=== PATIENT | male | born 1950 | race Two or more races ===

== ENCOUNTER 2016-10-29 07:46 | Inpatient (IN) | payer OTHER ==
[~2016-10-29] VITALS: Ht 170.2 cm; Wt 83.5 kg
[~2016-10-29 07:46] MED LIST: AMLO2.5T78 PO; GLIM1TAB2 PO; LOSA50TA2 PO
[2016-10-29] MEDS ORDERED: ONDANSETRON 4 MG INJ IV STA (08:10)
--- NOTE | 2016-10-29 08:33 | ERD ---
ER Documentation Chief Complaint Date/Time DATE: 10/29/16 TIME: 08:31 Chief Complaint pt bib with c/o hemrroid pain x 3 days HPI 66-year-old male with history of diabetes, leukemia presents with rectal pain for the past 3 weeks, worsening over the last 3 days. Patient reports diffuse pain that starts at the top of the buttocks and goes towards the rectum. Pain is not improving with ibuprofen. He is reported tactile fevers. His leukemia has been treated by chemotherapy in the past, and his primary doctor just told that he has returned and he has not been open to any treatment again. He denies abdominal pain. ROS All systems reviewed and are negative except as per history of present illness. Medications Home Meds Active Scripts Losartan Potassium* (Cozaar*) 50 Mg Tablet, 50 MG PO BID for 30 Days, TAB 3 Refills Prov:SOBIA NUNEZ 11/12/15 Reported Medications Amlodipine Besylate* (Amlodipine Besylate*) 2.5 Mg Tablet, 2.5 MG PO BID, #30 TAB 12/17/15 Glimepiride* (Glimepiride*) 1 Mg Tablet, 1 MG PO 1-2 TIMES DAILY Y for ELEVATED GLUCOSE, TAB 10/16/15 Allergies Allergies: Coded Allergies: No Known Allergy (Unverified , 12/17/15) PMhx/Soc History of Surgery: Yes (tonsilectomy, back fat removal) Anesthesia Reaction: No Hx Neurological Disorder: No Hx Respiratory Disorders: No Hx Cardiac Disorders: Yes (HTN) Hx Psychiatric Problems: Yes (anxiety) Hx Miscellaneous Medical Probl: Yes (AML) Hx Alcohol Use: No Hx Substance Use: No Hx Tobacco Use: No Physical Exam Vitals Vital Signs Date Time Temp Pulse Resp B/P Pulse Ox O2 Delivery O2 Flow Rate FiO2 10/29/16 10:16 73 18 130/73 96 Room Air 10/29/16 07:48 98.3 64 18 129/64 100 Physical Exam General: Well-developed, well-nourished. The patient appears in no acute distress. HEENT: Head is normocephalic, atraumatic. No scleral icterus. Neck: Supple. Nontender. Lungs: Clear to auscultation. Normal air movement. Heart: Regular rate and rhythm. S1 and S2 are normal. No murmurs, gallops, or rubs. Abdomen: Soft, nontender, nondistended. Bowel sounds are normoactive. Rectal: Multiple growths around the rectum, the 1 o'clock position is tender and swollen. It is approximately 3 cm from the rectum. Extremities: No clubbing or cyanosis. Normal pulses. Moving extremities x 4. No weakness. Neurologic: Alert and oriented 3. No focal deficits. Skin: Normal turgor. No rash or lesions. Result Diagram: 10/29/16 0826 10/29/16 0826 Results 24 hrs Laboratory Tests Test 10/29/16 08:26 10/29/16 09:05 White Blood Count 14.410^3/ul Red Blood Count 3.0610^6/ul Hemoglobin 10.4g/dl Hematocrit 29.0% Mean Corpuscular Volume 94.8fl Mean Corpuscular Hemoglobin 34.0pg Mean Corpuscular Hemoglobin Concent 35.9g/dl Red Cell Distribution Width 15.9% Platelet Count 1010^3/UL Mean Platelet Volume 12.1fl Neutrophils % % Segmented Neutrophils % (Manual) 14% Band Neutrophils % (Manual) 8% Lymphocytes % % Lymphocytes % (Manual) 21% Reactive Lymphocytes % (Manual) 3% Monocytes % % Monocytes % (Manual) 2% Eosinophils % % Basophils % % Metamyelocytes % (manual) 1% Myelocytes % (Manual) 1% Promyelocytes % (Manual) 1% Blast Cells % (Manual) 50% Nucleated Red Blood Cells % 0.0/100WBC Neutrophils # (Manual) 2.210^3/ul Band Neutrophils # 1.110^3/ul Absolute Lymphocytes (Manual) 3.010^3/ul Lymphocytes # 10^3/ul Reactive Lymphocytes # 0.410^3/ul Monocytes # 10^3/ul Absolute Monocytes (Manual) 0.210^3/ul Eosinophils # 10^3/ul Basophils # 10^3/ul Metamyelocytes # 0.110^3/ul Myelocytes # 0.110^3/ul Promyelocytes # 010^3/ul Nucleated Red Blood Cells # 10^3/ul Pathologist Review (Hematology) Polychromasia 3+ Anisocytosis 2+ Microcytosis 2+ Path Consult Signing Pathologist RUTH ANN BEE MD Sodium Level 136mmol/L Potassium Level 3.6mmol/L Chloride Level 97mmol/L Carbon Dioxide Level 27mmol/L Anion Gap 16 Blood Urea Nitrogen 15mg/dl Creatinine 1.01mg/dl Glucose Level 183mg/dl Calcium Level 9.6mg/dl Total Bilirubin 0.7mg/dl Direct Bilirubin 0.00mg/dl Indirect Bilirubin 0.7mg/dl Aspartate Amino Transf (AST/SGOT) 19IU/L Alanine Aminotransferase (ALT/SGPT) 30IU/L Alkaline Phosphatase 74IU/L Total Protein 8.1g/dl Albumin 4.3g/dl Globulin 3.80g/dl Albumin/Globulin Ratio 1.13 Urine Color YELLOW Urine Clarity CLEAR Urine pH 6.0 Urine Specific [place] 1.010 Urine Ketones NEGATIVEmg/dL Urine Nitrite NEGATIVEmg/dL Urine Bilirubin NEGATIVEmg/dL Urine Urobilinogen NEGATIVEmg/dL Urine Leukocyte Esterase NEGATIVELeu/ul Urine Microscopic RBC 2/HPF Urine Microscopic WBC 1/HPF Urine Bacteria FEW/HPF Urine Mucus FEW/HPF Urine Hemoglobin 1+mg/dL Urine Glucose NEGATIVEmg/dL Urine Total Protein NEGATIVEmg/dl Current Medications Medications (Trade) Dose Ordered Sig/Zack Route PRN Reason Start Time Stop Time Status Last Admin Dose Admin Morphine Sulfate (morphine) 4 mg ONCE STAT IV 10/29/16 08:10 10/29/16 08:12 DC 10/29/16 09:30 Ondansetron HCl (Zofran Inj) 4 mg ONCE STAT IV 10/29/16 08:10 10/29/16 08:12 DC 10/29/16 08:28 IV Flush 10 ml 10 ml STK-MED ONCE .ROUTE 10/29/16 09:42 10/29/16 09:43 DC Sodium Chloride (NS) 100 ml @ ud STK-MED ONCE .ROUTE 10/29/16 09:42 10/29/16 09:43 DC Iodixanol (Visipaque Locm) 100 ml STK-MED ONCE .ROUTE 10/29/16 09:42 10/29/16 09:43 DC Lidocaine (Xylocaine 1% (Mdv) 20 ml) 20 ml ONCE ONCE SC 10/29/16 10:30 10/29/16 10:31 DC DIAGNOSTIC IMAGING REPORT Patient: GLO SHAW : 1950 Age: 66 Sex: M MR #: [id number] DOS: 10/29/16 0810 Ordering MD: OSITO PIERRE PA-C Location: [facility] Room/Bed: PROCEDURE: CT Abdomen and Pelvis with contrast. CLINICAL INDICATION: Rectal pain TECHNIQUE: CT of the abdomen and pelvis was performed on a multi-detector scanner following the uncomplicated IV administration of 100 cc of Visipaque 320. Coronal and sagittal images were reformatted from the axial data set. One or more of the following dose reduction techniques were used: automated exposure control, adjustment of the mA and/or kV according to patient size, use of iterative reconstruction technique. CTDI = 16.14 mGy. DLP = 1042.78 mGy- cm. COMPARISON: CT, 11/21/2015 FINDINGS: CT abdomen: The lung bases are clear. The heart size is normal, without pericardial effusion. Coronary arterial calcifications are noted. Hepatomegaly (21 cm) and splenomegaly (18 cm) are noted, without evidence of focal mass. Gallbladder , biliary tree, pancreas, adrenal glands and kidneys are unremarkable except for benign renal cysts. There is no urolithiasis or obstructive uropathy. The stomach is grossly unremarkable. There is no abdominal aortic aneurysm or dissection. Aortic vascular calcifications are present. There is no retroperitoneal lymphadenopathy. The roosevelt hepatis region is clear. CT pelvis: Posterior perianal abscess is identified, measuring approximately 2.7 x 2.7 x 3.0 cm (3-193). There is no bowel obstruction, free intraperitoneal air, or evidence of intraperitoneal abscess. The appendix is well visualized and normal. There is no diverticulosis, diverticulitis or colitis. Urinary bladder is grossly unremarkable. Prostate is mildly enlarged. No pelvic mass, free fluid or lymphadenopathy is identified. The surrounding osseous structures are remarkable for degenerative enthesopathy of the spine. No osteolytic or osteoblastic lesion is detected. IMPRESSION: 1. Posterior perianal abscess is identified, measuring approximately 3.0 cm in maximal dimension. 2. Hepatosplenomegaly is again noted - splenic size appears mildly increased when compared to the prior CT. 3. Coronary arterial and aortoiliac atherosclerotic calcifications are present. 4. Prostate is mildly enlarged - correlate with PSA level. RPTAT: AA .Lenny Leggett MD, Date Time Electronically viewed and signed by .Lenny Leggett MD, MD on 10/29/2016 10: 16 .R/ CC: OSITO PIERRE PA-C Procedures/[facility] ED course: Patient had an IV line established, blood was obtained, he was given Zofran 4 mg IV. He was given Zosyn as well as vancomycin for antibacterial coverage per Medical decision m[age]-year-old male comes in with rectal pain for 3 weeks now, presents with a perianal abscess seen on CT scan approximately 3 cm in size. Patient has recurrent AML, with severe thrombocytopenia with platelet level at 10,000. Due to this, and risk of infection, risk of bleeding, I believe that the patient further benefit from hospitalization for IV antibiotics. This was discussed with my attending physician Dr. Neal who agrees. The case was reviewed and discussed with Dr. Neal who agrees with the plan of care including labs, treatment, and advanced imaging as appropriate. Departure Diagnosis: Primary Impression: AML (acute myeloblastic leukemia) Additional Impressions: Perianal abscess Thrombocytopenia Condition: Fair OSITO PIERRE PA-C Oct 29, 2016 08:28
[2016-10-29 08:53] LABS: ABNORMAL IP MESSAGE 1; HEMOGLOBIN 10.4 g/dl (14.0-18.0); MEAN CORPUSCULAR HGB CONC 35.9 g/dl (32.0-37.0); MEAN CORPUSCULAR VOLUME 94.8 fl (82.0-101.0); MEAN PLATELET VOLUME 12.1 fl (7.4-10.4); POSITIVE DIFF @See below; RED BLOOD COUNT 3.06 10^6/ul (4.70-6.10); RED CELL DISTRIBUTION WIDTH 15.9 % (11.5-14.5); WHITE BLOOD COUNT 14.4 10^3/ul (4.8-10.8)
[2016-10-29] MEDS: morphine 4 MG/ML VIAL IV STA ×2 (08:54→09:30)
[2016-10-29 09:03] LABS: PLATELET COUNT 10 10^3/UL (140-415)
[2016-10-29 09:25] LABS: ALBUMIN 4.3 g/dl (3.3-4.9); ALBUMIN/GLOBULIN RATIO 1.13; BILIRUBIN,INDIRECT 0.7 mg/dl (0-1.1); BILIRUBIN,TOTAL 0.7 mg/dl (0.2-1.3); CALCIUM 9.6 mg/dl (8.4-10.2); CREATININE 1.01 mg/dl (0.61-1.24); POTASSIUM 3.6 mmol/L (3.5-5.1); TOTAL PROTEIN 8.1 g/dl (6.1-8.1)
[2016-10-29 09:27] LABS: ADD UMIC YES; UR ASCORBIC ACID NEGATIVE (NEGATIVE); UR BACTERIA FEW /HPF (NONE SEEN); UR BILIRUBIN (Dip) NEGATIVE (NEGATIVE); UR BLOOD (Dip) 1+ mg/dL (NEGATIVE); UR CLARITY CLEAR (CLEAR); UR COLOR YELLOW (YELLOW); UR GLUCOSE (Dip) NEGATIVE (NEGATIVE); UR KETONES (Dip) NEGATIVE (NEGATIVE); UR LEUKOCYTE ESTERASE (Dip) NEGATIVE Leu/ul (NEGATIVE); UR MUCUS FEW /HPF (NONE SEEN); UR NITRITE (Dip) NEGATIVE (NEGATIVE); UR RBC 2 /HPF (0-5); UR TOTAL PROTEIN (Dip) NEGATIVE (NEGATIVE); UR UROBILINOGEN (Dip) NEGATIVE (NEGATIVE)
[2016-10-29] MEDS ORDERED: IODIXANOL LOCM 100 ML BTL ONE (09:42)
[2016-10-29] MEDS ORDERED: SOD CHLORIDE 0.9% 100 ML ONE (09:42)
[2016-10-29 10:10] LABS: ANISOCYTOSIS 2+ (0-0); BLAST% (M) 50 % (0-0); METAMYELOCYTES %M 1 % (0-0); MICROCYTOSIS 2+ (0-0); MONOCYTES % (M) 2 % (0-11); MYELOCYTES % (M) 1 % (0-0); POLYCHROMASIA 3+ (0-0); PROMYELOCYTES #M 0 10^3/ul (0-0); PROMYELOCYTES % (M) 1 % (0-0); REACTIVE LYMPHOCYTES% (M) 3 % (0-0)
--- NOTE | 2016-10-29 10:17 | RADRPT ---
PROCEDURE: CT Abdomen and Pelvis with contrast. CLINICAL INDICATION: Rectal pain TECHNIQUE: CT of the abdomen and pelvis was performed on a multi-detector scanner following the un complicated IV administration of 100 cc of Visipaque 320. Coronal and sagittal images were reformat jose from the axial data set. One or more of the following dose reduction techniques were used: auto mated exposure control, adjustment of the mA and/or kV according to patient size, use of iterative reconstruction technique. CTDI = 16.14 mGy. DLP = 1042.78 mGy-cm. COMPARISON: CT, 11/21/2015 FINDINGS: CT abdomen: The lung bases are clear. The heart size is normal, without pericardial effusion. Coronary arteria l calcifications are noted. Hepatomegaly (21 cm) and splenomegaly (18 cm) are noted, without eviden ce of focal mass. Gallbladder, biliary tree, pancreas, adrenal glands and kidneys are unremarkable except for benign renal cysts. There is no urolithiasis or obstructive uropathy. The stomach is gr ossly unremarkable. There is no abdominal aortic aneurysm or dissection. Aortic vascular calcifications are present. T here is no retroperitoneal lymphadenopathy. The roosevelt hepatis region is clear. CT pelvis: Posterior perianal abscess is identified, measuring approximately 2.7 x 2.7 x 3.0 cm (3-193). There is no bowel obstruction, free intraperitoneal air, or evidence of intraperitoneal abscess. The roger endix is well visualized and normal. There is no diverticulosis, diverticulitis or colitis. Urinar y bladder is grossly unremarkable. Prostate is mildly enlarged. No pelvic mass, free fluid or lymp hadenopathy is identified. The surrounding osseous structures are remarkable for degenerative enthesopathy of the spine. No os teolytic or osteoblastic lesion is detected. IMPRESSION: 1. Posterior perianal abscess is identified, measuring approximately 3.0 cm in maximal dimension. 2. Hepatosplenomegaly is again noted - splenic size appears mildly increased when compared to the p rior CT. 3. Coronary arterial and aortoiliac atherosclerotic calcifications are present. 4. Prostate is mildly enlarged - correlate with PSA level. RPTAT: AA .Lenny Leggett MD, MD Date Time Electronically viewed and signed by .Lenny Leggett MD, on 10/29/2016 10:16 .R/
[2016-10-29] MEDS: LIDOCAINE 1% (MDV) 20 ML INJ SC ONE ×2 (10:30→10:31)
[2016-10-29] MEDS ORDERED: PIPER-TAZO 3.375 GM IV (PMX) 100 ML IVPB ONE (11:00)
[2016-10-29] MEDS ORDERED: VANCOMYCIN 1 GM (PMX) 250 ML IVPB ONE (11:00)
[2016-10-29 11:08] LABS: INR 1.07; PROTIME 13.9 Sec (12.2-14.2); PT RATIO 1.1
[2016-10-29 11:09] LABS: PARTIAL THROMBOPLASTIN TIME 29.9 Sec (25.0-35.0)
[2016-10-29] MEDS ORDERED: ACETAMINOPHEN 325 MG TAB PO PRN (12:00)
[2016-10-29] MEDS ORDERED: ONDANSETRON 4 MG INJ IV PRN ×2 (12:00→15:00)
[2016-10-29] MEDS ORDERED: NACL 0.9% 3 ML SYG IV SCH (15:00)
[2016-10-29] MEDS ORDERED: HYDROCODONE/APAP (5/325) TAB PO PRN ×2 (15:00)
[2016-10-29] MEDS ORDERED: MAGNESIUM HYDROXIDE 30ML CUP PO PRN (15:00)
[2016-10-29] MEDS ORDERED: VANCOMYCIN IV PER PHARMACY XX SCH (15:00)
[2016-10-29] MEDS ORDERED: morphine 2 MG INJ IV PRN (15:00)
[2016-10-29] MEDS ORDERED: GLUCOSE GEL 15 GRAM TUBE PO PRN ×2 (15:30)
[2016-10-29] MEDS ORDERED: morphine 2 MG INJ IV ONE (15:30)
[2016-10-29] MEDS ORDERED: GLUCOSE GEL 15 GRAM TUBE BUCCAL PRN (15:30)
[2016-10-29] MEDS ORDERED: DEXTROSE 50% 50 ML SYRINGE IV PRN ×2 (15:30)
[2016-10-29] MEDS ORDERED: GLUCAGON 1 MG INJ IM PRN (15:30)
[2016-10-29] MEDS ORDERED: morphine 2 MG INJ ONE (15:34)
[2016-10-29 15:37] VITALS: TEMP 99
--- NOTE | 2016-10-29 15:47 | HP ---
Date/Time of Note Date/Time of Note DATE: 10/29/16 TIME: 15:34 Assessment/Plan VTE Prophylaxis VTE Prophylaxis Intervention: contraindicated VTE Contraindication Reason: thrombocytopenia Assessment/Plan Assessment/Plan 66-year-old male with: 1. Posterior perianal abscess, approximately 3 cm on CAT scan. Patient currently febrile, he is also immunosuppressed due to recurrence of AML with blast crisis currently and severe thrombocytopenia Blood cultures already drawn in ED, broad-spectrum antibiotics vancomycin and Zosyn on board. From the medical standpoint, patient may proceed with incision and drainage tomorrow, he is at low cardiovascular risk as he does not have a history of CAD , hypertension is well controlled, no history of pulmonary disease. Chest x- ray and EKG have been ordered for preop, but patient may proceed with OR in a.m. from the medical standpoint. Discussed with Dr. Tovar, patient to be n.p.o. after midnight for incision and drainage of the abscess in a.m., per Dr. Tovar patient to have platelet ready for OR, he will have platelet infused perioperatively. 2. Acute myelogenous leukemia, recurrence of the disease currently, 50% blasts on peripheral smear and severe thrombocytopenia with platelets of 10. Dr Herrera, his oncologist has been notified, patient reports that he was already told by Dr. Herrera 2 weeks ago and asked the patient to come to the hospital for chemotherapy, patient has declined so far. Platelet transfusions as needed, broad-spectrum antibiotics for current infection Further recommendations per Dr. Herrera 3. Hypertension: Continue home medication as tolerated. 4. Diabetes mellitus, hold off glimepiride, sliding scale insulin while inpatient. Check hemoglobin A1c 5. Anxiety disorder: Patient can be difficult at times due to anxiety and sometimes claustrophobia, we will order Xanax as needed for anxiety. Prophylaxis: Protonix for GI prophylaxis, with severe thrombocytopenia SCDs and pharmacological prophylaxis are contraindicated. Disposition: Appreciate surgical consult from Dr. Tovar, patient to go to the OR in a.m. for incision and drainage of perianal abscess. He will get platelets perioperatively, chest x-ray and EKG will be done preop but from the medical standpoint the patient can proceed with the procedure in AM. Oncology consult pending, IV fluids, broad-spectrum IV antibiotics, close monitoring. N.p.o. after midnight. HPI/ROS Admit Date/Time Admit Date/Time Oct 29, 2016 at 11:54 Hx of Present Illness Chief complaint: Fevers, perianal pain History of presenting: This is a 66-year-old male with known history of AML has been in remission until recently, hemorrhoids with new onset of nel-anal/ rectal pain. Patient reports that over the past 3 weeks he noted that he is "hemorrhoids" were acting up with some mild pain, however starting 3 days ago he started having severe perianal and rectal pain. He also had constipation around that time. He reports low-grade temperatures at home over the past 3 days. Decreased appetite he only eats fruits. No chills, no nausea, no vomiting, no cardiopulmonary complaints. He was told by his oncologist 2 weeks ago that his AML was recurring. Patient has declined treatment so far. Today in the emergency department he was found to have white blood cell count of 14 with 50% blasts and a platelet count of 10 therefore ER physician could not do an I&D of the perianal abscess that was seen on CT, patient is admitted for surgical evaluation, platelet transfusion for procedure and oncology reevaluation. He has been febrile in the emergency department up to 102. Blood cultures are pending. He was started on vancomycin and Zosyn. I will type and cross for transfusion of [address] Tovar from surgery consulted. ROS Constitutional: febrile (Low-grade temperature) Respiratory: no complaints Cardiovascular: no complaints Gastrointestinal: other (Perianal, rectal pain) Genitourinary: no complaints Musculoskeletal: no complaints Skin: other (Perianal abscess) Neurologic: no complaints Endocrine: no complaints Psychological: no complaints PMH/Family/Social Past Medical History Hypertension Diabetes mellitus Gastritis Anxiety disorder AML status post 2 previous chemotherapy treatment more or less a year ago, with recurrence currently, apparently the patient was told by his primary that he is cancer was back and today on peripheral smear he does have 50% blasts along with severe thrombocytopenia. Medical History: cancer, diabetes, hypertension Past Surgical History 1. Status post upper back lipoma removal 6 years ago. 2. Status post ingrown hair removal 40 years ago in his low back. 3. Status post bone marrow biopsies about a year ago as part of his diagnosis and treatment of AML. Social History Alcohol Use: occasionally (wine ) Smoking Status: Former smoker (Quit 35 years ago) Drug Use: none Exam/Review of Systems Vital Signs Vitals Vital Signs Date Time Temp Pulse Resp B/P Pulse Ox O2 Delivery O2 Flow Rate FiO2 10/29/16 14:44 102.5 95 24 129/56 99 Room Air Exam Constitutional: alert, oriented, well developed Psych: no complaints Respiratory: clear to auscultation, normal air movement Cardiovascular: nl pulses, regular rate and rhythm Gastrointestinal: other (Perianal tenderness), soft Musculoskeletal: nl extremities to inspection, nl gait and stance Extremities: normal pulses, other (No edema, clubbing or cyanosis) Neurological: RN FIRST ASSIST II-XII intact, nl mental status, nl speech, nl strength Skin: other (No petechia seen), rash or lesions Labs Result Diagram: 10/29/1682510/29/16825 Medications Medications Current Medications Amlodipine Besylate (Norvasc) 2.5 mg BID PO ; Start 10/29/16 at 21:00 Losartan Potassium 50 mg 50 mg BID PO ; Start 10/29/16 at 21:00 Piperacillin Sod/ Tazobactam Sod 100 ml @ 200 mls/hr Q6 IVPB ; Start 10/29/16 at 16:30 Sodium Chloride (NS) 1,000 ml @ 100 mls/hr Q10H IV ; Start 10/29/16 at 14:56 Ondansetron HCl (Zofran Inj) 4 mg Q6H PRN IV NAUSEA AND/OR VOMITING; Start at 15:00 Acetaminophen (Tylenol Tab) 650 mg Q6H PRN PO PAIN LEVEL 1-3 OR FEVER; Start at 15:00 Acetaminophen/ Hydrocodone Bitart ([place] (5/325)) 1 tab Q6H PRN PO MODERATE PAIN LEVEL 4-6; Start 10/29/16 at 15:00 Acetaminophen/ Hydrocodone Bitart ([place] (5/325)) 2 tab Q6H PRN PO SEVERE PAIN LEVEL 7-10; Start 10/29/16 at 15:00 Morphine Sulfate (morphine) 2 mg Q4H PRN IV SEVERE PAIN LEVEL 7-10; Start 10/29 at 15:00 Docusate Sodium (Colace) 100 mg Q12H PRN PO CONSTIPATION; Start 10/29/16 at 15: 00 Magnesium Hydroxide (Milk Of Mag) 30 ml DAILY PRN PO CONSTIPATION; Start at 15:00 Pantoprazole (Protonix Tab) 40 mg DAILY@06 PO ; Start 10/30/16 at 06:00 Diagnostic Test (Pha) (Accu-Chek) 1 ea 02 XX ; Start 10/30/16 at 02:00 Miscellaneous Information 1 ea NOTE XX ; Start 10/29/16 at 15:30 Glucose (Glutose) 15 gm Q15M PRN PO DECREASED GLUCOSE; Start 10/29/16 at 15:30 Glucose (Glutose) 22.5 gm Q15M PRN PO DECREASED GLUCOSE; Start 10/29/16 at 15: 30 Dextrose (D50w Syringe) 25 ml Q15M PRN IV DECREASED GLUCOSE; Start 10/29/16 at 15:30 Dextrose (D50w Syringe) 50 ml Q15M PRN IV DECREASED GLUCOSE; Start 10/29/16 at 15:30 Glucagon (Glucagen) 1 mg Q15M PRN IM DECREASED GLUCOSE; Start 10/29/16 at 15:30 Glucose (Glutose) 15 gm Q15M PRN BUCCAL DECREASED GLUCOSE; Start 10/29/16 at 15 :30 Procedures Procedures PROCEDURE: CT Abdomen and Pelvis with contrast. CLINICAL INDICATION: Rectal pain TECHNIQUE: CT of the abdomen and pelvis was performed on a multi-detector scanner following the uncomplicated IV administration of 100 cc of Visipaque 320. Coronal and sagittal images were reformatted from the axial data set. One or more of the following dose reduction techniques were used: automated exposure control, adjustment of the mA and/or kV according to patient size, use of iterative reconstruction technique. CTDI = 16.14 mGy. DLP = 1042.78 mGy- cm. COMPARISON: CT, 11/21/2015 FINDINGS: CT abdomen: The lung bases are clear. The heart size is normal, without pericardial effusion. Coronary arterial calcifications are noted. Hepatomegaly (21 cm) and splenomegaly (18 cm) are noted, without evidence of focal mass. Gallbladder , biliary tree, pancreas, adrenal glands and kidneys are unremarkable except for benign renal cysts. There is no urolithiasis or obstructive uropathy. The stomach is grossly unremarkable. There is no abdominal aortic aneurysm or dissection. Aortic vascular calcifications are present. There is no retroperitoneal lymphadenopathy. The roosevelt hepatis region is clear. CT pelvis: Posterior perianal abscess is identified, measuring approximately 2.7 x 2.7 x 3.0 cm (3-193). There is no bowel obstruction, free intraperitoneal air, or evidence of intraperitoneal abscess. The appendix is well visualized and normal. There is no diverticulosis, diverticulitis or colitis. Urinary bladder is grossly unremarkable. Prostate is mildly enlarged. No pelvic mass, free fluid or lymphadenopathy is identified. The surrounding osseous structures are remarkable for degenerative enthesopathy of the spine. No osteolytic or osteoblastic lesion is detected. IMPRESSION: 1. Posterior perianal abscess is identified, measuring approximately 3.0 cm in maximal dimension. 2. Hepatosplenomegaly is again noted - splenic size appears mildly increased when compared to the prior CT. 3. Coronary arterial and aortoiliac atherosclerotic calcifications are present. 4. Prostate is mildly enlarged - correlate with PSA level. RPTAT: AA .Lenny Leggett MD, MD Date Time Electronically viewed and signed by .Lenny Leggett MD, on 10/29/2016 10: 16 SOBIA NUNEZ Oct 29, 2016 15:46
[2016-10-29] MEDS ORDERED: SOD CHLORIDE 0.9% 250 ML IV* ONE (15:49)
[2016-10-29 16:00] VITALS: Ht 170.2 cm; Wt 83.5 kg
[2016-10-29] MEDS ORDERED: ALPRAZOLAM 0.25 MG TAB PO PRN (16:00)
[2016-10-29 16:34] VITALS: BP 142/75; RESP 18
[2016-10-29] MEDS ORDERED: VANCOMYCIN 750 MG in SOD CHLORIDE 0.9% 150 ML IVPB ONE (17:00)
--- NOTE | 2016-10-29 17:13 | RADRPT ---
Vent Rate: 89 bpm RR Interval: 0 msec ND Interval: 174 msec QRS Duration: 90 msec QT Interval: 352 msec QTC Interval: 428 msec P-R-T [place]: 70 - 70 - 43 degrees Normal sinus rhythm Nonspecific ST abnormality Abnormal ECG Electronically Signed By: Ruslan Mills [id number]
[2016-10-29] MEDS: SOD CHLORIDE 0.9% 1,000 ML IV SCH (18:19)
[2016-10-29] MEDS: PIPER-TAZO 3.375 GM IV (PMX) 100 ML IVPB SCH (18:19)
[2016-10-29] MEDS: ACETAMINOPHEN 325 MG TAB PO PRN (19:02)
[2016-10-29 19:25] VITALS: BP 138/86; RESP 20
[2016-10-29] MEDS: morphine 4 MG/ML VIAL IV PRN (19:59)
[2016-10-29 20:27] VITALS: BP 132/78; PULSE 98; RESP 18
[2016-10-29] MEDS: LOSARTAN 50 MG TAB PO SCH (21:00)
[2016-10-29] MEDS: AMLODIPINE 2.5 MG TAB PO SCH (21:00)
[2016-10-29] MEDS: INSULIN ASPART [NOVOLOG] 3 ML PEN SC SCH (21:00)
--- NOTE | 2016-10-29 21:43 | CONS ---
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 -He would most likely need a bone marrow transplant. #Perirectal Abscess -pt is to have I and D tomorrow -Agree with broad spectrum antbiotics #Thrombocytopenia. platelet of 10 -pt will have platelet transfusion prior to and during I & D # fevers in setting of functional neutropenia -continue broad spectrum antibiotics. f/u blood and urine cultures. Approximately 40 min were spent at patient's bedside and in coordination of his care Problems: (1) Perianal abscess Status: Acute (2) Thrombocytopenia Status: Chronic (3) AML (acute myeloblastic leukemia) Status: Acute Qualifiers: Qualified Code: C92.00 - Acute myeloid leukemia not having achieved remission Consultation Date/Type/Reason Admit Date/Time Oct 29, 2016 at 11:54 Date of Consultation: Oct 29, 2016 Type of Consultation: Hematology Reason for Consultation AML Referring Provider: SOBIA NUNEZ of Present Illness 65 yo with good risk AML first diagnosed October 2015. His AML characteristic include (8;21) translocation, 50% bone marrow involvement. Patient presented with leukemic infiltration into the skin of left shoulder s/p induction chemo with 7+3 (idarubicin + cytarabine), chemotherapy started on 10/22/15. Patient's molecular markers including FLT3, NPM1 and CEBPA are all negative. Patient went on to receive induction chemotherapy and 1 round of consolidation with High Dose ARAC completed December 2015. Pt did not complete his 3 remaining cycle of consolidation and refused further chemotherapy. He was told his leukemia would most likely come back. Pt has been getting monthly CBC's in our office. 2 weeks ago his platelets were noted to have started dropping and he has blasts in his peripheral blood. Pt was told his AML was back but he did not want chemotherapy or start induction treatment again. He now presents with a painful perirectal abscess in the setting of thrombocytopenia (platelet of 10) and florid relapsed AML. Constitutional: poor po Respiratory: no complaints Cardiovascular: no complaints Gastrointestinal: no complaints, other (Perianal, rectal pain), pain (rectal pain) Genitourinary: no complaints Musculoskeletal: bone/joint pain, no complaints Skin: other (Perianal abscess) Neurologic: no complaints Psychological: no complaints Past Medical History 1. New diagnosis of acute myelogenous leukemia. 2. Diabetes mellitus. 3. Hypertension. 4. Anxiety disorder. 5. Gastritis. 6. Hemorrhoids. Medical History: cancer, diabetes, hypertension Past Surgical History PAST SURGICAL HISTORY: 1. Status post upper back lipoma removal 6 years ago. 2. Status post ingrown hair removal 40 years ago on his lower back. Family History Significant Family History: no pertinent family hx Social History Alcohol Use: occasionally (wine ) Smoking Status: Former smoker Drug Use: none Exam/Review of Systems Vital Signs Vitals Vital Signs Date Time Temp Pulse Resp B/P Pulse Ox O2 Delivery O2 Flow Rate FiO2 10/29/16 20:27 100.0 98 18 132/78 97 Room Air Exam Constitutional: alert, distress, oriented Psych: anxiety, depression Head: normocephalic Eyes: nl conjunctiva ENMT: nl external ears & nose Neck: supple Respiratory: clear to auscultation Cardiovascular: regular rate and rhythm Gastrointestinal: soft Musculoskeletal: nl extremities to inspection Extremities: normal pulses Results Result Diagram: 10/29/16 0810/29/16 0826 Results 24 hrs Laboratory Tests Test 10/29/16 08:26 10/29/16 09:05 10/29/16 19:01 10/29/16 20:58 White Blood Count 14.4 #H Red Blood Count 3.06 L Hemoglobin 10.4 L Hematocrit 29.0 L Mean Corpuscular Volume 94.8 Mean Corpuscular Hemoglobin 34.0 H Mean Corpuscular Hemoglobin Concent 35.9 Red Cell Distribution Width 15.9 H Platelet Count 10 *L Mean Platelet Volume 12.1 #H Neutrophils % Segmented Neutrophils % (Manual) 14 L Band Neutrophils % (Manual) 8 H Lymphocytes % Lymphocytes % (Manual) 21 Reactive Lymphocytes % (Manual) 3 H Monocytes % Monocytes % (Manual) 2 Eosinophils % Basophils % Metamyelocytes % (manual) 1 H Myelocytes % (Manual) 1 H Promyelocytes % (Manual) 1 H Blast Cells % (Manual) 50 H Nucleated Red Blood Cells % 0.0 Neutrophils # (Manual) 2.2 Band Neutrophils # 1.1 H Absolute Lymphocytes (Manual) 3.0 H Lymphocytes # Reactive Lymphocytes # 0.4 H Monocytes # Absolute Monocytes (Manual) 0.2 L Eosinophils # Basophils # Metamyelocytes # 0.1 H Myelocytes # 0.1 H Promyelocytes # 0 Nucleated Red Blood Cells # Pathologist Review (Hematology) Polychromasia 3+ Anisocytosis 2+ Microcytosis 2+ Prothrombin Time 13.9 Prothrombin Time Ratio 1.1 INR International Normalized Ratio 1.07 Activated Partial Thromboplast Time 29.9 Path Consult Signing Pathologist RUTH ANN BEE MD Sodium Level 136 Potassium Level 3.6 Chloride Level 97 Carbon Dioxide Level 27 Anion Gap 16 Blood Urea Nitrogen 15 Creatinine 1.01 Glucose Level 183 Calcium Level 9.6 Total Bilirubin 0.7 Direct Bilirubin 0.00 Indirect Bilirubin 0.7 Aspartate Amino Transf (AST/SGOT) 19 Alanine Aminotransferase (ALT/SGPT) 30 Alkaline Phosphatase 74 Total Protein 8.1 Albumin 4.3 Globulin 3.80 H Albumin/Globulin Ratio 1.13 Urine Color YELLOW Urine Clarity CLEAR Urine pH 6.0 Urine Specific [place] 1.010 Urine Ketones NEGATIVE Urine Nitrite NEGATIVE Urine Bilirubin NEGATIVE Urine Urobilinogen NEGATIVE Urine Leukocyte Esterase NEGATIVE Urine Microscopic RBC 2 Urine Microscopic WBC 1 Urine Bacteria FEW A Urine Mucus FEW A Urine Hemoglobin 1+ H Urine Glucose NEGATIVE Urine Total Protein NEGATIVE Bedside Glucose 212 169 Medications Medications Current Medications Amlodipine Besylate (Norvasc) 2.5 mg BID PO Last administered on 10/29/16 21: 00; Admin Dose 2.5 MG; Start 10/29/16 at 21:00 Losartan Potassium 50 mg 50 mg BID PO Last administered on 10/29/16 21:00; Admin Dose 50 MG; Start 10/29/16 at 21:00 Piperacillin Sod/ Tazobactam Sod 100 ml @ 200 mls/hr Q6 IVPB Last administered on 10/29/16 18:19; Admin Dose 200 MLS/HR; Start 10/29/16 at 16:30 Sodium Chloride (NS) 1,000 ml @ 100 mls/hr Q10H IV Last administered on 18:19; Admin Dose 100 MLS/HR; Start 10/29/16 at 14:56 Ondansetron HCl (Zofran Inj) 4 mg Q6H PRN IV NAUSEA AND/OR VOMITING; Start at 15:00 Acetaminophen (Tylenol Tab) 650 mg Q6H PRN PO PAIN LEVEL 1-3 OR FEVER Last administered on 10/29/16t 19:02; Admin Dose 650 MG; Start 10/29/16 at 15:00 Acetaminophen/ Hydrocodone Bitart ([place] (5/325)) 1 tab Q6H PRN PO MODERATE PAIN LEVEL 4-6; Start 10/29/16 at 15:00 Acetaminophen/ Hydrocodone Bitart ([place] (5/325)) 2 tab Q6H PRN PO SEVERE PAIN LEVEL 7-10; Start 10/29/16 at 15:00 Docusate Sodium (Colace) 100 mg Q12H PRN PO CONSTIPATION; Start 10/29/16 at 15: 00 Magnesium Hydroxide (Milk Of Mag) 30 ml DAILY PRN PO CONSTIPATION; Start at 15:00 Pantoprazole (Protonix Tab) 40 mg DAILY@06 PO ; Start 10/30/16 at 06:00 Diagnostic Test (Pha) (Accu-Chek) 1 ea 02 XX ; Start 10/30/16 at 02:00 Miscellaneous Information 1 ea NOTE XX ; Start 10/29/16 at 15:30 Glucose (Glutose) 15 gm Q15M PRN PO DECREASED GLUCOSE; Start 10/29/16 at 15:30 Glucose (Glutose) 22.5 gm Q15M PRN PO DECREASED GLUCOSE; Start 10/29/16 at 15: 30 Dextrose (D50w Syringe) 25 ml Q15M PRN IV DECREASED GLUCOSE; Start 10/29/16 at 15:30 Dextrose (D50w Syringe) 50 ml Q15M PRN IV DECREASED GLUCOSE; Start 10/29/16 at 15:30 Glucagon (Glucagen) 1 mg Q15M PRN IM DECREASED GLUCOSE; Start 10/29/16 at 15:30 Glucose 15 gm 15 gm Q15M PRN BUCCAL DECREASED GLUCOSE; Start 10/29/16 at 15:30 Vancomycin HCl/ Sodium Chloride (Vancocin/NS) 250 ml @ 83.333 mls/ hr Q24H IVPB ; Start 10/30/16 at 09:00 Alprazolam (Xanax) 0.25 mg Q8H PRN PO ANXIETY; Start 10/29/16 at 16:00 Morphine Sulfate (morphine) 3 mg Q2H PRN IV PAIN Last administered on t 19:59; Admin Dose 3 MG; Start 10/29/16 at 20:00 CALEB CERON M.D. Oct 29, 2016 21:41
[2016-10-30] VITALS (12 sets, daily range): BP systolic 92–130; BP diastolic 55–78; PULSE 94–103; RESP 14–18
[2016-10-30] MEDS: SOD CHLORIDE 0.9% 1,000 ML IV SCH ×3 (00:56→20:43)
[2016-10-30] MEDS: ACCU-CHEK XX SCH (02:00)
--- NOTE | 2016-10-30 04:25 | RADRPT ---
PROCEDURE: XR Chest. CLINICAL INDICATION: Preoperative chest radiograph. TECHNIQUE: Single frontal view of the chest. COMPARISON: Chest dated 12/17/2015. FINDINGS: Cardiomegaly. Mild bibasilar atelectasis, left greater than right. Mild hypoinflation of the bilate ral lungs. Otherwise, the lungs are substantially clear. No signs of pleural fluid or pneumothorax are seen. The osseous structures and soft tissues are unremarkable. IMPRESSION: Cardiomegaly with mild bibasilar atelectasis, left greater than right. RPTAT: [facility] Physician Angelita Date Time Electronically viewed and signed by Physician Angelita on 10/30/2016 03:29 RS/
[2016-10-30 05:37] LABS: ABNORMAL IP MESSAGE 1; HEMATOCRIT 26.7 % (42.0-52.0); HEMOGLOBIN 9.4 g/dl (14.0-18.0); MEAN CORPUSCULAR HEMOGLOBIN 33.9 pg (29.0-33.0); MEAN CORPUSCULAR HGB CONC 35.2 g/dl (32.0-37.0); MEAN CORPUSCULAR VOLUME 96.4 fl (82.0-101.0); MEAN PLATELET VOLUME 13.1 fl (7.4-10.4); POSITIVE DIFF @See below; RED BLOOD COUNT 2.77 10^6/ul (4.70-6.10); RED CELL DISTRIBUTION WIDTH 16.5 % (11.5-14.5); WHITE BLOOD COUNT 22.9 10^3/ul (4.8-10.8)
[2016-10-30 05:47] LABS: ALBUMIN 3.8 g/dl (3.3-4.9); ALBUMIN/GLOBULIN RATIO 1.08; BILIRUBIN,INDIRECT 1.1 mg/dl (0-1.1); BILIRUBIN,TOTAL 1.1 mg/dl (0.2-1.3); CALCIUM 9.1 mg/dl (8.4-10.2); CREATININE 1.27 mg/dl (0.61-1.24); MAGNESIUM 2.1 mg/dl (1.7-2.5); POTASSIUM 3.7 mmol/L (3.5-5.1); TOTAL PROTEIN 7.3 g/dl (6.1-8.1)
[2016-10-30] MEDS: PIPER-TAZO 3.375 GM IV (PMX) 100 ML IVPB SCH ×4 (06:20→18:09)
[2016-10-30] MEDS: morphine 4 MG/ML VIAL IV PRN ×2 (06:44→07:08)
[2016-10-30] MEDS: PANTOPRAZOLE (EC) 40 MG TAB PO SCH (06:53)
[2016-10-30 07:18] LABS: PLATELET COUNT 11 10^3/UL (140-415)
[2016-10-30] MEDS: INSULIN ASPART [NOVOLOG] 3 ML PEN SC SCH ×4 (07:50→20:42)
[2016-10-30] MEDS ORDERED: VANCOMYCIN 1.5 GM in SOD CHLORIDE 0.9% 250 ML IVPB SCH (09:00)
--- NOTE | 2016-10-30 09:52 | CONS ---
Date/Time of Note Date/Time of Note DATE: 10/30/16 TIME: 09:43 Assessment/Plan Assessment/Plan Additional Assessment/Plan Perianal abscess Plan: Patient will require incision and drainage. Platelets have been ordered and are being processed and when available be transported from [place]. The problem is that the patient has worsening leukocytosis and pain. I believe it is feasible to do incision and drainage with IV sedation and local anesthesia with epinephrine, to at least stop the progression of this abscess. The options of doing the procedure now with local anesthesia without waiting for platelets versus waiting for platelet availability and doing surgery then have both been discussed in detail with the patient and . As we do not have a clear idea as to the timing of the availability of platelets I feel it is important to drain this in a minimally invasive fashion Consultation Date/Type/Reason Admit Date/Time Oct 29, 2016 at 11:54 Date of Consultation: Oct 30, 2016 Reason for Consultation Perianal abscess The patient is a 66-year-old gentleman who has known AML and thrombocytopenia. His last chemotherapy was in December 2015, however since then he has refused any further treatment. He presents to the emergency room with 2 days of increasing perianal pain. CT scan is compatible with a 3 cm perianal abscess. He has been admitted and has received antibiotics overnight. Despite this his leukocytosis has worsened and his pain is increased. Platelet packs have been ordered but are not yet available at the time of this dictation. He has had no fevers, chills or systemic symptoms. Patient is aware that he has what has been described as a florid relapse of his AML and most likely will require bone marrow transplantation Constitutional: other (Increased perianal pain), poor po Eyes: no complaints ENT: no complaints Respiratory: no complaints Cardiovascular: edema, no complaints Gastrointestinal: no complaints, other (Perianal, rectal pain), pain (rectal pain) Genitourinary: no complaints Musculoskeletal: bone/joint pain, no complaints Skin: other (Perianal abscess) Neurologic: no complaints Lymphatic: no complaints Psychological: anxiety, depression Immunologic: no complaints Past Medical History Medical History: cancer, diabetes, hypertension Past Surgical History Past Surgical Hx: no surgical history Family History Significant Family History: no pertinent family hx Social History Alcohol Use: occasionally (wine ) Smoking Status: Former smoker Drug Use: none Exam/Review of Systems Vital Signs Vitals Vital Signs Date Time Temp Pulse Resp B/P Pulse Ox O2 Delivery O2 Flow Rate FiO2 10/30/16 08:00 98.2 98 18 111/75 94 Room Air Intake and Output 10/29/16 10/29/16 10/30/16 15:00 23:00 07:00 Intake Total 450 ml 1100 ml Output Total 200 ml 400 ml Balance 250 ml 700 ml Exam Constitutional: alert, oriented Psych: no complaints Head: normocephalic Eyes: nl conjunctiva ENMT: nl external ears & nose Neck: supple Respiratory: clear to auscultation Cardiovascular: regular rate and rhythm Gastrointestinal: soft Genitourinary - Male: other (Is a 3 cm right perianal area of induration and erythema) Musculoskeletal: nl extremities to inspection Extremities: normal pulses Results Result Diagram: 10/30/16 0415 10/30/16 0425 Results 24 hrs Laboratory Tests Test 10/29/16 19:01 10/29/16 20:58 10/30/16 04:15 10/30/16 04:25 Bedside Glucose 212 169 White Blood Count 22.9 #H Red Blood Count 2.77 L Hemoglobin 9.4 L Hematocrit 26.7 L Mean Corpuscular Volume 96.4 Mean Corpuscular Hemoglobin 33.9 H Mean Corpuscular Hemoglobin Concent 35.2 Red Cell Distribution Width 16.5 H Platelet Count 11 *L Mean Platelet Volume 13.1 H Neutrophils % Lymphocytes % Monocytes % Eosinophils % Basophils % Nucleated Red Blood Cells % 0.0 Neutrophils # (Manual) 3.6 Lymphocytes # Monocytes # Eosinophils # Basophils # Nucleated Red Blood Cells # Hemoglobin A1c 6.7 H Sodium Level 137 Potassium Level 3.7 Chloride Level 98 Carbon Dioxide Level 25 Anion Gap 18 H Blood Urea Nitrogen 13 Creatinine 1.27 H Glucose Level 178 Calcium Level 9.1 Phosphorus Level 4.0 Magnesium Level 2.1 Total Bilirubin 1.1 Direct Bilirubin 0.00 Indirect Bilirubin 1.1 Aspartate Amino Transf (AST/SGOT) 16 Alanine Aminotransferase (ALT/SGPT) 29 Alkaline Phosphatase 64 Total Protein 7.3 Albumin 3.8 Globulin 3.50 H Albumin/Globulin Ratio 1.08 Medications Medications Current Medications Amlodipine Besylate (Norvasc) 2.5 mg BID PO Last administered on 10/29/16t 21: 00; Admin Dose 2.5 MG; Start 10/29/16 at 21:00 Losartan Potassium 50 mg 50 mg BID PO Last administered on 10/29/16 21:00; Admin Dose 50 MG; Start 10/29/16 at 21:00 Piperacillin Sod/ Tazobactam Sod 100 ml @ 200 mls/hr Q6 IVPB Last administered on 10/30/16 06:52; Admin Dose 200 MLS/HR; Start 10/29/16 at 16:30 Sodium Chloride (NS) 1,000 ml @ 100 mls/hr Q10H IV Last administered on 00:56; Admin Dose 100 MLS/HR; Start 10/29/16 at 14:56 Ondansetron HCl (Zofran Inj) 4 mg Q6H PRN IV NAUSEA AND/OR VOMITING; Start at 15:00 Acetaminophen (Tylenol Tab) 650 mg Q6H PRN PO PAIN LEVEL 1-3 OR FEVER Last administered on 10/29/16 19:02; Admin Dose 650 MG; Start 10/29/16 at 15:00 Acetaminophen/ Hydrocodone Bitart ([place] (5/325)) 1 tab Q6H PRN PO MODERATE PAIN LEVEL 4-6; Start 10/29/16 at 15:00 Acetaminophen/ Hydrocodone Bitart ([place] (5/325)) 2 tab Q6H PRN PO SEVERE PAIN LEVEL 7-10; Start 10/29/16 at 15:00 Docusate Sodium (Colace) 100 mg Q12H PRN PO CONSTIPATION; Start 10/29/16 at 15: 00 Magnesium Hydroxide (Milk Of Mag) 30 ml DAILY PRN PO CONSTIPATION; Start at 15:00 Pantoprazole (Protonix Tab) 40 mg DAILY@06 PO Last administered on 10/30/16 06 :53; Admin Dose 40 MG; Start 10/30/16 at 06:00 Diagnostic Test (Pha) (Accu-Chek) 1 ea 02 XX Last administered on 10/30/16 02: 00; Admin Dose 1 EA; Start 10/30/16 at 02:00 Miscellaneous Information 1 ea NOTE XX ; Start 10/29/16 at 15:30 Glucose (Glutose) 15 gm Q15M PRN PO DECREASED GLUCOSE; Start 10/29/16 at 15:30 Glucose (Glutose) 22.5 gm Q15M PRN PO DECREASED GLUCOSE; Start 10/29/16 at 15: 30 Dextrose (D50w Syringe) 25 ml Q15M PRN IV DECREASED GLUCOSE; Start 10/29/16 at 15:30 Dextrose (D50w Syringe) 50 ml Q15M PRN IV DECREASED GLUCOSE; Start 10/29/16 at 15:30 Glucagon (Glucagen) 1 mg Q15M PRN IM DECREASED GLUCOSE; Start 10/29/16 at 15:30 Glucose 15 gm 15 gm Q15M PRN BUCCAL DECREASED GLUCOSE; Start 10/29/16 at 15:30 Vancomycin HCl/ Sodium Chloride (Vancocin/NS) 250 ml @ 83.333 mls/ hr Q24H IVPB ; Start 10/30/16 at 09:00 Alprazolam (Xanax) 0.25 mg Q8H PRN PO ANXIETY; Start 10/29/16 at 16:00 Morphine Sulfate (morphine) 3 mg Q2H PRN IV PAIN Last administered on t 07:08; Admin Dose 3 MG; Start 10/29/16 at 20:00 RYLEE BALDERRAMA MD Oct 30, 2016 09:52
[2016-10-30] MEDS ORDERED: BUPIVACAINE 0.5%/EPI (SDV) 10 ML INJ ONE (09:55)
[2016-10-30] MEDS ORDERED: PROPOFOL 20 ML ONE ×2 (09:58→10:27)
[2016-10-30] MEDS ORDERED: MIDAZOLAM 1 MG/ML 2 ML INJ ONE (09:58)
[2016-10-30] MEDS ORDERED: LIDOCAINE 2% (SDV) 5 ML INJ ONE (09:58)
[2016-10-30] MEDS ORDERED: FENTAnyl 50 MCG/ML VIAL ONE (10:00)
[2016-10-30] MEDS ORDERED: HYDROmorphONE 2 MG/ML SYG ONE (10:14)
[2016-10-30] MEDS ORDERED: ONDANSETRON 4 MG INJ IV PRN ×2 (10:30→11:00)
[2016-10-30] MEDS ORDERED: morphine 2 MG INJ IV PRN (10:30)
[2016-10-30] MEDS ORDERED: OXYCODONE/ACETAMINOPHEN (5/325) TAB PO PRN ×2 (10:30)
[2016-10-30] MEDS ORDERED: ONDANSETRON 4 MG INJ ONE (10:34)
--- NOTE | 2016-10-30 10:37 | OPR ---
Date/Time of Note Date/Time of Note DATE: 10/30/16 TIME: 10:33 Operative Report Procedure Date: Oct 30, 2016 Preoperative Diagnosis Perianal abscess Postoperative Diagnosis Perianal assess Operation Performed Incision and drainage Surgeon: RYLEE BALDERRAMA MD Anesthesia Type: MAC Anesthesiologist: LEONIE LOFTON MD Estimated Blood Loss: 0 - 10 ml's Transfusion Required: no Specimens Culture and sensitivity Grafts/Implants: none Complications: no Pt Condition Post Procedure: stable Disposition: PACU Indications Perianal abscess with worsening leukocytosis Operative\Procedure Findings After satisfactory intravenous sedation was achieved. The patient was placed in lithotomy position. The abscess was located at 7:00 in the perianal area. This area was infiltrated with 10 cc of 0.5% Marcaine with epinephrine. A 1-1/ 2 cm skin incision was made and carried down to the subcutaneous tissues were an abscess was encountered. It was cultured aerobically and anaerobically. The wound was irrigated with saline until clear, and packed with 2 inch iodoform gauze. Sponge and needle counts were reported as correct 2. Procedure Description As above RYLEE BALDERRAMA MD Oct 30, 2016 10:37
[2016-10-30 10:48] LABS: BLAST% (M) 51 % (0-0); BLASTOCYTES #M 2.7 10^3/ul (0.0-0.0); ERYTHROBLAST% (NRBC) (M) 1 % (0-0); LYMPHOCYTES # 4.8 10^3/ul (0.8-2.9); METAMYELOCYTES %M 1 % (0-0); MONOCYTE # 0.7 10^3/ul (0.3-0.9); MONOCYTES % (M) 3 % (0-11); MYELOCYTES % (M) 2 % (0-0); PROMYELOCYTES #M 0 10^3/ul (0-0); PROMYELOCYTES % (M) 1 % (0-0)
[2016-10-30 10:51] LABS: PLATELET ESTIMATE SIG DECREASED
[2016-10-30] MEDS ORDERED: HYDROmorphONE (0.2 MG/ML) 10ML SYG IV PRN (11:00)
[2016-10-30] MEDS ORDERED: FENTAnyl 50 MCG/ML VIAL IV PRN (11:00)
[2016-10-30] MEDS: AMLODIPINE 2.5 MG TAB PO SCH ×2 (11:57→20:38)
[2016-10-30] MEDS: LOSARTAN 50 MG TAB PO SCH ×2 (11:58→20:37)
[2016-10-30] MEDS: ACETAMINOPHEN 325 MG TAB PO PRN ×2 (14:02→20:37)
--- NOTE | 2016-10-30 17:34 | PN ---
Date/Time of Note Date/Time of Note DATE: 10/30/16 TIME: 17:32 Assessment/Plan VTE Prophylaxis VTE Prophylaxis Intervention: SCD's Lines/Catheters IV Catheter Type (from [facility]): Peripheral IV Urinary Cath still in place: No Assessment/Plan Assessment/Plan [facility] 1. 66-year-old man s/p I&D this morning by Dr. Tovar of a perianal abscess, approximately [address] scan. Afebrile, good pain control, no pain with defecation. 2. 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 * Continue vancomycin and Zosyn empirically. 3. Acute myelogenous leukemia, recurrence of the disease currently, 50% blasts on peripheral smear and severe thrombocytopenia with platelets of 10. Followed by Dr Rianna Herrera, * Platelet transfusion deferred this morning, with no active bleeding. * Will discuss treatment plan with Dr. Herrera's group. 3. Hypertension * Continue losartan and amlodipine 4. Diabetes mellitus, with fair control (HgbA1c 6.7%). * Holding glimepiride * Covered currently with sliding scale insulin 5. Anxiety disorder, with history of claustrophobia * Xanax PRN for anxiety. 6. Prophylaxis * Protonix for GI prophylaxis * With severe thrombocytopenia, will stick with SCDs 7. Disposition. Now post-surgical. * Oncology consult pending * Continue IV fluids and broad-spectrum IV antibiotics. * very supportive * Patient is Full-Code. Alonzo Zhao MD PhD [phone] Subjective 24 Hr Interval Summary Free Text/Dictation Recovering post-operatively. Mild discomfort in the back. Concerned about perceived inability to urinate since before the hospitalization. No pain with defecation. No headache, chest discomfort, dyspnea, or nausea. Concerned about his platelet level (10k/ul), but her epistaxis or other bleeding. Exam/Review of Systems Vital Signs Vitals Vital Signs Date Time Temp Pulse Resp B/P Pulse Ox O2 Delivery O2 Flow Rate FiO2 10/30/16 13:05 102 14 115/60 94 Nasal Cannula 2.0 10/30/16 10:45 99.2 Intake and Output 10/29/16 10/29/16 10/30/16 15:00 23:00 07:00 Intake Total 450 ml 1100 ml Output Total 200 ml 400 ml Balance 250 ml 700 ml Results Result Diagram: 10/30/16 0415 10/30/16 0425 Results 24 hrs Laboratory Tests Test 10/29/16 19:01 10/29/16 20:58 10/30/16 04:15 10/30/16 04:25 Bedside Glucose 212 169 White Blood Count 22.9 #H Red Blood Count 2.77 L Hemoglobin 9.4 L Hematocrit 26.7 L Mean Corpuscular Volume 96.4 Mean Corpuscular Hemoglobin 33.9 H Mean Corpuscular Hemoglobin Concent 35.2 Red Cell Distribution Width 16.5 H Platelet Count 11 *L Mean Platelet Volume 13.1 H Neutrophils % Segmented Neutrophils % (Manual) 21 L Lymphocytes % Lymphocytes % (Manual) 21 Monocytes % Monocytes % (Manual) 3 Eosinophils % Basophils % Metamyelocytes % (manual) 1 H Myelocytes % (Manual) 2 H Promyelocytes % (Manual) 1 H Blast Cells % (Manual) 51 H Nucleated Red Blood Cells % 1 H Neutrophils # (Manual) Absolute Lymphocytes (Manual) 4.8 H Lymphocytes # 4.8 H Monocytes # 0.7 Absolute Monocytes (Manual) 0.6 Eosinophils # Basophils # Metamyelocytes # 0.2 H Myelocytes # 0.4 H Promyelocytes # 0 Blastocytes # 2.7 H Nucleated Red Blood Cells # Platelet Estimate SIG DECREASED Hemoglobin A1c 6.7 H Sodium Level 137 Potassium Level 3.7 Chloride Level 98 Carbon Dioxide Level 25 Anion Gap 18 H Blood Urea Nitrogen 13 Creatinine 1.27 H Glucose Level 178 Calcium Level 9.1 Phosphorus Level 4.0 Magnesium Level 2.1 Total Bilirubin 1.1 Direct Bilirubin 0.00 Indirect Bilirubin 1.1 Aspartate Amino Transf (AST/SGOT) 16 Alanine Aminotransferase (ALT/SGPT) 29 Alkaline Phosphatase 64 Total Protein 7.3 Albumin 3.8 Globulin 3.50 H Albumin/Globulin Ratio 1.08 Test 10/30/16 07:53 10/30/16 12:14 Bedside Glucose 202 143 Medications Medications Current Medications Amlodipine Besylate (Norvasc) 2.5 mg BID PO Last administered on 10/29/16 21: 00; Admin Dose 2.5 MG; Start 10/29/16 at 21:00 Losartan Potassium 50 mg 50 mg BID PO Last administered on 10/29/16 21:00; Admin Dose 50 MG; Start 10/29/16 at 21:00 Piperacillin Sod/ Tazobactam Sod 100 ml @ 200 mls/hr Q6 IVPB Last administered on 10/30/16 12:06; Admin Dose 200 MLS/HR; Start 10/29/16 at 16:30 Sodium Chloride (NS) 1,000 ml @ 100 mls/hr Q10H IV Last administered on 12:07; Admin Dose 100 MLS/HR; Start 10/29/16 at 14:56 Ondansetron HCl (Zofran Inj) 4 mg Q6H PRN IV NAUSEA AND/OR VOMITING; Start at 15:00 Acetaminophen (Tylenol Tab) 650 mg Q6H PRN PO PAIN LEVEL 1-3 OR FEVER Last administered on 10/30/16 14:02; Admin Dose 650 MG; Start 10/29/16 at 15:00 Acetaminophen/ Hydrocodone Bitart ([place] (5/325)) 1 tab Q6H PRN PO MODERATE PAIN LEVEL 4-6; Start 10/29/16 at 15:00 Acetaminophen/ Hydrocodone Bitart ([place] (5/325)) 2 tab Q6H PRN PO SEVERE PAIN LEVEL 7-10; Start 10/29/16 at 15:00 Docusate Sodium (Colace) 100 mg Q12H PRN PO CONSTIPATION; Start 10/29/16 at 15: 00 Magnesium Hydroxide (Milk Of Mag) 30 ml DAILY PRN PO CONSTIPATION; Start at 15:00 Pantoprazole (Protonix Tab) 40 mg DAILY@06 PO Last administered on 10/30/16 06 :53; Admin Dose 40 MG; Start 10/30/16 at 06:00 Diagnostic Test (Pha) (Accu-Chek) 1 ea 02 XX Last administered on 10/30/16 02: 00; Admin Dose 1 EA; Start 10/30/16 at 02:00 Miscellaneous Information 1 ea NOTE XX ; Start 10/29/16 at 15:30 Glucose (Glutose) 15 gm Q15M PRN PO DECREASED GLUCOSE; Start 10/29/16 at 15:30 Glucose (Glutose) 22.5 gm Q15M PRN PO DECREASED GLUCOSE; Start 10/29/16 at 15: 30 Dextrose (D50w Syringe) 25 ml Q15M PRN IV DECREASED GLUCOSE; Start 10/29/16 at 15:30 Dextrose (D50w Syringe) 50 ml Q15M PRN IV DECREASED GLUCOSE; Start 10/29/16 at 15:30 Glucagon (Glucagen) 1 mg Q15M PRN IM DECREASED GLUCOSE; Start 10/29/16 at 15:30 Glucose (Glutose) 15 gm Q15M PRN BUCCAL DECREASED GLUCOSE; Start 10/29/16 at 15 :30 Alprazolam (Xanax) 0.25 mg Q8H PRN PO ANXIETY; Start 10/29/16 at 16:00 Morphine Sulfate (morphine) 3 mg Q2H PRN IV PAIN Last administered on t 07:08; Admin Dose 3 MG; Start 10/29/16 at 20:00 Oxycodone/ Acetaminophen (Percocet (5/ 325)) 1 tab Q4H PRN PO MILD PAIN (1-3); Start 10/30/16 at 10:30 Oxycodone/ Acetaminophen (Percocet (5/ 325)) 2 tab Q4H PRN PO MODERATE PAIN (4- 6); Start 10/30/16 at 10:30 Morphine Sulfate (morphine) 2 mg ONCE PRN IV SEVERE PAIN LEVEL 7-10; Start at 10:30; Stop 11/04/16 at 10:29 Ondansetron HCl 4 mg 4 mg Q6H PRN IV NAUSEA; Start 10/30/16 at 10:30 Vancomycin HCl/ Sodium Chloride (Vancocin/NS) 250 ml @ 83.333 mls/ hr Q24H IVPB ; Start 10/31/16 at 13:00 ROSAMARIA ZHAO M.D. Oct 30, 2016 17:34 Dextrose (D50w Syringe) 25 ml Q15M PRN IV DECREASED GLUCOSE; Start 10/29/16 at 15:30 Dextrose (D50w Syringe) 50 ml Q15M PRN IV DECREASED GLUCOSE; Start 10/29/16 at 15:30 Glucagon (Glucagen) 1 mg Q15M PRN IM DECREASED GLUCOSE; Start 10/29/16 at 15:30 Glucose (Glutose) 15 gm Q15M PRN BUCCAL DECREASED GLUCOSE; Start 10/29/16 at 15 :30 Alprazolam (Xanax) 0.25 mg Q8H PRN PO ANXIETY; Start 10/29/16 at 16:00 Morphine Sulfate (morphine) 3 mg Q2H PRN IV PAIN Last administered on t 07:08; Admin Dose 3 MG; Start 10/29/16 at 20:00 Oxycodone/ Acetaminophen (Percocet (5/ 325)) 1 tab Q4H PRN PO MILD PAIN (1-3); Start 10/30/16 at 10:30 Oxycodone/ Acetaminophen (Percocet (5/ 325)) 2 tab Q4H PRN PO MODERATE PAIN (4- 6); Start 10/30/16 at 10:30 Morphine Sulfate (morphine) 2 mg ONCE PRN IV SEVERE PAIN LEVEL 7-10; Start at 10:30; Stop 11/04/16 at 10:29 Ondansetron HCl 4 mg 4 mg Q6H PRN IV NAUSEA; Start 10/30/16 at 10:30 Vancomycin HCl/ Sodium Chloride (Vancocin/NS) 250 ml @ 83.333 mls/ hr Q24H IVPB ; Start 10/31/16 at 13:00 ROSAMARIA ZHAO M.D. Oct 30, 2016 17:34
[2016-10-30] MEDS: DOCUSATE SODIUM 100 MG CAP PO PRN (17:41)
[2016-10-31] MEDS: PIPER-TAZO 3.375 GM IV (PMX) 100 ML IVPB SCH ×4 (00:03→17:43)
[2016-10-31 01:42] VITALS: BP 128/64; PULSE 84; RESP 18
[2016-10-31] MEDS: ACCU-CHEK XX SCH (01:44)
[2016-10-31 05:32] LABS: ABNORMAL IP MESSAGE 1; HEMOGLOBIN 8.5 g/dl (14.0-18.0); MEAN CORPUSCULAR HEMOGLOBIN 34.4 pg (29.0-33.0); MEAN CORPUSCULAR HGB CONC 35.4 g/dl (32.0-37.0); MEAN CORPUSCULAR VOLUME 97.2 fl (82.0-101.0); MEAN PLATELET VOLUME 11.8 fl (7.4-10.4); NUCLEATED RED BLOOD CELLS% 0.1 /100WBC (0.0-0.0); POSITIVE DIFF @See below; RED BLOOD COUNT 2.47 10^6/ul (4.70-6.10); RED CELL DISTRIBUTION WIDTH 16.7 % (11.5-14.5); WHITE BLOOD COUNT 27.1 10^3/ul (4.8-10.8)
[2016-10-31] MEDS: PANTOPRAZOLE (EC) 40 MG TAB PO SCH (05:46)
[2016-10-31 06:00] LABS: PLATELET COUNT 9 10^3/UL (140-415)
[2016-10-31] MEDS: SOD CHLORIDE 0.9% 1,000 ML IV SCH ×3 (06:56→22:14)
--- NOTE | 2016-10-31 07:11 | PN ---
Date/Time of Note Date/Time of Note DATE: 10/31/16 TIME: 07:08 Assessment/Plan Lines/Catheters IV C[facility] Type (from [facility] Peripheral IV Garay in Place (from [facility]): No Assessment/Plan Chief Complaint/Hosp Course Improved Leukocytosis persists Packing removed Continue medical Rx May consider disch with po antibiotics Problems: Subjective 24 Hr Interval Summary PO day #1 Symptomatically improved Exam/Review of Systems Vital Signs Vitals Vital Signs Date Time Temp Pulse Resp B/P Pulse Ox O2 Delivery O2 Flow Rate FiO2 10/31/16 01:42 99.8 84 18 128/64 97 Room Air 10/30/16 13:05 2.0 Intake and Output 10/30/16 10/30/16 10/31/16 15:00 23:00 07:00 Intake Total 800 ml 1120 ml 1450 ml Output Total 5 ml 725 ml 900 ml Balance 795 ml 395 ml 550 ml Results Result Diagram: 10/31/16 0450 10/30/16 0425 RYLEE BALDERRAMA MD Oct 31, 2016 07:11
[2016-10-31 08:03] VITALS: BP 116/60; RESP 18
[2016-10-31] MEDS: AMLODIPINE 2.5 MG TAB PO SCH ×2 (08:45→21:01)
[2016-10-31] MEDS: LOSARTAN 50 MG TAB PO SCH ×2 (08:45→21:01)
[2016-10-31] MEDS: INSULIN ASPART [NOVOLOG] 3 ML PEN SC SCH ×4 (08:46→21:07)
[2016-10-31 08:57] LABS: ANISOCYTOSIS 1+ (0-0); BLAST% (M) 72 % (0-0); METAMYELOCYTES %M 1 % (0-0); MICROCYTOSIS 2+ (0-0); POLYCHROMASIA 1+ (0-0); PROMYELOCYTES #M 1 10^3/ul (0-0); PROMYELOCYTES % (M) 2 % (0-0)
[2016-10-31] MEDS: morphine 4 MG/ML VIAL IV PRN (10:59)
[2016-10-31] MEDS: VANCOMYCIN 1.5 GM in SOD CHLORIDE 0.9% 250 ML IVPB SCH ×2 (13:00→14:37)
[2016-10-31 14:00] VITALS: BP 133/65; RESP 19
[2016-10-31] MEDS: ACETAMINOPHEN 325 MG TAB PO PRN (17:50)
[2016-10-31 19:30] VITALS: BP 109/58; RESP 18
[2016-10-31 20:30] VITALS: BP 128/72; PULSE 82; RESP 16
[2016-10-31 21:25] VITALS: BP 141/76; PULSE 86; RESP 18
--- NOTE | 2016-10-31 22:31 | RADRPT ---
PROCEDURE: XR Chest. CLINICAL INDICATION: Fever neutropenia. TECHNIQUE: Single frontal view. COMPARISON: 10/29/2016. FINDINGS: There is mild linear atelectasis at the left lung base. The lungs are otherwise clear. The heart size is normal. There is no pleural effusion. There is no pneumothorax. IMPRESSION: 1. Mild linear atelectasis at the left lung base. 2. Otherwise unremarkable chest radiograph. RPTAT: QQ .Hemal Ramirez MD, MD Date Time Electronically viewed and signed by .Hemal Ramirez MD, MD on 10/31/2016 22:30 .R/
--- NOTE | 2016-10-31 23:38 | PN ---
Date/Time of Note Date/Time of Note DATE: 10/31/16 TIME: 23:34 Assessment/Plan VTE Prophylaxis VTE Prophylaxis Intervention: SCD's Lines/Catheters IV [facility] Type (from [facility]): Peripheral IV Urinary Cath still in place: No Assessment/Plan Assessment/Plan [facility] 1. 66-year-old man s/p I&D by Dr. Compa Tovar yesterday morning of a perianal abscess. Now with fever tonight, though with generally good pain control. No bowel movement since surgery * Start metamucil 2. 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 * Continue vancomycin and Zosyn empirically. * Crackles in RML now with fever; check portable CXR. 3. Acute myelogenous leukemia, recurrence of the disease currently, 50% blasts on peripheral smear and severe thrombocytopenia with platelets of 10. Discussed this afternoon with Dr Rianna Herrera, who offered to initiate treatment again. She was also agreeable to him going to [facility] for a second opinion , already authorized by the medical group. The patient is not ready for either option, but was open to seeking the [facility] appointment at some future date. * Platelet transfusion this afternoon, for value of 9k/ul, but with no active bleeding. * Hold off on scheduling follow-up with Dr. Herrera for now. 3. Hypertension * Continue losartan and amlodipine 4. Diabetes mellitus, with fair control (HgbA1c 6.7%). * Holding glimepiride * Covered currently with sliding scale insulin 5. Anxiety disorder, with history of claustrophobia * Xanax PRN for anxiety. 6. Prophylaxis * Protonix for GI prophylaxis * With severe thrombocytopenia, will stick with SCDs 7. Disposition. Now post-surgical. * Outpatient oncology follow-up in [facility], as noted above. * Continue IV fluids and broad-spectrum IV antibiotics. * very supportive * Patient is Full-Code. Alonzo Zhao MD PhD [phone] Subjective 24 Hr Interval Summary Free Text/Dictation Mild rectal area pain when standing, but otherwise not uncomfortable. Febrile and diaphoretic tonight. No headache, chest pain, or dyspnea. and a friend at the bedside tonight. Exam/Review of Systems Vital Signs Vitals Vital Signs Date Time Temp Pulse Resp B/P Pulse Ox O2 Delivery O2 Flow Rate FiO2 10/31/16 19:30 98.5 81 18 109/58 96 10/31/16 08:15 Nasal Cannula 2.0 Intake and Output 10/30/16 10/30/16 10/31/16 15:00 23:00 07:00 Intake Total 800 ml 1120 ml 1450 ml Output Total 5 ml 725 ml 900 ml Balance 795 ml 395 ml 550 ml Exam Constitutional: Alert, comfortable-appearing, but mildly diaphoretic Psych: Appropriate affect Respiratory: Mild crackles in the right middle lobe, but otherwise clear with good air movement Cardiovascular: Symmetric pulses, regular rhythm, normal rate Gastrointestinal: Non-tender, soft, no rebound or guarding. Dressing in place Musculoskeletal: nl extremities to inspection, nl gait and stance Extremities: normal pulses, with no edema, clubbing or cyanosis Neurological: Oriented, cranial nerves intact, normal conversation and mental status. Strength 5/5 bilaterally. Skin: No petechia or rash. Results Result Diagram: 10/31/16 0450 10/30/16 0425 Results 24 hrs Laboratory Tests Test 10/31/16 01:37 10/31/16 04:50 10/31/16 08:43 10/31/16 11:04 Bedside Glucose 180 158 145 White Blood Count 27.1 H Red Blood Count 2.47 L Hemoglobin 8.5 L Hematocrit 24.0 L Mean Corpuscular Volume 97.2 Mean Corpuscular Hemoglobin 34.4 H Mean Corpuscular Hemoglobin Concent 35.4 Red Cell Distribution Width 16.7 H Platelet Count 9 *L Mean Platelet Volume 11.8 H Neutrophils % Segmented Neutrophils % (Manual) 17 L Lymphocytes % Lymphocytes % (Manual) 9 L Monocytes % Eosinophils % Basophils % Metamyelocytes % (manual) 1 H Promyelocytes % (Manual) 2 H Blast Cells % (Manual) 72 H Nucleated Red Blood Cells % 0.1 H Neutrophils # (Manual) Absolute Lymphocytes (Manual) 2.4 Lymphocytes # Monocytes # Eosinophils # Basophils # Metamyelocytes # 0.2 H Promyelocytes # 1 H Nucleated Red Blood Cells # Polychromasia 1+ Anisocytosis 1+ Microcytosis 2+ Test 10/31/16 17:55 10/31/16 20:59 Bedside Glucose 150 228 H Medications Medications Current Medications Amlodipine Besylate (Norvasc) 2.5 mg BID PO Last administered on 10/31/16 21: 01; Admin Dose 2.5 MG; Start 10/29/16 at 21:00 Losartan Potassium 50 mg 50 mg BID PO Last administered on 10/31/16 21:01; Admin Dose 50 MG; Start 10/29/16 at 21:00 Piperacillin Sod/ Tazobactam Sod 100 ml @ 200 mls/hr Q6 IVPB Last administered on 10/31/16 17:43; Admin Dose 200 MLS/HR; Start 10/29/16 at 16:30 Sodium Chloride (NS) 1,000 ml @ 100 mls/hr Q10H IV Last administered on 22:14; Admin Dose 100 MLS/HR; Start 10/29/16 at 14:56 Ondansetron HCl (Zofran Inj) 4 mg Q6H PRN IV NAUSEA AND/OR VOMITING; Start at 15:00 Acetaminophen (Tylenol Tab) 650 mg Q6H PRN PO PAIN LEVEL 1-3 OR FEVER Last administered on 10/31/16 17:50; Admin Dose 650 MG; Start 10/29/16 at 15:00 Acetaminophen/ Hydrocodone Bitart ([place] (5/325)) 1 tab Q6H PRN PO MODERATE PAIN LEVEL 4-6; Start 10/29/16 at 15:00 Acetaminophen/ Hydrocodone Bitart ([place] (5/325)) 2 tab Q6H PRN PO SEVERE PAIN LEVEL 7-10; Start 10/29/16 at 15:00 Docusate Sodium (Colace) 100 mg Q12H PRN PO CONSTIPATION Last administered on 17:41; Admin Dose 100 MG; Start 10/29/16 at 15:00 Magnesium Hydroxide (Milk Of Mag) 30 ml DAILY PRN PO CONSTIPATION; Start at 15:00 Pantoprazole (Protonix Tab) 40 mg DAILY@06 PO Last administered on 10/31/16 05 :46; Admin Dose 40 MG; Start 10/30/16 at 06:00 Diagnostic Test (Pha) (Accu-Chek) 1 ea 02 XX Last administered on 10/31/16 01: 44; Admin Dose 1 EA; Start 10/30/16 at 02:00 Miscellaneous Information 1 ea NOTE XX ; Start 10/29/16 at 15:30 Glucose (Glutose) 15 gm Q15M PRN PO DECREASED GLUCOSE; Start 10/29/16 at 15:30 Glucose (Glutose) 22.5 gm Q15M PRN PO DECREASED GLUCOSE; Start 10/29/16 at 15: 30 Dextrose (D50w Syringe) 25 ml Q15M PRN IV DECREASED GLUCOSE; Start 10/29/16 at 15:30 Dextrose (D50w Syringe) 50 ml Q15M PRN IV DECREASED GLUCOSE; Start 10/29/16 at 15:30 Glucagon (Glucagen) 1 mg Q15M PRN IM DECREASED GLUCOSE; Start 10/29/16 at 15:30 Glucose (Glutose) 15 gm Q15M PRN BUCCAL DECREASED GLUCOSE; Start 10/29/16 at 15 :30 Alprazolam (Xanax) 0.25 mg Q8H PRN PO ANXIETY Last administered on 10/30/16 20 :37; Admin Dose 0.25 MG; Start 10/29/16 at 16:00 Morphine Sulfate (morphine) 3 mg Q2H PRN IV PAIN Last administered on 10:59; Admin Dose 3 MG; Start 10/29/16 at 20:00 Oxycodone/ Acetaminophen (Percocet (5/ 325)) 1 tab Q4H PRN PO MILD PAIN (1-3); Start 10/30/16 at 10:30 Oxycodone/ Acetaminophen (Percocet (5/ 325)) 2 tab Q4H PRN PO MODERATE PAIN (4- 6); Start 10/30/16 at 10:30 Morphine Sulfate (morphine) 2 mg ONCE PRN IV SEVERE PAIN LEVEL 7-10; Start at 10:30; Stop 11/04/16 at 10:29 Ondansetron HCl 4 mg 4 mg Q6H PRN IV NAUSEA; Start 10/30/16 at 10:30 Vancomycin HCl/ Sodium Chloride (Vancocin/NS) 250 ml @ 83.333 mls/ hr Q24H IVPB Last administered on 10/31/16 14:37; Admin Dose 83.333 MLS/HR; Start at 13:00 Miscellaneous Information (*Rx Drug Level Order Reminder*) VANCOMYCIN TROUGH ON @ 12PM ONCE ONCE XX ; Start 11/01/16 at 12:00; Stop 11/01/16 at 12:01 ROSAMARIA ZHAO M.D. Oct 31, 2016 23:38
[2016-11-01] MEDS: PIPER-TAZO 3.375 GM IV (PMX) 100 ML IVPB SCH ×2 (00:25→06:11)
[2016-11-01] MEDS: ACETAMINOPHEN 325 MG TAB PO PRN ×2 (00:25→22:57)
[2016-11-01] MEDS: ACCU-CHEK XX SCH (00:43)
[2016-11-01] MEDS: DOCUSATE SODIUM 100 MG CAP PO PRN (01:44)
[2016-11-01 05:36] LABS: ABNORMAL IP MESSAGE 1; HEMATOCRIT 21.7 % (42.0-52.0); HEMOGLOBIN 7.7 g/dl (14.0-18.0); MEAN CORPUSCULAR HEMOGLOBIN 34.7 pg (29.0-33.0); MEAN CORPUSCULAR HGB CONC 35.5 g/dl (32.0-37.0); MEAN CORPUSCULAR VOLUME 97.7 fl (82.0-101.0); MEAN PLATELET VOLUME 11.7 fl (7.4-10.4); POSITIVE DIFF @See below; RED BLOOD COUNT 2.22 10^6/ul (4.70-6.10); RED CELL DISTRIBUTION WIDTH 16.9 % (11.5-14.5)
[2016-11-01 05:49] LABS: PLATELET COUNT 19 10^3/UL (140-415)
[2016-11-01] MEDS: PANTOPRAZOLE (EC) 40 MG TAB PO SCH (06:07)
[2016-11-01] MEDS: INSULIN ASPART [NOVOLOG] 3 ML PEN SC SCH ×4 (07:50→20:56)
[2016-11-01] MEDS: AMLODIPINE 2.5 MG TAB PO SCH ×2 (09:00→20:54)
[2016-11-01] MEDS: LOSARTAN 50 MG TAB PO SCH ×2 (09:00→20:53)
[2016-11-01 09:08] LABS: ANISOCYTOSIS 1+ (0-0); BLAST% (M) 67 % (0-0); MICROCYTOSIS 1+ (0-0); MONOCYTES % (M) 1 % (0-11); MYELOCYTES % (M) 1 % (0-0); PLATELET ESTIMATE DECREASED; POLYCHROMASIA 3+ (0-0); PROMYELOCYTES #M 1 10^3/ul (0-0); PROMYELOCYTES % (M) 4 % (0-0)
--- NOTE | 2016-11-01 11:14 | PN ---
Date/Time of Note Date/Time of Note DATE: 11/01/16 TIME: 11:09 Assessment/Plan VTE Prophylaxis VTE Prophylaxis Intervention: SCD's Lines/Catheters IV Catheter Type (from [facility]): Peripheral IV Urinary Cath still in place: No Assessment/Plan Assessment/Plan 66-year-old man with: 1. Rectal abscess s/p I&D, POD#2 and cx with GNR Low grade fevers, again last night, low-grade temperature 100.2. In blast crisis with AML, patient refusing treatment currently Add MiraLAX, for constipation. Per Dr. Tovar, not to give anything rectally. 2. 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 No signs of acute bleeding, platelets at 19 Wound culture with gram-negative rods, will change antibiotics to Vancomycin and Coumadin until final cultures Chest x-ray with atelectasis. 3. Acute myelogenous leukemia, recurrence of the disease currently, 67% blasts on peripheral smear, leukocytosis and severe thrombocytopenia with platelets of 19. Discussed with Dr Rianna Herrera, who offered to initiate treatment again. She was also agreeable to him going to [facility] for a second opinion, already authorized by the medical group. The patient is not ready for either option, but was open to seeking the [facility] appointment at some future date. Prognosis poor given ongoing blast crisis and immunosuppression with ongoing infection. 3. Hypertension, blood pressure control, continue losartan and amlodipine 4. Diabetes mellitus, with fair control (HgbA1c 6.7%). Holding glimepiride, continue currently with sliding scale insulin 5. Anxiety disorder, with history of claustrophobia, continue Xanax PRN for anxiety. Prophylaxis: Protonix for GI prophylaxis and no DVT ppx due to severe thrombocytopenia. Disposition. Now post-surgical. Outpatient [facility] follow[facility], as noted above, continue current antibiotics until final cx available. Blood product transfusion as needed. Subjective 24 Hr Interval Summary Free Text/Dictation Patient doing Ok but noted to have a low-grade temperature last night, at 100.2. Now afebrile. WBC but patient in blast crisis unfortunately and refusing treatment. Prognosis is extremely poor, platelet count is at 19, no signs of acute bleeding. Complaining of constipation, he wants a suppository or an enema, per Dr. Tovar not to give anything rectally for now. Patient was given milk of magnesia, will add MiraLAX. Culture with gram-negative rods, sensitivities pending. Exam/Review of Systems Vital Signs Vitals Vital Signs Date Time Temp Pulse Resp B/P Pulse Ox O2 Delivery O2 Flow Rate FiO2 10/31/16 20:30 98.6 82 16 128/72 98 Room Air 10/31/16 08:15 2.0 Intake and Output 10/31/16 10/31/16 11/01/16 15:00 23:00 07:00 Intake Total 100 ml 1650 ml 850 ml Balance 100 ml 1650 ml 850 ml Exam Constitutional: alert, oriented, well developed Respiratory: clear to auscultation, normal air movement Cardiovascular: nl pulses, regular rate and rhythm Gastrointestinal: non-tender, soft Musculoskeletal: nl extremities to inspection Extremities: normal pulses Neurological: [employer] II-XII intact, nl mental status, nl speech, nl strength Results Result Diagram: 11/01/16 0445 11/01/16 0445 Results 24 hrs Laboratory Tests Test 10/31/16 17:55 10/31/16 20:59 11/01/16 00:38 11/01/16 04:45 Bedside Glucose 150 228 H 141 White Blood Count 27.0 H Red Blood Count 2.22 L Hemoglobin 7.7 L Hematocrit 21.7 L Mean Corpuscular Volume 97.7 Mean Corpuscular Hemoglobin 34.7 H Mean Corpuscular Hemoglobin Concent 35.5 Red Cell Distribution Width 16.9 H Platelet Count 19 #*L Mean Platelet Volume 11.7 H Neutrophils % Segmented Neutrophils % (Manual) 10 L Band Neutrophils % (Manual) 2 Lymphocytes % Lymphocytes % (Manual) 15 Monocytes % Monocytes % (Manual) 1 Eosinophils % Basophils % Myelocytes % (Manual) 1 H Promyelocytes % (Manual) 4 H Blast Cells % (Manual) 67 H Nucleated Red Blood Cells % 0.0 Neutrophils # (Manual) 2.8 Band Neutrophils # 0.5 Absolute Lymphocytes (Manual) 4.0 H Lymphocytes # Monocytes # Absolute Monocytes (Manual) 0.2 L Eosinophils # Basophils # Myelocytes # 0.2 H Promyelocytes # 1 H Nucleated Red Blood Cells # Platelet Estimate DECREASED Polychromasia 3+ Anisocytosis 1+ Microcytosis 1+ Creatinine 1.07 Test 11/01/16 07:01 11/01/16 08:03 Lab Scanned Report BLOOD TRANSFUSION Bedside Glucose 165 Medications Medications Current Medications Amlodipine Besylate (Norvasc) 2.5 mg BID PO Last administered on 10/31/16 21: 01; Admin Dose 2.5 MG; Start 10/29/16 at 21:00 Losartan Potassium 50 mg 50 mg BID PO Last administered on 10/31/16 21:01; Admin Dose 50 MG; Start 10/29/16 at 21:00 Piperacillin Sod/ Tazobactam Sod 100 ml @ 200 mls/hr Q6 IVPB Last administered on 11/01/16 06:11; Admin Dose 200 MLS/HR; Start 10/29/16 at 16:30 Sodium Chloride (NS) 1,000 ml @ 100 mls/hr Q10H IV Last administered on 22:14; Admin Dose 100 MLS/HR; Start 10/29/16 at 14:56 Ondansetron HCl (Zofran Inj) 4 mg Q6H PRN IV NAUSEA AND/OR VOMITING; Start at 15:00 Acetaminophen (Tylenol Tab) 650 mg Q6H PRN PO PAIN LEVEL 1-3 OR FEVER Last administered on 11/01/16 00:25; Admin Dose 650 MG; Start 10/29/16 at 15:00 Acetaminophen/ Hydrocodone Bitart ([place] (5/325)) 1 tab Q6H PRN PO MODERATE PAIN LEVEL 4-6; Start 10/29/16 at 15:00 Acetaminophen/ Hydrocodone Bitart ([place] (5/325)) 2 tab Q6H PRN PO SEVERE PAIN LEVEL 7-10; Start 10/29/16 at 15:00 Docusate Sodium (Colace) 100 mg Q12H PRN PO CONSTIPATION Last administered on 01:44; Admin Dose 100 MG; Start 10/29/16 at 15:00 Magnesium Hydroxide (Milk Of Mag) 30 ml DAILY PRN PO CONSTIPATION; Start at 15:00 Pantoprazole (Protonix Tab) 40 mg DAILY@06 PO Last administered on 11/01/16 06 :07; Admin Dose 40 MG; Start 10/30/16 at 06:00 Diagnostic Test (Pha) (Accu-Chek) 1 ea 02 XX Last administered on 11/01/16 00: 43; Admin Dose 1 EA; Start 10/30/16 at 02:00 Miscellaneous Information 1 ea NOTE XX ; Start 10/29/16 at 15:30 Glucose (Glutose) 15 gm Q15M PRN PO DECREASED GLUCOSE; Start 10/29/16 at 15:30 Glucose (Glutose) 22.5 gm Q15M PRN PO DECREASED GLUCOSE; Start 10/29/16 at 15: 30 Dextrose (D50w Syringe) 25 ml Q15M PRN IV DECREASED GLUCOSE; Start 10/29/16 at 15:30 Dextrose (D50w Syringe) 50 ml Q15M PRN IV DECREASED GLUCOSE; Start 10/29/16 at 15:30 Glucagon (Glucagen) 1 mg Q15M PRN IM DECREASED GLUCOSE; Start 10/29/16 at 15:30 Glucose (Glutose) 15 gm Q15M PRN BUCCAL DECREASED GLUCOSE; Start 10/29/16 at 15 :30 Alprazolam (Xanax) 0.25 mg Q8H PRN PO ANXIETY Last administered on 10/30/16 20 :37; Admin Dose 0.25 MG; Start 10/29/16 at 16:00 Morphine Sulfate (morphine) 3 mg Q2H PRN IV PAIN Last administered on 10:59; Admin Dose 3 MG; Start 10/29/16 at 20:00 Oxycodone/ Acetaminophen (Percocet (5/ 325)) 1 tab Q4H PRN PO MILD PAIN (1-3); Start 10/30/16 at 10:30 Oxycodone/ Acetaminophen (Percocet (5/ 325)) 2 tab Q4H PRN PO MODERATE PAIN (4- 6); Start 10/30/16 at 10:30 Morphine Sulfate (morphine) 2 mg ONCE PRN IV SEVERE PAIN LEVEL 7-10; Start at 10:30; Stop 11/04/16 at 10:29 Ondansetron HCl 4 mg 4 mg Q6H PRN IV NAUSEA; Start 10/30/16 at 10:30 Vancomycin HCl/ Sodium Chloride (Vancocin/NS) 250 ml @ 83.333 mls/ hr Q24H IVPB Last administered on 10/31/16 14:37; Admin Dose 83.333 MLS/HR; Start at 13:00 Miscellaneous Information (*Rx Drug Level Order Reminder*) VANCOMYCIN TROUGH ON @ 12PM ONCE ONCE XX ; Start 11/01/16 at 12:00; Stop 11/01/16 at 12:01 Magnesium Citrate (Citroma) 300 ml ONCE ONCE PO ; Start 11/01/16 at 11:00; Stop 11/01/16 at 11:01; Status SOBIA ABURTO Nov 01, 2016 11:14
[2016-11-01] MEDS: POLYETHYLENE GLYCOL 17 GM PACKET NGT SCH ×2 (12:54→20:25)
[2016-11-01] MEDS ORDERED: MAGNESIUM CITRATE 300 ML BTL PO ONE (13:00)
[2016-11-01] MEDS: VANCOMYCIN 1.5 GM in SOD CHLORIDE 0.9% 250 ML IVPB SCH (13:46)
[2016-11-01] MEDS: LEVOFLOXACIN 750 MG TABLET PO SCH (13:46)
[2016-11-01] MEDS: NEOMYC/POLYMYX/BACIT 30 GM OINT TOP SCH ×2 (18:30→21:00)
--- NOTE | 2016-11-01 19:19 | PN ---
Date/Time of Note Date/Time of Note DATE: 11/01/16 TIME: 19:18 Assessment/Plan Lines/Catheters IV Catheter Type (from [facility], [place]): Peripheral IV Garay in Place (from [facility], [place]): No Assessment/Plan Chief Complaint/Hosp Course Improved Leukocytosis persists Packing removed Continue medical Rx May consider disch with po antibiotics Problems: Assessment/Plan Continue medical management Subjective 24 Hr Interval Summary Postoperative day #2 Low-grade fever and leukocytosis persist Symptomatically improved Exam/Review of Systems Vital Signs Vitals Vital Signs Date Time Temp Pulse Resp B/P Pulse Ox O2 Delivery O2 Flow Rate FiO2 11/01/16 08:00 Nasal Cannula 2.0 10/31/16 20:30 98.6 82 16 128/72 98 Intake and Output 10/31/16 10/31/16 11/01/16 15:00 23:00 07:00 Intake Total 100 ml 1650 ml 850 ml Balance 100 ml 1650 ml 850 ml Results Result Diagram: 11/01/16 0445 11/01/16 0445 RYLEE BALDERRAMA MD Nov 01, 2016 19:19
[2016-11-01 19:27] VITALS: BP 137/71; RESP 16
[2016-11-01 21:40] VITALS: BP 140/80; PULSE 78; RESP 19
[2016-11-01 21:55] VITALS: BP 136/73; PULSE 77; RESP 18
--- NOTE | 2016-11-01 22:18 | CONS ---
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 Even with the hypomethylating agent alone, the disease is most likely terminal. His only chance of cure realistically is to initiate chemotherapy. -he is aware his AML has recurred but still refuses treatment -As explained before,if the patient wants therapy, he will have to be transferred to a tertiary care center for relapsed AML. -He would most likely need a bone marrow transplant. #Perirectal Abscess -pt is s/p I and D tomorrow -Agree with broad spectrum antbiotics #Thrombocytopenia. platelet of 19 today -would not transfuse platelets today # fevers in setting of functional neutropenia -continue broad spectrum antibiotics. f/u blood and urine cultures. Approximately 40 min were spent at patient's bedside and in coordination of his care Problems: (1) Perianal abscess Status: Acute (2) Thrombocytopenia Status: Chronic (3) AML (acute myeloblastic leukemia) Status: Acute Qualifiers: Qualified Code: C92.00 - Acute myeloid leukemia not having achieved remission Problems: Consultation Date/Type/Reason Admit Date/Time Oct 29, 2016 at 11:54 Initial Consult Date 10/30/16 Type of Consultation: Hematology Reason for Consultation AML Referring Provider: OSBIA NUNEZ 24 HR Interval Summary Free Text/Dictation pt continues to be pancytopenia with ongoing fevers from untreated leukemia Exam/Review of Systems Vital Signs Vitals Vital Signs Date Time Temp Pulse Resp B/P Pulse Ox O2 Delivery O2 Flow Rate FiO2 11/01/16 19:27 99.2 82 16 137/71 98 11/01/16 08:00 Nasal Cannula 2.0 Intake and Output 10/31/16 10/31/16 11/01/16 15:00 23:00 07:00 Intake Total 100 ml 1650 ml 850 ml Balance 100 ml 1650 ml 850 ml Exam Constitutional: alert, oriented Psych: no complaints Head: normocephalic Eyes: nl conjunctiva ENMT: nl external ears & nose Neck: supple Respiratory: clear to auscultation Cardiovascular: regular rate and rhythm Gastrointestinal: soft Musculoskeletal: nl extremities to inspection Extremities: normal pulses Results Result Diagram: 11/01/165 11/01/16 0445 Results 24 hrs Laboratory Tests Test 11/01/16 00:38 11/01/16 04:45 11/01/16 07:01 11/01/16 08:03 Bedside Glucose 141 165 White Blood Count 27.0 H Red Blood Count 2.22 L Hemoglobin 7.7 L Hematocrit 21.7 L Mean Corpuscular Volume 97.7 Mean Corpuscular Hemoglobin 34.7 H Mean Corpuscular Hemoglobin Concent 35.5 Red Cell Distribution Width 16.9 H Platelet Count 19 #*L Mean Platelet Volume 11.7 H Neutrophils % Segmented Neutrophils % (Manual) 10 L Band Neutrophils % (Manual) 2 Lymphocytes % Lymphocytes % (Manual) 15 Monocytes % Monocytes % (Manual) 1 Eosinophils % Basophils % Myelocytes % (Manual) 1 H Promyelocytes % (Manual) 4 H Blast Cells % (Manual) 67 H Nucleated Red Blood Cells % 0.0 Neutrophils # (Manual) 2.8 Band Neutrophils # 0.5 Absolute Lymphocytes (Manual) 4.0 H Lymphocytes # Monocytes # Absolute Monocytes (Manual) 0.2 L Eosinophils # Basophils # Myelocytes # 0.2 H Promyelocytes # 1 H Nucleated Red Blood Cells # Platelet Estimate DECREASED Polychromasia 3+ Anisocytosis 1+ Microcytosis 1+ Creatinine 1.07 Lab Scanned Report BLOOD TRANSFUSION Test 11/01/16 12:05 11/01/16 12:41 11/01/16 18:26 11/01/16 20:50 Vancomycin Level Trough 6.0 L Bedside Glucose 230 H 195 192 Medications Medications Current Medications Amlodipine Besylate (Norvasc) 2.5 mg BID PO Last administered on 11/01/16 20: 54; Admin Dose 2.5 MG; Start 10/29/16 at 21:00 Losartan Potassium (Cozaar) 50 mg BID PO Last administered on 11/01/16 20:53; Admin Dose 50 MG; Start 10/29/16 at 21:00 Acetaminophen (Tylenol Tab) 650 mg Q6H PRN PO PAIN LEVEL 1-3 OR FEVER Last administered on 11/01/16 00:25; Admin Dose 650 MG; Start 10/29/16 at 15:00 Acetaminophen/ Hydrocodone Bitart ([place] (5/325)) 1 tab Q6H PRN PO MODERATE PAIN LEVEL 4-6; Start 10/29/16 at 15:00 Acetaminophen/ Hydrocodone Bitart ([place] (5/325)) 2 tab Q6H PRN PO SEVERE PAIN LEVEL 7-10; Start 10/29/16 at 15:00 Docusate Sodium (Colace) 100 mg Q12H PRN PO CONSTIPATION Last administered on 01:44; Admin Dose 100 MG; Start 10/29/16 at 15:00 Magnesium Hydroxide (Milk Of Mag) 30 ml DAILY PRN PO CONSTIPATION; Start at 15:00 Pantoprazole (Protonix Tab) 40 mg DAILY@06 PO Last administered on 11/01/16 06 :07; Admin Dose 40 MG; Start 10/30/16 at 06:00 Diagnostic Test (Pha) (Accu-Chek) 1 ea 02 XX Last administered on 11/01/16 00: 43; Admin Dose 1 EA; Start 10/30/16 at 02:00 Miscellaneous Information 1 ea NOTE XX ; Start 10/29/16 at 15:30 Glucose (Glutose) 15 gm Q15M PRN PO DECREASED GLUCOSE; Start 10/29/16 at 15:30 Glucose (Glutose) 22.5 gm Q15M PRN PO DECREASED GLUCOSE; Start 10/29/16 at 15: 30 Dextrose (D50w Syringe) 25 ml Q15M PRN IV DECREASED GLUCOSE; Start 10/29/16 at 15:30 Dextrose (D50w Syringe) 50 ml Q15M PRN IV DECREASED GLUCOSE; Start 10/29/16 at 15:30 Glucagon (Glucagen) 1 mg Q15M PRN IM DECREASED GLUCOSE; Start 10/29/16 at 15:30 Glucose (Glutose) 15 gm Q15M PRN BUCCAL DECREASED GLUCOSE; Start 10/29/16 at 15 :30 Alprazolam (Xanax) 0.25 mg Q8H PRN PO ANXIETY Last administered on 10/30/16 20 :37; Admin Dose 0.25 MG; Start 10/29/16 at 16:00 Morphine Sulfate (morphine) 3 mg Q2H PRN IV PAIN Last administered on 10:59; Admin Dose 3 MG; Start 10/29/16 at 20:00 Oxycodone/ Acetaminophen (Percocet (5/ 325)) 1 tab Q4H PRN PO MILD PAIN (1-3); Start 10/30/16 at 10:30 Oxycodone/ Acetaminophen (Percocet (5/ 325)) 2 tab Q4H PRN PO MODERATE PAIN (4- 6); Start 10/30/16 at 10:30 Morphine Sulfate (morphine) 2 mg ONCE PRN IV SEVERE PAIN LEVEL 7-10; Start at 10:30; Stop 11/04/16 at 10:29 Ondansetron HCl (Zofran Inj) 4 mg Q6H PRN IV NAUSEA; Start 10/30/16 at 10:30 Levofloxacin (Levaquin) 750 mg DAILY@06 PO Last administered on 11/01/16 13:46 ; Admin Dose 750 MG; Start 11/01/16 at 11:30 Polyethylene Glycol 17 gm 17 gm BID NGT Last administered on 11/01/16 12:54; Admin Dose 17 GM; Start 11/01/16 at 12:00 Vancomycin HCl (Vancocin) 250 ml @ 125 mls/hr Q12H IVPB ; Start 11/02/16 at 02: 00 Neomycin/ Polymyxin/ Bacitracin (Neosporin Topical Oint) 1 applic BID TOP ; Start 11/01/16 at 18:30 CALEB CERON M.D. Nov 01, 2016 22:18
[2016-11-01 22:55] VITALS: BP 137/75; PULSE 78; RESP 18
[2016-11-01 23:50] VITALS: BP 125/77; PULSE 79; RESP 18
[2016-11-02] VITALS (9 sets, daily range): BP systolic 120–150; BP diastolic 63–85; PULSE 62–78; RESP 16–18
[2016-11-02] MEDS ORDERED: VANCOMYCIN 1 GM in NS 250 ML IVPB SCH (02:00)
[2016-11-02] MEDS: ACCU-CHEK XX SCH (02:27)
[2016-11-02] MEDS: PANTOPRAZOLE (EC) 40 MG TAB PO SCH (05:44)
[2016-11-02] MEDS: LEVOFLOXACIN 750 MG TABLET PO SCH (05:44)
[2016-11-02 07:56] LABS: ABNORMAL IP MESSAGE 1; HEMATOCRIT 29.3 % (42.0-52.0); HEMOGLOBIN 10.5 g/dl (14.0-18.0); MEAN CORPUSCULAR HEMOGLOBIN 33.8 pg (29.0-33.0); MEAN CORPUSCULAR HGB CONC 35.8 g/dl (32.0-37.0); MEAN CORPUSCULAR VOLUME 94.2 fl (82.0-101.0); MEAN PLATELET VOLUME 10.5 fl (7.4-10.4); POSITIVE DIFF @See below; RED BLOOD COUNT 3.11 10^6/ul (4.70-6.10); RED CELL DISTRIBUTION WIDTH 16.3 % (11.5-14.5)
[2016-11-02 08:10] LABS: PLATELET COUNT 15 10^3/UL (140-415)
[2016-11-02 08:14] LABS: CALCIUM 9.5 mg/dl (8.4-10.2); CREATININE 0.92 mg/dl (0.61-1.24); POTASSIUM 4.3 mmol/L (3.5-5.1)
[2016-11-02] MEDS: POLYETHYLENE GLYCOL 17 GM PACKET NGT SCH (08:20)
[2016-11-02] MEDS: NEOMYC/POLYMYX/BACIT 30 GM OINT TOP SCH (08:21)
[2016-11-02 08:24] LABS: MAGNESIUM 2.2 mg/dl (1.7-2.5)
[2016-11-02] MEDS: LOSARTAN 50 MG TAB PO SCH (08:25)
[2016-11-02] MEDS: AMLODIPINE 2.5 MG TAB PO SCH (08:25)
[2016-11-02] MEDS: INSULIN ASPART [NOVOLOG] 3 ML PEN SC SCH ×2 (09:00→11:40)
--- NOTE | 2016-11-02 09:10 | PN ---
Date/Time of Note Date/Time of Note DATE: 11/02/16 TIME: 09:08 Assessment/Plan Lines/Catheters IV Catheter Type (from Nrs): Saline Lock Garay in Place (from Nrs): No Assessment/Plan Chief Complaint/Hosp Course Improved Leukocytosis persists Packing removed Continue medical Rx May consider disch with po antibiotics Problems: Subjective 24 Hr Interval Summary Postoperative day #3 Patient feels symptomatically improved He has been afebrile the last 24 hours His white count has come down slightly to 24,000 Constitutional: no complaints Pain Control: well controlled Additional Comments Patient wants to go home He can be discharged with p.o. antibiotics, pain meds and sitz baths Exam/Review of Systems Vital Signs Vitals Vital Signs Date Time Temp Pulse Resp B/P Pulse Ox O2 Delivery O2 Flow Rate FiO2 11/02/16 08:00 98.2 70 18 150/85 95 11/02/16 07:31 Room Air 11/01/16 08:00 2.0 Intake and Output 11/01/16 11/01/16 11/02/16 15:00 23:00 07:00 Intake Total 1650 ml 1190 ml Output Total 1100 ml Balance 550 ml 1190 ml Results Result Diagram: 11/02/16 0740 11/02/16 0740 RYLEE BALDERRAMA MD Nov 02, 2016 09:10
[2016-11-02] MEDS ORDERED: TRIMETHOPRIM/SULFAMETHOX (DS) TAB PO SCH (09:13)
[2016-11-02 10:48] LABS: BLAST% (M) 72 % (0-0); BLASTOCYTES #M 4.2 10^3/ul (0.0-0.0); LYMPHOCYTES # 2.6 10^3/ul (0.8-2.9); MONOCYTE # 0.5 10^3/ul (0.3-0.9); MONOCYTES % (M) 2 % (0-11); MYELOCYTES % (M) 1 % (0-0); PROMYELOCYTES #M 0 10^3/ul (0-0); PROMYELOCYTES % (M) 2 % (0-0)
--- NOTE | 2016-11-02 13:47 | PN ---
Date/Time of Note Date/Time of Note DATE: 11/02/16 TIME: 13:19 Assessment/Plan VTE Prophylaxis VTE Prophylaxis Intervention: contraindicated VTE Contraindication Reason: thrombocytopenia Lines/Catheters [facility] Saline Lock Urinary Cath still in place: No Assessment/Plan Assessment/Plan 66-year-old man with: 1. Rectal abscess s/p I&D, POD#3 and cx with enterococcus and E. coli both sensitive to Levaquin. Pansensitive and Afebrile, packing removed, per surgery okay to discharge home on Levaquin 5 more days. Also will give probiotics. Note, patient also in blast crisis with AML, patient refusing treatment currently MiraLAX prn, for constipation. Per Dr. Tovar, not to give anything rectally. 2. 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 No signs of acute bleeding, platelets at 15 Wound culture with enterococcus and E. coli, discharge on Levaquin oral Chest x-ray with atelectasis. 3. Acute myelogenous leukemia, recurrence of the disease currently, 72% blasts on peripheral smear, leukocytosis and severe thrombocytopenia with platelets of 15. Discussed with Dr Rianna Herrera, who offered to initiate treatment again. She was also agreeable to him going to [facility] for a second opinion, already authorized by the medical group. The patient is not ready for either option, but was open to seeking the [facility] appointment at some future date. Prognosis poor given ongoing blast crisis and immunosuppression with ongoing infection. 3. Hypertension, blood pressure control, continue losartan and amlodipine 4. Diabetes mellitus, with fair control (HgbA1c 6.7%). Home medications at discharge. 5. Anxiety disorder, with history of claustrophobia, continue Xanax PRN for anxiety. Prophylaxis: Protonix for GI prophylaxis and no DVT ppx due to severe thrombocytopenia. Disposition: Discharge home today, follow-up with surgery as an outpatient in 1- 2 weeks patient needs to follow-up with oncology or [facility] as he does need treatment for his recurrent AML currently with significant blasts on peripheral smear. Subjective 24 Hr Interval Summary Free Text/Dictation Patient feels better, no fevers over the past 24 hours, however again white blood cell count elevated to 24 with a 72% last Shunt agreeable to have his labs drawn in a couple of days, result will be sent to Dr. Herrera inpatient has committed to go see Dr. Bruce as an outpatient again to discuss his options. I have urged him to proceed with treatment. Exam/Review of Systems Vital Signs Vitals Vital Signs Date Time Temp Pulse Resp B/P Pulse Ox O2 Delivery O2 Flow Rate FiO2 11/02/16 08:00 98.2 70 18 150/85 95 11/02/16 07:31 Room Air 11/01/16 08:00 2.0 Intake and Output 11/01/16 11/01/16 11/02/16 15:00 23:00 07:00 Intake Total 1650 ml 1190 ml Output Total 1100 ml Balance 550 ml 1190 ml Exam Constitutional: alert, oriented, well developed Respiratory: clear to auscultation, normal air movement Cardiovascular: nl pulses, regular rate and rhythm Gastrointestinal: non-tender, soft Musculoskeletal: nl extremities to inspection Extremities: normal pulses, other (No edema, clubbing or cyanosis) Neurological: SYSTEMS ARCHITECT II-XII intact, nl mental status, nl speech, nl strength Results Result Diagram: 11/02/16 0740 11/02/16 0740 Results 24 hrs Laboratory Tests Test 11/01/16 18:26 11/01/16 20:50 11/02/16 02:15 11/02/16 07:40 Bedside Glucose 195 192 128 White Blood Count 24.0 H Red Blood Count 3.11 #L Hemoglobin 10.5 #L Hematocrit 29.3 #L Mean Corpuscular Volume 94.2 Mean Corpuscular Hemoglobin 33.8 H Mean Corpuscular Hemoglobin Concent 35.8 Red Cell Distribution Width 16.3 H Platelet Count 15 #*L Mean Platelet Volume 10.5 H Neutrophils % Segmented Neutrophils % (Manual) 9 L Band Neutrophils % (Manual) 3 Lymphocytes % Lymphocytes % (Manual) 11 L Monocytes % Monocytes % (Manual) 2 Eosinophils % Basophils % Myelocytes % (Manual) 1 H Promyelocytes % (Manual) 2 H Blast Cells % (Manual) 72 H Nucleated Red Blood Cells % 0.0 Neutrophils # (Manual) 2.3 Band Neutrophils # 0.7 H Absolute Lymphocytes (Manual) 2.6 Lymphocytes # 2.6 Monocytes # 0.5 Absolute Monocytes (Manual) 0.4 Eosinophils # Basophils # Myelocytes # 0.2 H Promyelocytes # 0 Blastocytes # 4.2 H Nucleated Red Blood Cells # Sodium Level 143 Potassium Level 4.3 Chloride Level 99 Carbon Dioxide Level 28 Anion Gap 20 H Blood Urea Nitrogen 10 Creatinine 0.92 Glucose Level 158 Calcium Level 9.5 Phosphorus Level 3.0 Magnesium Level 2.2 Test 11/02/16 08:24 11/02/16 12:32 Bedside Glucose 152 236 H Medications Medications Current Medications Amlodipine Besylate (Norvasc) 2.5 mg BID PO Last administered on 11/02/16 08: 25; Admin Dose 2.5 MG; Start 10/29/16 at 21:00 Losartan Potassium (Cozaar) 50 mg BID PO Last administered on 11/02/16 08:25; Admin Dose 50 MG; Start 10/29/16 at 21:00 Acetaminophen (Tylenol Tab) 650 mg Q6H PRN PO PAIN LEVEL 1-3 OR FEVER Last administered on 11/01/16 22:57; Admin Dose 650 MG; Start 10/29/16 at 15:00 Acetaminophen/ Hydrocodone Bitart ([place] (5/325)) 1 tab Q6H PRN PO MODERATE PAIN LEVEL 4-6; Start 10/29/16 at 15:00 Acetaminophen/ Hydrocodone Bitart ([place] (5/325)) 2 tab Q6H PRN PO SEVERE PAIN LEVEL 7-10; Start 10/29/16 at 15:00 Docusate Sodium (Colace) 100 mg Q12H PRN PO CONSTIPATION Last administered on 01:44; Admin Dose 100 MG; Start 10/29/16 at 15:00 Magnesium Hydroxide (Milk Of Mag) 30 ml DAILY PRN PO CONSTIPATION; Start at 15:00 Pantoprazole (Protonix Tab) 40 mg DAILY@06 PO Last administered on 11/02/16 05 :44; Admin Dose 40 MG; Start 10/30/16 at 06:00 Diagnostic Test (Pha) (Accu-Chek) 1 ea 02 XX Last administered on 11/02/16 02: 27; Admin Dose 1 EA; Start 10/30/16 at 02:00 Miscellaneous Information 1 ea NOTE XX ; Start 10/29/16 at 15:30 Glucose (Glutose) 15 gm Q15M PRN PO DECREASED GLUCOSE; Start 10/29/16 at 15:30 Glucose (Glutose) 22.5 gm Q15M PRN PO DECREASED GLUCOSE; Start 10/29/16 at 15: 30 Dextrose (D50w Syringe) 25 ml Q15M PRN IV DECREASED GLUCOSE; Start 10/29/16 at 15:30 Dextrose (D50w Syringe) 50 ml Q15M PRN IV DECREASED GLUCOSE; Start 10/29/16 at 15:30 Glucagon (Glucagen) 1 mg Q15M PRN IM DECREASED GLUCOSE; Start 10/29/16 at 15:30 Glucose (Glutose) 15 gm Q15M PRN BUCCAL DECREASED GLUCOSE; Start 10/29/16 at 15 :30 Alprazolam (Xanax) 0.25 mg Q8H PRN PO ANXIETY Last administered on 10/30/16 20 :37; Admin Dose 0.25 MG; Start 10/29/16 at 16:00 Morphine Sulfate (morphine) 3 mg Q2H PRN IV PAIN Last administered on 10:59; Admin Dose 3 MG; Start 10/29/16 at 20:00 Oxycodone/ Acetaminophen (Percocet (5/ 325)) 1 tab Q4H PRN PO MILD PAIN (1-3); Start 10/30/16 at 10:30 Oxycodone/ Acetaminophen (Percocet (5/ 325)) 2 tab Q4H PRN PO MODERATE PAIN (4- 6); Start 10/30/16 at 10:30 Morphine Sulfate (morphine) 2 mg ONCE PRN IV SEVERE PAIN LEVEL 7-10; Start at 10:30; Stop 11/04/16 at 10:29 Ondansetron HCl (Zofran Inj) 4 mg Q6H PRN IV NAUSEA; Start 10/30/16 at 10:30 Levofloxacin (Levaquin) 750 mg DAILY@06 PO Last administered on 11/02/16 05:44 ; Admin Dose 750 MG; Start 11/01/16 at 11:30 Polyethylene Glycol (Miralax) 17 gm BID NGT Last administered on 11/01/16 12: 54; Admin Dose 17 GM; Start 11/01/16 at 12:00 Neomycin/ Polymyxin/ Bacitracin (Neosporin Topical Oint) 1 applic BID TOP Last administered on 11/02/16 08:21; Admin Dose 1 APPLIC; Start 11/01/16 at 18:30 Trimethoprim/ Sulfamethoxazole (Bactrim (Ds)) 1 tab BID PO Last administered on 11/02/16t 11:00; Admin Dose 1 TAB; Start 11/02/16 at 09:13 SOBIA NUNEZ Nov 02, 2016 13:37
--- NOTE | 2016-11-02 13:51 | PDOCDIS ---
Discharge Instructions CONDITION Patient Condition: Stable HOME CARE INSTRUCTIONS: Special Diet: CARB CONTROLED DIET ACTIVITY: Activity Restrictions: No Restrictions FOLLOW UP/APPOINTMENTS Follow-up Plan Follow-up with outpatient neurology, patient has lab draw scheduled already on November 05 Follow-up with Dr. Tovar in 1-2 weeks for follow-up status post abscess incision and drainage Follow-up with primary care physician within 1 week SOBIA NUNEZ Nov 02, 2016 13:51
[2016-11-02] MEDS ORDERED: LACT1CAP57 PO (13:53)
[2016-11-02] MEDS ORDERED: LEVO750T25 PO (13:53)
[2016-11-02] MEDS ORDERED: NEOM28OI TOP (13:56)
[2016-11-02] MEDS ORDERED: LACTOBACILLUS RHAMNOSUS CAP PO SCH (21:00)
== END 2016-11-02 14:52 | disposition home or self-care (01) | DRG 348 ==
LOC: FTE 07:46 → MS2 11:54 → MS1 15:19
PROVIDERS: ADMIT Internal Medicine; ATTEND Internal Medicine
PROC: 0D9QXZZ Drainage of Anus, External Approach (ICD-10-PCS; principal; 2016-10-30 08:00)
PROC: 30233R1 Transfusion of Nonautologous Platelets into Peripheral Vein, Percutaneous Approach (ICD-10-PCS; 2016-10-31)
PROC: 30233N1 Transfusion of Nonautologous Red Blood Cells into Peripheral Vein, Percutaneous Approach (ICD-10-PCS; 2016-11-01)
DX: K61.2 Anorectal abscess (principal); C92.00 Acute myeloblastic leukemia, not having achieved remission; D69.6 Thrombocytopenia, unspecified; R16.2 Hepatomegaly with splenomegaly, not elsewhere classified; J98.11 Atelectasis; I10 Essential (primary) hypertension; E11.9 Type 2 diabetes mellitus without complications; B95.2 Enterococcus as the cause of diseases classified elsewhere; F41.9 Anxiety disorder, unspecified; Z87.891 Personal history of nicotine dependence; N40.0 Benign prostatic hyperplasia without lower urinary tract symptoms; B96.20 Unspecified Escherichia coli [E. coli] as the cause of diseases classified elsewhere
CPT/HCPCS: 36415; 36430; 71010; 74177; 80048; 80053; 80202; 81001; 82565; 82962; 83036; 83735; 84100; 85025; 85610; 85730; 86644; 86850; 86900; 86901; 86920; 86945; 87040; 87070; 87075; 87205; 93005; 96365; 96366; 96375; 96376; J1170; J1815; J2250; J2270; J2405; J2543; J3010; J3370; J7030; J7040; J7050; P9016; P9035; Q9967

== ENCOUNTER 2016-12-31 16:38 | Emergency (ER) | payer OTHER ==
[~2016-12-31] VITALS: Wt 83.5 kg
[~2016-12-31 16:38] MED LIST changes: -AMLO2.5T78 PO; +AMLO5TAB4 PO
[2016-12-31] MEDS ORDERED: VANCOMYCIN 1 GM (PMX) 250 ML IVPB STA (19:02)
[2016-12-31] MEDS ORDERED: SODIUM CHLORIDE 0.9% 1L BAG IV* STA (19:02)
[2016-12-31] MEDS ORDERED: PIPER-TAZO 3.375 GM IV (PMX) 100 ML IVPB STA (19:02)
--- NOTE | 2016-12-31 19:26 | ERD ---
ER Documentation Chief Complaint Chief Complaint fever, bodypain since yest, hx of leukemia due for chemo appt. next wk HPI This 66-year-old male presents with fever and pain all over his body. Had leukemia and his last chemotherapy was last year. He was supposed to receive 2 more doses of chemotherapy but elected not to. Next week he has a appointment with his chemotherapy doctor. Is no specific chest pain, shortness of breath, abdominal pain. He does has generalized whole body pain with headache and generalized malaise and weakness.. ROS All systems reviewed and are negative except as per history of present illness. Medications Home Meds Active Scripts Levofloxacin* (Levaquin*) 750 Mg Tablet, 750 MG PO DAILY for 5 Days, TAB Prov:SHAWNA LINN DO 12/31/16 Reported Medications Losartan Potassium* (Losartan Potassium*) 50 Mg Tablet, 50 MG PO BID Y for NEEDED, TAB 12/31/16 Glimepiride* (Glimepiride*) 1 Mg Tablet, 1 MG PO BID Y for ELEVATED GLUCOSE, TAB NEEDED 11/15/16 Amlodipine Besylate* (Norvasc*) 5 Mg Tablet, 5 MG PO BID, TAB NEEDED 11/15/16 Discontinued Scripts Losartan Potassium* (Cozaar*) 50 Mg Tablet, 50 MG PO BID for 30 Days, TAB 3 Refills Prov:SOBIA NUNEZ 11/12/15 Allergies Allergies: Coded Allergies: No Known Allergy (Unverified , 12/31/16) PMhx/Soc History of Surgery: Yes Anesthesia Reaction: No Hx Neurological Disorder: No Hx Respiratory Disorders: No Hx Cardiac Disorders: Yes (htn) Hx Psychiatric Problems: No Hx Miscellaneous Medical Probl: No Hx Alcohol Use: No Hx Substance Use: No Hx Tobacco Use: No Physical Exam Vitals Vital Signs Date Time Temp Pulse Resp B/P Pulse Ox O2 Delivery O2 Flow Rate FiO2 12/31/16 19:43 100.3 88 17 132/78 97 Room Air 12/31/16 16:48 101.0 103 20 139/76 97 Physical Exam Const: [] Mild distress Head: Atraumatic Eyes: Normal Conjunctiva ENT: Normal External Ears, Nose and Mouth. Neck: Full range of motion..~ No meningismus. Resp: Clear to auscultation bilaterally Cardio: Regular tachycardia, no murmurs Abd: Soft, non tender, non distended. Normal bowel sounds Skin: No petechiae or rashes Back: No midline or flank tenderness Ext: No cyanosis, or edema Neur: Awake and alert 3, cranial nerves II through XII intact, no cerebellar deficits, normal gait. Psych: Normal Mood and Affect Result Diagram: 12/31/16192912/31/161929 Results 24 hrs Laboratory Tests Test 12/31/16 19:30 12/31/16 20:40 12/31/16 21:00 White Blood Count 24.410^3/ul Red Blood Count 2.4410^6/ul Hemoglobin 7.3g/dl Hematocrit 21.8% Mean Corpuscular Volume 89.3fl Mean Corpuscular Hemoglobin 29.9pg Mean Corpuscular Hemoglobin Concent 33.5g/dl Red Cell Distribution Width 15.3% Platelet Count 710^3/UL Mean Platelet Volume 10.9fl Neutrophils % % Segmented Neutrophils % (Manual) 11% Lymphocytes % % Lymphocytes % (Manual) 16% Monocytes % % Blast Cells % (Manual) 73.0% Nucleated Red Blood Cells % 0.0/100WBC Neutrophils # 10^3/ul Absolute Lymphocytes (Manual) 3.910^3/ul Lymphocytes # 3.910^3/ul Monocytes # 10^3/ul Blastocytes # 4.310^3/ul Prothrombin Time 13.9Sec Prothrombin Time Ratio 1.1 INR International Normalized Ratio 1.07 Activated Partial Thromboplast Time 29.7Sec Sodium Level 141mmol/L Potassium Level 3.8mmol/L Chloride Level 99mmol/L Carbon Dioxide Level 28mmol/L Anion Gap 18 Blood Urea Nitrogen 14mg/dl Creatinine 1.04mg/dl Glucose Level 158mg/dl Lactic Acid Level 1.0mmol/L 1.0mmol/L Calcium Level 9.4mg/dl Total Bilirubin 1.0mg/dl Direct Bilirubin 0.00mg/dl Indirect Bilirubin 1.0mg/dl Aspartate Amino Transf (AST/SGOT) 16IU/L Alanine Aminotransferase (ALT/SGPT) 32IU/L Alkaline Phosphatase 63IU/L Troponin I < 0.012ng/ml Total Protein 8.2g/dl Albumin 5.1g/dl Globulin 3.10g/dl Albumin/Globulin Ratio 1.64 Urine Color STRAW Urine Clarity CLEAR Urine pH 7.0 Urine Specific [place] 1.004 Urine Ketones NEGATIVEmg/dL Urine Nitrite NEGATIVEmg/dL Urine Bilirubin NEGATIVEmg/dL Urine Urobilinogen NEGATIVEmg/dL Urine Leukocyte Esterase NEGATIVELeu/ul Urine Microscopic RBC 0/HPF Urine Microscopic WBC 0/HPF Urine Hemoglobin 1+mg/dL Urine Glucose NEGATIVEmg/dL Urine Total Protein NEGATIVEmg/dl Current Medications Medications (Trade) Dose Ordered Sig/Zack Route PRN Reason Start Time Stop Time Status Last Admin Dose Admin Sodium Chloride 2590 ml 2,590 ml BOLUS OVER 2 HOURS STAT IV* 12/31/16 19:02 12/31/16 19:09 DC 12/31/16 19:45 Vancomycin HCl 250 ml @ 125 mls/hr ONCE STAT IVPB 12/31/16 19:02 12/31/16 21:01 DC 12/31/16 19:02 Piperacillin Sod/ Tazobactam Sod (Zosyn 3.375gm/ 100 ml (Pmx)) 100 ml @ 200 mls/hr ONCE STAT IVPB 12/31/16 19:02 12/31/16 19:31 DC 12/31/16 19:45 Procedures/MDM Febrile sepsis with his significant leukocytosis and leukemia patient. Patient presented with labs that were done last week which showed a white count of 8.9. Also had a hemoglobin of 8 at this time. Now his white blood cell count is 22 , his febrile and his hemoglobin is dropped more than one-point. He does have acute leukemia and gets transfusion of blood and possibly platelets every Tuesday. Platelet level was 11 and is now 7. He has no active bleeding. He was given IV fluids, vancomycin and Zosyn. Fever was reduced with IV fluids alone. Discuss results the patient as well as it admission plan. He states that he does not want to be admitted in the hospital because he was previously admitted for 6 days of IV antibiotics and they never found the source of the infection and he does not want to stay in the hospital. Is signing out AGAINST MEDICAL ADVICE. Am going to provide him with 5 days of Levaquin additionally because I do not want him to be overwhelmed by an infection. He is going to follow-up his primary care doctor on Tuesday and receive his in for lesions. No source of infection was uncovered he has no specific symptoms and has no UTI or pneumonia. I doubt meningitis but this is a possibility. X-ray interpretation: I see no acute process. I see no infiltrate, no pulmonary edema, pneumothorax, no fractures Monitor interpretation: Sinus tachycardia followed by normal sinus rhythm. No arrhythmias Care time greater than 35 minutes: This includes treatment of sepsis in immunocompromised patient with severe anemia and thrombocytopenia, treatment of unstable vital signs, immediate antibiotic administration, careful fluid administration, discussion with patient and at length, review of chart. This does not include any billable procedures. Departure Diagnosis: Primary Impression: Sepsis Additional Impressions: Severe anemia Leukocytosis, unspecified Febrile illness Severe thrombocytopenia Condition: Serious SHAWNA LINN DO Dec 31, 2016 19:26
[2016-12-31] MEDS ORDERED: LOSA50TA6 PO (19:35)
--- NOTE | 2016-12-31 21:02 | RADRPT ---
PROCEDURE: XR Chest. CLINICAL INDICATION: Sepsis. TECHNIQUE: Single AP portable chest. COMPARISON: 12/17/2015 Chest x-ray FINDINGS: The cardiomediastinal silhouette is within normal limits of size. The lungs are clear without pleur al effusion or focal consolidation. No pneumothorax. The osseous structures and soft tissues are unr emarkable. IMPRESSION: 1. No evidence for active cardiopulmonary disease. RPTAT:AAJJ Austin Engel Physician Date Time Electronically viewed and signed by Austin Engel Physician on 12/31/2016 21:01 DYLLAN/
[2016-12-31] MEDS ORDERED: LEVO750T25 PO (22:52)
[2016-12-31 23:07] VITALS: BP 133/78; PULSE 89; RESP 20; TEMP 100.6
== END 2016-12-31 23:07 | disposition left against medical advice (07) ==
LOC: E/R 16:38
DX: A41.9 Sepsis, unspecified organism (principal); R40.2252 Coma scale, best verbal response, oriented, at arrival to emergency department; D72.829 Elevated white blood cell count, unspecified; D69.6 Thrombocytopenia, unspecified; I10 Essential (primary) hypertension; R40.2142 Coma scale, eyes open, spontaneous, at arrival to emergency department; R40.2362 Coma scale, best motor response, obeys commands, at arrival to emergency department; Z79.84 Long term (current) use of oral hypoglycemic drugs
CPT/HCPCS: 36415; 71010; 80053; 81001; 83605; 84484; 85025; 85610; 85730; 87040; 87086; 96374; 96375; 99284; J2543; J3370; J7030

== ENCOUNTER 2017-01-18 10:33 | Inpatient (IN) | payer OTHER ==
[~2017-01-18] VITALS: Ht 170.2 cm; Wt 82.0 kg
[~2017-01-18 10:33] MED LIST changes: -LOSA50TA2 PO; +LOSA50TA6 PO
[2017-01-18 11:31] LABS: ABNORMAL IP MESSAGE 1; HEMATOCRIT 16.9 % (42.0-52.0); MEAN CORPUSCULAR HEMOGLOBIN 29.6 pg (29.0-33.0); MEAN CORPUSCULAR HGB CONC 33.1 g/dl (32.0-37.0); MEAN CORPUSCULAR VOLUME 89.4 fl (82.0-101.0); POSITIVE DIFF @See below; RED BLOOD COUNT 1.89 10^6/ul (4.70-6.10); RED CELL DISTRIBUTION WIDTH 14.6 % (11.5-14.5); WHITE BLOOD COUNT 13.9 10^3/ul (4.8-10.8)
[2017-01-18 11:40] LABS: HEMOGLOBIN 5.6 g/dl (14.0-18.0); PLATELET COUNT 1 10^3/UL (140-415)
[2017-01-18 11:54] LABS: INR 1.06; PROTIME 13.8 Sec (12.2-14.2); PT RATIO 1.1
[2017-01-18 11:55] LABS: PARTIAL THROMBOPLASTIN TIME 26.9 Sec (25.0-35.0)
[2017-01-18 11:57] LABS: ALANINE AMINOTRANSFERASE 30 IU/L (13-69); ALBUMIN 4.1 g/dl (3.3-4.9); ALBUMIN/GLOBULIN RATIO 1.17; ALKALINE PHOSPHATASE 60 IU/L (42-121); ANION GAP 15 (8-16); ASPARTATE AMINO TRANSFERASE 16 IU/L (15-46); BILIRUBIN,INDIRECT 0.5 mg/dl (0-1.1); BILIRUBIN,TOTAL 0.5 mg/dl (0.2-1.3); BLOOD UREA NITROGEN 19 mg/dl (7-20); CALCIUM 9.6 mg/dl (8.4-10.2); CARBON DIOXIDE 27 mmol/L (21-31); CHLORIDE 106 mmol/L (97-110); CREATININE 0.99 mg/dl (0.61-1.24); GLUCOSE 171 mg/dl (70-220); POTASSIUM 4.5 mmol/L (3.5-5.1); SODIUM 143 mmol/L (135-144); TOTAL PROTEIN 7.6 g/dl (6.1-8.1)
[2017-01-18] MEDS ORDERED: SOD CHLORIDE 0.9% 250 ML IV ONE (12:07)
[2017-01-18 12:16] LABS: TROPONIN-I < 0.012 ng/ml (0.00-0.12)
--- NOTE | 2017-01-18 12:52 | ERD ---
ER Documentation Chief Complaint Chief Complaint sent by pmd for blood transfusion, hx leukemia HPI This 66-year-old male presents to the emergency room for evaluation of generalized weakness and low blood count. 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 bullock. He was called because his blood count was low and was told to come to the emergency room for a transfusion. The patient denies any dark stools, denies any vomiting of blood denies any chest pain or shortness of breath at this time. ROS All systems reviewed and are negative except as per history of present illness. Medications Home Meds Reported Medications Losartan Potassium* (Losartan Potassium*) 50 Mg Tablet, 50 MG PO BID Y for NEEDED, TAB 12/31/16 Glimepiride* (Glimepiride*) 1 Mg Tablet, 1 MG PO BID Y for ELEVATED GLUCOSE, TAB NEEDED 11/15/16 Amlodipine Besylate* (Norvasc*) 5 Mg Tablet, 5 MG PO BID, TAB NEEDED 11/15/16 Discontinued Scripts Levofloxacin* (Levaquin*) 750 Mg Tablet, 750 MG PO DAILY for 5 Days, TAB Prov:SHAWNA LINN DO 12/31/16 Allergies Allergies: Coded Allergies: No Known Allergy (Unverified , 01/11/17) PMhx/Soc History of Surgery: Yes Anesthesia Reaction: No Hx Neurological Disorder: No Hx Respiratory Disorders: No Hx Cardiac Disorders: No Hx Psychiatric Problems: No Hx Miscellaneous Medical Probl: Yes (ANIMA AML ) Hx Alcohol Use: No Hx Substance Use: No Hx Tobacco Use: No Smoking Status: Never smoker Physical Exam Vitals Vital Signs Date Time Temp Pulse Resp B/P Pulse Ox O2 Delivery O2 Flow Rate FiO2 01/18/17 10:35 98.4 100 76 135/71 98 Physical Exam INITIAL VITAL SIGNS: Reviewed by me GENERAL: The patient is well developed and appropriate for usual state of health in no apparent distress HEENT: Conjunctival pallor, pupils equal, round, and reactive to light. EOMI. There is no scleral icterus. NECK: C-spine is soft and supple, there is no meningismus. There is no cervical lymphadenopathy. LUNGS: Clear to auscultation bilaterally. There are no rales, wheezes or rhonchi. HEART: Regular rate and rhythm, no murmurs, clicks, rubs or gallops. ABDOMEN: Soft, non-tender, non-distended. There are bowel sounds in all four quadrants. No rebound or guarding. EXTREMITIES: There is no peripheral cyanosis or edema. No focal swelling or erythema. NEUROLOGICAL: The patient moves all four extremities with 5/5 strength. Cranial nerves II - XII are intact. Normal gait. Alert and oriented SKIN: There is no apparent rash or petechiae. HEME/LYMPHATIC: There is no evidence of excessive bruising or lymphedema. PSYCHIATRIC: The patient does not appear anxious or depressed. Result Diagram: 01/18/17 1114 01/18/17 1114 Results 24 hrs Laboratory Tests Test 01/18/17 11:14 White Blood Count 13.910^3/ul Red Blood Count 1.8910^6/ul Hemoglobin 5.6g/dl Hematocrit 16.9% Mean Corpuscular Volume 89.4fl Mean Corpuscular Hemoglobin 29.6pg Mean Corpuscular Hemoglobin Concent 33.1g/dl Red Cell Distribution Width 14.6% Platelet Count 110^3/UL Mean Platelet Volume fl Neutrophils % % Lymphocytes % % Monocytes % % Eosinophils % % Basophils % % Nucleated Red Blood Cells % 0.0/100WBC Neutrophils # 10^3/ul Lymphocytes # 10^3/ul Monocytes # 10^3/ul Eosinophils # 10^3/ul Basophils # 10^3/ul Nucleated Red Blood Cells # 10^3/ul Prothrombin Time 13.8Sec Prothrombin Time Ratio 1.1 INR International Normalized Ratio 1.06 Activated Partial Thromboplast Time 26.9Sec Sodium Level 143mmol/L Potassium Level 4.5mmol/L Chloride Level 106mmol/L Carbon Dioxide Level 27mmol/L Anion Gap 15 Blood Urea Nitrogen 19mg/dl Creatinine 0.99mg/dl Glucose Level 171mg/dl Calcium Level 9.6mg/dl Total Bilirubin 0.5mg/dl Direct Bilirubin 0.00mg/dl Indirect Bilirubin 0.5mg/dl Aspartate Amino Transf (AST/SGOT) 16IU/L Alanine Aminotransferase (ALT/SGPT) 30IU/L Alkaline Phosphatase 60IU/L Troponin I < 0.012ng/ml Total Protein 7.6g/dl Albumin 4.1g/dl Globulin 3.50g/dl Albumin/Globulin Ratio 1.17 Current Medications Medications (Trade) Dose Ordered Sig/Zack Route PRN Reason Start Time Stop Time Status Last Admin Dose Admin Sodium Chloride (NS) 250 ml @ 0 mls/hr Q0M ONCE IV 01/18/17 12:07 01/18/17 12:09 DC Procedures/MDM This 66-year-old male presents to the ER for evaluation of low hemoglobin. When I evaluated this patient he did have conjunctival pallor however he was hemodynamically stable. He was not hypoxic and in no respiratory distress. This patient underwent lab work which does demonstrate a hemoglobin of 5.6 and a platelet count of 1. This patient has no mucosal bleeding given his extremely low platelet count. I have contacted his oncologist Dr. Chand who stated that this patient is refusing any therapy for his AML however he will accept transfusions. I have talked to the patient about transfusion and he is agreeable. He will be placed in for admission under the care of Dr. Wheeler at this time. This patient will receive 2 units of platelets and 2 units of packed red blood cells. Critical Care: Excluding all billable procedures Time: 37 minutes Treatments/Evaluations: Close monitoring and treatment of unstable vital signs, cardiorespiratory, and neurologic status, while maintaining tight balance of fluid, respiratory, and cardiac interventions. Departure Diagnosis: Primary Impression: Normocytic anemia Additional Impressions: Thrombocytopenia Acute leukemia Condition: Stable OTONIEL SOTELO DO Jan 18, 2017 12:52
[2017-01-18 13:00] VITALS: TEMP 98.7
[2017-01-18] MEDS ORDERED: ONDANSETRON 4 MG INJ IV PRN ×2 (13:00→14:00)
[2017-01-18] MEDS ORDERED: ACETAMINOPHEN 325 MG TAB PO PRN (13:00)
[2017-01-18 13:21] LABS: ANISOCYTOSIS 2+ (0-0); METAMYELOCYTES %M 3 % (0-0); MICROCYTOSIS 2+ (0-0); MONOCYTES % (M) 3 % (0-11); PLATELET ESTIMATE SIG DECREASED; POLYCHROMASIA 3+ (0-0); REACTIVE LYMPHOCYTES% (M) 5 % (0-0)
[2017-01-18] MEDS ORDERED: DIPHENHYDRAMINE 50 MG INJ IV ONE (13:30)
[2017-01-18 13:41] LABS: PATH REVIEW Y
[2017-01-18] MEDS ORDERED: ZOLPIDEM 5 MG TAB PO PRN (14:00)
[2017-01-18] MEDS ORDERED: Discontinue current oral sulfonylureas (glyburide, glipizide, and/or glimepiride) prior to XX ONE (14:00)
[2017-01-18] MEDS ORDERED: HYPOGLYCEMIA PROTOCOL when Glucose is <70 mg/dL or symptomatic <90 mg/dL. XX ONE (14:00)
[2017-01-18] MEDS ORDERED: morphine 2 MG INJ IV PRN (14:00)
[2017-01-18] MEDS ORDERED: NACL 0.9% 3 ML SYG IV SCH (14:00)
[2017-01-18] MEDS ORDERED: DOCUSATE SODIUM 100 MG CAP PO PRN (14:00)
[2017-01-18] MEDS ORDERED: MAGNESIUM HYDROXIDE 30ML CUP PO PRN (14:00)
[2017-01-18] MEDS ORDERED: LOSARTAN 50 MG TAB PO PRN (14:00)
[2017-01-18] MEDS ORDERED: HYDROCODONE/APAP (5/325) TAB PO PRN ×2 (14:00)
[2017-01-18] MEDS ORDERED: BISACODYL 10 MG SUPP PR PRN (14:00)
[2017-01-18] MEDS ORDERED: GLUCOSE GEL 15 GRAM TUBE BUCCAL PRN (14:30)
[2017-01-18] MEDS ORDERED: GLUCAGON 1 MG INJ IM PRN (14:30)
[2017-01-18] MEDS ORDERED: GLUCOSE GEL 15 GRAM TUBE PO PRN ×2 (14:30)
[2017-01-18] MEDS ORDERED: DEXTROSE 50% 50 ML SYRINGE IV PRN ×2 (14:30)
--- NOTE | 2017-01-18 17:08 | HP ---
Date/Time of Note Date/Time of Note DATE: 01/18/17 TIME: 17:05 Assessment/Plan VTE Prophylaxis VTE Prophylaxis Intervention: contraindicated VTE Contraindication Reason: thrombocytopenia Assessment/Plan Assessment/Plan 66-year-old male with : 1. Acute myelogenous leukemia, recurrence of the disease currently, 73% blasts on peripheral smear, mild leukocytosis, symptomatic anemia with hemoglobin of 5.6 and severe thrombocytopenia with platelets of 1. Patient was sent to ER by his primary sales representative groceries discussed with Dr Rianna Herrera, Plan for transfusion of 2 units of packed red blood cells and 2 units of platelets Patient is currently pursuing naturopathic treatment but also has appointment with [facility] on 02/02. Prognosis poor given ongoing blast crisis and seems to be trending toward transfusion dependent, he has been transfused 1 unit of platelets and 1 unit of packed red blood cells weekly lately. 2. Hypertension, blood pressure control, continue losartan and amlodipine as tolerated 3. Diabetes mellitus, with fair control (HgbA1c 6.7%). Home medications at discharge. While inpatient sliding scale insulin and holding off glimepiride per [facility] protocol 4. Anxiety disorder, with history of claustrophobia, continue Xanax PRN for anxiety. Patient had to be assigned a different room on admission due to claustrophobia. Prophylaxis: SCDs and anticoagulation contraindicated due to severe thrombocytopenia, Pepcid for GI prophylaxis Disposition: Blood transfusion both PRBC and platelet overnight, repeat blood count in a.m., further transfusion if needed otherwise discharge home in the next 24 hours. HPI/ROS Admit Date/Time Admit Date/Time Jan 18, 2017 at 12:18 Hx of Present Illness Chief complaint: Abnormal labs, generalized weakness History of presenting illness: 66-year-old male with known recurrence of AML, currently with ongoing blast crisis, he is blasted a 73% with a WBC count of 13 , also has been more or less transfusion dependent, apparently has been getting weekly transfusion of 1 unit of packed red blood cells and 1 unit of platelets with baseline platelets in the teens and baseline hemoglobin close to 9 as a goal, he was sent over to the emergency department by his sales representative groceries due to the fact that he is outpatient labs from yesterday are showing platelet count of 3 and hemoglobin of 6.2. Patient denies any fevers, chills, coughing, nausea , vomiting, genitourinary complaints. He does feel weak and he is noted to be pale. In the emergency department on his repeat labs his platelet count came back at 1 with a hemoglobin of 5.6. Patient is being admitted for blood transfusion, he will be getting 2 units of packed red blood cells along with 2 units of platelets. Patient is extremely claustrophobic, and does not want to stay in the hospital but agreeable to stay overnight for blood transfusion. Will monitor overnight. He is status post 1 unit of packed red blood cells, additional transfusion will be done on the floor. ROS Constitutional: fatigue Eyes: no complaints ENT: no complaints Respiratory: no complaints Cardiovascular: no complaints Gastrointestinal: no complaints Genitourinary: no complaints Musculoskeletal: no complaints Skin: no complaints Neurologic: no complaints Endocrine: no complaints Lymphatic: no complaints Immunologic: no complaints PMH/Family/Social Past Medical History Hypertension Diabetes mellitus Gastritis Anxiety disorder AML status post 2 previous chemotherapy treatment more or less a year ago, with recurrence currently, apparently today on peripheral smear he does have 73% blasts along with severe thrombocytopenia and anemia. Past Surgical History Past Surgical Hx: no surgical history Family History Significant Family History: no pertinent family hx Social History Alcohol Use: none Smoking Status: Never smoker Drug Use: none Exam/Review of Systems Vital Signs Vitals Vital Signs Date Time Temp Pulse Resp B/P Pulse Ox O2 Delivery O2 Flow Rate FiO2 01/18/17 15:30 84 17 129/80 99 Room Air 01/18/17 13:00 98.7 Exam Constitutional: alert, oriented, other (Pale, weak), well developed Head: normocephalic Eyes: other (Pale sclera) Respiratory: clear to auscultation, normal air movement Cardiovascular: nl pulses, regular rate and rhythm Gastrointestinal: non-tender, soft Musculoskeletal: nl extremities to inspection Extremities: normal pulses, other (No edema, clubbing or cyanosis) Neurological: SOLID WASTE ANALYST II-XII intact, nl mental status, nl speech, nl strength Labs Result Diagram: 01/18/17 1114 01/18/17 111 Medications Medications Current Medications Amlodipine Besylate (Norvasc) 5 mg BID PO ; Start 01/18/17 at 21:00 Losartan Potassium (Cozaar) 50 mg BID PRN PO ELEVATED BLOOD PRESSURE; Start at 14:00 Ondansetron HCl (Zofran Inj) 4 mg Q6H PRN IV NAUSEA AND/OR VOMITING; Start at 14:00 Acetaminophen (Tylenol Tab) 650 mg Q6H PRN PO PAIN LEVEL 1-3 OR FEVER; Start 01/18/17 at 14:00 Acetaminophen/ Hydrocodone Bitart ([place] (5/325)) 1 tab Q6H PRN PO MODERATE PAIN LEVEL 4-6; Start 01/18/17 at 14:00 Acetaminophen/ Hydrocodone Bitart ([place] (5/325)) 2 tab Q6H PRN PO SEVERE PAIN LEVEL 7-10; Start 01/18/17 at 14:00 Morphine Sulfate (morphine) 2 mg Q4H PRN IV SEVERE PAIN LEVEL 7-10; Start at 14:00 Docusate Sodium (Colace) 100 mg Q12H PRN PO CONSTIPATION; Start 01/18/17 at 14 :00 Magnesium Hydroxide (Milk Of Mag) 30 ml DAILY PRN PO CONSTIPATION; Start 01/18 at 14:00 Bisacodyl (Dulcolax Supp) 10 mg DAILY PRN [place] CONSTIPATION; Start 01/18/17 at 14:00 Zolpidem Tartrate (Ambien) 5 mg QHS PRN PO SLEEP; Start 01/18/17 at 14:00 Famotidine (Pepcid) 20 mg Q12 PO ; Start 01/18/17 at 21:00 Diagnostic Test (Pha) (Accu-Chek) 1 ea 02 XX ; Start 01/19/17 at 02:00 Miscellaneous Information 1 ea NOTE XX ; Start 01/18/17 at 14:30 Glucose (Glutose) 15 gm Q15M PRN PO DECREASED GLUCOSE; Start 01/18/17 at 14:30 Glucose (Glutose) 22.5 gm Q15M PRN PO DECREASED GLUCOSE; Start 01/18/17 at 14: 30 Dextrose (D50w Syringe) 25 ml Q15M PRN IV DECREASED GLUCOSE; Start 01/18/17 at 14:30 Dextrose (D50w Syringe) 50 ml Q15M PRN IV DECREASED GLUCOSE; Start 01/18/17 at 14:30 Glucagon (Glucagen) 1 mg Q15M PRN IM DECREASED GLUCOSE; Start 01/18/17 at 14: 30 Glucose (Glutose) 15 gm Q15M PRN BUCCAL DECREASED GLUCOSE; Start 01/18/17 at 14:30 SOBIA NUNEZ Jan 18, 2017 17:08
[2017-01-18 17:18] VITALS: BP 154/77; RESP 18
[2017-01-18] MEDS ORDERED: ALPRAZOLAM 0.25 MG TAB PO PRN (17:30)
[2017-01-18 18:30] VITALS: BMI 27.6
[2017-01-18] MEDS: DIPHENHYDRAMINE 50 MG INJ IV PRN (19:03)
[2017-01-18] MEDS: ACETAMINOPHEN 325 MG TAB PO PRN (19:03)
[2017-01-18 19:47] VITALS: BP 144/80; PULSE 78; RESP 18
[2017-01-18 20:15] VITALS: Ht 170.2 cm; Wt 82.0 kg
[2017-01-18] MEDS: AMLODIPINE 5 MG TAB PO SCH (20:33)
[2017-01-18] MEDS: FAMOTIDINE 20 MG TAB PO SCH (20:33)
[2017-01-18] MEDS: INSULIN ASPART [NOVOLOG] 3 ML PEN SC SCH (20:34)
[2017-01-18 21:22] VITALS: BP 124/62; PULSE 85; RESP 18
[2017-01-18 21:51] VITALS: BP 128/68; PULSE 78
--- NOTE | 2017-01-18 23:08 | CONS ---
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 Patient is currently pursuing naturopathic treatment but also has appointment with [facility] on 02/02. -pt currently has 73% blasts circulating in his peripheral blood and is transfusion dependant. Pt understands that his disease is terminal and that his only chance of controlling this disease is with chemotherapy which he is not yet willing to accept. -pt still with low Blood counts after transfusion. will need 2 more units of PRBCs and platelets -low threshold to start antibiotics as patient essentially has no function neutrophils and is severely immunocompromised Approximately 40 min were spent at patient's bedside and in coordination of his care Problems: Consultation Date/Type/Reason Admit Date/Time Jan 18, 2017 at 12:18 Date of Consultation: Jan 18, 2017 Type of Consultation: Hematology Reason for Consultation AML Referring Provider: SOBIA NUNEZ of Present Illness The patient is a 66-year-old gentleman who has known AML and thrombocytopenia. His last chemotherapy was in December 2015, when he underwent induction chemotherapy followed by 1 cycle of consolidation chemotherapy.However since then he has refused any further treatment. In September of this year patient was noted to become more pancytopenic. He was subsequently diagnosed with relapsed disease when he was found with blasts circulating in his peripheral blood. He has since refused any further chemotherapy and is currently undergoing alternative therapies with a doctor as an out patient who does not believe in chemotherapy. He has been receiving out patient blood transfusions almost every week. But on out patient labs from this list week he was noted to be profoundly thrombocytopenic with a platelet count of 1 and Hg of 6. Pt was thus sent to the ER for further evaluation and transfusion. Pt still refuses chemotherapy but he is willing to go to a tertiary care center to see what they have to offer and reconsider chemotherapy at that time. Pt currently has 73% blasts circulating in his bone marrow. Eyes: no complaints ENT: no complaints Respiratory: no complaints Cardiovascular: no complaints Gastrointestinal: no complaints Genitourinary: no complaints Musculoskeletal: no complaints Skin: no complaints Neurologic: no complaints Lymphatic: no complaints Immunologic: no complaints Past Medical History Hypertension Diabetes mellitus Gastritis Anxiety disorder AML status post 2 previous chemotherapy treatment more or less a year ago, with recurrence currently, apparently today on peripheral smear he does have 73% blasts along with severe thrombocytopenia and anemia Past Surgical History Past Surgical Hx: no surgical history Family History Significant Family History: no pertinent family hx Social History Alcohol Use: none Smoking Status: Former smoker Drug Use: none Exam/Review of Systems Vital Signs Vitals Vital Signs Date Time Temp Pulse Resp B/P Pulse Ox O2 Delivery O2 Flow Rate FiO2 01/18/17 21:51 98.2 78 128/68 97 Room Air 01/18/17 21:22 18 Exam Constitutional: alert, frail, oriented Psych: no complaints Head: normocephalic Eyes: nl conjunctiva ENMT: nl external ears & nose Neck: non-tender, supple Respiratory: clear to auscultation, normal air movement Cardiovascular: nl pulses, regular rate and rhythm Gastrointestinal: soft Musculoskeletal: nl extremities to inspection, nl gait and stance Extremities: normal pulses Neurological: ELECTRICAL INTEGRATOR II-XII intact Results Result Diagram: 01/18/17 1114 01/18/17 1114 Results 24 hrs Laboratory Tests Test 01/18/17 11:14 01/18/17 17:54 01/18/17 20:32 White Blood Count 13.9 #H Red Blood Count 1.89 #L Hemoglobin 5.6 #*L Hematocrit 16.9 #L Mean Corpuscular Volume 89.4 Mean Corpuscular Hemoglobin 29.6 Mean Corpuscular Hemoglobin Concent 33.1 Red Cell Distribution Width 14.6 H Platelet Count 1 #*L Mean Platelet Volume Neutrophils % Segmented Neutrophils % (Manual) 4 L Band Neutrophils % (Manual) 1 Lymphocytes % Lymphocytes % (Manual) 11 L Reactive Lymphocytes % (Manual) 5 H Monocytes % Monocytes % (Manual) 3 Eosinophils % Basophils % Metamyelocytes % (manual) 3 H Blast Cells % (Manual) 73.0 H Nucleated Red Blood Cells % 0.0 Neutrophils # Neutrophils # (Manual) 0.6 L Band Neutrophils # 0.1 Absolute Lymphocytes (Manual) 1.5 Lymphocytes # Reactive Lymphocytes # 0.6 H Monocytes # Absolute Monocytes (Manual) 0.4 Eosinophils # Basophils # Metamyelocytes # 0.4 H Nucleated Red Blood Cells # Pathologist Review (Hematology) Y Platelet Estimate SIG DECREASED Polychromasia 3+ Anisocytosis 2+ Microcytosis 2+ Prothrombin Time 13.8 Prothrombin Time Ratio 1.1 INR International Normalized Ratio 1.06 Activated Partial Thromboplast Time 26.9 Sodium Level 143 Potassium Level 4.5 Chloride Level 106 Carbon Dioxide Level 27 Anion Gap 15 Blood Urea Nitrogen 19 Creatinine 0.99 Glucose Level 171 Calcium Level 9.6 Total Bilirubin 0.5 Direct Bilirubin 0.00 Indirect Bilirubin 0.5 Aspartate Amino Transf (AST/SGOT) 16 Alanine Aminotransferase (ALT/SGPT) 30 Alkaline Phosphatase 60 Troponin I < 0.012 Total Protein 7.6 Albumin 4.1 Globulin 3.50 H Albumin/Globulin Ratio 1.17 Bedside Glucose 175 131 Medications Medications Current Medications Amlodipine Besylate (Norvasc) 5 mg BID PO Last administered on 01/18/17 20:33 ; Admin Dose 5 MG; Start 01/18/17 at 21:00 Losartan Potassium (Cozaar) 50 mg BID PRN PO ELEVATED BLOOD PRESSURE; Start at 14:00 Ondansetron HCl (Zofran Inj) 4 mg Q6H PRN IV NAUSEA AND/OR VOMITING; Start at 14:00 Acetaminophen (Tylenol Tab) 650 mg Q6H PRN PO PAIN LEVEL 1-3 OR FEVER Last administered on 01/18/17 19:03; Admin Dose 650 MG; Start 01/18/17 at 14:00 Acetaminophen/ Hydrocodone Bitart ([place] (5/325)) 1 tab Q6H PRN PO MODERATE PAIN LEVEL 4-6; Start 01/18/17 at 14:00 Acetaminophen/ Hydrocodone Bitart ([place] (5/325)) 2 tab Q6H PRN PO SEVERE PAIN LEVEL 7-10; Start 01/18/17 at 14:00 Morphine Sulfate (morphine) 2 mg Q4H PRN IV SEVERE PAIN LEVEL 7-10; Start at 14:00 Docusate Sodium (Colace) 100 mg Q12H PRN PO CONSTIPATION; Start 01/18/17 at 14 :00 Magnesium Hydroxide (Milk Of Mag) 30 ml DAILY PRN PO CONSTIPATION; Start 01/18 at 14:00 Bisacodyl (Dulcolax Supp) 10 mg DAILY PRN [place] CONSTIPATION; Start 01/18/17 at 14:00 Zolpidem Tartrate (Ambien) 5 mg QHS PRN PO SLEEP; Start 01/18/17 at 14:00 Famotidine (Pepcid) 20 mg Q12 PO Last administered on 01/18/17 20:33; Admin Dose 20 MG; Start 01/18/17 at 21:00 Diagnostic Test (Pha) (Accu-Chek) 1 ea 02 XX ; Start 01/19/17 at 02:00 Miscellaneous Information 1 ea NOTE XX ; Start 01/18/17 at 14:30 Glucose (Glutose) 15 gm Q15M PRN PO DECREASED GLUCOSE; Start 01/18/17 at 14:30 Glucose (Glutose) 22.5 gm Q15M PRN PO DECREASED GLUCOSE; Start 01/18/17 at 14: 30 Dextrose (D50w Syringe) 25 ml Q15M PRN IV DECREASED GLUCOSE; Start 01/18/17 at 14:30 Dextrose (D50w Syringe) 50 ml Q15M PRN IV DECREASED GLUCOSE; Start 01/18/17 at 14:30 Glucagon (Glucagen) 1 mg Q15M PRN IM DECREASED GLUCOSE; Start 01/18/17 at 14: 30 Glucose (Glutose) 15 gm Q15M PRN BUCCAL DECREASED GLUCOSE; Start 01/18/17 at 14:30 Alprazolam (Xanax) 0.25 mg Q8H PRN PO ANXIETY; Start 01/18/17 at 17:30 Diphenhydramine HCl (Benadryl) 25 mg Q6H PRN IV ITCHING Last administered on 19:03; Admin Dose 25 MG; Start 01/18/17 at 18:30 CALEB CERON M.D. Jan 18, 2017 23:07
[2017-01-18 23:57] VITALS: BP 126/71; PULSE 72; RESP 18
[2017-01-19] MEDS ORDERED: ACCU-CHEK XX SCH (02:00)
[2017-01-19 02:11] VITALS: BP 125/72; PULSE 74; RESP 18
[2017-01-19 05:13] LABS: ABNORMAL IP MESSAGE 1; HEMATOCRIT 20.4 % (42.0-52.0); MEAN CORPUSCULAR HEMOGLOBIN 29.6 pg (29.0-33.0); MEAN CORPUSCULAR HGB CONC 33.8 g/dl (32.0-37.0); MEAN CORPUSCULAR VOLUME 87.6 fl (82.0-101.0); MEAN PLATELET VOLUME 10.1 fl (7.4-10.4); POSITIVE DIFF @See below; RED BLOOD COUNT 2.33 10^6/ul (4.70-6.10); RED CELL DISTRIBUTION WIDTH 14.5 % (11.5-14.5); WHITE BLOOD COUNT 16.7 10^3/ul (4.8-10.8)
[2017-01-19 05:20] LABS: HEMOGLOBIN 6.9 g/dl (14.0-18.0)
[2017-01-19 05:21] LABS: PLATELET COUNT 24 10^3/UL (140-415)
[2017-01-19 05:48] LABS: CALCIUM 9.2 mg/dl (8.4-10.2); MAGNESIUM 2.2 mg/dl (1.7-2.5); PHOSPHORUS 4.8 mg/dl (2.5-4.9); POTASSIUM 4.4 mmol/L (3.5-5.1)
[2017-01-19] MEDS: INSULIN ASPART [NOVOLOG] 3 ML PEN SC SCH ×4 (07:50→20:20)
[2017-01-19 07:58] VITALS: BP 157/78; RESP 18
[2017-01-19] MEDS: AMLODIPINE 5 MG TAB PO SCH ×2 (08:24→20:19)
[2017-01-19] MEDS: FAMOTIDINE 20 MG TAB PO SCH ×2 (08:25→20:18)
[2017-01-19 09:49] LABS: BLASTOCYTES #M 1.8 10^3/ul (0.0-0.0); MONOCYTE # 0.8 10^3/ul (0.3-0.9); MONOCYTES % (M) 5 % (0-11)
[2017-01-19] MEDS: DIPHENHYDRAMINE 50 MG INJ IV PRN ×2 (10:50→17:18)
[2017-01-19] MEDS: ACETAMINOPHEN 325 MG TAB PO PRN ×2 (10:50→17:18)
[2017-01-19] MEDS ORDERED: FUROSEMIDE 20 MG INJ IV ONE (13:30)
--- NOTE | 2017-01-19 13:34 | PN ---
Date/Time of Note Date/Time of Note DATE: 01/19/17 TIME: 13:30 Assessment/Plan VTE Prophylaxis VTE Prophylaxis Intervention: contraindicated VTE Contraindication Reason: thrombocytopenia (Severe) Lines/Catheters IV [facility]ter [facility]from [facility] Urinary Cath still in place: No Assessment/Plan Assessment/Plan 66-year-old male with : 1. Acute myelogenous leukemia, recurrence of the disease currently, 73% blasts on peripheral smear, mild leukocytosis, symptomatic anemia with hemoglobin of 5.6 and severe thrombocytopenia with platelets of 1. Plan for total transfusion of 4 units of packed red blood cells and 4 units of platelets Patient is currently pursuing naturopathic treatment but also has appointment with [facility] on 02/02. Prognosis poor given ongoing blast crisis and seems to be trending toward transfusion dependent, he has been transfused 1 unit of platelets and 1 unit of packed red blood cells weekly lately. 2. Hypertension, blood pressure control, continue losartan and amlodipine as tolerated. Will give 1 dose of Lasix 20 mg IV prior to additional blood transfusions. 3. Diabetes mellitus, with fair control (HgbA1c 6.7%). Home medications at discharge. While inpatient sliding scale insulin and holding off glimepiride per [facility] protocol 4. Anxiety disorder, with history of claustrophobia, continue Xanax PRN for anxiety. Patient had to be assigned a different room on admission due to claustrophobia. Prophylaxis: SCDs and anticoagulation contraindicated due to severe thrombocytopenia, Pepcid for GI prophylaxis Disposition: Blood transfusion both PRBC and platelet, she had to be discharged home later tonight once blood transfusion completed. Subjective 24 Hr Interval Summary Free Text/Dictation Patient in good spirits today, he feels better, however he is going to require additional 2 units of packed red blood cells and [address] units of platelets per Dr[address] Herrera, patient is to be tanked up as much as possible prior to his follow-up to [facility] on 02/02. Patient is insistent to be discharged later today once his blood transfusion is completed. When his low platelets on arrival in the requirement of up to 4 units of packed red blood cells now, CAT scan of the brain is ordered. Exam/Review of Systems Vital Signs Vitals Vital Signs Date Time Temp Pulse Resp B/P Pulse Ox O2 Delivery O2 Flow Rate FiO2 01/19/17 07:58 99.0 75 18 157/78 97 11/15/17 02:11 Room Air Intake and Output 01/18/17 01/18/17 01/19/17 15:00 23:00 07:00 Intake Total 800 ml 1900 ml Output Total 200 ml 1400 ml Balance 600 ml 500 ml Exam Constitutional: alert, oriented, well developed Respiratory: clear to auscultation, normal air movement Cardiovascular: nl pulses, regular rate and rhythm Gastrointestinal: non-tender, soft Musculoskeletal: nl extremities to inspection, nl gait and stance Extremities: normal pulses Neurological: [employer] SAL[employer] II-XII intact, nl mental status, nl speech, nl strength Results Result Diagram: 01/19/17 0430 01/19/17 0430 Results 24 hrs Laboratory Tests Test 01/18/17 17:54 01/18/17 20:32 01/19/17 04:30 01/19/17 05:55 Bedside Glucose 175 131 White Blood Count 16.7 #H Red Blood Count 2.33 #L Hemoglobin 6.9 #*L Hematocrit 20.4 #L Mean Corpuscular Volume 87.6 Mean Corpuscular Hemoglobin 29.6 Mean Corpuscular Hemoglobin Concent 33.8 Red Cell Distribution Width 14.5 Platelet Count 24 #*L Mean Platelet Volume 10.1 Neutrophils % Segmented Neutrophils % (Manual) 5 L Lymphocytes % Lymphocytes % (Manual) 24 Monocytes % Monocytes % (Manual) 5 Eosinophils % Basophils % Blast Cells % (Manual) 66.0 H Nucleated Red Blood Cells % 0.0 Neutrophils # Absolute Lymphocytes (Manual) 4.0 H Lymphocytes # 4.0 H Monocytes # 0.8 Absolute Monocytes (Manual) 0.8 Eosinophils # Basophils # Blastocytes # 1.8 H Nucleated Red Blood Cells # Sodium Level 145 H Potassium Level 4.4 Chloride Level 106 Carbon Dioxide Level 28 Anion Gap 15 Blood Urea Nitrogen 16 Creatinine 1.00 Glucose Level 114 # Calcium Level 9.2 Phosphorus Level 4.8 Magnesium Level 2.2 Lab Scanned Report BLOOD TRANSFUSION Test 01/19/17 08:23 01/19/17 12:57 Bedside Glucose 136 136 Imaging Free Text/Dictation CT head pending. Medications Medications Current Medications Amlodipine Besylate (Norvasc) 5 mg BID PO Last administered on 01/19/17t 08:24 ; Admin Dose 5 MG; Start 01/18/17 at 21:00 Losartan Potassium (Cozaar) 50 mg BID PRN PO ELEVATED BLOOD PRESSURE; Start at 14:00 Ondansetron HCl (Zofran Inj) 4 mg Q6H PRN IV NAUSEA AND/OR VOMITING; Start at 14:00 Acetaminophen (Tylenol Tab) 650 mg Q6H PRN PO PAIN LEVEL 1-3 OR FEVER Last administered on 01/19/17 10:50; Admin Dose 650 MG; Start 01/18/17 at 14:00 Acetaminophen/ Hydrocodone Bitart ([place] (5/325)) 1 tab Q6H PRN PO MODERATE PAIN LEVEL 4-6; Start 01/18/17 at 14:00 Acetaminophen/ Hydrocodone Bitart ([place] (5/325)) 2 tab Q6H PRN PO SEVERE PAIN LEVEL 7-10; Start 01/18/17 at 14:00 Morphine Sulfate (morphine) 2 mg Q4H PRN IV SEVERE PAIN LEVEL 7-10; Start at 14:00 Docusate Sodium (Colace) 100 mg Q12H PRN PO CONSTIPATION; Start 01/18/17 at 14 :00 Magnesium Hydroxide (Milk Of Mag) 30 ml DAILY PRN PO CONSTIPATION; Start 01/18 at 14:00 Bisacodyl (Dulcolax Supp) 10 mg DAILY PRN VT CONSTIPATION; Start 01/18/17 at 14:00 Zolpidem Tartrate (Ambien) 5 mg QHS PRN PO SLEEP; Start 01/18/17 at 14:00 Famotidine (Pepcid) 20 mg Q12 PO Last administered on 01/19/17 08:25; Admin Dose 20 MG; Start 01/18/17 at 21:00 Diagnostic Test (Pha) (Accu-Chek) 1 ea 02 XX ; Start 01/19/17 at 02:00 Miscellaneous Information 1 ea NOTE XX ; Start 01/18/17 at 14:30 Glucose (Glutose) 15 gm Q15M PRN PO DECREASED GLUCOSE; Start 01/18/17 at 14:30 Glucose (Glutose) 22.5 gm Q15M PRN PO DECREASED GLUCOSE; Start 01/18/17 at 14: 30 Dextrose (D50w Syringe) 25 ml Q15M PRN IV DECREASED GLUCOSE; Start 01/18/17 at 14:30 Dextrose (D50w Syringe) 50 ml Q15M PRN IV DECREASED GLUCOSE; Start 01/18/17 at 14:30 Glucagon (Glucagen) 1 mg Q15M PRN IM DECREASED GLUCOSE; Start 01/18/17 at 14: 30 Glucose (Glutose) 15 gm Q15M PRN BUCCAL DECREASED GLUCOSE; Start 01/18/17 at 14:30 Alprazolam (Xanax) 0.25 mg Q8H PRN PO ANXIETY; Start 01/18/17 at 17:30 Diphenhydramine HCl (Benadryl) 25 mg Q6H PRN IV ITCHING Last administered on t 10:50; Admin Dose 25 MG; Start 01/18/17 at 18:30 SOBIA NUNEZ Jan 19, 2017 13:34
--- NOTE | 2017-01-19 13:35 | PDOCDIS ---
Discharge Instructions CONDITION Patient Condition: Stable HOME CARE INSTRUCTIONS: Diet Instructions: Regular ACTIVITY: Activity Restrictions: Slowly Increase Activity FOLLOW UP/APPOINTMENTS Follow-up Plan Follow-up with [facility] as previously scheduled on 02/02 Follow-up with primary care physician within 1 week Follow-up with primary partition making machine operator, Dr. Herrera within 1-2 weeks SOBIA NUNEZ Jan 19, 2017 13:35
--- NOTE | 2017-01-19 13:51 | RADRPT ---
PROCEDURE: CT Brain without contrast. CLINICAL INDICATION: Anemia. Altered mental status. Concern for bleed. TECHNIQUE: A CT of the brain was performed on multidetector high-resolution CT scanner utilizing a xial sections from the skull base through the vertex without contrast. The scan was reviewed in sof t tissue brain and high frequency resolution bone algorithm windows. Images were reviewed on a high -resolution PACS workstation. One or more the following does reduction techniques were utilized: Aut omated exposure control, adjustment of the mA/ or kV according to patient's size, or use of iterativ e reconstruction technique. The exam CTDI = 43.58 mGy and the DLP = 720.23 mGy-cm. DICOM images are available. COMPARISON: None available. FINDINGS: The ventricles and sulci are mildly prominent indicative of volume loss. There is no intracranial h emorrhage or midline shift. No abnormal intra-axial or extra-axial fluid collections are seen. The villatoro/white matter differentiation is preserved. 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 There are mild scattered foci of hypoattenuation in the white matter, which are nonspecific in etiol ogy but likely reflect chronic small vessel ischemic changes. There are mild intracranial vascular calcifications consistent with atherosclerosis. The visualized paranasal sinuses are essentially linad ar. Mild opacification of right mastoid air cells are noted. IMPRESSION: 1. No acute intracranial hemorrhage or transcortical infarction. 2. 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 Brain MRI with contrast can be obtained for further evaluation as clinically warranted. 3. Mild intracranial atherosclerosis and chronic small vessel ischemic changes. 4. Mild generalized cerebral volume loss. RPTAT: HH .Brenden Tang MD, MD Date Time Electronically viewed and signed by .Brenden Tang MD, MD on 01/19/2017 13:50 .N/
[2017-01-19 15:16] VITALS: BP 131/76; RESP 20
[2017-01-19 19:45] VITALS: BP 157/81; RESP 22
== END 2017-01-19 22:45 | disposition home or self-care (01) | DRG 836 ==
LOC: E/R 10:33 → PP2 12:18 → MS1 17:01
PROVIDERS: ADMIT Internal Medicine; ATTEND Internal Medicine
PROC: 30233R1 Transfusion of Nonautologous Platelets into Peripheral Vein, Percutaneous Approach (ICD-10-PCS; principal; 2017-01-18)
PROC: 30233N1 Transfusion of Nonautologous Red Blood Cells into Peripheral Vein, Percutaneous Approach (ICD-10-PCS; 2017-01-18)
DX: C92.02 Acute myeloblastic leukemia, in relapse (principal); I10 Essential (primary) hypertension; E11.9 Type 2 diabetes mellitus without complications; F41.9 Anxiety disorder, unspecified; D64.9 Anemia, unspecified
CPT/HCPCS: 36415; 36430; 70450; 80048; 80053; 82962; 83735; 84100; 84484; 85025; 85610; 85730; 86644; 86850; 86900; 86901; 86920; 86945; 96374; J1940; J1200; J7040; P9011; P9016; P9035

== ENCOUNTER 2017-01-23 16:53 | Inpatient (IN) | payer OTHER ==
[~2017-01-23] VITALS: Ht 170.2 cm; Wt 84.0 kg
[2017-01-23 16:55] VITALS: Ht 170.2 cm; Wt 84.0 kg
[2017-01-23] MEDS ORDERED: SODIUM CHLORIDE 0.9% 1L BAG IV* STA (17:20)
[2017-01-23] MEDS ORDERED: ACETAMINOPHEN 325 MG TAB PO ONE (17:30)
--- NOTE | 2017-01-23 17:39 | ERD ---
ER Documentation Chief Complaint Chief Complaint FEVER X 3 DAYS - HX OF LEUKEMIA HPI This is a very pleasant 66-year-old male history of leukemia, last chemotherapy approximately 1 year ago with chronic anemia and thrombocytopenia who presents with fever. The patient describes approximate 3 days of symptoms of dry nonproductive cough, no significant shortness of breath. He had a fever today and his doctor told him to come to the emergency room. He denies any headache, rash, neck stiffness, no abdominal pain nausea vomiting or diarrhea. He did not get his flu shot this year. No recent travel sick contacts or antibiotics. ROS All systems reviewed and are negative except as per history of present illness. Medications Home Meds Active Scripts Levofloxacin* (Levaquin*) 750 Mg Tablet, 750 MG PO DAILY for 5 Days, TAB Prov:CHIRAG CORCORAN MD 01/23/17 Reported Medications Losartan Potassium* (Losartan Potassium*) 50 Mg Tablet, 50 MG PO BID Y for NEEDED, TAB 12/31/16 Glimepiride* (Glimepiride*) 1 Mg Tablet, 1 MG PO BID Y for ELEVATED GLUCOSE, TAB NEEDED 11/15/16 Amlodipine Besylate* (Norvasc*) 5 Mg Tablet, 5 MG PO BID, TAB NEEDED 11/15/16 Allergies Allergies: Coded Allergies: No Known Allergy (Unverified , 01/23/17) PMhx/Soc Leukemia as described above History of Surgery: No Anesthesia Reaction: No Hx Neurological Disorder: No Hx Respiratory Disorders: No Hx Cardiac Disorders: No Hx Psychiatric Problems: No Hx Miscellaneous Medical Probl: No Hx Alcohol Use: No Hx Substance Use: No Hx Tobacco Use: No FmHx Family History: No diabetes Physical Exam Vitals Vital Signs Date Time Temp Pulse Resp B/P Pulse Ox O2 Delivery O2 Flow Rate FiO2 01/23/17 21:03 101.0 86 30 129/74 100 Room Air 01/23/17 21:00 88 16 124/74 98 01/23/17 18:06 102.7 96 17 144/77 100 Room Air 01/23/17 16:55 102.2 104 28 158/77 Physical Exam General: Well developed, well nourished, no acute distress Head: Normocephalic, atraumatic. Eyes: Pupils equally reactive, EOM intact ENT: Moist mucous membranes Neck: Supple, no lymphadenopathy Respiratory: Slightly decreased aeration of the left base, no respiratory distress Cardiovascular: RRR, no murmurs, rubs, or gallops Abdominal: Soft, non-tender, non-distended, no peritoneal signs : Deferred MSK: No edema, no unilateral swelling, 5/5 strength Neurologic: Alert and oriented, moving all extremities, normal speech, no focal weakness, no cerebellar signs Skin: No rash Psych: Normal mood Result Diagram: 01/23/17 1800 01/23/17 1800 Results 24 hrs Laboratory Tests Test 01/23/17 18:00 01/23/17 20:46 01/23/17 21:59 White Blood Count 31.510^3/ul Red Blood Count 2.6610^6/ul Hemoglobin 8.0g/dl Hematocrit 23.4% Mean Corpuscular Volume 88.0fl Mean Corpuscular Hemoglobin 30.1pg Mean Corpuscular Hemoglobin Concent 34.2g/dl Red Cell Distribution Width 14.1% Platelet Count 610^3/UL Mean Platelet Volume 10.7fl Neutrophils % % Segmented Neutrophils % (Manual) 11% Lymphocytes % % Lymphocytes % (Manual) 15% Monocytes % % Monocytes % (Manual) 1% Eosinophils % % Basophils % % Promyelocytes % (Manual) 1% Blast Cells % (Manual) 72.0% Nucleated Red Blood Cells % 0.0/100WBC Neutrophils # 10^3/ul Absolute Lymphocytes (Manual) 4.710^3/ul Lymphocytes # 10^3/ul Monocytes # 10^3/ul Absolute Monocytes (Manual) 0.310^3/ul Eosinophils # 10^3/ul Basophils # 10^3/ul Promyelocytes # 0.310^3/ul Nucleated Red Blood Cells # 10^3/ul Platelet Estimate SIG DECREASED Prothrombin Time 15.4Sec Prothrombin Time Ratio 1.2 INR International Normalized Ratio 1.21 Activated Partial Thromboplast Time 33.1Sec Urine Color BIANCA Urine Clarity SLIGHTLY CLOUDY Urine pH 5.0 Urine Specific [place] 1.017 Urine Ketones NEGATIVEmg/dL Urine Nitrite NEGATIVEmg/dL Urine Bilirubin NEGATIVEmg/dL Urine Urobilinogen NEGATIVEmg/dL Urine Leukocyte Esterase NEGATIVELeu/ul Urine Microscopic RBC 5/HPF Urine Microscopic WBC 0/HPF Urine Hemoglobin NEGATIVEmg/dL Urine Glucose NEGATIVEmg/dL Urine Total Protein NEGATIVEmg/dl Sodium Level 139mmol/L Potassium Level 4.0mmol/L Chloride Level 101mmol/L Carbon Dioxide Level 25mmol/L Anion Gap 17 Blood Urea Nitrogen 15mg/dl Creatinine 0.95mg/dl Glucose Level 209mg/dl Lactic Acid Level 1.6mmol/L 0.9mmol/L 0.8mmol/L Calcium Level 9.3mg/dl Total Bilirubin 0.6mg/dl Direct Bilirubin 0.00mg/dl Indirect Bilirubin 0.6mg/dl Aspartate Amino Transf (AST/SGOT) 16IU/L Alanine Aminotransferase (ALT/SGPT) 26IU/L Alkaline Phosphatase 67IU/L Troponin I < 0.012ng/ml Total Protein 7.6g/dl Albumin 4.1g/dl Globulin 3.50g/dl Albumin/Globulin Ratio 1.17 Current Medications Medications (Trade) Dose Ordered Sig/Zack Route PRN Reason Start Time Stop Time Status Last Admin Dose Admin Sodium Chloride (NS) 2,600 ml BOLUS OVER 2 HOURS STAT IV* 01/23/17 17:20 01/23/17 17:21 DC 01/23/17 18:17 Acetaminophen 650 mg 650 mg ONCE ONCE PO 01/23/17 17:30 01/23/17 17:31 DC 01/23/17 18:17 Cefepime HCl 50 ml @ 100 mls/hr ONCE STAT IVPB 01/23/17 18:04 01/23/17 18:33 DC 01/23/17 18:17 Vancomycin HCl 250 ml @ 125 mls/hr ONCE STAT IVPB 01/23/17 18:04 01/23/17 20:03 DC 01/23/17 18:58 Sodium Chloride (NS) 250 ml @ 0 mls/hr Q0M ONCE IV 01/23/17 18:44 01/23/17 18:48 DC Procedures/MDM EKG, MONITORS, & DIAGNOSTIC IMAGING: EKG: I reviewed and interpreted a 12-lead EKG. Rhythm: Normal sinus rhythm Ectopy: None Intervals: No abnormalities ST segments: No elevations or depressions T waves: No contiguous inversions Chest x-ray: Chest x-ray: I reviewed and interpreted a 1 view of the chest Mediastinum: No enlargement Cardiac silhouette: No cardiomegaly Airspace: Left lower lobe pneumonia Bones: No evidence of fracture LAB INTERPRETATION: Leukocytosis, anemia, thrombocytopenia consistent with the patient's AML, normal lactic acid MEDICAL DECISION MAKING: The patient presents to the emergency room with a fever. He has a history of leukemia, anemia and thrombocytopenia. He is not currently undergoing chemotherapy. The patient's fever is only associated with mild cough. Consider pneumonia versus influenza versus influenza-like illness. No signs or symptoms concerning for significant bacteremia, intracranial hemorrhage or process such as meningitis or acute intra-abdominal process. However, the patient is at risk for sepsis and will benefit from sepsis screening, blood cultures and observation. I will speak to the patient's oncologist, Dr. Herrera ER COURSE: Dr. Herrera reports that the patient has refused chemotherapy and treatment for his AML. She states that he is preferred to do naturopathic approach. He is noncompliant with treatment and regimens. The patient adamantly states that he wants to be discharged no matter what. He was informed that he has pneumonia is at significant risk for sepsis and worsening of symptoms. He was given broad-spectrum antibiotics in the form of vancomycin and cefepime. 30 cc/kg of saline was provided. The patient also has thrombocytopenia prompting transfusion given below 10 and at risk for spontaneous hemorrhage. I discussed with the patient and/or family the risks, benefits, alternatives of blood transfusion. This includes allergic reaction and infections including HIV and hepatitis. The patient and/or family were able to verbalize these risks , stated understanding. A document has been signed and placed in the chart. The patient was informed of the risks of discharge. He has capacity and verbalizes back the risks including worsening respiratory failure and . The patient has capacity will be leaving against my medical advice. The patient will be transfused 1 unit of platelets here in the emergency room and then be discharged. Dr. Herrera recommends Levaquin which seems appropriate I kept the patient and/or family informed of laboratory and diagnostic imaging results throughout the emergency room course. DISPOSITION PLAN: We discussed follow up with the patient's primary care doctor within 24 to 48 hours as needed. We also discussed return to the emergency room for worsening symptoms or worsening condition. Outpatient referral: [None required] Discharge Medications: Levaquin Departure Diagnosis: Primary Impression: AML (acute myeloblastic leukemia) Leukemia Active/Remission status: without remission Qualified Code: C92.00 - Acute myeloid leukemia not having achieved remission Additional Impressions: Healthcare-associated pneumonia Thrombocytopenia Anemia Anemia type: unspecified type Qualified Code: D64.9 - Anemia, unspecified type Condition: CHIRAG Barrow MD Jan 23, 2017 17:39
--- NOTE | 2017-01-23 17:48 | RADRPT ---
PROCEDURE: XR Chest. CLINICAL INDICATION: Fever TECHNIQUE: Single portable view of the chest was obtained. COMPARISON: 12/31/2016 FINDINGS: Cardiac/vascular structures: Normal cardiomediastinal silhouette. Pulmonary: Left basilar airspace opacity.. No pleural effusion. No evidence of pneumothorax. Osseous structures: Normal Soft tissues: Normal IMPRESSION: Left basilar airspace opacity representing atelectasis or pneumonia. RPTAT:AAJJ Physician Melly Date Time Electronically viewed and signed by Nuvia Narayan Physician on 01/23/2017 17:48 /
[2017-01-23] MEDS ORDERED: VANCOMYCIN 1 GM (PMX) 250 ML IVPB STA (18:04)
[2017-01-23] MEDS ORDERED: CEFEPIME 1GM/50 ML (PMX) 50 ML IVPB STA (18:04)
[2017-01-23 18:30] LABS: ABNORMAL IP MESSAGE 1; HEMATOCRIT 23.4 % (42.0-52.0); MEAN CORPUSCULAR HEMOGLOBIN 30.1 pg (29.0-33.0); MEAN CORPUSCULAR HGB CONC 34.2 g/dl (32.0-37.0); MEAN PLATELET VOLUME 10.7 fl (7.4-10.4); POSITIVE DIFF @See below; RED BLOOD COUNT 2.66 10^6/ul (4.70-6.10); RED CELL DISTRIBUTION WIDTH 14.1 % (11.5-14.5); WHITE BLOOD COUNT 31.5 10^3/ul (4.8-10.8)
[2017-01-23 18:35] LABS: ADD UMIC NO; UR ASCORBIC ACID 40 mg/dL (NEGATIVE); UR BILIRUBIN (Dip) NEGATIVE (NEGATIVE); UR BLOOD (Dip) NEGATIVE (NEGATIVE); UR CLARITY SLIGHTLY CLOUDY (CLEAR); UR COLOR AMBER (YELLOW); UR GLUCOSE (Dip) NEGATIVE (NEGATIVE); UR KETONES (Dip) NEGATIVE (NEGATIVE); UR LEUKOCYTE ESTERASE (Dip) NEGATIVE Leu/ul (NEGATIVE); UR NITRITE (Dip) NEGATIVE (NEGATIVE); UR RBC 5 /HPF (0-5); UR SPECIFIC GRAVITY (Dip) 1.017 (1.003-1.030); UR TOTAL PROTEIN (Dip) NEGATIVE (NEGATIVE); UR UROBILINOGEN (Dip) NEGATIVE (NEGATIVE)
[2017-01-23 18:41] LABS: PLATELET COUNT 6 10^3/UL (140-415)
[2017-01-23 18:43] LABS: INR 1.21; PROTIME 15.4 Sec (12.2-14.2); PT RATIO 1.2
[2017-01-23 18:44] LABS: PARTIAL THROMBOPLASTIN TIME 33.1 Sec (25.0-35.0)
[2017-01-23] MEDS ORDERED: SOD CHLORIDE 0.9% 250 ML IV ONE (18:44)
[2017-01-23 18:52] LABS: ALANINE AMINOTRANSFERASE 26 IU/L (13-69); ALBUMIN 4.1 g/dl (3.3-4.9); ALBUMIN/GLOBULIN RATIO 1.17; ALKALINE PHOSPHATASE 67 IU/L (42-121); ANION GAP 17 (8-16); ASPARTATE AMINO TRANSFERASE 16 IU/L (15-46); BILIRUBIN,INDIRECT 0.6 mg/dl (0-1.1); BILIRUBIN,TOTAL 0.6 mg/dl (0.2-1.3); BLOOD UREA NITROGEN 15 mg/dl (7-20); CALCIUM 9.3 mg/dl (8.4-10.2); CARBON DIOXIDE 25 mmol/L (21-31); CHLORIDE 101 mmol/L (97-110); CREATININE 0.95 mg/dl (0.61-1.24); GLUCOSE 209 mg/dl (70-220); SODIUM 139 mmol/L (135-144); TOTAL PROTEIN 7.6 g/dl (6.1-8.1)
[2017-01-23 19:05] LABS: MONOCYTES % (M) 1 % (0-11); PLATELET ESTIMATE SIG DECREASED; PROMYELOCYTES #M 0.3 10^3/ul (0-0); PROMYELOCYTES % (M) 1 % (0-0)
[2017-01-23 19:07] LABS: TROPONIN-I < 0.012 ng/ml (0.00-0.12)
[2017-01-23] MEDS ORDERED: LEVO750T25 PO (22:51)
[2017-01-23] MEDS ORDERED: ACETAMINOPHEN 500 MG TAB PO STA (23:49)
[2017-01-24] MEDS ORDERED: DIPHENHYDRAMINE 50 MG INJ IV ONE ×2 (01:00→20:30)
[2017-01-24] MEDS ORDERED: ACETAMINOPHEN 325 MG TAB PO ONE ×2 (04:30→20:30)
[2017-01-24] MEDS ORDERED: HYDROCODONE/APAP (5/325) TAB PO PRN (05:30)
[2017-01-24] MEDS ORDERED: NACL 0.9% 3 ML SYG IV SCH (05:30)
[2017-01-24] MEDS ORDERED: VANCOMYCIN IV PER PHARMACY XX SCH (06:00)
[2017-01-24] MEDS: CEFEPIME 2GM/50 ML (PMX) 50 ML IVPB SCH ×3 (06:25→22:58)
[2017-01-24] MEDS: FAMOTIDINE 20 MG TAB PO SCH ×2 (08:34→21:19)
[2017-01-24] MEDS: ACETAMINOPHEN 325 MG TAB PO PRN ×2 (09:06→15:47)
[2017-01-24] MEDS: ONDANSETRON 4 MG TAB PO PRN (09:09)
[2017-01-24] MEDS: VANCOMYCIN 1 GM in NS 250 ML IVPB SCH ×2 (09:14→22:00)
[2017-01-24 09:50] VITALS: TEMP 102.5
[2017-01-24 11:02] VITALS: BP 129/76; RESP 16
[2017-01-24 14:29] VITALS: BP 147/71; RESP 20
--- NOTE | 2017-01-24 14:32 | HP ---
Date/Time of Note Date/Time of Note DATE: 01/24/17 TIME: 14:29 Assessment/Plan VTE Prophylaxis VTE Prophylaxis Intervention: contraindicated VTE Contraindication Reason: thrombocytopenia Lines/Catheters IV [facility] (from [facility] [place] [facility] Urinary Cath still in place: No Assessment/Plan Assessment/Plan 66-year-old male with : 1. Neutropenic fevers, possible pneumonia, untreated AML with blast crisis ongoing. Patient has been difficult due to the fact that he has not agreed to treatment for a few months now, he is now neutropenic and even if his count is up to 31 is mostly blast. I have explained to the patient the seriousness of his condition especially with now fevers that may be either secondary to his AML with ongoing blast crisis versus an active infection. Patient has been swan cultures on admission, he is noted to have a possible herpetic lesion on his lip therefore he has been started on acyclovir along with cefepime and vancomycin that were started yesterday Follow-up on CAT scan of the chest/abdomen/pelvis. Follow-up on cultures. Influenza negative. Check lactic acid and DIC panel. 2. Acute myelogenous leukemia, recurrence of the disease currently, 72% blasts on peripheral smear, significant leukocytosis and significant anemia on repeat labs this afternoon along with ongoing severe thrombocytopenia status post 1 unit of platelets last night. Hematology has been consulted again today, this admission is more concerning than previous as patient is in full on blast crisis, neutropenia with no fevers that may be infectious versus noninfectious secondary to ongoing untreated leukemia. Lactate and DIC panel pending. Patient is currently pursuing naturopathic treatment but also has appointment with [facility] on 02/02. Hopefully he will be able to make his appointment otherwise he may need to be transferred there if he decides to proceed with chemotherapy and is medically stable to do so. Prognosis poor given ongoing blast crisis, ongoing fevers and seems to be trending toward transfusion dependence, He will receive additional 2 units of packed red blood cells and 1 unit of platelets today. 3. Hypertension, for now, will hold off medications, resume once more stable. 3. Diabetes mellitus, with fair control (HgbA1c 6.7%). Sliding scale insulin and diabetic diet for now. 4. Anxiety disorder, with history of claustrophobia, continue Xanax PRN for anxiety. Prophylaxis: SCDs and anticoagulation contraindicated due to severe thrombocytopenia, Pepcid for GI prophylaxis Disposition: Blood transfusion both PRBC and platelet, IV antibiotics including antiviral, if sustained fevers may need to start antifungal while awaiting cultures, appreciate assistance from Dr. Herrera from hematology. Patient may need to be transferred to a telemetry bed if there is any further decline or need for more blood transfusions within the 24-hour period. HPI/ROS Admit Date/Time Admit Date/Time Jan 24, 2017 at 06:40 Hx of Present Illness Chief complaint: Fevers History of presenting illness: This is a 66-year-old male with known recurrence of his AML, so far has been resistant to getting chemotherapy and pursuing naturopathic course of treatment, unfortunately has been declining with the increased need for transfusion of both packed red blood cells and platelets, ongoing blast crisis with now up to 72% blasts with a total white count of 31, 000, he progressed to complete neutropenia, he was admitted approximately 5 days ago for blood product transfusion, discharged in stable condition at that time and was being urged to please follow-up with [facility] 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 He is been febrile for the past 3 days according to the , he has been also having chills, he seems to be describing some epigastric discomfort but keep downplaying it to anxiety. He denies chest pain, nausea, vomiting, hematuria or hematochezia. He denies lower abdominal pain, denies headache. She does have decreased appetite. In the emergency department he was found to have a total white count close to 31, 000 with 72% blast, he is noted to be neutropenic, his chest x-ray reportedly showed left basilar airspace disease, pneumonia versus atelectasis. Given the neutropenic fever he was started on broad-spectrum antibiotics for presumed pneumonia, cefepime and vancomycin. Patient also has a herpetic lesion that popped up on the corner of his right upper lip, therefore I did add acyclovir. He was severely thrombocytopenic on presentation with platelets of 6, he did receive 1 unit of platelet transfusion. Repeat labs this morning showing significant anemia with a hemoglobin of 6.8 and platelets up to 16. For better workup I am sending the patient for CAT scan of the chest, abdomen and pelvis. Hematology has been consulted. ROS Constitutional: chills, fatigue, febrile, other (Anxious) Respiratory: no complaints Cardiovascular: no complaints Gastrointestinal: pain (Burning, epigastric) Genitourinary: no complaints Musculoskeletal: no complaints Skin: no complaints Neurologic: no complaints Endocrine: no complaints Psychological: anxiety PMH/Family/Social Past Medical History Hypertension Diabetes mellitus Gastritis Anxiety disorder AML status post 2 previous chemotherapy treatment more or less a year ago, with recurrence currently, again on admission on peripheral smear he does have 72% blasts along with severe thrombocytopenia and anemia. Past Surgical History Past Surgical Hx: no surgical history Family History Significant Family History: no pertinent family hx Social History Alcohol Use: none Smoking Status: Never smoker Drug Use: none Exam/Review of Systems Vital Signs Vitals Vital Signs Date Time Temp Pulse Resp B/P Pulse Ox O2 Delivery O2 Flow Rate FiO2 01/24/17 13:50 100.8 01/24/17 11:02 92 16 129/76 94 01/24/17 07:00 Room Air Intake and Output 01/23/17 01/23/17 01/24/17 15:00 23:00 07:00 Intake Total 300 ml 774 ml Balance 300 ml 774 ml Exam Constitutional: alert, distress (Minimal distress, anxious), oriented, other ( Pale), well developed Psych: anxiety Eyes: other (Pale conjunctiva) Respiratory: clear to auscultation, normal air movement Cardiovascular: regular rate and rhythm Gastrointestinal: soft, tender (Some epigastric discomfort) Musculoskeletal: nl extremities to inspection Extremities: normal pulses 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, lethargic, nl mental status, nl speech Labs Result Diagram: 01/23/17 1800 01/23/17 1800 Medications Medications Current Medications Ondansetron HCl (Zofran Tab) 4 mg Q6H PRN PO NAUSEA AND/OR VOMITING Last administered on 01/24/17 09:09; Admin Dose 4 MG; Start 01/24/17 at 05:30 Acetaminophen (Tylenol Tab) 650 mg Q6H PRN PO PAIN LEVEL 1-3 OR FEVER Last administered on 01/24/17 09:06; Admin Dose 650 MG; Start 01/24/17 at 05:30 Acetaminophen/ Hydrocodone Bitart ([place] (5/325)) 1 tab Q6H PRN PO PAIN LEVEL 4 -6; Start 01/24/17 at 05:30 Docusate Sodium (Colace) 100 mg Q12H PRN PO CONSTIPATION; Start 01/24/17 at 05 :30 Famotidine 20 mg 20 mg Q12 PO Last administered on 01/24/17 08:34; Admin Dose 20 MG; Start 01/24/17 at 09:00 Cefepime HCl 50 ml @ 100 mls/hr Q8 IVPB Last administered on 01/24/17 06:25 ; Admin Dose 100 MLS/HR; Start 01/24/17 at 06:00 Vancomycin HCl (Vancocin) 250 ml @ 125 mls/hr Q12H IVPB Last administered on 01/24/17 09:14; Admin Dose 125 MLS/HR; Start 01/24/17 at 10:00 Procedures Procedures PROCEDURE: XR Chest. CLINICAL INDICATION: Fever TECHNIQUE: Single portable view of the chest was obtained. COMPARISON: 12/31/2016 FINDINGS: Cardiac/vascular structures: Normal cardiomediastinal silhouette. Pulmonary: Left basilar airspace opacity.. No pleural effusion. No evidence of pneumothorax. Osseous structures: Normal Soft tissues: Normal IMPRESSION: Left basilar airspace opacity representing atelectasis or pneumonia. RPTAT:AAJJ Physician Melly Date Time Electronically viewed and signed by Nuvia Narayan Physician on 01/23/2017 17 :48 / SOBIA NUNEZ Jan 24, 2017 14:32 SOBIA NUNEZ Jan 24, 2017 14:32
[2017-01-24] MEDS ORDERED: GLUCAGON 1 MG INJ IM PRN (15:00)
[2017-01-24] MEDS ORDERED: GLUCOSE GEL 15 GRAM TUBE PO PRN ×2 (15:00)
[2017-01-24] MEDS ORDERED: DEXTROSE 50% 50 ML SYRINGE IV PRN ×2 (15:00)
[2017-01-24] MEDS ORDERED: GLUCOSE GEL 15 GRAM TUBE BUCCAL PRN (15:00)
[2017-01-24 15:16] LABS: ABNORMAL IP MESSAGE 1; HEMATOCRIT 20.1 % (42.0-52.0); MEAN CORPUSCULAR HEMOGLOBIN 29.7 pg (29.0-33.0); MEAN CORPUSCULAR HGB CONC 33.8 g/dl (32.0-37.0); MEAN CORPUSCULAR VOLUME 87.8 fl (82.0-101.0); MEAN PLATELET VOLUME 10.4 fl (7.4-10.4); POSITIVE DIFF @See below; RED BLOOD COUNT 2.29 10^6/ul (4.70-6.10); RED CELL DISTRIBUTION WIDTH 14.3 % (11.5-14.5); WHITE BLOOD COUNT 31.9 10^3/ul (4.8-10.8)
[2017-01-24 15:26] LABS: HEMOGLOBIN 6.8 g/dl (14.0-18.0); PLATELET COUNT 16 10^3/UL (140-415)
[2017-01-24 15:31] LABS: CALCIUM 8.8 mg/dl (8.4-10.2); CREATININE 0.95 mg/dl (0.61-1.24); POTASSIUM 3.7 mmol/L (3.5-5.1)
[2017-01-24] MEDS: SOD CHLORIDE 0.9% 1,000 ML IV SCH (15:47)
[2017-01-24] MEDS ORDERED: ALPRAZOLAM 0.25 MG TAB PO PRN (16:00)
[2017-01-24 16:41] LABS: ANISOCYTOSIS 1+ (0-0); HYPOCHROMASIA 1+ (0-0); MONOCYTES % (M) 1 % (0-11); PLATELET ESTIMATE DECREASED; PROMYELOCYTES #M 0.3 10^3/ul (0-0); PROMYELOCYTES % (M) 1 % (0-0)
[2017-01-24] MEDS: ACYCLOVIR 500 MG in SOD CHLORIDE 0.9% 100 ML IVPB SCH (17:43)
[2017-01-24] MEDS: INSULIN ASPART [NOVOLOG] 3 ML PEN SC SCH ×2 (17:50→21:53)
[2017-01-24 18:06] LABS: PLATELET COUNT 16 10^3/UL (140-415)
[2017-01-24 18:14] LABS: INR 1.34; PROTIME 16.7 Sec (12.2-14.2); PT RATIO 1.3
[2017-01-24 18:15] LABS: PARTIAL THROMBOPLASTIN TIME 49.9 Sec (25.0-35.0)
[2017-01-24 18:23] LABS: FIBRIN SPLIT PRODUCT <10 ug/ml (<10)
[2017-01-24 19:20] VITALS: BP 126/61; RESP 18
[2017-01-24 22:45] VITALS: BP 119/63; PULSE 100; RESP 20
[2017-01-25] VITALS (7 sets, daily range): BP systolic 117–156; BP diastolic 55–82; PULSE 100–110; RESP 18–21
[2017-01-25] MEDS: SOD CHLORIDE 0.9% 1,000 ML IV SCH ×4 (00:30→18:18)
[2017-01-25] MEDS: ACYCLOVIR 500 MG in SOD CHLORIDE 0.9% 100 ML IVPB SCH ×4 (01:22→21:54)
[2017-01-25] MEDS: ACCU-CHEK XX SCH (02:00)
[2017-01-25] MEDS: ACETAMINOPHEN 325 MG TAB PO PRN ×4 (02:36→20:15)
[2017-01-25] MEDS: CEFEPIME 2GM/50 ML (PMX) 50 ML IVPB SCH ×3 (06:00→21:54)
[2017-01-25] MEDS: FAMOTIDINE 20 MG TAB PO SCH ×2 (08:18→20:15)
--- NOTE | 2017-01-25 08:51 | RADRPT ---
PROCEDURE: CT Chest, Abdomen and Pelvis without contrast. CLINICAL INDICATION: Fever, pain TECHNIQUE: CT scan of the chest, abdomen, and pelvis without contrast was performed on a multi-det trinh high-resolution CT scanner. Coronal and sagittal reformatted images were obtained from the axi al source images. Images were reviewed on a high-resolution PACS workstation. The total exam CTDI eq uals 15 mGy and the total exam DLP equals 1188 mGy-cm. One or more of the following dose reduction techniques were used: Automated exposure control, Adjustment of the mA and/or kV according to patien t size, and/or use of iterative reconstruction technique. DICOM images are available. COMPARISON: Correlation chest x-ray yesterday, abdominal CT 10/29/2016 FINDINGS: CT chest: 5.3 x 2.8 cm consolidation with spiculated margins. There are patchy ground-glass changes in the bilateral perihilar regions with sub-centimeter nodules . Interlobular septal thickening is seen in the lung bases. Small right pleural effusion. No significant pericardial effusion. No bulky mediastinal lymphadenopathy. Coronary arterial and aortic atherosclerosis. CT abdomen and pelvis: Liver and spleen are enlarged. No pancreatic ductal dilatation.Adrenals are unremarkable. No focal pericholecystic inflammatory changes. Bilateral renal cysts. Bilateral nonobstructing renal stones. No hydronephrosis. No evidence of bowel obstruction. No significant ascites or pneumoperitoneum. No evidence of retroperitoneal lymphadenopathy. Prominent prostate gland bulging into the bladder. IMPRESSION: 5.3 x 2.8 cm consolidation with spiculated margins is new since 10/29/2016. There are also patchy gr ound-glass changes in the bilateral perihilar regions with sub-centimeter nodules and interlobular s eptal thickening at the lung bases. Small right pleural effusion. The findings likely represent mult ifocal pulmonary infection with superimposed vascular congestion and edema. Recommend follow up imag ing after treatment to confirm complete resolution. No acute intra-abdominal process identified. Hepatosplenomegaly. RPTAT: AA .Mathew Warren MD, MD Date Time Electronically viewed and signed by .Mathew Warren MD, on 01/25/2017 08:50 .T/
[2017-01-25] MEDS: INSULIN ASPART [NOVOLOG] 3 ML PEN SC SCH ×3 (09:47→23:00)
[2017-01-25 09:50] LABS: ABNORMAL IP MESSAGE 1; HEMATOCRIT 21.9 % (42.0-52.0); HEMOGLOBIN 7.3 g/dl (14.0-18.0); MEAN CORPUSCULAR HEMOGLOBIN 29.4 pg (29.0-33.0); MEAN CORPUSCULAR HGB CONC 33.3 g/dl (32.0-37.0); MEAN CORPUSCULAR VOLUME 88.3 fl (82.0-101.0); MEAN PLATELET VOLUME 10.7 fl (7.4-10.4); POSITIVE DIFF @See below; RED BLOOD COUNT 2.48 10^6/ul (4.70-6.10); WHITE BLOOD COUNT 34.4 10^3/ul (4.8-10.8)
[2017-01-25 09:58] LABS: PLATELET COUNT 33 10^3/UL (140-415)
[2017-01-25] MEDS: VANCOMYCIN 1 GM in NS 250 ML IVPB SCH ×2 (10:08→21:54)
[2017-01-25] MEDS: FLUCONAZOLE 100 MG TAB PO SCH (10:08)
[2017-01-25 10:16] LABS: MAGNESIUM 1.8 mg/dl (1.7-2.5); PHOSPHORUS 2.8 mg/dl (2.5-4.9)
[2017-01-25 10:25] LABS: ALBUMIN 3.4 g/dl (3.3-4.9); ALBUMIN/GLOBULIN RATIO 0.91; BILIRUBIN,INDIRECT 1.3 mg/dl (0-1.1); BILIRUBIN,TOTAL 1.3 mg/dl (0.2-1.3); CALCIUM 8.7 mg/dl (8.4-10.2); POTASSIUM 3.7 mmol/L (3.5-5.1); TOTAL PROTEIN 7.1 g/dl (6.1-8.1)
[2017-01-25 10:59] LABS: ANISOCYTOSIS 2+ (0-0); BLAST% (M) 61.5 % (0-0); METAMYELOCYTES %M 2 % (0-0); MICROCYTOSIS 2+ (0-0); MONOCYTES % (M) 1 % (0-11); PLATELET ESTIMATE SIG DECREASED; POLYCHROMASIA 3+ (0-0); PROMYELOCYTES #M 0.6 10^3/ul (0-0); PROMYELOCYTES % (M) 2 % (0-0)
[2017-01-25] MEDS: ONDANSETRON 4 MG TAB PO PRN (12:13)
--- NOTE | 2017-01-25 13:34 | PN ---
Date/Time of Note Date/Time of Note DATE: 01/25/17 TIME: 13:27 Assessment/Plan VTE Prophylaxis VTE Prophylaxis Intervention: contraindicated VTE Contraindication Reason: thrombocytopenia Lines/Catheters [facility] Peripheral IV Urinary Cath still in place: No Assessment/Plan Assessment/Plan 66-year-old male with : 1. Severe pneumonia, persistent fevers, functional neutropenia as the patient is in blast crisis essentially currently and severely immunocompromised. On broad-spectrum antibiotics including cefepime, vancomycin, acyclovir, Diflucan. I have explained to the patient the seriousness of his condition especially with now fevers that may be either secondary to his AML with ongoing blast crisis versus an active infection. Infectious disease consult pending Follow-up on cultures. Influenza negative. 2. Acute myelogenous leukemia, recurrence of the disease currently, 72% blasts on peripheral smear, significant leukocytosis. and significant anemia on repeat labs this afternoon along with ongoing severe thrombocytopenia status post 1 unit of platelets last night. Hematology has been consulted again today, this admission is more concerning than previous as patient is in full on blast crisis, neutropenia with no fevers that may be infectious versus noninfectious secondary to ongoing untreated leukemia. Lactate and DIC panel pending. Patient is currently pursuing naturopathic treatment but also has appointment with [facility] on 02/02. Hopefully he will be able to make his appointment otherwise he may need to be transferred there if he decides to proceed with chemotherapy and is medically stable to do so. Prognosis poor given ongoing blast crisis, ongoing fevers and seems to be trending toward transfusion dependence, He will receive additional 2 units of packed red blood cells and 1 unit of platelets today. 3. Hypertension, for now, will hold off medications, resume once more stable. 3. Diabetes mellitus, with fair control (HgbA1c 6.7%). Sliding scale insulin and diabetic diet for now. 4. Anxiety disorder, with history of claustrophobia, continue Xanax PRN for anxiety. Prophylaxis: SCDs and anticoagulation contraindicated due to severe thrombocytopenia, Pepcid for GI prophylaxis Disposition: Blood transfusion both PRBC and platelet, IV antibiotics including antiviral, if sustained fevers may need to start antifungal while awaiting cultures, appreciate assistance from Dr. Herrera from hematology. Patient may need to be transferred to a telemetry bed if there is any further decline or need for more blood transfusions within the 24-hour period. Subjective 24 Hr Interval Summary Free Text/Dictation Patient remained febrile, antibiotics include cefepime, vancomycin, acyclovir and Diflucan. He is significantly immunocompromised with active AML and blast. CAT scan of the chest confirming pneumonia and possibly pulmonary edema. Patient in mild respiratory distress, requiring 2 L nasal cannula. 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, nl mental status, nl speech Results Result Diagram: 01/25/17 0844 01/25/17 0844 Results 24 hrs Laboratory Tests Test 01/24/17 14:30 01/24/17 15:44 01/24/17 17:11 01/24/17 17:45 White Blood Count 31.9 H Red Blood Count 2.29 L Hemoglobin 6.8 *L Hematocrit 20.1 L Mean Corpuscular Volume 87.8 Mean Corpuscular Hemoglobin 29.7 Mean Corpuscular Hemoglobin Concent 33.8 Red Cell Distribution Width 14.3 Platelet Count 16 #*L 16 *L Mean Platelet Volume 10.4 Neutrophils % Segmented Neutrophils % (Manual) 14 L Lymphocytes % Lymphocytes % (Manual) 21 Monocytes % Monocytes % (Manual) 1 Promyelocytes % (Manual) 1 H Blast Cells % (Manual) 63.0 H Nucleated Red Blood Cells % 0.0 Neutrophils # Absolute Lymphocytes (Manual) 6.6 H Lymphocytes # Monocytes # Absolute Monocytes (Manual) 0.3 Promyelocytes # 0.3 H Platelet Estimate DECREASED Hypochromasia 1+ Anisocytosis 1+ Macrocytosis 1+ Sodium Level 140 Potassium Level 3.7 Chloride Level 103 Carbon Dioxide Level 27 Anion Gap 14 Blood Urea Nitrogen 11 Creatinine 0.95 Glucose Level 152 Calcium Level 8.8 Bedside Glucose 174 184 Prothrombin Time 16.7 H Prothrombin Time Ratio 1.3 INR International Normalized Ratio 1.34 Activated Partial Thromboplast Time 49.9 H Thrombin Time 13.0 L Fibrinogen 690.0 #H Plasma Fibrin Degradation Products <10 D-Dimer 1071.20 #H D-Dimer Comment Lactic Acid Level 0.9 Test 01/24/17 21:21 01/25/17 02:38 01/25/17 06:23 01/25/17 08:02 Bedside Glucose 203 157 178 Lab Scanned Report BLOOD TRANSFUSION Test 01/25/17 08:44 01/25/17 12:10 White Blood Count 34.4 H Red Blood Count 2.48 L Hemoglobin 7.3 L Hematocrit 21.9 L Mean Corpuscular Volume 88.3 Mean Corpuscular Hemoglobin 29.4 Mean Corpuscular Hemoglobin Concent 33.3 Red Cell Distribution Width 14.0 Platelet Count 33 #L Mean Platelet Volume 10.7 H Neutrophils % Segmented Neutrophils % (Manual) 18 L Band Neutrophils % (Manual) 5 H Lymphocytes % Lymphocytes % (Manual) 11 L Monocytes % Monocytes % (Manual) 1 Metamyelocytes % (manual) 2 H Promyelocytes % (Manual) 2 H Blast Cells % (Manual) 61.5 H Nucleated Red Blood Cells % 0.0 Neutrophils # Neutrophils # (Manual) 6.8 Band Neutrophils # 1.7 H Absolute Lymphocytes (Manual) 3.7 H Lymphocytes # Monocytes # Absolute Monocytes (Manual) 0.3 Metamyelocytes # 0.6 H Promyelocytes # 0.6 H Platelet Estimate SIG DECREASED Polychromasia 3+ Anisocytosis 2+ Microcytosis 2+ Sodium Level 141 Potassium Level 3.7 Chloride Level 106 Carbon Dioxide Level 24 Anion Gap 15 Blood Urea Nitrogen 16 Creatinine 1.00 Glucose Level 185 Calcium Level 8.7 Phosphorus Level 2.8 Magnesium Level 1.8 Total Bilirubin 1.3 Direct Bilirubin 0.00 Indirect Bilirubin 1.3 H Aspartate Amino Transf (AST/SGOT) 21 Alanine Aminotransferase (ALT/SGPT) 34 Alkaline Phosphatase 73 Total Protein 7.1 Albumin 3.4 Globulin 3.70 H Albumin/Globulin Ratio 0.91 Bedside Glucose 205 Imaging Free Text/Dictation PROCEDURE: CT Chest, Abdomen and Pelvis without contrast. CLINICAL INDICATION: Fever, pain TECHNIQUE: CT scan of the chest, abdomen, and pelvis without contrast was performed on a multi-detector high-resolution CT scanner. Coronal and sagittal reformatted images were obtained from the axial source images. Images were reviewed on a high-resolution PACS workstation. The total exam CTDI equals 15 mGy and the total exam DLP equals 1188 mGy-cm. One or more of the following dose reduction techniques were used: Automated exposure control, Adjustment of the mA and/or kV according to patient size, and/or use of iterative reconstruction technique. DICOM images are available. COMPARISON: Correlation chest x-ray yesterday, abdominal CT 10/29/2016 FINDINGS: CT chest: 5.3 x 2.8 cm consolidation with spiculated margins. There are patchy ground-glass changes in the bilateral perihilar regions with sub-centimeter nodules. Interlobular septal thickening is seen in the lung bases. Small right pleural effusion. No significant pericardial effusion. No bulky mediastinal lymphadenopathy. Coronary arterial and aortic atherosclerosis. CT abdomen and pelvis: Liver and spleen are enlarged. No pancreatic ductal dilatation.Adrenals are unremarkable. No focal pericholecystic inflammatory changes. Bilateral renal cysts. Bilateral nonobstructing renal stones. No hydronephrosis. No evidence of bowel obstruction. No significant ascites or pneumoperitoneum. No evidence of retroperitoneal lymphadenopathy. Prominent prostate gland bulging into the bladder. IMPRESSION: 5.3 x 2.8 cm consolidation with spiculated margins is new since 10/29/2016. There are also patchy ground-glass changes in the bilateral perihilar regions with sub-centimeter nodules and interlobular septal thickening at the lung bases. Small right pleural effusion. The findings likely represent multifocal pulmonary infection with superimposed vascular congestion and edema. Recommend follow up imaging after treatment to confirm complete resolution. No acute intra-abdominal process identified. Hepatosplenomegaly. RPTAT: AA .Mathew Warren MD, MD Date Time Electronically viewed and signed by .Mathew Warren MD, MD on 01/25/2017 08:51 Medications Medications Current Medications Ondansetron HCl (Zofran Tab) 4 mg Q6H PRN PO NAUSEA AND/OR VOMITING Last administered on 01/25/17t 12:13; Admin Dose 4 MG; Start 01/24/17 at 05:30 Acetaminophen (Tylenol Tab) 650 mg Q6H PRN PO PAIN LEVEL 1-3 OR FEVER Last administered on 01/25/17 08:18; Admin Dose 650 MG; Start 01/24/17 at 05:30 Acetaminophen/ Hydrocodone Bitart ([place] (5/325)) 1 tab Q6H PRN PO PAIN LEVEL 4 -6; Start 01/24/17 at 05:30 Docusate Sodium (Colace) 100 mg Q12H PRN PO CONSTIPATION; Start 01/24/17 at 05 :30 Famotidine 20 mg 20 mg Q12 PO Last administered on 01/25/17 08:18; Admin Dose 20 MG; Start 01/24/17 at 09:00 Cefepime HCl 50 ml @ 100 mls/hr Q8 IVPB Last administered on 01/25/17 13:23 ; Admin Dose 100 MLS/HR; Start 01/24/17 at 06:00 Vancomycin HCl (Vancocin) 250 ml @ 125 mls/hr Q12H IVPB Last administered on 01/25/17 10:08; Admin Dose 125 MLS/HR; Start 01/24/17 at 10:00 Diagnostic Test (Pha) 1 ea 1 ea 02 XX ; Start 01/25/17 at 02:00 Sodium Chloride 1,000 ml @ 100 mls/hr Q10H IV Last administered on 01/24/17 15:47; Admin Dose 100 MLS/HR; Start 01/24/17 at 14:30 Acyclovir/Sodium Chloride (Zovirax/NS) 100 ml @ 100 mls/hr Q8 IVPB Last administered on 01/25/17 01:22; Admin Dose 100 MLS/HR; Start 01/24/17 at 14: 30 Miscellaneous Information 1 ea NOTE XX ; Start 01/24/17 at 15:00 Glucose (Glutose) 15 gm Q15M PRN PO DECREASED GLUCOSE; Start 01/24/17 at 15:00 Glucose (Glutose) 22.5 gm Q15M PRN PO DECREASED GLUCOSE; Start 01/24/17 at 15: 00 Dextrose (D50w Syringe) 25 ml Q15M PRN IV DECREASED GLUCOSE; Start 01/24/17 at 15:00 Dextrose (D50w Syringe) 50 ml Q15M PRN IV DECREASED GLUCOSE; Start 01/24/17 at 15:00 Glucagon (Glucagen) 1 mg Q15M PRN IM DECREASED GLUCOSE; Start 01/24/17 at 15: 00 Glucose (Glutose) 15 gm Q15M PRN BUCCAL DECREASED GLUCOSE; Start 01/24/17 at 15:00 Alprazolam (Xanax) 0.25 mg Q8H PRN PO ANXIETY; Start 01/24/17 at 16:00 Fluconazole (Diflucan) 100 mg DAILY PO Last administered on 01/25/17t 10:08; Admin Dose 100 MG; Start 01/25/17 at 09:00 SOBIA NUNEZ Jan 25, 2017 13:34
[2017-01-25] MEDS ORDERED: IPRATROPIUM (NEB) 0.5 MG/2.5 ML AMP HHN PRN (14:30)
[2017-01-25] MEDS ORDERED: FUROSEMIDE 20 MG INJ IV ONE (14:30)
[2017-01-25] MEDS ORDERED: LEVALBUTEROL (NEB) 0.63 MG/3 ML AMP HHN PRN (14:30)
--- NOTE | 2017-01-25 15:57 | CONS ---
DATE OF ADMISSION: 01/24/2017 DATE OF CONSULTATION: 01/25/2017 TYPE OF CONSULTATION: Infectious disease. REASON FOR CONSULTATION: Antibiotic management. HISTORY OF PRESENT ILLNESS: Diallo Boateng is an unfortunate 66-year-old Citizen Of [place] male who comes in with neutropenic fever and with acute myelogenous leukemia. Patient has not agreed to treatment for the last few months. He is now neutropenic and most of his count is blasts. He has b een pancultured. He has a herpetic lesion on his lip and started on acyclovir along with vancomycin and cefepime. His acute myelogenous leukemia, he has 72% blasts on peripheral smear significant le ukocytosis, significant anemia. On admission, his white count is 31.5. He is pancytopenic with an H and H of 8 and 23.4, platelet count 6000, BUN and creatinine of 15/0.95, his blood cultures are ne gative so far. Urine cultures are negative. Influenza A and B are negative. A CT scan of the abdo men and pelvis show a 5.3 x 2.8 cm consolidation with spiculated margins new since 10/29/2016. He h as also patchy ground glass changes in bilateral perihilar regions with subcentimeter nodules and in terlobular septal thickening at the lung bases, small right pleural effusion. The findings represen t multifocal pulmonary infection with superimposed vascular congestion and edema. Recommend follow up imaging after treatment to confirm complete resolution no acute intra-abdominal process identifie d, and there is hepatosplenomegaly. A CT scan of the chest shows the same findings. Chest x-ray sh ows left basilar airspace opacity representing atelectasis or pneumonia. Patient also has hypertens ion, diabetes and anxiety disorder with a history of claustrophobia. He is severely thrombocytopeni c. PAST MEDICAL HISTORY: Operations as outlined. FAMILY HISTORY: Noncontributory. SOCIAL HISTORY: He does not smoke, drink or abuse drugs. ALLERGIES: NONE TO PENICILLIN, SULFA OR FOODS. MEDICATIONS: Per chart. REVIEW OF SYSTEMS: Include 2 previous chemotherapy treatments about 1 year ago with recurrence, cur rently. PHYSICAL EXAMINATION: GENERAL: The patient is alert, responsive, pale in minimal to moderate distress. VITAL SIGNS: Stable. T-max is 102. SKIN: Without generalized rash. HEENT: Within normal limits. NECK: Supple. LYMPH NODES: None palpable. CHEST: Decreased breath sounds at the bases. HEART: Without murmur or gallop. ABDOMEN: Soft, nontender, without organosplenomegaly or masses. He has some epigastric discomfort. EXTREMITIES: Without cyanosis, clubbing, or edema. RECTAL AND GENITAL: Deferred. NEUROLOGIC: No focal neurological abnormality. IMPRESSION AND PLAN: Patient currently is in blast crisis with acute myelogenous leukemia. His cul tures so far are negative, but he is severely neutropenic. He is on vancomycin, cefepime, acyclovir and fluconazole. Patient obviously needs chemotherapy. I will dictate my findings to Dr. Wheeler and to Dr. Herrera. Dictated By: JENAE KENT MD, JD/DE Conf#: [id number] DID#: [id number]
--- NOTE | 2017-01-25 20:33 | CONS ---
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 Patient is currently pursuing naturopathic treatment but also has appointment with [facility] on 02/02. -if patient decides to pursue chemotherapy during this admission, he can be transferred to a tertiary care center to initiate treatment. Pt is still not certain he wants to pursue chemotherapy -pt currently has 63% blasts circulating in his peripheral blood and is transfusion dependant. Pt understands that his disease is terminal and that his only chance of controlling this disease is with chemotherapy which he is not yet willing to accept. -continue broad spectrum antibiotics and antifungal coverage per ID. Appreciate recommendations Approximately 40 min were spent at patient's bedside and in coordination of his care Problems: Consultation Date/Type/Reason Admit Date/Time Jan 24, 2017 at 06:40 Date of Consultation: Jan 25, 2017 Type of Consultation: hematology Reason for Consultation AML Referring Provider: SOBIA NUNEZ of Present Illness The patient is a 66-year-old gentleman who has known AML and thrombocytopenia. His last chemotherapy was in December 2015, when he underwent induction chemotherapy followed by 1 cycle of consolidation chemotherapy.However since then he has refused any further treatment. In September of this year patient was noted to become more pancytopenic. He was subsequently diagnosed with relapsed disease when he was found with blasts circulating in his peripheral blood. He has since refused any further chemotherapy and is currently undergoing alternative therapies with a doctor as an out patient who does not believe in chemotherapy. He has been receiving out patient blood transfusions almost every week. Pt now presents to ER with fevers and was found with pneumonia. He was also anemic with a Hg 8 and thrombocytopenic with a platelet count of 6. Pt has thus far received blood and platelet transfusion. He continues to spike fevers but is on broad spectrum antibiotics. Pt currently has 61% blasts in the bone marrow. Constitutional: febrile, poor po Eyes: redness Respiratory: cough, no complaints, pain, shortness of breath Cardiovascular: no complaints Gastrointestinal: decreased appetite, nausea Genitourinary: no complaints Musculoskeletal: back pain, bone/joint pain Skin: no complaints Past Medical History Medical History: diabetes Past Surgical History Past Surgical Hx: no surgical history Family History Significant Family History: no pertinent family hx Social History Alcohol Use: none Smoking Status: Never smoker Drug Use: none Exam/Review of Systems Vital Signs Vitals Vital Signs Date Time Temp Pulse Resp B/P Pulse Ox O2 Delivery O2 Flow Rate FiO2 01/25/17 18:08 101 01/25/17 16:10 99.4 21 128/59 92 01/24/17 22:45 Room Air Intake and Output 01/24/17 01/24/17 01/25/17 15:00 23:00 07:00 Intake Total 250 ml 1140 ml 1146 ml Balance 250 ml 1140 ml 1146 ml Exam Constitutional: alert, frail, oriented Psych: anxiety Head: normocephalic Eyes: nl conjunctiva ENMT: nl external ears & nose Neck: non-tender, supple Respiratory: crackles/rales, diminished breath sounds Cardiovascular: regular rate and rhythm Gastrointestinal: soft Musculoskeletal: nl extremities to inspection Results Result Diagram: 01/25/17 0844 01/25/17 0844 Results 24 hrs Laboratory Tests Test 01/24/17 21:21 01/25/17 02:38 01/25/17 06:23 01/25/17 08:02 Bedside Glucose 203 157 178 Lab Scanned Report BLOOD TRANSFUSION Test 01/25/17 08:44 01/25/17 12:10 01/25/17 17:15 White Blood Count 34.4 H Red Blood Count 2.48 L Hemoglobin 7.3 L Hematocrit 21.9 L Mean Corpuscular Volume 88.3 Mean Corpuscular Hemoglobin 29.4 Mean Corpuscular Hemoglobin Concent 33.3 Red Cell Distribution Width 14.0 Platelet Count 33 #L Mean Platelet Volume 10.7 H Neutrophils % Segmented Neutrophils % (Manual) 18 L Band Neutrophils % (Manual) 5 H Lymphocytes % Lymphocytes % (Manual) 11 L Monocytes % Monocytes % (Manual) 1 Metamyelocytes % (manual) 2 H Promyelocytes % (Manual) 2 H Blast Cells % (Manual) 61.5 H Nucleated Red Blood Cells % 0.0 Neutrophils # Neutrophils # (Manual) 6.8 Band Neutrophils # 1.7 H Absolute Lymphocytes (Manual) 3.7 H Lymphocytes # Monocytes # Absolute Monocytes (Manual) 0.3 Metamyelocytes # 0.6 H Promyelocytes # 0.6 H Platelet Estimate SIG DECREASED Polychromasia 3+ Anisocytosis 2+ Microcytosis 2+ Sodium Level 141 Potassium Level 3.7 Chloride Level 106 Carbon Dioxide Level 24 Anion Gap 15 Blood Urea Nitrogen 16 Creatinine 1.00 Glucose Level 185 Calcium Level 8.7 Phosphorus Level 2.8 Magnesium Level 1.8 Total Bilirubin 1.3 Direct Bilirubin 0.00 Indirect Bilirubin 1.3 H Aspartate Amino Transf (AST/SGOT) 21 Alanine Aminotransferase (ALT/SGPT) 34 Alkaline Phosphatase 73 Total Protein 7.1 Albumin 3.4 Globulin 3.70 H Albumin/Globulin Ratio 0.91 Bedside Glucose 205 186 Medications Medications Current Medications Ondansetron HCl (Zofran Tab) 4 mg Q6H PRN PO NAUSEA AND/OR VOMITING Last administered on 01/25/17 12:13; Admin Dose 4 MG; Start 01/24/17 at 05:30 Acetaminophen (Tylenol Tab) 650 mg Q6H PRN PO PAIN LEVEL 1-3 OR FEVER Last administered on 01/25/17 14:16; Admin Dose 650 MG; Start 01/24/17 at 05:30 Acetaminophen/ Hydrocodone Bitart ([place] (5/325)) 1 tab Q6H PRN PO PAIN LEVEL 4 -6; Start 01/24/17 at 05:30 Docusate Sodium (Colace) 100 mg Q12H PRN PO CONSTIPATION; Start 01/24/17 at 05 :30 Famotidine 20 mg 20 mg Q12 PO Last administered on 01/25/17 08:18; Admin Dose 20 MG; Start 01/24/17 at 09:00 Cefepime HCl 50 ml @ 100 mls/hr Q8 IVPB Last administered on 01/25/17 13:23 ; Admin Dose 100 MLS/HR; Start 01/24/17 at 06:00 Vancomycin HCl (Vancocin) 250 ml @ 125 mls/hr Q12H IVPB Last administered on 01/25/17 10:08; Admin Dose 125 MLS/HR; Start 01/24/17 at 10:00 Diagnostic Test (Pha) 1 ea 1 ea 02 XX ; Start 01/25/17 at 02:00 Sodium Chloride 1,000 ml @ 75 mls/hr [id number] IV Last administered on 18:18; Admin Dose 75 MLS/HR; Start 01/24/17 at 14:30 Acyclovir/Sodium Chloride (Zovirax/NS) 100 ml @ 100 mls/hr Q8 IVPB Last administered on 01/25/17 14:16; Admin Dose 100 MLS/HR; Start 01/24/17 at 14: 30 Miscellaneous Information 1 ea NOTE XX ; Start 01/24/17 at 15:00 Glucose (Glutose) 15 gm Q15M PRN PO DECREASED GLUCOSE; Start 01/24/17 at 15:00 Glucose (Glutose) 22.5 gm Q15M PRN PO DECREASED GLUCOSE; Start 01/24/17 at 15: 00 Dextrose (D50w Syringe) 25 ml Q15M PRN IV DECREASED GLUCOSE; Start 01/24/17 at 15:00 Dextrose (D50w Syringe) 50 ml Q15M PRN IV DECREASED GLUCOSE; Start 01/24/17 at 15:00 Glucagon (Glucagen) 1 mg Q15M PRN IM DECREASED GLUCOSE; Start 01/24/17 at 15: 00 Glucose (Glutose) 15 gm Q15M PRN BUCCAL DECREASED GLUCOSE; Start 01/24/17 at 15:00 Alprazolam (Xanax) 0.25 mg Q8H PRN PO ANXIETY; Start 01/24/17 at 16:00 Fluconazole (Diflucan) 100 mg DAILY PO Last administered on 01/25/17 10:08; Admin Dose 100 MG; Start 01/25/17 at 09:00 Miscellaneous Information (*Rx Drug Level Order Reminder*) 1 ONCE ONCE XX ; Start 01/26/17 at 09:00; Stop 01/26/17 at 09:01 CALEB CERON M.D. Jan 25, 2017 20:24
[2017-01-26] VITALS (13 sets, daily range): BP systolic 118–171; BP diastolic 63–89; PULSE 85–114; RESP 18–22
[2017-01-26] MEDS: ACCU-CHEK XX SCH (02:40)
[2017-01-26] MEDS: CEFEPIME 2GM/50 ML (PMX) 50 ML IVPB SCH ×3 (05:32→21:46)
[2017-01-26] MEDS: ACYCLOVIR 500 MG in SOD CHLORIDE 0.9% 100 ML IVPB SCH ×3 (05:32→21:45)
[2017-01-26] MEDS: FAMOTIDINE 20 MG TAB PO SCH ×2 (08:31→21:54)
[2017-01-26] MEDS: FLUCONAZOLE 100 MG TAB PO SCH (08:31)
[2017-01-26] MEDS: INSULIN ASPART [NOVOLOG] 3 ML PEN SC SCH ×4 (08:37→22:13)
[2017-01-26 10:25] LABS: ABNORMAL IP MESSAGE 1; HEMATOCRIT 19.7 % (42.0-52.0); MEAN CORPUSCULAR HEMOGLOBIN 29.9 pg (29.0-33.0); MEAN CORPUSCULAR VOLUME 87.9 fl (82.0-101.0); MEAN PLATELET VOLUME 10.7 fl (7.4-10.4); POSITIVE DIFF @See below; RED BLOOD COUNT 2.24 10^6/ul (4.70-6.10); RED CELL DISTRIBUTION WIDTH 14.6 % (11.5-14.5); WHITE BLOOD COUNT 37.4 10^3/ul (4.8-10.8)
[2017-01-26 10:32] LABS: HEMOGLOBIN 6.7 g/dl (14.0-18.0); PLATELET COUNT 16 10^3/UL (140-415)
[2017-01-26] MEDS: VANCOMYCIN 1 GM in NS 250 ML IVPB SCH (10:43)
[2017-01-26 10:50] LABS: CALCIUM 8.6 mg/dl (8.4-10.2); CREATININE 0.97 mg/dl (0.61-1.24); MAGNESIUM 1.9 mg/dl (1.7-2.5); PHOSPHORUS 2.1 mg/dl (2.5-4.9); POTASSIUM 3.4 mmol/L (3.5-5.1)
[2017-01-26] MEDS: SOD CHLORIDE 0.9% 1,000 ML IV SCH (10:54)
[2017-01-26] MEDS: ACETAMINOPHEN 325 MG TAB PO PRN ×2 (10:56→16:47)
--- NOTE | 2017-01-26 12:03 | PN ---
Date/Time of Note Date/Time of Note DATE: 01/26/17 TIME: 11:54 Assessment/Plan VTE Prophylaxis VTE Prophylaxis Intervention: SCD's Lines/Catheters IV [facility]from [facility] Peripheral IV Urinary Cath still in place: No Assessment/Plan Assessment/Plan 66-year-old male with : 1. Severe pneumonia, persistent fevers, functional neutropenia as the patient is in blast crisis essentially currently and severely immunocompromised. Appreciate infectious disease recommendations today, nystatin swish and swallow added along with Levaquin, continuing cefepime, vancomycin, acyclovir, Diflucan. I have explained to the patient the seriousness of his condition especially with now fevers that may be either secondary to his AML with ongoing blast crisis versus an active infection. All cultures no growth to date. Influenza negative. 2. Acute myelogenous leukemia, recurrence of the disease currently, 72% blasts on peripheral smear, significant leukocytosis. and significant anemia on labs today again, plan to transfuse 2 units of packed red blood cells and 1 unit of platelets. Appreciate hematology, Dr Herrera, recommendations. Patient seems to be now willing to pursue chemotherapeutic treatment, he knows he will have to be transferred to [facility] for chemotherapy and he is agreeable to wait as long as it is not done until next week. Prognosis poor given ongoing blast crisis, ongoing fevers and seems to be trending toward transfusion dependence. 3. Hypertension, for now, will hold off medications, resume once more stable. 3. Diabetes mellitus, with fair control (HgbA1c 6.7%). Sliding scale insulin and diabetic diet for now. 4. Anxiety disorder, with history of claustrophobia, continue Xanax PRN for anxiety. Prophylaxis: SCDs and anticoagulation contraindicated due to severe thrombocytopenia, Pepcid for GI prophylaxis Disposition: Blood transfusion both PRBC and platelet today, additional IV antibiotics added, appreciate assistance from Dr. Herrera and Dr. Yoo. Telemetry inpatient as of yesterday Subjective 24 Hr Interval Summary Free Text/Dictation Patient still with fevers, his fever curve seems to be coming down, WBC still significantly elevated in blast crisis, patient with symptomatic severe pneumonia and dyspnea on exertion/hypoxemia requiring supplemental oxygen. Appreciate infectious disease recommendations regarding additional antibiotics. Patient has been transferred to telemetry for closer monitoring and due to the requirements of multiple units of blood products. Exam/Review of Systems Vital Signs Vitals Vital Signs Date Time Temp Pulse Resp B/P Pulse Ox O2 Delivery O2 Flow Rate FiO2 01/26/17 08:10 96 01/26/17 07:54 100.0 20 151/81 100 01/26/17 00:00 Nasal Cannula 2.0 Intake and Output 01/25/17 01/25/17 01/26/17 15:00 23:00 07:00 Intake Total 300 ml 1320 ml 300 ml Output Total 450 ml Balance 300 ml 870 ml 300 ml Exam Constitutional: alert, oriented, other (Pale), well developed Respiratory: diminished breath sounds (Bilaterally), other (2 L nasal cannula and severe dyspnea on exertion) Cardiovascular: nl pulses, regular rate and rhythm Gastrointestinal: non-tender, soft Musculoskeletal: nl extremities to inspection Extremities: normal pulses, other (No edema, clubbing or cyanosis) Neurological: PERINATAL SPECIALIST II-XII intact, nl mental status, nl speech, other ( Generalized weakness) Results Result Diagram: 01/26/1737 01/26/1737 Results 24 hrs Laboratory Tests Test 01/25/17 12:10 01/25/17 17:15 01/25/17 22:55 01/26/17 02:33 Bedside Glucose 205 186 194 172 Test 01/26/17 07:14 01/26/17 08:30 01/26/17 09:37 Lab Scanned Report BLOOD TRANSFUSION Bedside Glucose 187 White Blood Count 37.4 H Red Blood Count 2.24 L Hemoglobin 6.7 *L Hematocrit 19.7 L Mean Corpuscular Volume 87.9 Mean Corpuscular Hemoglobin 29.9 Mean Corpuscular Hemoglobin Concent 34.0 Red Cell Distribution Width 14.6 H Platelet Count 16 #*L Mean Platelet Volume 10.7 H Neutrophils % Lymphocytes % Monocytes % Eosinophils % Basophils % Nucleated Red Blood Cells % 0.0 Neutrophils # Lymphocytes # Monocytes # Eosinophils # Basophils # Nucleated Red Blood Cells # Sodium Level 140 Potassium Level 3.4 L Chloride Level 103 Carbon Dioxide Level 27 Anion Gap 13 Blood Urea Nitrogen 19 Creatinine 0.97 Glucose Level 192 Calcium Level 8.6 Phosphorus Level 2.1 L Magnesium Level 1.9 Vancomycin Level Trough 6.8 L Medications Medications Current Medications Ondansetron HCl (Zofran Tab) 4 mg Q6H PRN PO NAUSEA AND/OR VOMITING Last administered on 01/25/17t 12:13; Admin Dose 4 MG; Start 01/24/17 at 05:30 Acetaminophen (Tylenol Tab) 650 mg Q6H PRN PO PAIN LEVEL 1-3 OR FEVER Last administered on 01/26/17 10:56; Admin Dose 650 MG; Start 01/24/17 at 05:30 Acetaminophen/ Hydrocodone Bitart ([place] (5/325)) 1 tab Q6H PRN PO PAIN LEVEL 4 -6; Start 01/24/17 at 05:30 Docusate Sodium (Colace) 100 mg Q12H PRN PO CONSTIPATION; Start 01/24/17 at 05 :30 Famotidine 20 mg 20 mg Q12 PO Last administered on 01/26/17 08:31; Admin Dose 20 MG; Start 01/24/17 at 09:00 Cefepime HCl (Maxipime 2gm/50 ml (Pmx)) 50 ml @ 100 mls/hr Q8 IVPB Last administered on 01/26/17 05:32; Admin Dose 100 MLS/HR; Start 01/24/17 at 06: 00 Diagnostic Test (Pha) 1 ea 1 ea 02 XX Last administered on 01/26/17 02:40; Admin Dose 1 EA; Start 01/25/17 at 02:00 Sodium Chloride 1,000 ml @ 75 mls/hr [id number] IV Last administered on 10:54; Admin Dose 75 MLS/HR; Start 01/24/17 at 14:30 Acyclovir/Sodium Chloride (Zovirax/NS) 100 ml @ 100 mls/hr Q8 IVPB Last administered on 01/26/17 05:32; Admin Dose 100 MLS/HR; Start 01/24/17 at 14: 30 Miscellaneous Information 1 ea NOTE XX ; Start 01/24/17 at 15:00 Glucose (Glutose) 15 gm Q15M PRN PO DECREASED GLUCOSE; Start 01/24/17 at 15:00 Glucose (Glutose) 22.5 gm Q15M PRN PO DECREASED GLUCOSE; Start 01/24/17 at 15: 00 Dextrose (D50w Syringe) 25 ml Q15M PRN IV DECREASED GLUCOSE; Start 01/24/17 at 15:00 Dextrose (D50w Syringe) 50 ml Q15M PRN IV DECREASED GLUCOSE; Start 01/24/17 at 15:00 Glucagon (Glucagen) 1 mg Q15M PRN IM DECREASED GLUCOSE; Start 01/24/17 at 15: 00 Glucose (Glutose) 15 gm Q15M PRN BUCCAL DECREASED GLUCOSE; Start 01/24/17 at 15:00 Alprazolam (Xanax) 0.25 mg Q8H PRN PO ANXIETY; Start 01/24/17 at 16:00 Fluconazole (Diflucan) 100 mg DAILY PO Last administered on 01/26/17t 08:31; Admin Dose 100 MG; Start 01/25/17 at 09:00 Simethicone (Mylicon) 80 mg Q6H PRN PO DISTENSION/GAS/BLOATING; Start at 12:00 SOBIA NUNEZ Jan 26, 2017 12:03
[2017-01-26 13:00] LABS: ANISOCYTOSIS 1+ (0-0); BLAST% (M) 59.4 % (0-0); METAMYELOCYTES %M 2 % (0-0); MICROCYTOSIS 1+ (0-0); MONOCYTES % (M) 1 % (0-11); MYELOCYTES % (M) 1 % (0-0); PLATELET ESTIMATE SIG DECREASED; POIKILOCYTOSIS 1+ (0-0); POLYCHROMASIA 1+ (0-0); REACTIVE LYMPHOCYTES% (M) 1 % (0-0)
[2017-01-26] MEDS ORDERED: DIPHENHYDRAMINE 50 MG INJ IV PRN (13:30)
[2017-01-26] MEDS: NYSTATIN SUSP 5 ML CUP PO SCH ×3 (14:07→21:54)
--- NOTE | 2017-01-26 15:09 | CONS ---
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 Patient is currently pursuing naturopathic treatment but also has appointment with [facility] on 02/02. -if patient decides to pursue chemotherapy during this admission, he can be transferred to a tertiary care center to initiate treatment. Pt is still not certain he wants to pursue chemotherapy. he would rather seek the opinion as an out patient -pt currently has 63% blasts circulating in his peripheral blood and is transfusion dependant. Pt understands that his disease is terminal and that his only chance of controlling this disease is with chemotherapy which he is not yet willing to accept. -continue broad spectrum antibiotics and antifungal coverage per ID. Appreciate recommendations - PRBCs 2 units have been ordered for today. will transfuse it patient accepts transfusion Approximately 40 min were spent at patient's bedside and in coordination of his care Problems: Consultation Date/Type/Reason Admit Date/Time Jan 24, 2017 at 06:40 Initial Consult Date 01/25/17 Type of Consultation: hematology Reason for Consultation AML Referring Provider: SOBIA NUNEZ 24 HR Interval Summary Free Text/Dictation pt states fevers have subsided somewhat Exam/Review of Systems Vital Signs Vitals Vital Signs Date Time Temp Pulse Resp B/P Pulse Ox O2 Delivery O2 Flow Rate FiO2 01/26/17 12:08 105 01/26/17 12:05 99.4 18 157/77 97 01/26/17 08:15 Nasal Cannula 2.0 Intake and Output 01/25/17 01/25/17 01/26/17 15:00 23:00 07:00 Intake Total 300 ml 1320 ml 300 ml Output Total 450 ml Balance 300 ml 870 ml 300 ml Exam Constitutional: alert, distress, frail, oriented Psych: anxiety Head: normocephalic Eyes: nl conjunctiva ENMT: nl external ears & nose Neck: non-tender, supple Respiratory: clear to auscultation, normal air movement Cardiovascular: regular rate and rhythm Gastrointestinal: soft Musculoskeletal: nl extremities to inspection, nl gait and stance Extremities: normal pulses Results Result Diagram: 01/26/17 0937 01/26/17 0937 Results 24 hrs Laboratory Tests Test 01/25/17 17:15 01/25/17 22:55 01/26/17 02:33 01/26/17 07:14 Bedside Glucose 186 194 172 Lab Scanned Report BLOOD TRANSFUSION Test 01/26/17 08:30 01/26/17 09:37 01/26/17 12:53 Bedside Glucose 187 193 White Blood Count 37.4 H Red Blood Count 2.24 L Hemoglobin 6.7 *L Hematocrit 19.7 L Mean Corpuscular Volume 87.9 Mean Corpuscular Hemoglobin 29.9 Mean Corpuscular Hemoglobin Concent 34.0 Red Cell Distribution Width 14.6 H Platelet Count 16 #*L Mean Platelet Volume 10.7 H Neutrophils % Segmented Neutrophils % (Manual) 6 L Band Neutrophils % (Manual) 5 H Lymphocytes % Lymphocytes % (Manual) 26 Reactive Lymphocytes % (Manual) 1 H Monocytes % Monocytes % (Manual) 1 Eosinophils % Basophils % Metamyelocytes % (manual) 2 H Myelocytes % (Manual) 1 H Blast Cells % (Manual) 59.4 H Nucleated Red Blood Cells % 0.0 Neutrophils # Neutrophils # (Manual) 2.9 Band Neutrophils # 1.8 H Absolute Lymphocytes (Manual) 9.7 H Lymphocytes # Reactive Lymphocytes # 0.3 H Monocytes # Absolute Monocytes (Manual) 0.3 Eosinophils # Basophils # Metamyelocytes # 0.7 H Myelocytes # 0.3 H Nucleated Red Blood Cells # Platelet Estimate SIG DECREASED Polychromasia 1+ Poikilocytosis 1+ Anisocytosis 1+ Microcytosis 1+ Sodium Level 140 Potassium Level 3.4 L Chloride Level 103 Carbon Dioxide Level 27 Anion Gap 13 Blood Urea Nitrogen 19 Creatinine 0.97 Glucose Level 192 Calcium Level 8.6 Phosphorus Level 2.1 L Magnesium Level 1.9 Vancomycin Level Trough 6.8 L Medications Medications Current Medications Ondansetron HCl (Zofran Tab) 4 mg Q6H PRN PO NAUSEA AND/OR VOMITING Last administered on 01/25/17 12:13; Admin Dose 4 MG; Start 01/24/17 at 05:30 Acetaminophen (Tylenol Tab) 650 mg Q6H PRN PO PAIN LEVEL 1-3 OR FEVER Last administered on 01/26/17 10:56; Admin Dose 650 MG; Start 01/24/17 at 05:30 Acetaminophen/ Hydrocodone Bitart ([place] (5/325)) 1 tab Q6H PRN PO PAIN LEVEL 4 -6; Start 01/24/17 at 05:30 Docusate Sodium (Colace) 100 mg Q12H PRN PO CONSTIPATION; Start 01/24/17 at 05 :30 Famotidine 20 mg 20 mg Q12 PO Last administered on 01/26/17 08:31; Admin Dose 20 MG; Start 01/24/17 at 09:00 Cefepime HCl (Maxipime 2gm/50 ml (Pmx)) 50 ml @ 100 mls/hr Q8 IVPB Last administered on 01/26/17 05:32; Admin Dose 100 MLS/HR; Start 01/24/17 at 06: 00 Diagnostic Test (Pha) 1 ea 1 ea 02 XX Last administered on 01/26/17 02:40; Admin Dose 1 EA; Start 01/25/17 at 02:00 Sodium Chloride 1,000 ml @ 75 mls/hr [id number] IV Last administered on 10:54; Admin Dose 75 MLS/HR; Start 01/24/17 at 14:30 Acyclovir/Sodium Chloride (Zovirax/NS) 100 ml @ 100 mls/hr Q8 IVPB Last administered on 01/26/17 05:32; Admin Dose 100 MLS/HR; Start 01/24/17 at 14: 30 Miscellaneous Information 1 ea NOTE XX ; Start 01/24/17 at 15:00 Glucose (Glutose) 15 gm Q15M PRN PO DECREASED GLUCOSE; Start 01/24/17 at 15:00 Glucose (Glutose) 22.5 gm Q15M PRN PO DECREASED GLUCOSE; Start 01/24/17 at 15: 00 Dextrose (D50w Syringe) 25 ml Q15M PRN IV DECREASED GLUCOSE; Start 01/24/17 at 15:00 Dextrose (D50w Syringe) 50 ml Q15M PRN IV DECREASED GLUCOSE; Start 01/24/17 at 15:00 Glucagon (Glucagen) 1 mg Q15M PRN IM DECREASED GLUCOSE; Start 01/24/17 at 15: 00 Glucose (Glutose) 15 gm Q15M PRN BUCCAL DECREASED GLUCOSE; Start 01/24/17 at 15:00 Alprazolam (Xanax) 0.25 mg Q8H PRN PO ANXIETY; Start 01/24/17 at 16:00 Fluconazole (Diflucan) 100 mg DAILY PO Last administered on 01/26/17 08:31; Admin Dose 100 MG; Start 01/25/17 at 09:00 Simethicone 80 mg 80 mg Q6H PRN PO DISTENSION/GAS/BLOATING; Start 01/26/17 at 12:00 Vancomycin HCl 1.5 gm/Sodium Chloride 250 ml @ 83.333 mls/ hr Q12H IVPB ; Start 01/26/17 at 15:30 Levofloxacin/ Dextrose (Levaquin 750 Mg/ D5W 150 ml (Pmx)) 150 ml @ 100 mls/hr Q24H IVPB ; Start 01/26/17 at 12:30 Nystatin (Nystatin Susp) 5 ml QID PO Last administered on 01/26/17 14:07; Admin Dose 5 ML; Start 01/26/17 at 13:00 Diphenhydramine HCl (Benadryl) 25 mg Q6H PRN IV ALLERGIC REACTION; Start 01/26 at 13:30 CALEB CERON M.D. Jan 26, 2017 15:09
[2017-01-26] MEDS: VANCOMYCIN 1.5 GM in SOD CHLORIDE 0.9% 250 ML IVPB SCH (15:30)
--- NOTE | 2017-01-26 15:36 | CONS ---
Date/Time of Note Date/Time of Note DATE: 01/26/17 TIME: 15:33 Assessment/Plan Assessment/Plan Chief Complaint/Hosp Course No acute changes patient is alert complaining of difficulties breathing, looks comfortable on nasal cannula, spiking low-grade fevers with a T-max of 100 this morning WBC 37.4, H&H 6.7 and 19.7, platelets 16 BUN 19 creatinine 0.97 Microbiology: Blood culture and urine culture remain negative Antimicrobials: Vancomycin, Levaquin, cefepime, acyclovir, fluconazole Physical examination: This is a well-nourished well-developed elderly [place] man who is alert in no distress. Head atraumatic normocephalic sclerae nonicteric vehicle mucosa dry patient has severe halitosis and oral thrush on his tongue. Neck is supple chest rise symmetrical breath sounds diminished bases. Heart: S1-S2, tachycardic, regular. Abdomen soft, bowel tones present. Extremities without cyanosis edema Assessment: 1. Sepsis 2. Multifocal pneumonia with superimposed vascular congestion 3. AML 4. Diabetes 5. Hypertension Plan: Clinically stable, continue present care, antibiotics, follow hematology- oncology recommendations, will try to obtain sputum cultures, continue oral nystatin, send CD4 count DW pt/staff Problems: Consultation Date/Type/Reason Admit Date/Time Jan 24, 2017 at 06:40 Initial Consult Date 01/25/17 Type of Consultation: ID Referring Provider: SOBIA NUNEZ Exam/Review of Systems Vital Signs Vitals Vital Signs Date Time Temp Pulse Resp B/P Pulse Ox O2 Delivery O2 Flow Rate FiO2 01/26/17 13:00 Nasal Cannula 2.0 01/26/17 12:08 105 01/26/17 12:05 99.4 18 157/77 97 Intake and Output 01/25/17 01/25/17 01/26/17 14:59 22:59 06:59 Intake Total 300 ml 1320 ml 300 ml Output Total 450 ml Balance 300 ml 870 ml 300 ml Results Result Diagram: 01/26/17 0937 01/26/17 0937 Results 24 hrs Laboratory Tests Test 01/25/17 17:15 01/25/17 22:55 01/26/17 02:33 01/26/17 07:14 Bedside Glucose 186 194 172 Lab Scanned Report BLOOD TRANSFUSION Test 01/26/17 08:30 01/26/17 09:37 01/26/17 12:53 Bedside Glucose 187 193 White Blood Count 37.4 H Red Blood Count 2.24 L Hemoglobin 6.7 *L Hematocrit 19.7 L Mean Corpuscular Volume 87.9 Mean Corpuscular Hemoglobin 29.9 Mean Corpuscular Hemoglobin Concent 34.0 Red Cell Distribution Width 14.6 H Platelet Count 16 #*L Mean Platelet Volume 10.7 H Neutrophils % Segmented Neutrophils % (Manual) 6 L Band Neutrophils % (Manual) 5 H Lymphocytes % Lymphocytes % (Manual) 26 Reactive Lymphocytes % (Manual) 1 H Monocytes % Monocytes % (Manual) 1 Eosinophils % Basophils % Metamyelocytes % (manual) 2 H Myelocytes % (Manual) 1 H Blast Cells % (Manual) 59.4 H Nucleated Red Blood Cells % 0.0 Neutrophils # Neutrophils # (Manual) 2.9 Band Neutrophils # 1.8 H Absolute Lymphocytes (Manual) 9.7 H Lymphocytes # Reactive Lymphocytes # 0.3 H Monocytes # Absolute Monocytes (Manual) 0.3 Eosinophils # Basophils # Metamyelocytes # 0.7 H Myelocytes # 0.3 H Nucleated Red Blood Cells # Platelet Estimate SIG DECREASED Polychromasia 1+ Poikilocytosis 1+ Anisocytosis 1+ Microcytosis 1+ Sodium Level 140 Potassium Level 3.4 L Chloride Level 103 Carbon Dioxide Level 27 Anion Gap 13 Blood Urea Nitrogen 19 Creatinine 0.97 Glucose Level 192 Calcium Level 8.6 Phosphorus Level 2.1 L Magnesium Level 1.9 Vancomycin Level Trough 6.8 L Medications Medications Current Medications Ondansetron HCl (Zofran Tab) 4 mg Q6H PRN PO NAUSEA AND/OR VOMITING Last administered on 01/25/17 12:13; Admin Dose 4 MG; Start 01/24/17 at 05:30 Acetaminophen (Tylenol Tab) 650 mg Q6H PRN PO PAIN LEVEL 1-3 OR FEVER Last administered on 01/26/17 10:56; Admin Dose 650 MG; Start 01/24/17 at 05:30 Acetaminophen/ Hydrocodone Bitart ([place] (5/325)) 1 tab Q6H PRN PO PAIN LEVEL 4 -6; Start 01/24/17 at 05:30 Docusate Sodium (Colace) 100 mg Q12H PRN PO CONSTIPATION; Start 01/24/17 at 05 :30 Famotidine 20 mg 20 mg Q12 PO Last administered on 01/26/17 08:31; Admin Dose 20 MG; Start 01/24/17 at 09:00 Cefepime HCl (Maxipime 2gm/50 ml (Pmx)) 50 ml @ 100 mls/hr Q8 IVPB Last administered on 01/26/17 05:32; Admin Dose 100 MLS/HR; Start 01/24/17 at 06: 00 Diagnostic Test (Pha) 1 ea 1 ea 02 XX Last administered on 01/26/17 02:40; Admin Dose 1 EA; Start 01/25/17 at 02:00 Sodium Chloride 1,000 ml @ 75 mls/hr [id number] IV Last administered on 10:54; Admin Dose 75 MLS/HR; Start 01/24/17 at 14:30 Acyclovir/Sodium Chloride (Zovirax/NS) 100 ml @ 100 mls/hr Q8 IVPB Last administered on 01/26/17 05:32; Admin Dose 100 MLS/HR; Start 01/24/17 at 14: 30 Miscellaneous Information 1 ea NOTE XX ; Start 01/24/17 at 15:00 Glucose (Glutose) 15 gm Q15M PRN PO DECREASED GLUCOSE; Start 01/24/17 at 15:00 Glucose (Glutose) 22.5 gm Q15M PRN PO DECREASED GLUCOSE; Start 01/24/17 at 15: 00 Dextrose (D50w Syringe) 25 ml Q15M PRN IV DECREASED GLUCOSE; Start 01/24/17 at 15:00 Dextrose (D50w Syringe) 50 ml Q15M PRN IV DECREASED GLUCOSE; Start 01/24/17 at 15:00 Glucagon (Glucagen) 1 mg Q15M PRN IM DECREASED GLUCOSE; Start 01/24/17 at 15: 00 Glucose (Glutose) 15 gm Q15M PRN BUCCAL DECREASED GLUCOSE; Start 01/24/17 at 15:00 Alprazolam (Xanax) 0.25 mg Q8H PRN PO ANXIETY; Start 01/24/17 at 16:00 Fluconazole (Diflucan) 100 mg DAILY PO Last administered on 01/26/17 08:31; Admin Dose 100 MG; Start 01/25/17 at 09:00 Simethicone 80 mg 80 mg Q6H PRN PO DISTENSION/GAS/BLOATING; Start 01/26/17 at 12:00 Vancomycin HCl 1.5 gm/Sodium Chloride 250 ml @ 83.333 mls/ hr Q12H IVPB ; Start 01/26/17 at 15:30 Levofloxacin/ Dextrose (Levaquin 750 Mg/ D5W 150 ml (Pmx)) 150 ml @ 100 mls/hr Q24H IVPB ; Start 01/26/17 at 12:30 Nystatin (Nystatin Susp) 5 ml QID PO Last administered on 01/26/17t 14:07; Admin Dose 5 ML; Start 01/26/17 at 13:00 Diphenhydramine HCl (Benadryl) 25 mg Q6H PRN IV ALLERGIC REACTION; Start 01/26 at 13:30 EDWARD KINGSLEY NP Jan 26, 2017 15:36
[2017-01-26] MEDS: DOCUSATE SODIUM 100 MG CAP PO PRN (16:01)
[2017-01-26] MEDS: LEVOFLOXACIN 750MG/D5W (PMX) 150 ML IVPB SCH (20:30)
[2017-01-27] VITALS (11 sets, daily range): BP systolic 131–160; BP diastolic 59–87; PULSE 78–107; RESP 16–20
[2017-01-27] MEDS: ACETAMINOPHEN 325 MG TAB PO PRN ×3 (00:47→21:00)
[2017-01-27] MEDS: SOD CHLORIDE 0.9% 1,000 ML IV SCH ×2 (00:47→14:39)
[2017-01-27] MEDS: ACCU-CHEK XX SCH (02:00)
[2017-01-27] MEDS: VANCOMYCIN 1.5 GM in SOD CHLORIDE 0.9% 250 ML IVPB SCH ×2 (04:20→15:30)
[2017-01-27] MEDS: CEFEPIME 2GM/50 ML (PMX) 50 ML IVPB SCH (06:15)
[2017-01-27] MEDS: ACYCLOVIR 500 MG in SOD CHLORIDE 0.9% 100 ML IVPB SCH ×3 (06:16→22:46)
[2017-01-27 07:47] LABS: ABNORMAL IP MESSAGE 1; HEMATOCRIT 22.2 % (42.0-52.0); HEMOGLOBIN 7.6 g/dl (14.0-18.0); MEAN CORPUSCULAR HEMOGLOBIN 29.2 pg (29.0-33.0); MEAN CORPUSCULAR HGB CONC 34.2 g/dl (32.0-37.0); MEAN CORPUSCULAR VOLUME 85.4 fl (82.0-101.0); POSITIVE DIFF @See below; RED CELL DISTRIBUTION WIDTH 16.2 % (11.5-14.5); WHITE BLOOD COUNT 42.4 10^3/ul (4.8-10.8)
[2017-01-27 07:53] LABS: PLATELET COUNT 8 10^3/UL (140-415)
[2017-01-27 08:00] LABS: MAGNESIUM 2.1 mg/dl (1.7-2.5); PHOSPHORUS 2.2 mg/dl (2.5-4.9)
[2017-01-27 08:02] LABS: BILIRUBIN,INDIRECT 1.8 mg/dl (0-1.1); CALCIUM 8.4 mg/dl (8.4-10.2); CREATININE 0.88 mg/dl (0.61-1.24); POTASSIUM 3.5 mmol/L (3.5-5.1)
[2017-01-27 08:03] LABS: ALBUMIN 3.1 g/dl (3.3-4.9); ALBUMIN/GLOBULIN RATIO 0.86; BILIRUBIN,TOTAL 1.8 mg/dl (0.2-1.3); TOTAL PROTEIN 6.7 g/dl (6.1-8.1)
[2017-01-27] MEDS: FAMOTIDINE 20 MG TAB PO SCH ×2 (08:25→20:59)
[2017-01-27] MEDS: NYSTATIN SUSP 5 ML CUP PO SCH ×4 (08:25→20:59)
[2017-01-27] MEDS: FLUCONAZOLE 100 MG TAB PO SCH (08:25)
[2017-01-27] MEDS: INSULIN ASPART [NOVOLOG] 3 ML PEN SC SCH ×5 (08:31→21:00)
[2017-01-27 09:52] LABS: ANISOCYTOSIS 1+ (0-0); METAMYELOCYTES %M 1 % (0-0); MONOCYTES % (M) 8 % (0-11); MYELOCYTES % (M) 2 % (0-0); PLATELET ESTIMATE SIG DECREASED; POLYCHROMASIA 3+ (0-0)
[2017-01-27] MEDS: DOCUSATE SODIUM 100 MG CAP PO PRN (10:25)
[2017-01-27] MEDS: LEVOFLOXACIN 750MG/D5W (PMX) 150 ML IVPB SCH (12:18)
--- NOTE | 2017-01-27 12:36 | CONS ---
Date/Time of Note Date/Time of Note DATE: 01/27/17 TIME: 12:34 Assessment/Plan Assessment/Plan Chief Complaint/Hosp Course No acute changes, patient is alert, looks comfortable, c/o bloating, no fevers, no n/v/d, abdomen soft, nontender Microbiology: Blood culture and urine culture remain negative Antimicrobials: Vancomycin, Levaquin, cefepime, acyclovir, fluconazole Physical examination: This is a well-nourished well-developed elderly [place] Citizen man who is alert in no distress. Head atraumatic normocephalic sclerae nonicteric vehicle mucosa dry patient has severe halitosis and oral thrush on his tongue. Neck is supple chest rise symmetrical breath sounds diminished bases. Heart: S1-S2, tachycardic, regular. Abdomen soft, bowel tones present. Extremities without cyanosis edema Assessment: 1. Severe sepsis 2. Multifocal pneumonia with superimposed vascular congestion 3. AML 4. Diabetes 5. Hypertension Plan: Clinically stable, leukocytosis persists, will change Cefepime to Merrem, continue supportive care, follow hematology-oncology recommendations DW pt/staff Problems: Consultation Date/Type/Reason Admit Date/Time Jan 24, 2017 at 06:40 Initial Consult Date 01/25/17 Type of Consultation: ID Referring Provider: SOBIA NUNEZ Exam/Review of Systems Vital Signs Vitals Vital Signs Date Time Temp Pulse Resp B/P Pulse Ox O2 Delivery O2 Flow Rate FiO2 01/27/17 12:22 96 01/27/17 11:16 99.2 16 158/87 94 01/27/17 08:00 Nasal Cannula 2.0 Intake and Output 01/26/17 01/26/17 01/27/17 15:00 23:00 07:00 Intake Total 850 ml Balance 850 ml Results Result Diagram: 01/27/17 0639 01/27/17 0639 Results 24 hrs Laboratory Tests Test 01/26/17 12:53 01/26/17 17:32 01/26/17 21:53 01/27/17 02:25 Bedside Glucose 193 210 264 H 203 Test 01/27/17 06:39 01/27/17 08:22 01/27/17 12:16 White Blood Count 42.4 H Red Blood Count 2.60 L Hemoglobin 7.6 L Hematocrit 22.2 L Mean Corpuscular Volume 85.4 Mean Corpuscular Hemoglobin 29.2 Mean Corpuscular Hemoglobin Concent 34.2 Red Cell Distribution Width 16.2 H Platelet Count 8 #*L Mean Platelet Volume 11.0 H Neutrophils % Segmented Neutrophils % (Manual) 7 L Band Neutrophils % (Manual) 5 H Lymphocytes % Lymphocytes % (Manual) 13 L Monocytes % Monocytes % (Manual) 8 Eosinophils % Basophils % Metamyelocytes % (manual) 1 H Myelocytes % (Manual) 2 H Blast Cells % (Manual) 63.0 H Nucleated Red Blood Cells % 0.0 Neutrophils # Neutrophils # (Manual) 3.9 Band Neutrophils # 2.1 H Absolute Lymphocytes (Manual) 5.5 H Lymphocytes # Monocytes # Absolute Monocytes (Manual) 3.3 H Eosinophils # Basophils # Metamyelocytes # 0.4 H Myelocytes # 0.8 H Nucleated Red Blood Cells # Platelet Estimate SIG DECREASED Polychromasia 3+ Anisocytosis 1+ Sodium Level 142 Potassium Level 3.5 Chloride Level 104 Carbon Dioxide Level 28 Anion Gap 14 Blood Urea Nitrogen 21 H Creatinine 0.88 Glucose Level 186 Calcium Level 8.4 Phosphorus Level 2.2 L Magnesium Level 2.1 Total Bilirubin 1.8 H Direct Bilirubin 0.00 Indirect Bilirubin 1.8 H Aspartate Amino Transf (AST/SGOT) 24 Alanine Aminotransferase (ALT/SGPT) 36 Alkaline Phosphatase 70 Total Protein 6.7 Albumin 3.1 L Globulin 3.60 H Albumin/Globulin Ratio 0.86 Bedside Glucose 199 252 H Medications Medications Current Medications Ondansetron HCl (Zofran Tab) 4 mg Q6H PRN PO NAUSEA AND/OR VOMITING Last administered on 01/25/17 12:13; Admin Dose 4 MG; Start 01/24/17 at 05:30 Acetaminophen (Tylenol Tab) 650 mg Q6H PRN PO PAIN LEVEL 1-3 OR FEVER Last administered on 01/27/17 00:47; Admin Dose 650 MG; Start 01/24/17 at 05:30 Acetaminophen/ Hydrocodone Bitart ([place] (5/325)) 1 tab Q6H PRN PO PAIN LEVEL 4 -6; Start 01/24/17 at 05:30 Docusate Sodium (Colace) 100 mg Q12H PRN PO CONSTIPATION Last administered on 01/27/17 10:25; Admin Dose 100 MG; Start 01/24/17 at 05:30 Famotidine 20 mg 20 mg Q12 PO Last administered on 01/27/17 08:25; Admin Dose 20 MG; Start 01/24/17 at 09:00 Cefepime HCl (Maxipime 2gm/50 ml (Pmx)) 50 ml @ 100 mls/hr Q8 IVPB Last administered on 01/27/17 06:15; Admin Dose 100 MLS/HR; Start 01/24/17 at 06: 00 Diagnostic Test (Pha) 1 ea 1 ea 02 XX Last administered on 01/26/17 02:40; Admin Dose 1 EA; Start 01/25/17 at 02:00 Sodium Chloride 1,000 ml @ 75 mls/hr [id number] IV Last administered on 00:47; Admin Dose 75 MLS/HR; Start 01/24/17 at 14:30 Acyclovir/Sodium Chloride (Zovirax/NS) 100 ml @ 100 mls/hr Q8 IVPB Last administered on 01/27/17 06:16; Admin Dose 100 MLS/HR; Start 01/24/17 at 14: 30 Miscellaneous Information 1 ea NOTE XX ; Start 01/24/17 at 15:00 Glucose (Glutose) 15 gm Q15M PRN PO DECREASED GLUCOSE; Start 01/24/17 at 15:00 Glucose (Glutose) 22.5 gm Q15M PRN PO DECREASED GLUCOSE; Start 01/24/17 at 15: 00 Dextrose (D50w Syringe) 25 ml Q15M PRN IV DECREASED GLUCOSE; Start 01/24/17 at 15:00 Dextrose (D50w Syringe) 50 ml Q15M PRN IV DECREASED GLUCOSE; Start 01/24/17 at 15:00 Glucagon (Glucagen) 1 mg Q15M PRN IM DECREASED GLUCOSE; Start 01/24/17 at 15: 00 Glucose (Glutose) 15 gm Q15M PRN BUCCAL DECREASED GLUCOSE; Start 01/24/17 at 15:00 Alprazolam (Xanax) 0.25 mg Q8H PRN PO ANXIETY; Start 01/24/17 at 16:00 Fluconazole (Diflucan) 100 mg DAILY PO Last administered on 01/27/17 08:25; Admin Dose 100 MG; Start 01/25/17 at 09:00 Simethicone 80 mg 80 mg Q6H PRN PO DISTENSION/GAS/BLOATING; Start 01/26/17 at 12:00 Vancomycin HCl 1.5 gm/Sodium Chloride 250 ml @ 83.333 mls/ hr Q12H IVPB Last administered on 01/27/17 04:20; Admin Dose 83.333 MLS/HR; Start 01/26/17 at 15:30 Levofloxacin/ Dextrose (Levaquin 750 Mg/ D5W 150 ml (Pmx)) 150 ml @ 100 mls/hr Q24H IVPB Last administered on 01/27/17 12:18; Admin Dose 100 MLS/HR; Start 01/26/17 at 12:30 Nystatin (Nystatin Susp) 5 ml QID PO Last administered on 01/27/17 12:18; Admin Dose 5 ML; Start 01/26/17 at 13:00 Diphenhydramine HCl (Benadryl) 25 mg Q6H PRN IV ALLERGIC REACTION; Start 01/26 at 13:30 Miscellaneous Information (*Rx Drug Level Order Reminder*) VANCOMYCIN TROUGH AT 1430 ONCE ONCE XX ; Start 01/28/17 at 14:30; Stop 01/28/17 at 14:31 EDWARD KINGSLEY NP Jan 27, 2017 12:36
[2017-01-27] MEDS: HYDROCORTISONE 1% 28 GM CR TOP SCH ×2 (13:50→21:00)
[2017-01-27] MEDS: MEROPENEM 500MG/50 ML (PMX) 50 ML IVPB SCH ×2 (14:07→20:59)
--- NOTE | 2017-01-27 14:27 | PN ---
Date/Time of Note Date/Time of Note DATE: 01/27/17 TIME: 14:25 Assessment/Plan VTE Prophylaxis VTE Prophylaxis Intervention: SCD's Lines/Catheters [facility] Peripheral IV Urinary Cath still in place: No Assessment/Plan Chief Complaint/Hosp Course 1. Severe pneumonia, persistent fevers, functional neutropenia as the patient is in blast crisis essentially currently and severely immunocompromised. Appreciate infectious disease recommendations, nystatin swish and swallow added along with Levaquin, continuing cefepime, vancomycin, acyclovir, Diflucan. All cultures no growth to date. Influenza negative. 2. Acute myelogenous leukemia, recurrence of the disease currently, 72% blasts on peripheral smear, significant leukocytosis. and significant anemia on labs today again, s/p transfusion of 2 units of packed red blood cells and 1 unit of platelets. Appreciate hematology, Dr Herrera, recommendations. Patient seems to be now willing to pursue chemotherapeutic treatment, he knows he will have to be transferred to [facility] for chemotherapy and he is agreeable to wait as long as it is not done until next week. Prognosis poor given ongoing blast crisis, ongoing fevers and seems to be trending toward transfusion dependence. 3. Hypertension, for now, will hold off medications, resume once more stable. 3. Diabetes mellitus, with fair control (HgbA1c 6.7%) Start scheduled mealtime and basal insulin 4. Anxiety disorder, with history of claustrophobia, continue Xanax PRN for anxiety. Prophylaxis: SCDs and anticoagulation contraindicated due to severe thrombocytopenia, Pepcid for GI prophylaxis Problems: Subjective 24 Hr Interval Summary Respiratory: shortness of breath Exam/Review of Systems Vital Signs Vitals Vital Signs Date Time Temp Pulse Resp B/P Pulse Ox O2 Delivery O2 Flow Rate FiO2 01/27/17 12:22 96 01/27/17 11:16 99.2 16 158/87 94 01/27/17 08:00 Nasal Cannula 2.0 Intake and Output 01/26/17 01/26/17 01/27/17 15:00 23:00 07:00 Intake Total 850 ml Balance 850 ml Exam Constitutional: alert, oriented Respiratory: clear to auscultation Cardiovascular: regular rate and rhythm Gastrointestinal: soft, No distended Musculoskeletal: nl extremities to inspection Results Result Diagram: 01/27/17 0639 01/27/17 0639 Results 24 hrs Laboratory Tests Test 01/26/17 17:32 01/26/17 21:53 01/27/17 02:25 01/27/17 06:39 Bedside Glucose 210 264 H 203 White Blood Count 42.4 H Red Blood Count 2.60 L Hemoglobin 7.6 L Hematocrit 22.2 L Mean Corpuscular Volume 85.4 Mean Corpuscular Hemoglobin 29.2 Mean Corpuscular Hemoglobin Concent 34.2 Red Cell Distribution Width 16.2 H Platelet Count 8 #*L Mean Platelet Volume 11.0 H Neutrophils % Segmented Neutrophils % (Manual) 7 L Band Neutrophils % (Manual) 5 H Lymphocytes % Lymphocytes % (Manual) 13 L Monocytes % Monocytes % (Manual) 8 Eosinophils % Basophils % Metamyelocytes % (manual) 1 H Myelocytes % (Manual) 2 H Blast Cells % (Manual) 63.0 H Nucleated Red Blood Cells % 0.0 Neutrophils # Neutrophils # (Manual) 3.9 Band Neutrophils # 2.1 H Absolute Lymphocytes (Manual) 5.5 H Lymphocytes # Monocytes # Absolute Monocytes (Manual) 3.3 H Eosinophils # Basophils # Metamyelocytes # 0.4 H Myelocytes # 0.8 H Nucleated Red Blood Cells # Platelet Estimate SIG DECREASED Polychromasia 3+ Anisocytosis 1+ Sodium Level 142 Potassium Level 3.5 Chloride Level 104 Carbon Dioxide Level 28 Anion Gap 14 Blood Urea Nitrogen 21 H Creatinine 0.88 Glucose Level 186 Calcium Level 8.4 Phosphorus Level 2.2 L Magnesium Level 2.1 Total Bilirubin 1.8 H Direct Bilirubin 0.00 Indirect Bilirubin 1.8 H Aspartate Amino Transf (AST/SGOT) 24 Alanine Aminotransferase (ALT/SGPT) 36 Alkaline Phosphatase 70 Total Protein 6.7 Albumin 3.1 L Globulin 3.60 H Albumin/Globulin Ratio 0.86 Test 01/27/17 08:22 01/27/17 12:16 Bedside Glucose 199 252 H Medications Medications Current Medications Ondansetron HCl (Zofran Tab) 4 mg Q6H PRN PO NAUSEA AND/OR VOMITING Last administered on 01/25/17 12:13; Admin Dose 4 MG; Start 01/24/17 at 05:30 Acetaminophen (Tylenol Tab) 650 mg Q6H PRN PO PAIN LEVEL 1-3 OR FEVER Last administered on 01/27/17 00:47; Admin Dose 650 MG; Start 01/24/17 at 05:30 Acetaminophen/ Hydrocodone Bitart ([place] (5/325)) 1 tab Q6H PRN PO PAIN LEVEL 4 -6; Start 01/24/17 at 05:30 Docusate Sodium (Colace) 100 mg Q12H PRN PO CONSTIPATION Last administered on 01/27/17 10:25; Admin Dose 100 MG; Start 01/24/17 at 05:30 Famotidine (Pepcid) 20 mg Q12 PO Last administered on 01/27/17 08:25; Admin Dose 20 MG; Start 01/24/17 at 09:00 Diagnostic Test (Pha) 1 ea 1 ea 02 XX Last administered on 01/26/17 02:40; Admin Dose 1 EA; Start 01/25/17 at 02:00 Sodium Chloride 1,000 ml @ 75 mls/hr [id number] IV Last administered on 00:47; Admin Dose 75 MLS/HR; Start 01/24/17 at 14:30 Acyclovir/Sodium Chloride (Zovirax/NS) 100 ml @ 100 mls/hr Q8 IVPB Last administered on 01/27/17 06:16; Admin Dose 100 MLS/HR; Start 01/24/17 at 14: 30 Miscellaneous Information 1 ea NOTE XX ; Start 01/24/17 at 15:00 Glucose (Glutose) 15 gm Q15M PRN PO DECREASED GLUCOSE; Start 01/24/17 at 15:00 Glucose (Glutose) 22.5 gm Q15M PRN PO DECREASED GLUCOSE; Start 01/24/17 at 15: 00 Dextrose (D50w Syringe) 25 ml Q15M PRN IV DECREASED GLUCOSE; Start 01/24/17 at 15:00 Dextrose (D50w Syringe) 50 ml Q15M PRN IV DECREASED GLUCOSE; Start 01/24/17 at 15:00 Glucagon (Glucagen) 1 mg Q15M PRN IM DECREASED GLUCOSE; Start 01/24/17 at 15: 00 Glucose (Glutose) 15 gm Q15M PRN BUCCAL DECREASED GLUCOSE; Start 01/24/17 at 15:00 Alprazolam (Xanax) 0.25 mg Q8H PRN PO ANXIETY; Start 01/24/17 at 16:00 Fluconazole (Diflucan) 100 mg DAILY PO Last administered on 01/27/17 08:25; Admin Dose 100 MG; Start 01/25/17 at 09:00 Simethicone 80 mg 80 mg Q6H PRN PO DISTENSION/GAS/BLOATING; Start 01/26/17 at 12:00 Vancomycin HCl 1.5 gm/Sodium Chloride 250 ml @ 83.333 mls/ hr Q12H IVPB Last administered on 01/27/17 04:20; Admin Dose 83.333 MLS/HR; Start 01/26/17 at 15:30 Levofloxacin/ Dextrose (Levaquin 750 Mg/ D5W 150 ml (Pmx)) 150 ml @ 100 mls/hr Q24H IVPB Last administered on 01/27/17 12:18; Admin Dose 100 MLS/HR; Start 01/26/17 at 12:30 Nystatin (Nystatin Susp) 5 ml QID PO Last administered on 01/27/17 12:18; Admin Dose 5 ML; Start 01/26/17 at 13:00 Diphenhydramine HCl (Benadryl) 25 mg Q6H PRN IV ALLERGIC REACTION; Start 01/26 at 13:30 Miscellaneous Information VANCOMYCIN TROUGH AT 1430 ONCE ONCE XX ; Start 01/28/17 at 14:30; Stop 01/28/17 at 14:31 Meropenem/Sodium Chloride (Merrem 500mg/50 ml(Pmx)) 50 ml @ 100 mls/hr Q8 IVPB Last administered on 01/27/17 14:07; Admin Dose 100 MLS/HR; Start 01/27/17 at 14:00 Hydrocortisone (Hydrocortisone 1% Cr) 1 applic BID TOP Last administered on 13:50; Admin Dose 1 APPLIC; Start 01/27/17 at 13:00 EDE SANTOS Jan 27, 2017 14:27
[2017-01-27] MEDS: INSULIN GLARGINE [LANtus] 3 ML PEN SC SCH (21:12)
[2017-01-28] VITALS (11 sets, daily range): BP systolic 127–149; BP diastolic 67–77; PULSE 75–95; RESP 17–18
[2017-01-28] MEDS: ACCU-CHEK XX SCH (02:00)
[2017-01-28] MEDS: SOD CHLORIDE 0.9% 1,000 ML IV SCH ×2 (03:59→17:19)
[2017-01-28] MEDS: DOCUSATE SODIUM 100 MG CAP PO PRN (04:19)
[2017-01-28] MEDS: VANCOMYCIN 1.5 GM in SOD CHLORIDE 0.9% 250 ML IVPB SCH ×2 (04:19→16:09)
[2017-01-28] MEDS: ACETAMINOPHEN 325 MG TAB PO PRN ×3 (04:19→20:55)
[2017-01-28] MEDS: ACYCLOVIR 500 MG in SOD CHLORIDE 0.9% 100 ML IVPB SCH ×3 (06:00→22:21)
[2017-01-28] MEDS: MEROPENEM 500MG/50 ML (PMX) 50 ML IVPB SCH ×3 (07:39→21:38)
[2017-01-28] MEDS: INSULIN ASPART [NOVOLOG] 3 ML PEN SC SCH ×7 (07:55→21:00)
[2017-01-28] MEDS: FLUCONAZOLE 100 MG TAB PO SCH (08:22)
[2017-01-28] MEDS: NYSTATIN SUSP 5 ML CUP PO SCH ×4 (08:22→20:55)
[2017-01-28] MEDS: FAMOTIDINE 20 MG TAB PO SCH ×2 (08:22→20:55)
[2017-01-28 08:56] LABS: ABNORMAL IP MESSAGE 1; HEMATOCRIT 20.9 % (42.0-52.0); LYMPHOCYTES # 4.2 10^3/ul (0.8-2.9); LYMPHOCYTES % 9.6 % (15.0-51.0); MEAN CORPUSCULAR HEMOGLOBIN 29.2 pg (29.0-33.0); MEAN CORPUSCULAR HGB CONC 33.5 g/dl (32.0-37.0); MEAN CORPUSCULAR VOLUME 87.1 fl (82.0-101.0); MEAN PLATELET VOLUME 10.2 fl (7.4-10.4); MONOCYTE # 29.6 10^3/ul (0.3-0.9); NEUTROPHIL # 4.8 10^3/ul (1.6-7.5); NEUTROPHILS % 11.1 % (39.0-77.0); POSITIVE DIFF @See below; RED CELL DISTRIBUTION WIDTH 16.2 % (11.5-14.5); WHITE BLOOD COUNT 43.2 10^3/ul (4.8-10.8)
[2017-01-28] MEDS: HYDROCORTISONE 1% 28 GM CR TOP SCH ×2 (09:00→20:56)
[2017-01-28 09:17] LABS: CALCIUM 8.1 mg/dl (8.4-10.2); CREATININE 0.91 mg/dl (0.61-1.24); MAGNESIUM 2.2 mg/dl (1.7-2.5); PHOSPHORUS 2.7 mg/dl (2.5-4.9); POTASSIUM 3.6 mmol/L (3.5-5.1)
[2017-01-28 09:23] LABS: MONOCYTES % 68.5 % (0.0-11.0); PLATELET COUNT 4 10^3/UL (140-415)
--- NOTE | 2017-01-28 09:46 | CONS ---
Date/Time of Note Date/Time of Note DATE: 01/28/17 TIME: 09:44 Assessment/Plan Assessment/Plan Chief Complaint/Hosp Course ID PROGRESS NOTE CURRENT ABX: DAY #5 => Vanco IV #5 + Levaquin #2 +Diflucan + Acyclovir IV s/p Cefepime (01/24-01/27) 01/28/17 0738 01/28/17 0738 24H INTERVAL SUMMARY * A/A/O -> (+)dry cough, stable on supplemental O2, tells me he can't breathe without O2 * Weak appearing, VSS, * MICRO: BCx 01/23/17(-); Urine 01/23/17(-); BCx 01/26/17 (-) PHYSICAL EXAMINATION: GENERAL: VSS, NAD HEENT: AT, NC, anicteric, moist oral membranes NECK: Trach midline, supple CHEST: Equal chest rise bilaterally, without dyspnea on observation HEART: RRR ABDOMEN: Soft, NT, ND EXT: Warm, moves all ext SKIN: No rash, no diaphoresis ID ASSESSMENT: 66 yo M admit with: 1. Severe sepsis on admission w/fevers > 102.9, leukocytosis, tachycardia => improving 2. Multifocal pneumonia with superimposed vascular congestion 3. 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 Herrera * Now recurrent blast crisis=> WBC 43,000 with 605 blasts * Per notes: patient refusing chemotherapy wants pills or other options * [facility] appointment on Jan * PLAN is for supportive transfusion PRBCs / PLT per [facility] recs 4. Diabetes 5. Hypertension 6. Jaundice w/rising indirect Bilirubin 1.2 -> 1.8 (-)Influenza A/B ABX ALLERGY: NKDA INVASIVES: PIV CURRENT ABX: DAY #5 => Vanco IV #5 + Levaquin #2 +Diflucan + Acyclovir IV s/p Cefepime (01/24-01/27) ID RECOMMENDATIONS/PLAN: 1. Continue current ABX over the weekend -> ID team colleague f/u next week 2. May need to adjust Acyclovir if bilirubin continues to rise . Problems: Consultation Date/Type/Reason Admit Date/Time Jan 24, 2017 at 06:40 Initial Consult Date 01/25/17 Type of Consultation: ID Referring Provider: SOBIA NUNEZ Exam/Review of Systems Vital Signs Vitals Vital Signs Date Time Temp Pulse Resp B/P Pulse Ox O2 Delivery O2 Flow Rate FiO2 01/28/17 08:31 75 01/28/17 08:21 98.5 17 133/68 99 01/28/17 04:00 Nasal Cannula 3.0 Intake and Output 01/27/17 01/27/17 01/28/17 14:59 22:59 06:59 Intake Total 600 ml 500 ml Balance 600 ml 500 ml Results Result Diagram: 01/28/17 0738 01/28/1738 Results 24 hrs Laboratory Tests Test 01/27/17 12:16 01/27/17 17:10 01/27/17 20:51 01/28/17 07:38 Bedside Glucose 252 H 175 172 White Blood Count 43.2 H Red Blood Count 2.40 L Hemoglobin 7.0 L Hematocrit 20.9 L Mean Corpuscular Volume 87.1 Mean Corpuscular Hemoglobin 29.2 Mean Corpuscular Hemoglobin Concent 33.5 Red Cell Distribution Width 16.2 H Platelet Count 4 #*L Mean Platelet Volume 10.2 Neutrophils % 11.1 L Lymphocytes % 9.6 L Monocytes % 68.5 H Eosinophils % 0.0 Basophils % 0.0 Nucleated Red Blood Cells % 0.0 Neutrophils # 4.8 Lymphocytes # 4.2 H Monocytes # 29.6 H Eosinophils # 0.0 Basophils # 0.0 Nucleated Red Blood Cells # 0.0 Sodium Level 141 Potassium Level 3.6 Chloride Level 102 Carbon Dioxide Level 28 Anion Gap 15 Blood Urea Nitrogen 17 Creatinine 0.91 Glucose Level 148 Calcium Level 8.1 L Phosphorus Level 2.7 Magnesium Level 2.2 Test 01/28/17 08:19 Bedside Glucose 158 Medications Medications Current Medications Ondansetron HCl (Zofran Tab) 4 mg Q6H PRN PO NAUSEA AND/OR VOMITING Last administered on 01/25/17 12:13; Admin Dose 4 MG; Start 01/24/17 at 05:30 Acetaminophen (Tylenol Tab) 650 mg Q6H PRN PO PAIN LEVEL 1-3 OR FEVER Last administered on 01/28/17 04:19; Admin Dose 650 MG; Start 01/24/17 at 05:30 Acetaminophen/ Hydrocodone Bitart ([place] (5/325)) 1 tab Q6H PRN PO PAIN LEVEL 4 -6; Start 01/24/17 at 05:30 Docusate Sodium (Colace) 100 mg Q12H PRN PO CONSTIPATION Last administered on 01/28/17 04:19; Admin Dose 100 MG; Start 01/24/17 at 05:30 Famotidine (Pepcid) 20 mg Q12 PO Last administered on 01/28/17 08:22; Admin Dose 20 MG; Start 01/24/17 at 09:00 Diagnostic Test (Pha) 1 ea 1 ea 02 XX Last administered on 01/26/17 02:40; Admin Dose 1 EA; Start 01/25/17 at 02:00 Sodium Chloride 1,000 ml @ 75 mls/hr [id number] IV Last administered on 14:39; Admin Dose 75 MLS/HR; Start 01/24/17 at 14:30 Acyclovir/Sodium Chloride (Zovirax/NS) 100 ml @ 100 mls/hr Q8 IVPB Last administered on 01/28/17 06:00; Admin Dose 100 MLS/HR; Start 01/24/17 at 14: 30 Miscellaneous Information 1 ea NOTE XX ; Start 01/24/17 at 15:00 Glucose (Glutose) 15 gm Q15M PRN PO DECREASED GLUCOSE; Start 01/24/17 at 15:00 Glucose (Glutose) 22.5 gm Q15M PRN PO DECREASED GLUCOSE; Start 01/24/17 at 15: 00 Dextrose (D50w Syringe) 25 ml Q15M PRN IV DECREASED GLUCOSE; Start 01/24/17 at 15:00 Dextrose (D50w Syringe) 50 ml Q15M PRN IV DECREASED GLUCOSE; Start 01/24/17 at 15:00 Glucagon (Glucagen) 1 mg Q15M PRN IM DECREASED GLUCOSE; Start 01/24/17 at 15: 00 Glucose (Glutose) 15 gm Q15M PRN BUCCAL DECREASED GLUCOSE; Start 01/24/17 at 15:00 Alprazolam (Xanax) 0.25 mg Q8H PRN PO ANXIETY Last administered on 01/28/17 02:28; Admin Dose 0.25 MG; Start 01/24/17 at 16:00 Fluconazole (Diflucan) 100 mg DAILY PO Last administered on 01/28/17 08:22; Admin Dose 100 MG; Start 01/25/17 at 09:00 Simethicone 80 mg 80 mg Q6H PRN PO DISTENSION/GAS/BLOATING; Start 01/26/17 at 12:00 Vancomycin HCl 1.5 gm/Sodium Chloride 250 ml @ 83.333 mls/ hr Q12H IVPB Last administered on 01/28/17 04:19; Admin Dose 83.333 MLS/HR; Start 01/26/17 at 15:30 Levofloxacin/ Dextrose (Levaquin 750 Mg/ D5W 150 ml (Pmx)) 150 ml @ 100 mls/hr Q24H IVPB Last administered on 01/27/17 12:18; Admin Dose 100 MLS/HR; Start 01/26/17 at 12:30 Nystatin (Nystatin Susp) 5 ml QID PO Last administered on 01/28/17 08:22; Admin Dose 5 ML; Start 01/26/17 at 13:00 Diphenhydramine HCl (Benadryl) 25 mg Q6H PRN IV ALLERGIC REACTION; Start 01/26 at 13:30 Miscellaneous Information VANCOMYCIN TROUGH AT 1430 ONCE ONCE XX ; Start 01/28/17 at 14:30; Stop 01/28/17 at 14:31 Meropenem/Sodium Chloride (Merrem 500mg/50 ml(Pmx)) 50 ml @ 100 mls/hr Q8 IVPB Last administered on 01/28/17 07:39; Admin Dose 100 MLS/HR; Start 01/27/17 at 14:00 Hydrocortisone (Hydrocortisone 1% Cr) 1 applic BID TOP Last administered on 21:00; Admin Dose 1 APPLIC; Start 01/27/17 at 13:00 Insulin Glargine (Lantus) 15 unit DAILY@20 SC Last administered on 01/27/17 21:12; Admin Dose 15 UNIT; Start 01/27/17 at 20:00 JIE KLEIN NP Jan 28, 2017 09:46
[2017-01-28 10:56] LABS: ANISOCYTOSIS 1+ (0-0); BLAST% (M) 84.5 % (0-0); EOSINOPHILS % (M) 1 % (0-7); MICROCYTOSIS 1+ (0-0); MONOCYTES % (M) 1 % (0-11); PLATELET ESTIMATE SIG DECREASED; POLYCHROMASIA 3+ (0-0)
[2017-01-28 11:51] LABS: LYMPHOCYTE - CD4/CD8 RATIO 1.17 (0.86-5.00)
--- NOTE | 2017-01-28 12:13 | PN ---
Date/Time of Note Date/Time of Note DATE: 01/28/17 TIME: 12:08 Outpatient Progress Note HPI weakness and fatigue No bleeding No SOB JAUNDICE pale Review of Systems Const: No Fever, no chills, no Wt. loss, no Fatigue, normal appetite, no diaphoresis. Eyes: No pain, no discharge, no redness, no visual change, no foreign body. ENT: No pain, no bleeding, no congestion, no sore throat, no dysphagia, no discharge or rhinitis. Lymph: No adenopathy, no tender nodes, no lymphedema. Resp: No SOB, no cough, no sputum, no wheezing, no chest pain. CV: No chest pain, no palpitaions, no SILVERIO, no PND, no edema. GI: Normal appetite, no pain, no nausea, no vomiting, no diarrhea, no blood, no constipation. : No frequency, no urgency, no dysuria, no hematuria, no flank pain, no discharge, no bleeding. Musc: No bone/joint pain, no back pain, no neck pain, no knee pain, no restricted ROM. Skin: No rash, no skin lesions, no erythema, no laceration, no bruising, no pruritus. Neuro: No PONCE, no dizziness, no syncope, no seizure, no focal-weakness. Endo: No polyuria, no polydypsia, no dry-skin, no temp-intolerance. Psych: No hallucinations, no depression, no anxiety, no suicidal ideation. Ext: No edema, no pain, no ulcer, no weakness. Physical Exam Vital Signs Date Time Temp Pulse Resp B/P Pulse Ox O2 Delivery O2 Flow Rate FiO2 01/28/17 10:35 3.0 01/28/17 08:31 75 01/28/17 08:21 98.5 17 133/68 99 01/28/17 04:00 Nasal Cannula Intake and Output 01/27/17 01/27/17 01/28/17 14:59 22:59 06:59 Intake Total 600 ml 500 ml Balance 600 ml 500 ml pale and jaundice General Appearance: looks weak HEENT: Head normocephalic, atraumatic. Pupils equal, round, reactive to light and accommodate. Sclerae are no jaundice. Nasal turbinates pink without erythema or nasal discharge. Mucous membranes pink and moist without lesions. Oropharynx clear without any exudate or discharge. NECK: Supple. Trachea midline, No thyromegaly, No cervical lymphadenopathy, No mass, No carotid bruits, No JVD, Carotid pulses 2+ bilaterally. PULMONARY: Clear to auscultaion bilaterally, No retractions, Chest expansion symmetric bilaterally, no rales, no ronchi, no dulness on percussion. CARDIAC: Normal SI and S2, tachycardia GASTROINTESTINAL: Abdomen is soft, non-tender, Non Rigid, No distention, Positive bowel sounds x4 quadrants, Liver normal. SKIN: Warm, dry, no rash, no bruise, no echmosis. EXTREMITIES: Bilateral lower extremities normal, no edema, no phlabitus, pulse palpable, no contracture. MUSCULOSKELETAL: Spine Normal, Non-tender, Normal range of motion, No swelling, no deformity, no clubbing, or cyanosis, the patient has no edema to bilateral lower extremities, dorsalis pedis pulses palpable bilaterally. NEUROLOGIC: The patient is awake, alert, oriented, responding to yes/no questions appropriately, moving all extremities, cranial nerve intact, normal strenght, normal power, normal coordination, normal gait. Result Diagram: 01/28/17 0738 01/28/17 0738 Allergies Coded Allergies: No Known Allergy (Unverified , 01/23/17) Family Hx Patient History: FHx: stroke 33 FATHER Hypertension 32 MOTHER G8 [place]IBLING Assessment/Plan Acute myeloid leukemia Recurrent disease post chemotherapy last year By Dr. Herrera Now recurrent blast crisis Wbc 43,000 with 605 blasts refusing chemotherapy wants pills or other options [facility] appointment on Jan Supportive tranfusion Keep Hb > 7 and platelets 10,000 transfuse if below those parameters Medications Home Meds Active Scripts Levofloxacin* (Levaquin*) 750 Mg Tablet, 750 MG PO DAILY for 5 Days, TAB Prov:CHIRAG CORCORAN MD 01/23/17 Reported Medications Losartan Potassium* (Losartan Potassium*) 50 Mg Tablet, 50 MG PO BID Y for NEEDED, TAB 12/31/16 Glimepiride* (Glimepiride*) 1 Mg Tablet, 1 MG PO BID Y for ELEVATED GLUCOSE, TAB NEEDED 11/15/16 Amlodipine Besylate* (Norvasc*) 5 Mg Tablet, 5 MG PO BID, TAB NEEDED 11/15/16 SUJIT JERNIGAN Jan 28, 2017 12:13
[2017-01-28] MEDS: LEVOFLOXACIN 750MG/D5W (PMX) 150 ML IVPB SCH (12:37)
--- NOTE | 2017-01-28 13:52 | PN ---
Date/Time of Note Date/Time of Note DATE: 01/28/17 TIME: 13:49 Assessment/Plan VTE Prophylaxis VTE Prophylaxis Intervention: SCD's Lines/Catheters IV [facility]ter [facility] (from [facility]): Peripheral IV Urinary Cath still in place: No Assessment/Plan Chief Complaint/Hosp Course 1. Severe pneumonia, persistent fevers, functional neutropenia as the patient is in blast crisis essentially currently and severely immunocompromised. Appreciate infectious disease recommendations, nystatin swish and swallow added along with Levaquin, continuing cefepime, vancomycin, acyclovir, Diflucan. All cultures no growth to date. Influenza negative. 2. Acute myelogenous leukemia, recurrence of the disease currently, 72% blasts on peripheral smear, significant leukocytosis. and significant anemia and cytopenia on labs again today, s/p transfusion of 2 units of packed red blood cells and 1 unit of platelets Appreciate hematology, Dr Herrera, recommendations. Patient seems to be now willing to pursue chemotherapeutic treatment, he knows he will have to be transferred to [facility] for chemotherapy and he is agreeable to be transferred Prognosis poor given ongoing blast crisis, ongoing fevers and seems to be trending toward transfusion dependence 3. Hypertension, for now, will hold off medications, resume once more stable. 3. Diabetes mellitus, with fair control (HgbA1c 6.7%) Start scheduled mealtime and basal insulin 4. Anxiety disorder, with history of claustrophobia, continue Xanax PRN for anxiety. Prophylaxis: SCDs and anticoagulation contraindicated due to severe thrombocytopenia, Pepcid for GI prophylaxis Problems: Subjective 24 Hr Interval Summary Respiratory: shortness of breath Exam/Review of Systems Vital Signs Vitals Vital Signs Date Time Temp Pulse Resp B/P Pulse Ox O2 Delivery O2 Flow Rate FiO2 01/28/17 12:29 87 01/28/17 10:35 3.0 01/28/17 08:21 98.5 17 133/68 99 01/28/17 04:00 Nasal Cannula Intake and Output 01/27/17 01/27/17 01/28/17 15:00 23:00 07:00 Intake Total 600 ml 500 ml Balance 600 ml 500 ml Exam Constitutional: alert, oriented Respiratory: clear to auscultation Cardiovascular: regular rate and rhythm Gastrointestinal: soft, No distended Musculoskeletal: nl extremities to inspection Results Result Diagram: 01/28/17 0738 01/28/17 0738 Results 24 hrs Laboratory Tests Test 01/27/17 17:10 01/27/17 20:51 01/28/17 07:38 01/28/17 08:19 Bedside Glucose 175 172 158 White Blood Count 43.2 H Red Blood Count 2.40 L Hemoglobin 7.0 L Hematocrit 20.9 L Mean Corpuscular Volume 87.1 Mean Corpuscular Hemoglobin 29.2 Mean Corpuscular Hemoglobin Concent 33.5 Red Cell Distribution Width 16.2 H Platelet Count 4 #*L Mean Platelet Volume 10.2 Neutrophils % 11.1 L Segmented Neutrophils % (Manual) 6 L Band Neutrophils % (Manual) 3 Lymphocytes % 9.6 L Lymphocytes % (Manual) 6 L Monocytes % 68.5 H Monocytes % (Manual) 1 Eosinophils % 0.0 Eosinophils % (Manual) 1 Basophils % 0.0 Blast Cells % (Manual) 84.5 H Nucleated Red Blood Cells % 0.0 Neutrophils # 4.8 Neutrophils # (Manual) 3.1 Band Neutrophils # 1.2 H Absolute Lymphocytes (Manual) 2.5 Lymphocytes # 4.2 H Monocytes # 29.6 H Absolute Monocytes (Manual) 0.4 Eosinophils # 0.0 Basophils # 0.0 Nucleated Red Blood Cells # 0.0 Platelet Estimate SIG DECREASED Polychromasia 3+ Anisocytosis 1+ Microcytosis 1+ Sodium Level 141 Potassium Level 3.6 Chloride Level 102 Carbon Dioxide Level 28 Anion Gap 15 Blood Urea Nitrogen 17 Creatinine 0.91 Glucose Level 148 Calcium Level 8.1 L Phosphorus Level 2.7 Magnesium Level 2.2 Test 01/28/17 11:00 01/28/17 13:29 Bedside Glucose 165 222 H Medications Medications Current Medications Ondansetron HCl (Zofran Tab) 4 mg Q6H PRN PO NAUSEA AND/OR VOMITING Last administered on 01/25/17 12:13; Admin Dose 4 MG; Start 01/24/17 at 05:30 Acetaminophen (Tylenol Tab) 650 mg Q6H PRN PO PAIN LEVEL 1-3 OR FEVER Last administered on 01/28/17 13:46; Admin Dose 650 MG; Start 01/24/17 at 05:30 Acetaminophen/ Hydrocodone Bitart ([place] (5/325)) 1 tab Q6H PRN PO PAIN LEVEL 4 -6; Start 01/24/17 at 05:30 Docusate Sodium (Colace) 100 mg Q12H PRN PO CONSTIPATION Last administered on 01/28/17 04:19; Admin Dose 100 MG; Start 01/24/17 at 05:30 Famotidine (Pepcid) 20 mg Q12 PO Last administered on 01/28/17 08:22; Admin Dose 20 MG; Start 01/24/17 at 09:00 Diagnostic Test (Pha) 1 ea 1 ea 02 XX Last administered on 01/26/17 02:40; Admin Dose 1 EA; Start 01/25/17 at 02:00 Sodium Chloride 1,000 ml @ 75 mls/hr [id number] IV Last administered on 03:59; Admin Dose 75 MLS/HR; Start 01/24/17 at 14:30 Acyclovir/Sodium Chloride (Zovirax/NS) 100 ml @ 100 mls/hr Q8 IVPB Last administered on 01/28/17 13:22; Admin Dose 100 MLS/HR; Start 01/24/17 at 14: 30 Miscellaneous Information 1 ea NOTE XX ; Start 01/24/17 at 15:00 Glucose (Glutose) 15 gm Q15M PRN PO DECREASED GLUCOSE; Start 01/24/17 at 15:00 Glucose (Glutose) 22.5 gm Q15M PRN PO DECREASED GLUCOSE; Start 01/24/17 at 15: 00 Dextrose (D50w Syringe) 25 ml Q15M PRN IV DECREASED GLUCOSE; Start 01/24/17 at 15:00 Dextrose (D50w Syringe) 50 ml Q15M PRN IV DECREASED GLUCOSE; Start 01/24/17 at 15:00 Glucagon (Glucagen) 1 mg Q15M PRN IM DECREASED GLUCOSE; Start 01/24/17 at 15: 00 Glucose (Glutose) 15 gm Q15M PRN BUCCAL DECREASED GLUCOSE; Start 01/24/17 at 15:00 Alprazolam (Xanax) 0.25 mg Q8H PRN PO ANXIETY Last administered on 01/28/17 02:28; Admin Dose 0.25 MG; Start 01/24/17 at 16:00 Fluconazole (Diflucan) 100 mg DAILY PO Last administered on 01/28/17 08:22; Admin Dose 100 MG; Start 01/25/17 at 09:00 Simethicone 80 mg 80 mg Q6H PRN PO DISTENSION/GAS/BLOATING; Start 01/26/17 at 12:00 Vancomycin HCl 1.5 gm/Sodium Chloride 250 ml @ 83.333 mls/ hr Q12H IVPB Last administered on 01/28/17 04:19; Admin Dose 83.333 MLS/HR; Start 01/26/17 at 15:30 Levofloxacin/ Dextrose (Levaquin 750 Mg/ D5W 150 ml (Pmx)) 150 ml @ 100 mls/hr Q24H IVPB Last administered on 01/28/17 12:37; Admin Dose 100 MLS/HR; Start 01/26/17 at 12:30 Nystatin (Nystatin Susp) 5 ml QID PO Last administered on 01/28/17 12:37; Admin Dose 5 ML; Start 01/26/17 at 13:00 Diphenhydramine HCl (Benadryl) 25 mg Q6H PRN IV ALLERGIC REACTION; Start 01/26 at 13:30 Miscellaneous Information VANCOMYCIN TROUGH AT 1430 ONCE ONCE XX ; Start 01/28/17 at 14:30; Stop 01/28/17 at 14:31 Meropenem/Sodium Chloride (Merrem 500mg/50 ml(Pmx)) 50 ml @ 100 mls/hr Q8 IVPB Last administered on 01/28/17 13:22; Admin Dose 100 MLS/HR; Start 01/27/17 at 14:00 Hydrocortisone (Hydrocortisone 1% Cr) 1 applic BID TOP Last administered on 09:00; Admin Dose 1 APPLIC; Start 01/27/17 at 13:00 Insulin Glargine (Lantus) 15 unit DAILY@20 SC Last administered on 01/27/17 21:12; Admin Dose 15 UNIT; Start 01/27/17 at 20:00 EDE SANTOS Jan 28, 2017 13:52
[2017-01-28] MEDS ORDERED: ACETAMINOPHEN 500 MG TAB PO ONE (19:30)
[2017-01-28] MEDS ORDERED: METHYLPREDNISOLONE 40 MG INJ IV ONE (19:30)
[2017-01-28] MEDS: INSULIN GLARGINE [LANtus] 3 ML PEN SC SCH (21:12)
[2017-01-29] VITALS (13 sets, daily range): BP systolic 127–158; BP diastolic 66–88; PULSE 74–90; RESP 16–20
[2017-01-29] MEDS: ACCU-CHEK XX SCH (02:00)
[2017-01-29] MEDS: VANCOMYCIN 1.5 GM in SOD CHLORIDE 0.9% 250 ML IVPB SCH ×2 (04:01→16:54)
[2017-01-29] MEDS: SOD CHLORIDE 0.9% 1,000 ML IV SCH ×2 (06:39→21:00)
[2017-01-29] MEDS: MEROPENEM 500MG/50 ML (PMX) 50 ML IVPB SCH ×3 (06:43→21:04)
[2017-01-29] MEDS: DOCUSATE SODIUM 100 MG CAP PO PRN ×2 (07:06→21:08)
[2017-01-29] MEDS: ACYCLOVIR 500 MG in SOD CHLORIDE 0.9% 100 ML IVPB SCH ×3 (07:07→22:53)
[2017-01-29 07:55] LABS: CALCIUM 8.7 mg/dl (8.4-10.2); CREATININE 0.89 mg/dl (0.61-1.24); POTASSIUM 4.8 mmol/L (3.5-5.1)
[2017-01-29] MEDS: INSULIN ASPART [NOVOLOG] 3 ML PEN SC SCH ×7 (07:55→21:00)
[2017-01-29] MEDS: FAMOTIDINE 20 MG TAB PO SCH ×2 (08:12→21:03)
[2017-01-29] MEDS: NYSTATIN SUSP 5 ML CUP PO SCH ×4 (08:12→21:01)
[2017-01-29] MEDS: HYDROCORTISONE 1% 28 GM CR TOP SCH ×2 (08:13→21:00)
[2017-01-29] MEDS: FLUCONAZOLE 100 MG TAB PO SCH (08:16)
[2017-01-29 10:05] LABS: ABNORMAL IP MESSAGE 1; HEMATOCRIT 21.6 % (42.0-52.0); HEMOGLOBIN 7.3 g/dl (14.0-18.0); MEAN CORPUSCULAR HEMOGLOBIN 29.6 pg (29.0-33.0); MEAN CORPUSCULAR HGB CONC 33.8 g/dl (32.0-37.0); MEAN CORPUSCULAR VOLUME 87.4 fl (82.0-101.0); MEAN PLATELET VOLUME 10.4 fl (7.4-10.4); POSITIVE DIFF @See below; RED BLOOD COUNT 2.47 10^6/ul (4.70-6.10); WHITE BLOOD COUNT 37.1 10^3/ul (4.8-10.8)
[2017-01-29 10:07] LABS: PLATELET COUNT 21 10^3/UL (140-415)
[2017-01-29 10:42] LABS: ANISOCYTOSIS 1+ (0-0); BLAST% (M) 58.7 % (0-0); METAMYELOCYTES %M 1 % (0-0); MICROCYTOSIS 1+ (0-0); MONOCYTES % (M) 5 % (0-11); MYELOCYTES % (M) 2 % (0-0); PLATELET ESTIMATE SIG DECREASED; POLYCHROMASIA 3+ (0-0); PROMYELOCYTES #M 1.1 10^3/ul (0-0); PROMYELOCYTES % (M) 3 % (0-0)
--- NOTE | 2017-01-29 13:02 | PN ---
Date/Time of Note Date/Time of Note DATE: 01/29/17 TIME: 13:01 Assessment/Plan VTE Prophylaxis VTE Prophylaxis Intervention: SCD's Lines/Catheters [facility] Peripheral IV Urinary Cath still in place: No Assessment/Plan Chief Complaint/Hosp Course 1. Severe pneumonia, persistent fevers, functional neutropenia as the patient is in blast crisis essentially currently and severely immunocompromised. Appreciate infectious disease recommendations, nystatin swish and swallow added along with Levaquin, continuing cefepime, vancomycin, acyclovir, Diflucan. All cultures no growth to date. Influenza negative. 2. Acute myelogenous leukemia, recurrence of the disease currently, 72% blasts on peripheral smear, significant leukocytosis. and significant anemia and cytopenia on labs again today, s/p transfusion of 2 units of packed red blood cells and 1 unit of platelets Appreciate hematology, Dr Herrera, recommendations. Patient seems to be now willing to pursue chemotherapeutic treatment, he knows he will have to be transferred to [facility] for chemotherapy and he is agreeable to be transferred Prognosis poor given ongoing blast crisis, ongoing fevers and seems to be trending toward transfusion dependence Transfused platelets last night 3. Hypertension, for now, will hold off medications, resume once more stable. 3. Diabetes mellitus, with fair control (HgbA1c 6.7%) Start scheduled mealtime and basal insulin 4. Anxiety disorder, with history of claustrophobia, continue Xanax PRN for anxiety. Prophylaxis: SCDs and anticoagulation contraindicated due to severe thrombocytopenia, Pepcid for GI prophylaxis Problems: Subjective 24 Hr Interval Summary Respiratory: shortness of breath Exam/Review of Systems Vital Signs Vitals Vital Signs Date Time Temp Pulse Resp B/P Pulse Ox O2 Delivery O2 Flow Rate FiO2 01/29/17 12:08 89 01/29/17 11:19 98.5 16 148/79 96 01/29/17 08:00 3.0 01/28/17 20:00 Nasal Cannula Intake and Output 01/28/17 01/28/17 01/29/17 15:00 23:00 07:00 Intake Total 1700 ml 600 ml Balance 1700 ml 600 ml Exam Constitutional: alert, oriented Respiratory: clear to auscultation Cardiovascular: regular rate and rhythm Gastrointestinal: soft, No distended Musculoskeletal: nl extremities to inspection Results Result Diagram: 01/29/17 0655 01/29/17 0655 Results 24 hrs Laboratory Tests Test 01/28/17 13:29 01/28/17 14:20 01/28/17 18:16 01/28/17 21:00 Bedside Glucose 222 H 192 138 Vancomycin Level Trough 15.0 Test 01/29/17 05:48 01/29/17 06:55 01/29/17 08:11 01/29/17 12:26 Lab Scanned Report BLOOD TRANSFUSION White Blood Count 37.1 H Red Blood Count 2.47 L Hemoglobin 7.3 L Hematocrit 21.6 L Mean Corpuscular Volume 87.4 Mean Corpuscular Hemoglobin 29.6 Mean Corpuscular Hemoglobin Concent 33.8 Red Cell Distribution Width 16.0 H Platelet Count 21 #*L Mean Platelet Volume 10.4 Neutrophils % Segmented Neutrophils % (Manual) 4 L Band Neutrophils % (Manual) 4 Lymphocytes % Lymphocytes % (Manual) 24 Monocytes % Monocytes % (Manual) 5 Eosinophils % Basophils % Metamyelocytes % (manual) 1 H Myelocytes % (Manual) 2 H Promyelocytes % (Manual) 3 H Blast Cells % (Manual) 58.7 H Nucleated Red Blood Cells % 0.0 Neutrophils # Neutrophils # (Manual) 2.0 Band Neutrophils # 1.4 H Absolute Lymphocytes (Manual) 8.9 H Lymphocytes # Monocytes # Absolute Monocytes (Manual) 1.8 H Eosinophils # Basophils # Metamyelocytes # 0.3 H Myelocytes # 0.7 H Promyelocytes # 1.1 H Nucleated Red Blood Cells # Platelet Estimate SIG DECREASED Polychromasia 3+ Anisocytosis 1+ Microcytosis 1+ Sodium Level 143 Potassium Level 4.8 Chloride Level 104 Carbon Dioxide Level 31 Anion Gap 13 Blood Urea Nitrogen 22 H Creatinine 0.89 Glucose Level 274 #H Calcium Level 8.7 Bedside Glucose 297 H 368 H Medications Medications Current Medications Ondansetron HCl (Zofran Tab) 4 mg Q6H PRN PO NAUSEA AND/OR VOMITING Last administered on 01/25/17 12:13; Admin Dose 4 MG; Start 01/24/17 at 05:30 Acetaminophen (Tylenol Tab) 650 mg Q6H PRN PO PAIN LEVEL 1-3 OR FEVER Last administered on 01/28/17 20:55; Admin Dose 650 MG; Start 01/24/17 at 05:30 Acetaminophen/ Hydrocodone Bitart ([place] (5/325)) 1 tab Q6H PRN PO PAIN LEVEL 4 -6; Start 01/24/17 at 05:30 Docusate Sodium (Colace) 100 mg Q12H PRN PO CONSTIPATION Last administered on 01/29/17 07:06; Admin Dose 100 MG; Start 01/24/17 at 05:30 Famotidine (Pepcid) 20 mg Q12 PO Last administered on 01/29/17 08:12; Admin Dose 20 MG; Start 01/24/17 at 09:00 Diagnostic Test (Pha) 1 ea 1 ea 02 XX Last administered on 01/26/17 02:40; Admin Dose 1 EA; Start 01/25/17 at 02:00 Sodium Chloride 1,000 ml @ 75 mls/hr [id number] IV Last administered on 06:39; Admin Dose 75 MLS/HR; Start 01/24/17 at 14:30 Acyclovir/Sodium Chloride (Zovirax/NS) 100 ml @ 100 mls/hr Q8 IVPB Last administered on 01/29/17 07:07; Admin Dose 100 MLS/HR; Start 01/24/17 at 14: 30 Miscellaneous Information 1 ea NOTE XX ; Start 01/24/17 at 15:00 Glucose (Glutose) 15 gm Q15M PRN PO DECREASED GLUCOSE; Start 01/24/17 at 15:00 Glucose (Glutose) 22.5 gm Q15M PRN PO DECREASED GLUCOSE; Start 01/24/17 at 15: 00 Dextrose (D50w Syringe) 25 ml Q15M PRN IV DECREASED GLUCOSE; Start 01/24/17 at 15:00 Dextrose (D50w Syringe) 50 ml Q15M PRN IV DECREASED GLUCOSE; Start 01/24/17 at 15:00 Glucagon (Glucagen) 1 mg Q15M PRN IM DECREASED GLUCOSE; Start 01/24/17 at 15: 00 Glucose (Glutose) 15 gm Q15M PRN BUCCAL DECREASED GLUCOSE; Start 01/24/17 at 15:00 Alprazolam (Xanax) 0.25 mg Q8H PRN PO ANXIETY Last administered on 01/28/17 02:28; Admin Dose 0.25 MG; Start 01/24/17 at 16:00 Fluconazole (Diflucan) 100 mg DAILY PO Last administered on 01/29/17 08:16; Admin Dose 100 MG; Start 01/25/17 at 09:00 Simethicone 80 mg 80 mg Q6H PRN PO DISTENSION/GAS/BLOATING; Start 01/26/17 at 12:00 Vancomycin HCl 1.5 gm/Sodium Chloride 250 ml @ 83.333 mls/ hr Q12H IVPB Last administered on 01/29/17 04:01; Admin Dose 83.333 MLS/HR; Start 01/26/17 at 15:30 Levofloxacin/ Dextrose (Levaquin 750 Mg/ D5W 150 ml (Pmx)) 150 ml @ 100 mls/hr Q24H IVPB Last administered on 01/28/17 12:37; Admin Dose 100 MLS/HR; Start 01/26/17 at 12:30 Nystatin (Nystatin Susp) 5 ml QID PO Last administered on 01/29/17 08:12; Admin Dose 5 ML; Start 01/26/17 at 13:00 Diphenhydramine HCl 25 mg 25 mg Q6H PRN IV ALLERGIC REACTION; Start 01/26/17 at 13:30 Meropenem/Sodium Chloride (Merrem 500mg/50 ml(Pmx)) 50 ml @ 100 mls/hr Q8 IVPB Last administered on 01/29/17 06:43; Admin Dose 100 MLS/HR; Start 01/27/17 at 14:00 Hydrocortisone (Hydrocortisone 1% Cr) 1 applic BID TOP Last administered on 08:13; Admin Dose 1 APPLIC; Start 01/27/17 at 13:00 Insulin Glargine (Lantus) 15 unit DAILY@20 SC Last administered on 01/28/17 21:12; Admin Dose 15 UNIT; Start 01/27/17 at 20:00 EDE SANTOS Jan 29, 2017 13:02
[2017-01-29] MEDS: LEVOFLOXACIN 750MG/D5W (PMX) 150 ML IVPB SCH (13:11)
--- NOTE | 2017-01-29 15:51 | CONS ---
Date/Time of Note Date/Time of Note DATE: 01/29/17 TIME: 15:45 Assessment/Plan Assessment/Plan Chief Complaint/Hosp Course ID PROGRESS NOTE CURRENT ABX: DAY #6 => Vanco IV #6 + Levaquin #3 +Diflucan + Acyclovir IV s/p Cefepime (01/24-01/27) 124H INTERVAL SUMMARY * Clinically the same, no changes overnight => A/A/O -> (+)dry cough, stable on supplemental O2, tells me he can't breathe without O2 * Weak appearing, VSS, * MICRO: BCx 01/23/17(-); Urine 01/23/17(-); BCx 01/26/17(-); BCx 01/27(-) PHYSICAL EXAMINATION: GENERAL: VSS, NAD HEENT: AT, NC, anicteric, moist oral membranes NECK: Trach midline, supple CHEST: Equal chest rise bilaterally, without dyspnea on observation HEART: RRR ABDOMEN: Soft, NT, ND EXT: Warm, moves all ext SKIN: No rash, no diaphoresis ID ASSESSMENT: 66 yo M admit with: 1. Severe sepsis on admission w/fevers > 102.9, leukocytosis, tachycardia => IMPROVED 2. Multifocal pneumonia with superimposed vascular congestion 3. 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 Herrera * Anemia/severe thrombocytopenia > PLAN is for supportive transfusion PRBCs / PLT per [facility] recs * Now recurrent blast crisis=> WBC 43,000 with 605 blasts * Per notes: patient refusing chemotherapy wants pills or other options * [facility] appointment on Jan 4. Diabetes 5. Hypertension 6. Oral candidiasis -> Nystatin s/sw + Diflucan 7. Mild jaundice w/rising indirect Bilirubin 1.2 -> 1.8 (-)Influenza A/B ABX ALLERGY: NKDA INVASIVES: PIV CURRENT ABX:: DAY #6 => Vanco IV #6 + Levaquin #3 +Diflucan + Acyclovir IV s/p Cefepime (01/24-01/27) ID RECOMMENDATIONS/PLAN: 1. Continue current ABX over the weekend -> ID team colleague f/u next week 2. May need to adjust Acyclovir if liver function deteriorates . Problems: Consultation Date/Type/Reason Admit Date/Time Jan 24, 2017 at 06:40 Initial Consult Date 01/25/17 Type of Consultation: ID Referring Provider: SOBIA NUNEZ Exam/Review of Systems Vital Signs Vitals Vital Signs Date Time Temp Pulse Resp B/P Pulse Ox O2 Delivery O2 Flow Rate FiO2 01/29/17 15:37 98.0 79 16 156/88 97 01/29/17 08:00 3.0 01/28/17 20:00 Nasal Cannula Intake and Output 01/28/17 01/28/17 01/29/17 15:00 23:00 07:00 Intake Total 1700 ml 600 ml Balance 1700 ml 600 ml Results Result Diagram: 01/29/17 0655 01/29/17 0655 Results 24 hrs Laboratory Tests Test 01/28/17 18:16 01/28/17 21:00 01/29/17 05:48 01/29/17 06:55 Bedside Glucose 192 138 Lab Scanned Report BLOOD TRANSFUSION White Blood Count 37.1 H Red Blood Count 2.47 L Hemoglobin 7.3 L Hematocrit 21.6 L Mean Corpuscular Volume 87.4 Mean Corpuscular Hemoglobin 29.6 Mean Corpuscular Hemoglobin Concent 33.8 Red Cell Distribution Width 16.0 H Platelet Count 21 #*L Mean Platelet Volume 10.4 Neutrophils % Segmented Neutrophils % (Manual) 4 L Band Neutrophils % (Manual) 4 Lymphocytes % Lymphocytes % (Manual) 24 Monocytes % Monocytes % (Manual) 5 Eosinophils % Basophils % Metamyelocytes % (manual) 1 H Myelocytes % (Manual) 2 H Promyelocytes % (Manual) 3 H Blast Cells % (Manual) 58.7 H Nucleated Red Blood Cells % 0.0 Neutrophils # Neutrophils # (Manual) 2.0 Band Neutrophils # 1.4 H Absolute Lymphocytes (Manual) 8.9 H Lymphocytes # Monocytes # Absolute Monocytes (Manual) 1.8 H Eosinophils # Basophils # Metamyelocytes # 0.3 H Myelocytes # 0.7 H Promyelocytes # 1.1 H Nucleated Red Blood Cells # Platelet Estimate SIG DECREASED Polychromasia 3+ Anisocytosis 1+ Microcytosis 1+ Sodium Level 143 Potassium Level 4.8 Chloride Level 104 Carbon Dioxide Level 31 Anion Gap 13 Blood Urea Nitrogen 22 H Creatinine 0.89 Glucose Level 274 #H Calcium Level 8.7 Test 01/29/17 08:11 01/29/17 12:26 Bedside Glucose 297 H 368 H Medications Medications Current Medications Ondansetron HCl (Zofran Tab) 4 mg Q6H PRN PO NAUSEA AND/OR VOMITING Last administered on 01/25/17 12:13; Admin Dose 4 MG; Start 01/24/17 at 05:30 Acetaminophen (Tylenol Tab) 650 mg Q6H PRN PO PAIN LEVEL 1-3 OR FEVER Last administered on 01/28/17 20:55; Admin Dose 650 MG; Start 01/24/17 at 05:30 Acetaminophen/ Hydrocodone Bitart ([place] (5/325)) 1 tab Q6H PRN PO PAIN LEVEL 4 -6; Start 01/24/17 at 05:30 Docusate Sodium (Colace) 100 mg Q12H PRN PO CONSTIPATION Last administered on 01/29/17 07:06; Admin Dose 100 MG; Start 01/24/17 at 05:30 Famotidine (Pepcid) 20 mg Q12 PO Last administered on 01/29/17 08:12; Admin Dose 20 MG; Start 01/24/17 at 09:00 Diagnostic Test (Pha) 1 ea 1 ea 02 XX Last administered on 01/26/17 02:40; Admin Dose 1 EA; Start 01/25/17 at 02:00 Sodium Chloride 1,000 ml @ 75 mls/hr [id number] IV Last administered on 06:39; Admin Dose 75 MLS/HR; Start 01/24/17 at 14:30 Acyclovir/Sodium Chloride (Zovirax/NS) 100 ml @ 100 mls/hr Q8 IVPB Last administered on 01/29/17 15:36; Admin Dose 100 MLS/HR; Start 01/24/17 at 14: 30 Miscellaneous Information 1 ea NOTE XX ; Start 01/24/17 at 15:00 Glucose (Glutose) 15 gm Q15M PRN PO DECREASED GLUCOSE; Start 01/24/17 at 15:00 Glucose (Glutose) 22.5 gm Q15M PRN PO DECREASED GLUCOSE; Start 01/24/17 at 15: 00 Dextrose (D50w Syringe) 25 ml Q15M PRN IV DECREASED GLUCOSE; Start 01/24/17 at 15:00 Dextrose (D50w Syringe) 50 ml Q15M PRN IV DECREASED GLUCOSE; Start 01/24/17 at 15:00 Glucagon (Glucagen) 1 mg Q15M PRN IM DECREASED GLUCOSE; Start 01/24/17 at 15: 00 Glucose (Glutose) 15 gm Q15M PRN BUCCAL DECREASED GLUCOSE; Start 01/24/17 at 15:00 Alprazolam (Xanax) 0.25 mg Q8H PRN PO ANXIETY Last administered on 01/28/17 02:28; Admin Dose 0.25 MG; Start 01/24/17 at 16:00 Fluconazole (Diflucan) 100 mg DAILY PO Last administered on 01/29/17 08:16; Admin Dose 100 MG; Start 01/25/17 at 09:00 Simethicone 80 mg 80 mg Q6H PRN PO DISTENSION/GAS/BLOATING; Start 01/26/17 at 12:00 Vancomycin HCl 1.5 gm/Sodium Chloride 250 ml @ 83.333 mls/ hr Q12H IVPB Last administered on 01/29/17 04:01; Admin Dose 83.333 MLS/HR; Start 01/26/17 at 15:30 Levofloxacin/ Dextrose (Levaquin 750 Mg/ D5W 150 ml (Pmx)) 150 ml @ 100 mls/hr Q24H IVPB Last administered on 01/29/17 13:11; Admin Dose 100 MLS/HR; Start 01/26/17 at 12:30 Nystatin (Nystatin Susp) 5 ml QID PO Last administered on 01/29/17 13:11; Admin Dose 5 ML; Start 01/26/17 at 13:00 Diphenhydramine HCl 25 mg 25 mg Q6H PRN IV ALLERGIC REACTION; Start 01/26/17 at 13:30 Meropenem/Sodium Chloride (Merrem 500mg/50 ml(Pmx)) 50 ml @ 100 mls/hr Q8 IVPB Last administered on 01/29/17 14:56; Admin Dose 100 MLS/HR; Start 01/27/17 at 14:00 Hydrocortisone (Hydrocortisone 1% Cr) 1 applic BID TOP Last administered on 08:13; Admin Dose 1 APPLIC; Start 01/27/17 at 13:00 Insulin Glargine (Lantus) 20 unit DAILY@20 SC ; Start 11/25/17 at 20:00 JIE KLEIN NP Jan 29, 2017 15:51
[2017-01-29] MEDS: INSULIN GLARGINE [LANtus] 3 ML PEN SC SCH (21:16)
[2017-01-30] VITALS (12 sets, daily range): BP systolic 144–157; BP diastolic 52–83; PULSE 66–87; RESP 17–19
[2017-01-30] MEDS: ACCU-CHEK XX SCH (02:00)
[2017-01-30] MEDS: VANCOMYCIN 1.5 GM in SOD CHLORIDE 0.9% 250 ML IVPB SCH ×2 (02:38→16:00)
[2017-01-30] MEDS: MEROPENEM 500MG/50 ML (PMX) 50 ML IVPB SCH ×3 (05:39→21:26)
[2017-01-30] MEDS: ACYCLOVIR 500 MG in SOD CHLORIDE 0.9% 100 ML IVPB SCH ×3 (06:28→22:33)
[2017-01-30 07:34] LABS: ABNORMAL IP MESSAGE 1; HEMATOCRIT 20.3 % (42.0-52.0); MEAN CORPUSCULAR HEMOGLOBIN 29.2 pg (29.0-33.0); MEAN CORPUSCULAR HGB CONC 33.5 g/dl (32.0-37.0); MEAN CORPUSCULAR VOLUME 87.1 fl (82.0-101.0); MEAN PLATELET VOLUME 9.8 fl (7.4-10.4); POSITIVE DIFF @See below; RED BLOOD COUNT 2.33 10^6/ul (4.70-6.10); RED CELL DISTRIBUTION WIDTH 16.3 % (11.5-14.5); WHITE BLOOD COUNT 43.7 10^3/ul (4.8-10.8)
[2017-01-30 07:42] LABS: HEMOGLOBIN 6.8 g/dl (14.0-18.0); PLATELET COUNT 13 10^3/UL (140-415)
[2017-01-30 07:54] LABS: CALCIUM 8.5 mg/dl (8.4-10.2); CREATININE 0.85 mg/dl (0.61-1.24); POTASSIUM 3.9 mmol/L (3.5-5.1)
[2017-01-30] MEDS: INSULIN ASPART [NOVOLOG] 3 ML PEN SC SCH ×6 (07:55→21:00)
[2017-01-30] MEDS: FLUCONAZOLE 100 MG TAB PO SCH (09:06)
[2017-01-30] MEDS: NYSTATIN SUSP 5 ML CUP PO SCH ×4 (09:06→21:27)
[2017-01-30] MEDS: FAMOTIDINE 20 MG TAB PO SCH ×2 (09:06→21:28)
[2017-01-30] MEDS: ACETAMINOPHEN 325 MG TAB PO PRN (09:07)
[2017-01-30] MEDS ORDERED: METHYLPREDNISOLONE 40 MG INJ IV ONE (09:10)
[2017-01-30] MEDS: SOD CHLORIDE 0.9% 1,000 ML IV SCH ×2 (09:19→22:39)
[2017-01-30 09:27] LABS: ANISOCYTOSIS 1+ (0-0); BLAST% (M) 68.9 % (0-0); MICROCYTOSIS 1+ (0-0); MONOCYTES % (M) 1 % (0-11); MYELOCYTES % (M) 2 % (0-0); PLATELET ESTIMATE SIG DECREASED; POLYCHROMASIA 3+ (0-0); PROMYELOCYTES #M 0.8 10^3/ul (0-0); PROMYELOCYTES % (M) 2 % (0-0)
[2017-01-30] MEDS: HYDROCORTISONE 1% 28 GM CR TOP SCH ×2 (09:31→21:00)
[2017-01-30] MEDS ORDERED: METHYLPREDNISOLONE 40 MG INJ ONE (09:49)
[2017-01-30] MEDS: LEVOFLOXACIN 750MG/D5W (PMX) 150 ML IVPB SCH (12:17)
[2017-01-30] MEDS: LOSARTAN 50 MG TAB PO SCH (14:03)
--- NOTE | 2017-01-30 15:34 | CONS ---
Date/Time of Note Date/Time of Note DATE: 01/30/17 TIME: 15:28 Assessment/Plan Assessment/Plan Chief Complaint/Hosp Course ID PROGRESS NOTE CURRENT ABX: DAY #7 => Vanco IV #7 + Levaquin #4 +Diflucan + Acyclovir IV s/p Cefepime (01/24-01/27) 124H INTERVAL SUMMARY * Awake, O2 via NC, was feeling SOB => plan for today 1unit PRBCsTx today for HGB 6.8 * Clinically about the same == still has (+)dry cough, stable on supplemental O2, tells me he can't breathe without O2 * MICRO: BCx 01/23/17(-); Urine 01/23/17(-); BCx 01/26/17(-); BCx 01/27(-) PHYSICAL EXAMINATION: GENERAL: VSS, NAD HEENT: AT, NC, anicteric, moist oral membranes NECK: Trach midline, supple CHEST: Equal chest rise bilaterally,mild dyspnea HEART: RRR ABDOMEN: Soft, NT, ND EXT: Warm, moves all ext SKIN: No rash, no diaphoresis ID ASSESSMENT: 66 yo M admit with: 1. Severe sepsis on admission w/fevers > 102.9, leukocytosis, tachycardia => RESOLVING * VSS, no fevers, WBC elevated due to infection + "Blast Crisis" * MICRO: BCx 01/23/17(-); Urine 01/23/17(-); BCx 01/26/17(-); BCx 01/27(-) 2. Hypoxic respiratory distress -> due to #2 #4 3. Multifocal pneumonia with superimposed vascular congestion 4. Symptomatic anemia -> Receiving 1 unit PRBC Tx PRN HGB <7.0 5. 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 Herrera * Anemia/severe thrombocytopenia > PRN transfusion for PRBCs / PLT per [facility] recs * Now recurrent blast crisis=> WBC 43,000 with 605 blasts * Per notes: patient refusing chemotherapy wants pills or other options * [facility] appointment on Jan 4. Diabetes 5. Hypertension 6. Oral candidiasis -> Nystatin s/sw + Diflucan 7. Mild jaundice w/rising indirect Bilirubin 1.2 -> 1.8 (-)Influenza A/B ABX ALLERGY: NKDA INVASIVES: PIV CURRENT ABX:: DAY #7 => Vanco IV #7 + Levaquin #4 +Diflucan + Acyclovir IV s/p Cefepime (01/24-01/27) ID RECOMMENDATIONS/PLAN: 1. Continue current ABX over the weekend -> ID team colleague f/u next week 2. May need to adjust Acyclovir if liver function deteriorates . Problems: Consultation Date/Type/Reason Admit Date/Time Jan 24, 2017 at 06:40 Initial Consult Date 01/25/17 Type of Consultation: ID Referring Provider: SOBIA NUNEZ Exam/Review of Systems Vital Signs Vitals Vital Signs Date Time Temp Pulse Resp B/P Pulse Ox O2 Delivery O2 Flow Rate FiO2 01/30/17 12:30 66 01/30/17 11:43 97.6 17 157/78 98 01/30/17 10:10 Nasal Cannula 3.0 Intake and Output 01/29/17 01/29/17 01/30/17 15:00 23:00 07:00 Intake Total 1140 ml 950 ml Output Total 800 ml Balance 1140 ml 150 ml Results Result Diagram: 01/30/17 0700 01/30/17 0700 Results 24 hrs Laboratory Tests Test 01/29/17 20:56 01/30/17 05:38 01/30/17 07:00 01/30/17 09:05 Bedside Glucose 129 144 Lab Scanned Report BLOOD TRANSFUSION White Blood Count 43.7 H Red Blood Count 2.33 L Hemoglobin 6.8 *L Hematocrit 20.3 L Mean Corpuscular Volume 87.1 Mean Corpuscular Hemoglobin 29.2 Mean Corpuscular Hemoglobin Concent 33.5 Red Cell Distribution Width 16.3 H Platelet Count 13 #*L Mean Platelet Volume 9.8 Neutrophils % Segmented Neutrophils % (Manual) 2 L Lymphocytes % Lymphocytes % (Manual) 25 Monocytes % Monocytes % (Manual) 1 Eosinophils % Basophils % Myelocytes % (Manual) 2 H Promyelocytes % (Manual) 2 H Blast Cells % (Manual) 68.9 H Nucleated Red Blood Cells % 0.0 Neutrophils # Absolute Lymphocytes (Manual) 10.9 H Lymphocytes # Monocytes # Absolute Monocytes (Manual) 0.4 Eosinophils # Basophils # Myelocytes # 0.8 H Promyelocytes # 0.8 H Nucleated Red Blood Cells # Platelet Estimate SIG DECREASED Polychromasia 3+ Anisocytosis 1+ Microcytosis 1+ Sodium Level 143 Potassium Level 3.9 Chloride Level 108 Carbon Dioxide Level 28 Anion Gap 11 Blood Urea Nitrogen 25 H Creatinine 0.85 Glucose Level 131 # Calcium Level 8.5 Test 01/30/17 14:08 Bedside Glucose 263 H Medications Medications Current Medications Ondansetron HCl (Zofran Tab) 4 mg Q6H PRN PO NAUSEA AND/OR VOMITING Last administered on 01/25/17 12:13; Admin Dose 4 MG; Start 01/24/17 at 05:30 Acetaminophen (Tylenol Tab) 650 mg Q6H PRN PO PAIN LEVEL 1-3 OR FEVER Last administered on 01/30/17 09:07; Admin Dose 650 MG; Start 01/24/17 at 05:30 Acetaminophen/ Hydrocodone Bitart ([place] (5/325)) 1 tab Q6H PRN PO PAIN LEVEL 4 -6; Start 01/24/17 at 05:30 Docusate Sodium (Colace) 100 mg Q12H PRN PO CONSTIPATION Last administered on 01/29/17 21:08; Admin Dose 100 MG; Start 01/24/17 at 05:30 Famotidine (Pepcid) 20 mg Q12 PO Last administered on 01/30/17 09:06; Admin Dose 20 MG; Start 01/24/17 at 09:00 Diagnostic Test (Pha) 1 ea 1 ea 02 XX Last administered on 01/26/17 02:40; Admin Dose 1 EA; Start 01/25/17 at 02:00 Sodium Chloride 1,000 ml @ 75 mls/hr [id number] IV Last administered on 21:00; Admin Dose 75 MLS/HR; Start 01/24/17 at 14:30 Acyclovir/Sodium Chloride (Zovirax/NS) 100 ml @ 100 mls/hr Q8 IVPB Last administered on 01/30/17 14:51; Admin Dose 100 MLS/HR; Start 01/24/17 at 14: 30 Miscellaneous Information 1 ea NOTE XX ; Start 01/24/17 at 15:00 Glucose (Glutose) 15 gm Q15M PRN PO DECREASED GLUCOSE; Start 01/24/17 at 15:00 Glucose (Glutose) 22.5 gm Q15M PRN PO DECREASED GLUCOSE; Start 01/24/17 at 15: 00 Dextrose (D50w Syringe) 25 ml Q15M PRN IV DECREASED GLUCOSE; Start 01/24/17 at 15:00 Dextrose (D50w Syringe) 50 ml Q15M PRN IV DECREASED GLUCOSE; Start 01/24/17 at 15:00 Glucagon (Glucagen) 1 mg Q15M PRN IM DECREASED GLUCOSE; Start 01/24/17 at 15: 00 Glucose (Glutose) 15 gm Q15M PRN BUCCAL DECREASED GLUCOSE; Start 01/24/17 at 15:00 Alprazolam (Xanax) 0.25 mg Q8H PRN PO ANXIETY Last administered on 01/28/17 02:28; Admin Dose 0.25 MG; Start 01/24/17 at 16:00 Fluconazole (Diflucan) 100 mg DAILY PO Last administered on 01/30/17 09:06; Admin Dose 100 MG; Start 01/25/17 at 09:00 Simethicone 80 mg 80 mg Q6H PRN PO DISTENSION/GAS/BLOATING; Start 01/26/17 at 12:00 Vancomycin HCl 1.5 gm/Sodium Chloride 250 ml @ 83.333 mls/ hr Q12H IVPB Last administered on 01/30/17 02:38; Admin Dose 83.333 MLS/HR; Start 01/26/17 at 15:30 Levofloxacin/ Dextrose (Levaquin 750 Mg/ D5W 150 ml (Pmx)) 150 ml @ 100 mls/hr Q24H IVPB Last administered on 01/30/17 12:17; Admin Dose 100 MLS/HR; Start 01/26/17 at 12:30 Nystatin (Nystatin Susp) 5 ml QID PO Last administered on 01/30/17 13:00; Admin Dose 5 ML; Start 01/26/17 at 13:00 Diphenhydramine HCl 25 mg 25 mg Q6H PRN IV ALLERGIC REACTION; Start 01/26/17 at 13:30 Meropenem/Sodium Chloride (Merrem 500mg/50 ml(Pmx)) 50 ml @ 100 mls/hr Q8 IVPB Last administered on 01/30/17 14:03; Admin Dose 100 MLS/HR; Start 01/27/17 at 14:00 Hydrocortisone (Hydrocortisone 1% Cr) 1 applic BID TOP Last administered on 09:31; Admin Dose 1 APPLIC; Start 01/27/17 at 13:00 Insulin Glargine (Lantus) 20 unit DAILY@20 SC Last administered on 01/29/17 21:16; Admin Dose 20 UNIT; Start 01/29/17 at 20:00 Losartan Potassium (Cozaar) 50 mg DAILY PO Last administered on 01/30/17 14: 03; Admin Dose 50 MG; Start 01/30/17 at 13:30 Miscellaneous Information (*Rx Drug Level Order Reminder*) VANCOMYCIN TROUGH AT 1430 ONCE ONCE XX ; Start 01/31/17 at 14:30; Stop 01/31/17 at 14:31 JIE KLEIN HOME CARE NURSE Jan 30, 2017 15:34
--- NOTE | 2017-01-30 16:49 | PN ---
Date/Time of Note Date/Time of Note DATE: 01/30/17 TIME: 16:48 Assessment/Plan VTE Prophylaxis VTE Prophylaxis Intervention: SCD's Lines/Catheters IV [facility]from [facility] Peripheral IV Urinary Cath still in place: No Assessment/Plan Chief Complaint/Hosp Course 1. Severe pneumonia, persistent fevers, functional neutropenia as the patient is in blast crisis essentially currently and severely immunocompromised. Appreciate infectious disease recommendations, nystatin swish and swallow added along with Levaquin, continuing cefepime, vancomycin, acyclovir, Diflucan. All cultures no growth to date. Influenza negative. 2. Acute myelogenous leukemia, recurrence of the disease currently, 72% blasts on peripheral smear, significant leukocytosis. and significant anemia and cytopenia on labs again today, s/p transfusion of 2 units of packed red blood cells and 1 unit of platelets Appreciate hematology, Dr Herrera, recommendations. Patient seems to be now willing to pursue chemotherapeutic treatment, he knows he will have to be transferred to [facility] for chemotherapy and he is agreeable to be transferred Prognosis poor given ongoing blast crisis, ongoing fevers and seems to be trending toward transfusion dependence 3. Hypertension, for now, will hold off medications, resume once more stable. 3. Diabetes mellitus, with fair control (HgbA1c 6.7%) Start scheduled mealtime and basal insulin 4. Anxiety disorder, with history of claustrophobia, continue Xanax PRN for anxiety. Prophylaxis: SCDs and anticoagulation contraindicated due to severe thrombocytopenia, Pepcid for GI prophylaxis Problems: Subjective 24 Hr Interval Summary Respiratory: shortness of breath Exam/Review of Systems Vital Signs Vitals Vital Signs Date Time Temp Pulse Resp B/P Pulse Ox O2 Delivery O2 Flow Rate FiO2 01/30/17 16:27 87 01/30/17 15:39 97.4 17 156/83 97 01/30/17 10:10 Nasal Cannula 3.0 Intake and Output 01/29/17 01/29/17 01/30/17 14:59 22:59 06:59 Intake Total 1140 ml 950 ml Output Total 800 ml Balance 1140 ml 150 ml Exam Constitutional: alert, oriented Respiratory: clear to auscultation Cardiovascular: regular rate and rhythm Gastrointestinal: soft, No distended Musculoskeletal: nl extremities to inspection Results Result Diagram: 01/30/17 0700 01/30/17 0700 Results 24 hrs Laboratory Tests Test 01/29/17 20:56 01/30/17 05:38 01/30/17 07:00 01/30/17 09:05 Bedside Glucose 129 144 Lab Scanned Report BLOOD TRANSFUSION White Blood Count 43.7 H Red Blood Count 2.33 L Hemoglobin 6.8 *L Hematocrit 20.3 L Mean Corpuscular Volume 87.1 Mean Corpuscular Hemoglobin 29.2 Mean Corpuscular Hemoglobin Concent 33.5 Red Cell Distribution Width 16.3 H Platelet Count 13 #*L Mean Platelet Volume 9.8 Neutrophils % Segmented Neutrophils % (Manual) 2 L Lymphocytes % Lymphocytes % (Manual) 25 Monocytes % Monocytes % (Manual) 1 Eosinophils % Basophils % Myelocytes % (Manual) 2 H Promyelocytes % (Manual) 2 H Blast Cells % (Manual) 68.9 H Nucleated Red Blood Cells % 0.0 Neutrophils # Absolute Lymphocytes (Manual) 10.9 H Lymphocytes # Monocytes # Absolute Monocytes (Manual) 0.4 Eosinophils # Basophils # Myelocytes # 0.8 H Promyelocytes # 0.8 H Nucleated Red Blood Cells # Platelet Estimate SIG DECREASED Polychromasia 3+ Anisocytosis 1+ Microcytosis 1+ Sodium Level 143 Potassium Level 3.9 Chloride Level 108 Carbon Dioxide Level 28 Anion Gap 11 Blood Urea Nitrogen 25 H Creatinine 0.85 Glucose Level 131 # Calcium Level 8.5 Test 01/30/17 14:08 Bedside Glucose 263 H Medications Medications Current Medications Ondansetron HCl (Zofran Tab) 4 mg Q6H PRN PO NAUSEA AND/OR VOMITING Last administered on 01/25/17 12:13; Admin Dose 4 MG; Start 01/24/17 at 05:30 Acetaminophen (Tylenol Tab) 650 mg Q6H PRN PO PAIN LEVEL 1-3 OR FEVER Last administered on 01/30/17 09:07; Admin Dose 650 MG; Start 01/24/17 at 05:30 Acetaminophen/ Hydrocodone Bitart ([place] (5/325)) 1 tab Q6H PRN PO PAIN LEVEL 4 -6; Start 01/24/17 at 05:30 Docusate Sodium (Colace) 100 mg Q12H PRN PO CONSTIPATION Last administered on 01/29/17 21:08; Admin Dose 100 MG; Start 01/24/17 at 05:30 Famotidine (Pepcid) 20 mg Q12 PO Last administered on 01/30/17 09:06; Admin Dose 20 MG; Start 01/24/17 at 09:00 Diagnostic Test (Pha) 1 ea 1 ea 02 XX Last administered on 01/26/17 02:40; Admin Dose 1 EA; Start 01/25/17 at 02:00 Sodium Chloride 1,000 ml @ 75 mls/hr [id number] IV Last administered on 21:00; Admin Dose 75 MLS/HR; Start 01/24/17 at 14:30 Acyclovir/Sodium Chloride (Zovirax/NS) 100 ml @ 100 mls/hr Q8 IVPB Last administered on 01/30/17 14:51; Admin Dose 100 MLS/HR; Start 01/24/17 at 14: 30 Miscellaneous Information 1 ea NOTE XX ; Start 01/24/17 at 15:00 Glucose (Glutose) 15 gm Q15M PRN PO DECREASED GLUCOSE; Start 01/24/17 at 15:00 Glucose (Glutose) 22.5 gm Q15M PRN PO DECREASED GLUCOSE; Start 01/24/17 at 15: 00 Dextrose (D50w Syringe) 25 ml Q15M PRN IV DECREASED GLUCOSE; Start 01/24/17 at 15:00 Dextrose (D50w Syringe) 50 ml Q15M PRN IV DECREASED GLUCOSE; Start 01/24/17 at 15:00 Glucagon (Glucagen) 1 mg Q15M PRN IM DECREASED GLUCOSE; Start 01/24/17 at 15: 00 Glucose (Glutose) 15 gm Q15M PRN BUCCAL DECREASED GLUCOSE; Start 01/24/17 at 15:00 Alprazolam (Xanax) 0.25 mg Q8H PRN PO ANXIETY Last administered on 01/28/17 02:28; Admin Dose 0.25 MG; Start 01/24/17 at 16:00 Fluconazole (Diflucan) 100 mg DAILY PO Last administered on 01/30/17 09:06; Admin Dose 100 MG; Start 01/25/17 at 09:00 Simethicone 80 mg 80 mg Q6H PRN PO DISTENSION/GAS/BLOATING; Start 01/26/17 at 12:00 Vancomycin HCl 1.5 gm/Sodium Chloride 250 ml @ 83.333 mls/ hr Q12H IVPB Last administered on 01/30/17 02:38; Admin Dose 83.333 MLS/HR; Start 01/26/17 at 15:30 Levofloxacin/ Dextrose (Levaquin 750 Mg/ D5W 150 ml (Pmx)) 150 ml @ 100 mls/hr Q24H IVPB Last administered on 01/30/17 12:17; Admin Dose 100 MLS/HR; Start 01/26/17 at 12:30 Nystatin (Nystatin Susp) 5 ml QID PO Last administered on 01/30/17 13:00; Admin Dose 5 ML; Start 01/26/17 at 13:00 Diphenhydramine HCl 25 mg 25 mg Q6H PRN IV ALLERGIC REACTION; Start 01/26/17 at 13:30 Meropenem/Sodium Chloride (Merrem 500mg/50 ml(Pmx)) 50 ml @ 100 mls/hr Q8 IVPB Last administered on 01/30/17 14:03; Admin Dose 100 MLS/HR; Start 01/27/17 at 14:00 Hydrocortisone (Hydrocortisone 1% Cr) 1 applic BID TOP Last administered on 09:31; Admin Dose 1 APPLIC; Start 01/27/17 at 13:00 Insulin Glargine (Lantus) 20 unit DAILY@20 SC Last administered on 01/29/17 21:16; Admin Dose 20 UNIT; Start 01/29/17 at 20:00 Losartan Potassium (Cozaar) 50 mg DAILY PO Last administered on 01/30/17 14: 03; Admin Dose 50 MG; Start 01/30/17 at 13:30 Miscellaneous Information (*Rx Drug Level Order Reminder*) VANCOMYCIN TROUGH AT 1430 ONCE ONCE XX ; Start 01/31/17 at 14:30; Stop 01/31/17 at 14:31 Amlodipine Besylate (Norvasc) 5 mg ONCE ONCE PO ; Start 01/30/17 at 17:00; Stop 01/30/17 at 17:01 Amlodipine Besylate (Norvasc) 10 mg DAILY PO ; Start 01/31/17 at 09:00 EDE SANTOS Jan 30, 2017 16:49
[2017-01-30] MEDS ORDERED: AMLODIPINE 5 MG TAB PO ONE (17:00)
[2017-01-30 19:06] LABS: ABNORMAL IP MESSAGE 1; HEMATOCRIT 24.8 % (42.0-52.0); HEMOGLOBIN 8.4 g/dl (14.0-18.0); MEAN CORPUSCULAR HEMOGLOBIN 29.5 pg (29.0-33.0); MEAN CORPUSCULAR HGB CONC 33.9 g/dl (32.0-37.0); MEAN PLATELET VOLUME 9.6 fl (7.4-10.4); POSITIVE DIFF @See below; RED BLOOD COUNT 2.85 10^6/ul (4.70-6.10); RED CELL DISTRIBUTION WIDTH 15.9 % (11.5-14.5); WHITE BLOOD COUNT 31.5 10^3/ul (4.8-10.8)
[2017-01-30 19:25] LABS: PLATELET COUNT 10 10^3/UL (140-415)
[2017-01-30 19:41] LABS: ANISOCYTOSIS 1+ (0-0); BLAST% (M) 77.7 % (0-0); BURR CELLS 1+ (0-0); MONOCYTES % (M) 6 % (0-11); MYELOCYTES % (M) 3 % (0-0); PLATELET ESTIMATE DECREASED; POIKILOCYTOSIS 1+ (0-0); PROMYELOCYTES #M 0.9 10^3/ul (0-0); PROMYELOCYTES % (M) 3 % (0-0)
[2017-01-30] MEDS: INSULIN GLARGINE [LANtus] 3 ML PEN SC SCH (21:59)
[2017-01-30] MEDS ORDERED: BACITRACIN 0.9 GM OINT TOP ONE (22:30)
[2017-01-30] MEDS ORDERED: INSULIN ASPART [NOVOLOG] 3 ML PEN SC ONE (22:30)
--- NOTE | 2017-01-30 23:05 | CONS ---
Date/Time of Note Date/Time of Note DATE: 01/30/17 TIME: 23:03 Assessment/Plan Assessment/Plan Chief Complaint/Hosp Course 66 yo M with history of AML with translocation (8;21) who completed induction therapy with 7 + 3 with one cycle of high dose Nicolasa-c in 12/2015 but unfortunately did not follow up and decided on naturopathic remedies who was admitted for weakness and shortness of breath and found to have relapse with 63 % blasts. 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 Patient is awaiting transfer to tertiary care center for higher level of care and reinduction chemotherapy for AML. -Patients prognosis is guarded as he has relapse leukemia and he will likely need transplant induction can get him to remission. -Continue antibiotics for neutropenic fever. -Transfuse 1 unit PRBC at a time to keep hgb > 7. Recommend transfusion today. -Transfuse 1 unit of platelets to keep plt > 10. Will likely need transfusion tomorrow. -Continue antibiotics for possible pneumonia. -Continue hydration. -Check electrolytes daily and monitor for tumor lysis syndrome. -Patient previously did not want therapy but seems to get the severity of his disease. Thank you for allowing me to participate in the care of this patient. Dr. Herrera will resume care tomorrow. A total of 40 minutes was spent in consultation with this patient. Problems: Consultation Date/Type/Reason Admit Date/Time Jan 24, 2017 at 06:40 Initial Consult Date 01/25/17 Type of Consultation: ID Referring Provider: SOBIA NUNEZ 24 HR Interval Summary Free Text/Dictation Patient states that his shortness of breath is slightly improving. He denies any fevers, chills, or night sweats overnight. States his appetite is improving but still weak. He agrees to treatment with chemotherapy and agrees that he should be transferred to [facility] for treatment. Exam/Review of Systems Vital Signs Vitals Vital Signs Date Time Temp Pulse Resp B/P Pulse Ox O2 Delivery O2 Flow Rate FiO2 01/30/17 21:01 98.2 80 18 145/82 98 01/30/17 19:28 Nasal Cannula 2.0 Intake and Output 01/29/17 01/29/17 01/30/17 15:00 23:00 07:00 Intake Total 1140 ml 950 ml Output Total 800 ml Balance 1140 ml 150 ml Exam Gen: Well-developed, well-nourished, well-hydrated, no acute distress. Heent: NC/AT, PERRLA, EOMI, no lymphadenopathy, moist mucous membranes, oropharynx is clear. CV: Regular rate rhythm, no murmurs, clicks or rubs. Resp: Decreased breath sounds bilaterally with minimal rhonchi. Abd: + BS in all 4 quadrants, non tender, non distended soft, -HSM Ext: no clubbing, cyanosis or edema. Neuro: no focal/sensory motor deficits. Results Result Diagram: 01/30/17 1859 01/30/17 0700 Results 24 hrs Laboratory Tests Test 01/30/17 05:38 01/30/17 07:00 01/30/17 09:05 01/30/17 14:08 Lab Scanned Report BLOOD TRANSFUSION White Blood Count 43.7 H Red Blood Count 2.33 L Hemoglobin 6.8 *L Hematocrit 20.3 L Mean Corpuscular Volume 87.1 Mean Corpuscular Hemoglobin 29.2 Mean Corpuscular Hemoglobin Concent 33.5 Red Cell Distribution Width 16.3 H Platelet Count 13 #*L Mean Platelet Volume 9.8 Neutrophils % Segmented Neutrophils % (Manual) 2 L Lymphocytes % Lymphocytes % (Manual) 25 Monocytes % Monocytes % (Manual) 1 Eosinophils % Basophils % Myelocytes % (Manual) 2 H Promyelocytes % (Manual) 2 H Blast Cells % (Manual) 68.9 H Nucleated Red Blood Cells % 0.0 Neutrophils # Absolute Lymphocytes (Manual) 10.9 H Lymphocytes # Monocytes # Absolute Monocytes (Manual) 0.4 Eosinophils # Basophils # Myelocytes # 0.8 H Promyelocytes # 0.8 H Nucleated Red Blood Cells # Platelet Estimate SIG DECREASED Polychromasia 3+ Anisocytosis 1+ Microcytosis 1+ Sodium Level 143 Potassium Level 3.9 Chloride Level 108 Carbon Dioxide Level 28 Anion Gap 11 Blood Urea Nitrogen 25 H Creatinine 0.85 Glucose Level 131 # Calcium Level 8.5 Bedside Glucose 144 263 H Test 01/30/17 18:59 01/30/17 21:24 01/30/17 21:54 White Blood Count 31.5 #H Red Blood Count 2.85 #L Hemoglobin 8.4 #L Hematocrit 24.8 #L Mean Corpuscular Volume 87.0 Mean Corpuscular Hemoglobin 29.5 Mean Corpuscular Hemoglobin Concent 33.9 Red Cell Distribution Width 15.9 H Platelet Count 10 #*L Mean Platelet Volume 9.6 Neutrophils % Segmented Neutrophils % (Manual) 1 L Lymphocytes % Lymphocytes % (Manual) 10 L Monocytes % Monocytes % (Manual) 6 Eosinophils % Basophils % Myelocytes % (Manual) 3 H Promyelocytes % (Manual) 3 H Blast Cells % (Manual) 77.7 H Nucleated Red Blood Cells % 0.0 Neutrophils # Absolute Lymphocytes (Manual) 3.1 H Lymphocytes # Monocytes # Absolute Monocytes (Manual) 1.8 H Eosinophils # Basophils # Myelocytes # 0.9 H Promyelocytes # 0.9 H Nucleated Red Blood Cells # Platelet Estimate DECREASED Poikilocytosis 1+ Anisocytosis 1+ Macrocytosis 1+ Bedside Glucose 306 H 272 H Medications Medications Current Medications Ondansetron HCl (Zofran Tab) 4 mg Q6H PRN PO NAUSEA AND/OR VOMITING Last administered on 01/25/17 12:13; Admin Dose 4 MG; Start 01/24/17 at 05:30 Acetaminophen (Tylenol Tab) 650 mg Q6H PRN PO PAIN LEVEL 1-3 OR FEVER Last administered on 01/30/17 09:07; Admin Dose 650 MG; Start 01/24/17 at 05:30 Acetaminophen/ Hydrocodone Bitart ([place] (5/325)) 1 tab Q6H PRN PO PAIN LEVEL 4 -6; Start 01/24/17 at 05:30 Docusate Sodium (Colace) 100 mg Q12H PRN PO CONSTIPATION Last administered on 01/29/17 21:08; Admin Dose 100 MG; Start 01/24/17 at 05:30 Famotidine (Pepcid) 20 mg Q12 PO Last administered on 01/30/17 21:28; Admin Dose 20 MG; Start 01/24/17 at 09:00 Diagnostic Test (Pha) 1 ea 1 ea 02 XX Last administered on 01/26/17 02:40; Admin Dose 1 EA; Start 01/25/17 at 02:00 Sodium Chloride 1,000 ml @ 75 mls/hr [id number] IV Last administered on 21:00; Admin Dose 75 MLS/HR; Start 01/24/17 at 14:30 Acyclovir/Sodium Chloride (Zovirax/NS) 100 ml @ 100 mls/hr Q8 IVPB Last administered on 01/30/17 22:33; Admin Dose 100 MLS/HR; Start 01/24/17 at 14: 30 Miscellaneous Information 1 ea NOTE XX ; Start 01/24/17 at 15:00 Glucose (Glutose) 15 gm Q15M PRN PO DECREASED GLUCOSE; Start 01/24/17 at 15:00 Glucose (Glutose) 22.5 gm Q15M PRN PO DECREASED GLUCOSE; Start 01/24/17 at 15: 00 Dextrose (D50w Syringe) 25 ml Q15M PRN IV DECREASED GLUCOSE; Start 01/24/17 at 15:00 Dextrose (D50w Syringe) 50 ml Q15M PRN IV DECREASED GLUCOSE; Start 01/24/17 at 15:00 Glucagon (Glucagen) 1 mg Q15M PRN IM DECREASED GLUCOSE; Start 01/24/17 at 15: 00 Glucose (Glutose) 15 gm Q15M PRN BUCCAL DECREASED GLUCOSE; Start 01/24/17 at 15:00 Alprazolam (Xanax) 0.25 mg Q8H PRN PO ANXIETY Last administered on 01/28/17 02:28; Admin Dose 0.25 MG; Start 01/24/17 at 16:00 Fluconazole (Diflucan) 100 mg DAILY PO Last administered on 01/30/17 09:06; Admin Dose 100 MG; Start 01/25/17 at 09:00 Simethicone 80 mg 80 mg Q6H PRN PO DISTENSION/GAS/BLOATING; Start 01/26/17 at 12:00 Vancomycin HCl 1.5 gm/Sodium Chloride 250 ml @ 83.333 mls/ hr Q12H IVPB Last administered on 01/30/17 16:00; Admin Dose 83.333 MLS/HR; Start 01/26/17 at 15:30 Levofloxacin/ Dextrose (Levaquin 750 Mg/ D5W 150 ml (Pmx)) 150 ml @ 100 mls/hr Q24H IVPB Last administered on 01/30/17 12:17; Admin Dose 100 MLS/HR; Start 01/26/17 at 12:30 Nystatin (Nystatin Susp) 5 ml QID PO Last administered on 01/30/17 21:27; Admin Dose 5 ML; Start 01/26/17 at 13:00 Diphenhydramine HCl 25 mg 25 mg Q6H PRN IV ALLERGIC REACTION; Start 01/26/17 at 13:30 Meropenem/Sodium Chloride (Merrem 500mg/50 ml(Pmx)) 50 ml @ 100 mls/hr Q8 IVPB Last administered on 01/30/17 21:26; Admin Dose 100 MLS/HR; Start 01/27/17 at 14:00 Hydrocortisone (Hydrocortisone 1% Cr) 1 applic BID TOP Last administered on 09:31; Admin Dose 1 APPLIC; Start 01/27/17 at 13:00 Insulin Glargine (Lantus) 20 unit DAILY@20 SC Last administered on 01/30/17 21:59; Admin Dose 20 UNIT; Start 01/29/17 at 20:00 Losartan Potassium (Cozaar) 50 mg DAILY PO Last administered on 01/30/17 14: 03; Admin Dose 50 MG; Start 01/30/17 at 13:30 Miscellaneous Information (*Rx Drug Level Order Reminder*) VANCOMYCIN TROUGH AT 1430 ONCE ONCE XX ; Start 01/31/17 at 14:30; Stop 01/31/17 at 14:31 Amlodipine Besylate (Norvasc) 10 mg DAILY PO ; Start 01/31/17 at 09:00 JAVIER ANDRADE DO Jan 30, 2017 23:05
[2017-01-31] VITALS (11 sets, daily range): BP systolic 134–162; BP diastolic 73–85; PULSE 62–84; RESP 16–20
[2017-01-31] MEDS: ACCU-CHEK XX SCH (02:33)
[2017-01-31] MEDS: VANCOMYCIN 1.5 GM in SOD CHLORIDE 0.9% 250 ML IVPB SCH ×2 (02:40→15:28)
[2017-01-31] MEDS: BACITRACIN 0.9 GM OINT TOP SCH ×3 (02:43→20:47)
[2017-01-31] MEDS: MEROPENEM 500MG/50 ML (PMX) 50 ML IVPB SCH ×3 (06:10→20:48)
[2017-01-31] MEDS: ACYCLOVIR 500 MG in SOD CHLORIDE 0.9% 100 ML IVPB SCH ×3 (06:44→21:54)
[2017-01-31] MEDS: INSULIN ASPART [NOVOLOG] 3 ML PEN SC SCH ×7 (07:55→20:41)
[2017-01-31 08:58] LABS: ABNORMAL IP MESSAGE 1; HEMATOCRIT 25.1 % (42.0-52.0); HEMOGLOBIN 8.2 g/dl (14.0-18.0); MEAN CORPUSCULAR HEMOGLOBIN 29.6 pg (29.0-33.0); MEAN CORPUSCULAR HGB CONC 32.7 g/dl (32.0-37.0); MEAN CORPUSCULAR VOLUME 90.6 fl (82.0-101.0); POSITIVE DIFF @See below; RED BLOOD COUNT 2.77 10^6/ul (4.70-6.10); RED CELL DISTRIBUTION WIDTH 16.1 % (11.5-14.5); WHITE BLOOD COUNT 36.7 10^3/ul (4.8-10.8)
[2017-01-31] MEDS: HYDROCORTISONE 1% 28 GM CR TOP SCH ×2 (09:00→20:47)
[2017-01-31 09:03] LABS: PLATELET COUNT 10 10^3/UL (140-415)
[2017-01-31] MEDS: FLUCONAZOLE 100 MG TAB PO SCH (09:27)
[2017-01-31] MEDS: NYSTATIN SUSP 5 ML CUP PO SCH ×4 (09:27→20:41)
[2017-01-31] MEDS: AMLODIPINE 10 MG TAB PO SCH (09:28)
[2017-01-31] MEDS: LOSARTAN 50 MG TAB PO SCH (09:29)
[2017-01-31] MEDS: FAMOTIDINE 20 MG TAB PO SCH ×2 (09:30→20:41)
[2017-01-31] MEDS: ACETAMINOPHEN 325 MG TAB PO PRN (09:51)
[2017-01-31 10:06] LABS: CALCIUM 8.8 mg/dl (8.4-10.2); CREATININE 0.8 mg/dl (0.61-1.24); POTASSIUM 4.3 mmol/L (3.5-5.1)
--- NOTE | 2017-01-31 10:09 | PN ---
Date/Time of Note Date/Time of Note DATE: 01/31/17 TIME: 09:36 Assessment/Plan VTE Prophylaxis VTE Prophylaxis Intervention: SCD's Lines/Catheters IV [facility]ter Type (from [email or web address] Peripheral IV Central line still needed: No Urinary Cath still in place: No Assessment/Plan Assessment/Plan Chief Complaint/Hosp Course 1. Severe pneumonia, persistent fevers, but improving as he has been afebrile for 24 hours. He has functional neutropenia as the patient is in blast crisis and is severely immunocompromised. Appreciate infectious disease recommendations, nystatin swish and swallow added along with Levaquin, continuing cefepime, vancomycin, acyclovir, Diflucan. All cultures no growth to date. Influenza negative. 2. Acute myelogenous leukemia, recurrence of the disease currently, 72% blasts on peripheral smear, significant leukocytosis. and significant anemia and cytopenia on labs again today, s/p transfusion of 2 units of packed red blood cells and 1 unit of platelets Appreciate hematology, Dr Herrera, recommendations. Patient is not willing to pursue chemotherapeutic treatment. He would like to take "novamine" which he purchases from [employer]. He is willing to go to [facility] as an outpatient if his therapy does not work. Case d/w Dr. Herrera. Prognosis poor given ongoing blast crisis, ongoing fevers and seems to be trending toward transfusion dependence 3. Hypertension, for now, will hold off medications, resume once more stable. 3. Diabetes mellitus, with fair control (HgbA1c 6.7%) Start scheduled mealtime and basal insulin 4. Anxiety disorder, with history of claustrophobia, continue Xanax PRN for anxiety. Prophylaxis: SCDs and anticoagulation contraindicated due to severe thrombocytopenia, Pepcid for GI prophylaxis Subjective 24 Hr Interval Summary Free Text/Dictation Eating breakfast with family at the bedside. Cough is improving. Appetite is improving. I had a lengthy conversation with the patient and he would like to continue with care at [facility] for his PNA and would like to continue with his home/ natural remedies for now. Exam/Review of Systems Vital Signs Vitals Vital Signs Date Time Temp Pulse Resp B/P Pulse Ox O2 Delivery O2 Flow Rate FiO2 01/31/17 08:36 71 01/31/17 07:24 98.2 17 161/80 95 01/31/17 06:23 3.0 01/30/17 19:28 Nasal Cannula Intake and Output 01/30/17 01/30/17 01/31/17 15:00 23:00 07:00 Intake Total 100 ml 1700 ml 400 ml Balance 100 ml 1700 ml 400 ml Exam Constitutional: alert, oriented Psych: no complaints Head: normocephalic Eyes: nl conjunctiva ENMT: nl external ears & nose Neck: supple Respiratory: diminished breath sounds Cardiovascular: regular rate and rhythm Gastrointestinal: soft Musculoskeletal: nl extremities to inspection Neurological: nl mental status, nl speech, nl strength Results Result Diagram: 01/31/17 0740 01/30/17 0700 Results 24 hrs Laboratory Tests Test 01/30/17 14:08 01/30/17 18:59 01/30/17 21:24 01/30/17 21:54 Bedside Glucose 263 H 306 H 272 H White Blood Count 31.5 #H Red Blood Count 2.85 #L Hemoglobin 8.4 #L Hematocrit 24.8 #L Mean Corpuscular Volume 87.0 Mean Corpuscular Hemoglobin 29.5 Mean Corpuscular Hemoglobin Concent 33.9 Red Cell Distribution Width 15.9 H Platelet Count 10 #*L Mean Platelet Volume 9.6 Neutrophils % Segmented Neutrophils % (Manual) 1 L Lymphocytes % Lymphocytes % (Manual) 10 L Monocytes % Monocytes % (Manual) 6 Eosinophils % Basophils % Myelocytes % (Manual) 3 H Promyelocytes % (Manual) 3 H Blast Cells % (Manual) 77.7 H Nucleated Red Blood Cells % 0.0 Neutrophils # Absolute Lymphocytes (Manual) 3.1 H Lymphocytes # Monocytes # Absolute Monocytes (Manual) 1.8 H Eosinophils # Basophils # Myelocytes # 0.9 H Promyelocytes # 0.9 H Nucleated Red Blood Cells # Platelet Estimate DECREASED Poikilocytosis 1+ Anisocytosis 1+ Macrocytosis 1+ Test 01/31/17 02:14 01/31/17 07:40 01/31/17 09:03 Bedside Glucose 107 115 White Blood Count 36.7 H Red Blood Count 2.77 L Hemoglobin 8.2 L Hematocrit 25.1 L Mean Corpuscular Volume 90.6 Mean Corpuscular Hemoglobin 29.6 Mean Corpuscular Hemoglobin Concent 32.7 Red Cell Distribution Width 16.1 H Platelet Count 10 *L Mean Platelet Volume Neutrophils % Lymphocytes % Monocytes % Eosinophils % Basophils % Nucleated Red Blood Cells % 0.0 Neutrophils # Lymphocytes # Monocytes # Eosinophils # Basophils # Nucleated Red Blood Cells # Medications Medications Current Medications Ondansetron HCl (Zofran Tab) 4 mg Q6H PRN PO NAUSEA AND/OR VOMITING Last administered on 01/25/17 12:13; Admin Dose 4 MG; Start 01/24/17 at 05:30 Acetaminophen (Tylenol Tab) 650 mg Q6H PRN PO PAIN LEVEL 1-3 OR FEVER Last administered on 01/30/17 09:07; Admin Dose 650 MG; Start 01/24/17 at 05:30 Acetaminophen/ Hydrocodone Bitart ([place] (5/325)) 1 tab Q6H PRN PO PAIN LEVEL 4 -6; Start 01/24/17 at 05:30 Docusate Sodium (Colace) 100 mg Q12H PRN PO CONSTIPATION Last administered on 01/29/17 21:08; Admin Dose 100 MG; Start 01/24/17 at 05:30 Famotidine (Pepcid) 20 mg Q12 PO Last administered on 01/31/17 09:30; Admin Dose 20 MG; Start 01/24/17 at 09:00 Diagnostic Test (Pha) 1 ea 1 ea 02 XX Last administered on 01/31/17 02:33; Admin Dose 1 EA; Start 01/25/17 at 02:00 Sodium Chloride 1,000 ml @ 75 mls/hr [id number] IV Last administered on 21:00; Admin Dose 75 MLS/HR; Start 01/24/17 at 14:30 Acyclovir/Sodium Chloride (Zovirax/NS) 100 ml @ 100 mls/hr Q8 IVPB Last administered on 01/31/17 06:44; Admin Dose 100 MLS/HR; Start 01/24/17 at 14: 30 Miscellaneous Information 1 ea NOTE XX ; Start 01/24/17 at 15:00 Glucose (Glutose) 15 gm Q15M PRN PO DECREASED GLUCOSE; Start 01/24/17 at 15:00 Glucose (Glutose) 22.5 gm Q15M PRN PO DECREASED GLUCOSE; Start 01/24/17 at 15: 00 Dextrose (D50w Syringe) 25 ml Q15M PRN IV DECREASED GLUCOSE; Start 01/24/17 at 15:00 Dextrose (D50w Syringe) 50 ml Q15M PRN IV DECREASED GLUCOSE; Start 01/24/17 at 15:00 Glucagon (Glucagen) 1 mg Q15M PRN IM DECREASED GLUCOSE; Start 01/24/17 at 15: 00 Glucose (Glutose) 15 gm Q15M PRN BUCCAL DECREASED GLUCOSE; Start 01/24/17 at 15:00 Alprazolam (Xanax) 0.25 mg Q8H PRN PO ANXIETY Last administered on 01/28/17 02:28; Admin Dose 0.25 MG; Start 01/24/17 at 16:00 Fluconazole (Diflucan) 100 mg DAILY PO Last administered on 01/31/17 09:27; Admin Dose 100 MG; Start 01/25/17 at 09:00 Simethicone 80 mg 80 mg Q6H PRN PO DISTENSION/GAS/BLOATING; Start 01/26/17 at 12:00 Vancomycin HCl 1.5 gm/Sodium Chloride 250 ml @ 83.333 mls/ hr Q12H IVPB Last administered on 01/31/17 02:40; Admin Dose 83.333 MLS/HR; Start 01/26/17 at 15:30 Levofloxacin/ Dextrose (Levaquin 750 Mg/ D5W 150 ml (Pmx)) 150 ml @ 100 mls/hr Q24H IVPB Last administered on 01/30/17 12:17; Admin Dose 100 MLS/HR; Start 01/26/17 at 12:30 Nystatin (Nystatin Susp) 5 ml QID PO Last administered on 01/31/17 09:27; Admin Dose 5 ML; Start 01/26/17 at 13:00 Diphenhydramine HCl 25 mg 25 mg Q6H PRN IV ALLERGIC REACTION; Start 01/26/17 at 13:30 Meropenem/Sodium Chloride (Merrem 500mg/50 ml(Pmx)) 50 ml @ 100 mls/hr Q8 IVPB Last administered on 01/31/17 06:10; Admin Dose 100 MLS/HR; Start 01/27/17 at 14:00 Hydrocortisone (Hydrocortisone 1% Cr) 1 applic BID TOP Last administered on 09:31; Admin Dose 1 APPLIC; Start 01/27/17 at 13:00 Insulin Glargine (Lantus) 20 unit DAILY@20 SC Last administered on 01/30/17 21:59; Admin Dose 20 UNIT; Start 01/29/17 at 20:00 Losartan Potassium (Cozaar) 50 mg DAILY PO Last administered on 01/31/17 09: 29; Admin Dose 50 MG; Start 01/30/17 at 13:30 Miscellaneous Information (*Rx Drug Level Order Reminder*) VANCOMYCIN TROUGH AT 1430 ONCE ONCE XX ; Start 01/31/17 at 14:30; Stop 01/31/17 at 14:31 Amlodipine Besylate (Norvasc) 10 mg DAILY PO Last administered on 01/31/17 09 :28; Admin Dose 10 MG; Start 01/31/17 at 09:00 Bacitracin (Bacitracin Oint (Ud)) 1 applic BID TOP Last administered on 09:31; Admin Dose 1 APPLIC; Start 01/31/17 at 02:24 GODWIN RODRIGES MD Jan 31, 2017 10:09
[2017-01-31 10:19] LABS: ANISOCYTOSIS 1+ (0-0); BASOPHILS % (M) 3 % (0-2); BLAST% (M) 60.4 % (0-0); MICROCYTOSIS 1+ (0-0); MONOCYTES % (M) 5 % (0-11); MYELOCYTES % (M) 2 % (0-0); PLATELET ESTIMATE SIG DECREASED; POLYCHROMASIA 3+ (0-0)
[2017-01-31] MEDS: SOD CHLORIDE 0.9% 1,000 ML IV SCH (11:59)
[2017-01-31] MEDS: LEVOFLOXACIN 750MG/D5W (PMX) 150 ML IVPB SCH (13:04)
--- NOTE | 2017-01-31 14:21 | CONS ---
Date/Time of Note Date/Time of Note DATE: 01/31/17 TIME: 14:19 Assessment/Plan Assessment/Plan Chief Complaint/Hosp Course No acute changes overnight, patient is alert, feels better, looks comfortable, no fevers, no n/v/d Microbiology: Blood culture and urine culture remain negative Antimicrobials: Vancomycin, Levaquin, Merrem, acyclovir, fluconazole Physical examination: This is a well-nourished well-developed elderly [place] man who is alert in no distress. Head atraumatic normocephalic sclerae nonicteric vehicle mucosa dry patient has severe halitosis and oral thrush on his tongue. Neck is supple chest rise symmetrical breath sounds diminished bases. Heart: S1-S2, tachycardic, regular. Abdomen soft, bowel tones present. Extremities without cyanosis edema Assessment: 1. Severe sepsis 2. Multifocal pneumonia with superimposed vascular congestion 3. AML 4. Diabetes 5. Hypertension Plan: Leukocytosis persists but pt overall improving, continue abx, follow hematology-oncology recommendations [facility] pt/staff Problems: Consultation Date/Type/Reason Admit Date/Time Jan 24, 2017 at 06:40 Initial Consult Date 01/25/17 Type of Consultation: ID Referring Provider: SOBIA NUNEZ Exam/Review of Systems Vital Signs Vitals Vital Signs Date Time Temp Pulse Resp B/P Pulse Ox O2 Delivery O2 Flow Rate FiO2 01/31/17 12:15 67 01/31/17 11:47 98.6 17 162/83 98 01/31/17 09:50 3.0 01/30/17 19:28 Nasal Cannula Intake and Output 01/30/17 01/30/17 01/31/17 14:59 22:59 06:59 Intake Total 100 ml 1700 ml 400 ml Balance 100 ml 1700 ml 400 ml Results Result Diagram: 01/31/17 0740 01/31/17 0741 Results 24 hrs Laboratory Tests Test 01/30/17 18:59 01/30/17 21:24 01/30/17 21:54 01/31/17 02:14 White Blood Count 31.5 #H Red Blood Count 2.85 #L Hemoglobin 8.4 #L Hematocrit 24.8 #L Mean Corpuscular Volume 87.0 Mean Corpuscular Hemoglobin 29.5 Mean Corpuscular Hemoglobin Concent 33.9 Red Cell Distribution Width 15.9 H Platelet Count 10 #*L Mean Platelet Volume 9.6 Neutrophils % Segmented Neutrophils % (Manual) 1 L Lymphocytes % Lymphocytes % (Manual) 10 L Monocytes % Monocytes % (Manual) 6 Eosinophils % Basophils % Myelocytes % (Manual) 3 H Promyelocytes % (Manual) 3 H Blast Cells % (Manual) 77.7 H Nucleated Red Blood Cells % 0.0 Neutrophils # Absolute Lymphocytes (Manual) 3.1 H Lymphocytes # Monocytes # Absolute Monocytes (Manual) 1.8 H Eosinophils # Basophils # Myelocytes # 0.9 H Promyelocytes # 0.9 H Nucleated Red Blood Cells # Platelet Estimate DECREASED Poikilocytosis 1+ Anisocytosis 1+ Macrocytosis 1+ Bedside Glucose 306 H 272 H 107 Test 01/31/17 07:40 01/31/17 07:41 01/31/17 09:03 01/31/17 12:25 White Blood Count 36.7 H Red Blood Count 2.77 L Hemoglobin 8.2 L Hematocrit 25.1 L Mean Corpuscular Volume 90.6 Mean Corpuscular Hemoglobin 29.6 Mean Corpuscular Hemoglobin Concent 32.7 Red Cell Distribution Width 16.1 H Platelet Count 10 *L Mean Platelet Volume Neutrophils % Segmented Neutrophils % (Manual) 1 L Band Neutrophils % (Manual) 1 Lymphocytes % Lymphocytes % (Manual) 28 Monocytes % Monocytes % (Manual) 5 Eosinophils % Basophils % Basophils % (Manual) 3 H Myelocytes % (Manual) 2 H Blast Cells % (Manual) 60.4 H Nucleated Red Blood Cells % 0.0 Neutrophils # Neutrophils # (Manual) 0.5 L Band Neutrophils # 0.3 Absolute Lymphocytes (Manual) 10.2 H Lymphocytes # Monocytes # Absolute Monocytes (Manual) 1.8 H Eosinophils # Basophils # Basophils # (Manual) 1.1 H Myelocytes # 0.7 H Nucleated Red Blood Cells # Platelet Estimate SIG DECREASED Polychromasia 3+ Anisocytosis 1+ Microcytosis 1+ Sodium Level 141 Potassium Level 4.3 Chloride Level 102 Carbon Dioxide Level 28 Anion Gap 15 Blood Urea Nitrogen 22 H Creatinine 0.80 Glucose Level 99 Calcium Level 8.8 Bedside Glucose 115 144 Medications Medications Current Medications Ondansetron HCl (Zofran Tab) 4 mg Q6H PRN PO NAUSEA AND/OR VOMITING Last administered on 01/25/17t 12:13; Admin Dose 4 MG; Start 01/24/17 at 05:30 Acetaminophen (Tylenol Tab) 650 mg Q6H PRN PO PAIN LEVEL 1-3 OR FEVER Last administered on 01/31/17 09:51; Admin Dose 650 MG; Start 01/24/17 at 05:30 Acetaminophen/ Hydrocodone Bitart ([place] (5/325)) 1 tab Q6H PRN PO PAIN LEVEL 4 -6; Start 01/24/17 at 05:30 Docusate Sodium (Colace) 100 mg Q12H PRN PO CONSTIPATION Last administered on 01/29/17 21:08; Admin Dose 100 MG; Start 01/24/17 at 05:30 Famotidine (Pepcid) 20 mg Q12 PO Last administered on 01/31/17 09:30; Admin Dose 20 MG; Start 01/24/17 at 09:00 Diagnostic Test (Pha) 1 ea 1 ea 02 XX Last administered on 01/31/17 02:33; Admin Dose 1 EA; Start 01/25/17 at 02:00 Sodium Chloride 1,000 ml @ 75 mls/hr [id number] IV Last administered on 21:00; Admin Dose 75 MLS/HR; Start 01/24/17 at 14:30 Acyclovir/Sodium Chloride (Zovirax/NS) 100 ml @ 100 mls/hr Q8 IVPB Last administered on 01/31/17 06:44; Admin Dose 100 MLS/HR; Start 01/24/17 at 14: 30 Miscellaneous Information 1 ea NOTE XX ; Start 01/24/17 at 15:00 Glucose (Glutose) 15 gm Q15M PRN PO DECREASED GLUCOSE; Start 01/24/17 at 15:00 Glucose (Glutose) 22.5 gm Q15M PRN PO DECREASED GLUCOSE; Start 01/24/17 at 15: 00 Dextrose (D50w Syringe) 25 ml Q15M PRN IV DECREASED GLUCOSE; Start 01/24/17 at 15:00 Dextrose (D50w Syringe) 50 ml Q15M PRN IV DECREASED GLUCOSE; Start 01/24/17 at 15:00 Glucagon (Glucagen) 1 mg Q15M PRN IM DECREASED GLUCOSE; Start 01/24/17 at 15: 00 Glucose (Glutose) 15 gm Q15M PRN BUCCAL DECREASED GLUCOSE; Start 01/24/17 at 15:00 Alprazolam (Xanax) 0.25 mg Q8H PRN PO ANXIETY Last administered on 01/28/17 02:28; Admin Dose 0.25 MG; Start 01/24/17 at 16:00 Fluconazole (Diflucan) 100 mg DAILY PO Last administered on 01/31/17 09:27; Admin Dose 100 MG; Start 01/25/17 at 09:00 Simethicone 80 mg 80 mg Q6H PRN PO DISTENSION/GAS/BLOATING; Start 01/26/17 at 12:00 Vancomycin HCl 1.5 gm/Sodium Chloride 250 ml @ 83.333 mls/ hr Q12H IVPB Last administered on 01/31/17 02:40; Admin Dose 83.333 MLS/HR; Start 01/26/17 at 15:30 Levofloxacin/ Dextrose (Levaquin 750 Mg/ D5W 150 ml (Pmx)) 150 ml @ 100 mls/hr Q24H IVPB Last administered on 01/31/17 13:04; Admin Dose 100 MLS/HR; Start 01/26/17 at 12:30 Nystatin (Nystatin Susp) 5 ml QID PO Last administered on 01/31/17 13:04; Admin Dose 5 ML; Start 01/26/17 at 13:00 Diphenhydramine HCl 25 mg 25 mg Q6H PRN IV ALLERGIC REACTION; Start 01/26/17 at 13:30 Meropenem/Sodium Chloride (Merrem 500mg/50 ml(Pmx)) 50 ml @ 100 mls/hr Q8 IVPB Last administered on 01/31/17 06:10; Admin Dose 100 MLS/HR; Start 01/27/17 at 14:00 Hydrocortisone (Hydrocortisone 1% Cr) 1 applic BID TOP Last administered on 09:00; Admin Dose 1 APPLIC; Start 01/27/17 at 13:00 Insulin Glargine (Lantus) 20 unit DAILY@20 SC Last administered on 01/30/17 21:59; Admin Dose 20 UNIT; Start 01/29/17 at 20:00 Losartan Potassium (Cozaar) 50 mg DAILY PO Last administered on 01/31/17 09: 29; Admin Dose 50 MG; Start 01/30/17 at 13:30 Miscellaneous Information (*Rx Drug Level Order Reminder*) VANCOMYCIN TROUGH AT 1430 ONCE ONCE XX ; Start 01/31/17 at 14:30; Stop 01/31/17 at 14:31 Amlodipine Besylate (Norvasc) 10 mg DAILY PO Last administered on 01/31/17 09 :28; Admin Dose 10 MG; Start 01/31/17 at 09:00 Bacitracin (Bacitracin Oint (Ud)) 1 applic BID TOP Last administered on 09:31; Admin Dose 1 APPLIC; Start 01/31/17 at 02:24 EDWARD KINGSLEY NP Jan 31, 2017 14:21
--- NOTE | 2017-01-31 18:46 | CONS ---
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 Patient is currently pursuing naturopathic treatment but also has appointment with [facility] on 02/02. He currently states he could like to try a medication he can purchase on line. -if patient decides to pursue chemotherapy during this admission, he can be transferred to a tertiary care center to initiate treatment. Pt is still not certain he wants to pursue chemotherapy. he would rather seek the opinion as an out patient -pt currently has 60% blasts circulating in his peripheral blood and is transfusion dependant. Pt understands that his disease is terminal and that his only chance of controlling this disease is with chemotherapy which he is not yet willing to accept. -continue broad spectrum antibiotics and antifungal coverage per ID. Appreciate recommendations - keep platelets > 10 and Hg > 8 -continue antibiotics. patient's pneumonia is improving Approximately 40 min were spent at patient's bedside and in coordination of his care Problems: Consultation Date/Type/Reason Admit Date/Time Jan 24, 2017 at 06:40 Initial Consult Date 01/25/17 Type of Consultation: Hematology Reason for Consultation AML Referring Provider: SOBIA NUNEZ 24 HR Interval Summary Free Text/Dictation pt states he is breathing better and states his fever has improved Exam/Review of Systems Vital Signs Vitals Vital Signs Date Time Temp Pulse Resp B/P Pulse Ox O2 Delivery O2 Flow Rate FiO2 01/31/17 17:54 2.0 01/31/17 16:30 82 01/31/17 15:40 98.4 16 134/76 98 01/31/17 08:15 Nasal Cannula Intake and Output 01/30/17 01/30/17 01/31/17 15:00 23:00 07:00 Intake Total 100 ml 1700 ml 400 ml Balance 100 ml 1700 ml 400 ml Exam Constitutional: alert, frail (diaphoretic), oriented, other Psych: anxiety Head: normocephalic Eyes: nl conjunctiva ENMT: nl external ears & nose Neck: supple Respiratory: clear to auscultation, diminished breath sounds Cardiovascular: regular rate and rhythm Gastrointestinal: soft Musculoskeletal: nl extremities to inspection Results Result Diagram: 01/31/17 0740 01/31/17 0741 Results 24 hrs Laboratory Tests Test 01/30/17 18:59 01/30/17 21:24 01/30/17 21:54 01/31/17 02:14 White Blood Count 31.5 #H Red Blood Count 2.85 #L Hemoglobin 8.4 #L Hematocrit 24.8 #L Mean Corpuscular Volume 87.0 Mean Corpuscular Hemoglobin 29.5 Mean Corpuscular Hemoglobin Concent 33.9 Red Cell Distribution Width 15.9 H Platelet Count 10 #*L Mean Platelet Volume 9.6 Neutrophils % Segmented Neutrophils % (Manual) 1 L Lymphocytes % Lymphocytes % (Manual) 10 L Monocytes % Monocytes % (Manual) 6 Eosinophils % Basophils % Myelocytes % (Manual) 3 H Promyelocytes % (Manual) 3 H Blast Cells % (Manual) 77.7 H Nucleated Red Blood Cells % 0.0 Neutrophils # Absolute Lymphocytes (Manual) 3.1 H Lymphocytes # Monocytes # Absolute Monocytes (Manual) 1.8 H Eosinophils # Basophils # Myelocytes # 0.9 H Promyelocytes # 0.9 H Nucleated Red Blood Cells # Platelet Estimate DECREASED Poikilocytosis 1+ Anisocytosis 1+ Macrocytosis 1+ Bedside Glucose 306 H 272 H 107 Test 01/31/17 07:40 01/31/17 07:41 01/31/17 09:03 01/31/17 12:25 White Blood Count 36.7 H Red Blood Count 2.77 L Hemoglobin 8.2 L Hematocrit 25.1 L Mean Corpuscular Volume 90.6 Mean Corpuscular Hemoglobin 29.6 Mean Corpuscular Hemoglobin Concent 32.7 Red Cell Distribution Width 16.1 H Platelet Count 10 *L Mean Platelet Volume Neutrophils % Segmented Neutrophils % (Manual) 1 L Band Neutrophils % (Manual) 1 Lymphocytes % Lymphocytes % (Manual) 28 Monocytes % Monocytes % (Manual) 5 Eosinophils % Basophils % Basophils % (Manual) 3 H Myelocytes % (Manual) 2 H Blast Cells % (Manual) 60.4 H Nucleated Red Blood Cells % 0.0 Neutrophils # Neutrophils # (Manual) 0.5 L Band Neutrophils # 0.3 Absolute Lymphocytes (Manual) 10.2 H Lymphocytes # Monocytes # Absolute Monocytes (Manual) 1.8 H Eosinophils # Basophils # Basophils # (Manual) 1.1 H Myelocytes # 0.7 H Nucleated Red Blood Cells # Platelet Estimate SIG DECREASED Polychromasia 3+ Anisocytosis 1+ Microcytosis 1+ Sodium Level 141 Potassium Level 4.3 Chloride Level 102 Carbon Dioxide Level 28 Anion Gap 15 Blood Urea Nitrogen 22 H Creatinine 0.80 Glucose Level 99 Calcium Level 8.8 Bedside Glucose 115 144 Test 01/31/17 14:23 01/31/17 17:07 01/31/17 18:16 Vancomycin Level Trough 14.2 Bedside Glucose 161 148 Medications Medications Current Medications Ondansetron HCl (Zofran Tab) 4 mg Q6H PRN PO NAUSEA AND/OR VOMITING Last administered on 01/25/17 12:13; Admin Dose 4 MG; Start 01/24/17 at 05:30 Acetaminophen (Tylenol Tab) 650 mg Q6H PRN PO PAIN LEVEL 1-3 OR FEVER Last administered on 01/31/17 09:51; Admin Dose 650 MG; Start 01/24/17 at 05:30 Acetaminophen/ Hydrocodone Bitart ([place] (5/325)) 1 tab Q6H PRN PO PAIN LEVEL 4 -6; Start 01/24/17 at 05:30 Docusate Sodium (Colace) 100 mg Q12H PRN PO CONSTIPATION Last administered on 01/29/17 21:08; Admin Dose 100 MG; Start 01/24/17 at 05:30 Famotidine (Pepcid) 20 mg Q12 PO Last administered on 01/31/17 09:30; Admin Dose 20 MG; Start 01/24/17 at 09:00 Diagnostic Test (Pha) 1 ea 1 ea 02 XX Last administered on 01/31/17 02:33; Admin Dose 1 EA; Start 01/25/17 at 02:00 Sodium Chloride 1,000 ml @ 75 mls/hr [id number] IV Last administered on 21:00; Admin Dose 75 MLS/HR; Start 01/24/17 at 14:30 Acyclovir/Sodium Chloride (Zovirax/NS) 100 ml @ 100 mls/hr Q8 IVPB Last administered on 01/31/17 14:55; Admin Dose 100 MLS/HR; Start 01/24/17 at 14: 30 Miscellaneous Information 1 ea NOTE XX ; Start 01/24/17 at 15:00 Glucose (Glutose) 15 gm Q15M PRN PO DECREASED GLUCOSE; Start 01/24/17 at 15:00 Glucose (Glutose) 22.5 gm Q15M PRN PO DECREASED GLUCOSE; Start 01/24/17 at 15: 00 Dextrose (D50w Syringe) 25 ml Q15M PRN IV DECREASED GLUCOSE; Start 01/24/17 at 15:00 Dextrose (D50w Syringe) 50 ml Q15M PRN IV DECREASED GLUCOSE; Start 01/24/17 at 15:00 Glucagon (Glucagen) 1 mg Q15M PRN IM DECREASED GLUCOSE; Start 01/24/17 at 15: 00 Glucose (Glutose) 15 gm Q15M PRN BUCCAL DECREASED GLUCOSE; Start 01/24/17 at 15:00 Alprazolam (Xanax) 0.25 mg Q8H PRN PO ANXIETY Last administered on 01/28/17 02:28; Admin Dose 0.25 MG; Start 01/24/17 at 16:00 Fluconazole (Diflucan) 100 mg DAILY PO Last administered on 01/31/17 09:27; Admin Dose 100 MG; Start 01/25/17 at 09:00 Simethicone 80 mg 80 mg Q6H PRN PO DISTENSION/GAS/BLOATING; Start 01/26/17 at 12:00 Vancomycin HCl 1.5 gm/Sodium Chloride 250 ml @ 83.333 mls/ hr Q12H IVPB Last administered on 01/31/17 15:28; Admin Dose 83.333 MLS/HR; Start 01/26/17 at 15:30 Levofloxacin/ Dextrose (Levaquin 750 Mg/ D5W 150 ml (Pmx)) 150 ml @ 100 mls/hr Q24H IVPB Last administered on 01/31/17 13:04; Admin Dose 100 MLS/HR; Start 01/26/17 at 12:30 Nystatin (Nystatin Susp) 5 ml QID PO Last administered on 01/31/17 13:04; Admin Dose 5 ML; Start 01/26/17 at 13:00 Diphenhydramine HCl 25 mg 25 mg Q6H PRN IV ALLERGIC REACTION; Start 01/26/17 at 13:30 Meropenem/Sodium Chloride (Merrem 500mg/50 ml(Pmx)) 50 ml @ 100 mls/hr Q8 IVPB Last administered on 01/31/17 15:28; Admin Dose 100 MLS/HR; Start 01/27/17 at 14:00 Hydrocortisone (Hydrocortisone 1% Cr) 1 applic BID TOP Last administered on 09:00; Admin Dose 1 APPLIC; Start 01/27/17 at 13:00 Insulin Glargine (Lantus) 20 unit DAILY@20 SC Last administered on 01/30/17 21:59; Admin Dose 20 UNIT; Start 01/29/17 at 20:00 Losartan Potassium (Cozaar) 50 mg DAILY PO Last administered on 01/31/17 09: 29; Admin Dose 50 MG; Start 01/30/17 at 13:30 Amlodipine Besylate (Norvasc) 10 mg DAILY PO Last administered on 01/31/17 09 :28; Admin Dose 10 MG; Start 01/31/17 at 09:00 Bacitracin (Bacitracin Oint (Ud)) 1 applic BID TOP Last administered on 09:31; Admin Dose 1 APPLIC; Start 01/31/17 at 02:24 CALEB CERON M.D. Jan 31, 2017 18:46
[2017-01-31] MEDS: INSULIN GLARGINE [LANtus] 3 ML PEN SC SCH (20:39)
[2017-01-31] MEDS: DOCUSATE SODIUM 100 MG CAP PO PRN (21:53)
[2017-02-01] VITALS (13 sets, daily range): BP systolic 129–146; BP diastolic 68–88; PULSE 63–99; RESP 18–20
[2017-02-01] MEDS: SOD CHLORIDE 0.9% 1,000 ML IV SCH ×2 (02:00→13:49)
[2017-02-01] MEDS: ACCU-CHEK XX SCH (02:00)
[2017-02-01] MEDS: VANCOMYCIN 1.5 GM in SOD CHLORIDE 0.9% 250 ML IVPB SCH (03:08)
[2017-02-01] MEDS: MEROPENEM 500MG/50 ML (PMX) 50 ML IVPB SCH ×3 (05:17→20:47)
[2017-02-01] MEDS: ACYCLOVIR 500 MG in SOD CHLORIDE 0.9% 100 ML IVPB SCH ×3 (06:58→22:37)
[2017-02-01] MEDS: INSULIN ASPART [NOVOLOG] 3 ML PEN SC SCH ×7 (07:45→21:00)
[2017-02-01] MEDS: NYSTATIN SUSP 5 ML CUP PO SCH ×4 (08:29→20:47)
[2017-02-01] MEDS: BACITRACIN 0.9 GM OINT TOP SCH ×2 (08:29→21:00)
[2017-02-01] MEDS: AMLODIPINE 10 MG TAB PO SCH (08:30)
[2017-02-01] MEDS: FLUCONAZOLE 100 MG TAB PO SCH (08:30)
[2017-02-01] MEDS: LOSARTAN 50 MG TAB PO SCH (08:30)
[2017-02-01] MEDS: FAMOTIDINE 20 MG TAB PO SCH ×2 (08:30→20:47)
[2017-02-01] MEDS: HYDROCORTISONE 1% 28 GM CR TOP SCH ×2 (08:31→21:00)
[2017-02-01 09:14] LABS: ABNORMAL IP MESSAGE 1; HEMATOCRIT 28.4 % (42.0-52.0); HEMOGLOBIN 9.4 g/dl (14.0-18.0); MEAN CORPUSCULAR HGB CONC 33.1 g/dl (32.0-37.0); MEAN CORPUSCULAR VOLUME 87.7 fl (82.0-101.0); MEAN PLATELET VOLUME 9.3 fl (7.4-10.4); POSITIVE DIFF @See below; RED BLOOD COUNT 3.24 10^6/ul (4.70-6.10); RED CELL DISTRIBUTION WIDTH 15.7 % (11.5-14.5)
[2017-02-01 09:19] LABS: PLATELET COUNT 6 10^3/UL (140-415)
[2017-02-01] MEDS ORDERED: ACETAMINOPHEN 500 MG TAB PO STA (09:30)
[2017-02-01] MEDS ORDERED: METHYLPREDNISOLONE 40 MG INJ IV ONE (09:30)
[2017-02-01 09:31] LABS: CALCIUM 9.8 mg/dl (8.4-10.2); CREATININE 1.07 mg/dl (0.61-1.24); POTASSIUM 4.8 mmol/L (3.5-5.1)
--- NOTE | 2017-02-01 12:27 | PN ---
Date/Time of Note Date/Time of Note DATE: 02/01/17 TIME: 12:02 Assessment/Plan VTE Prophylaxis VTE Prophylaxis Intervention: contraindicated VTE Contraindication Reason: thrombocytopenia (severe ) Lines/Catheters [facility] Urinary Cath still in place: No Assessment/Plan Assessment/Plan 66-year-old male with : 1. Severe pneumonia, insetting of functional neutropenia as the patient is in blast crisis essentially currently and severely immunocompromised. Afebrile for the past 4 days, on room air at least for the past 2 days. Vision feels much better. Will discuss with infectious disease which antibiotics to keep for discharge planning in the next 24-48 hours hopefully. He is currently on Levaquin, cefepime, vancomycin, acyclovir, Diflucan. All cultures negative so far. Influenza negative. 2. Acute myelogenous leukemia, recurrence of the disease currently with significant leukocytosis and in blast crisis with some bone marrow suppression in terms of chronic anemia requiring blood transfusions and severe thrombocytopenia also requiring blood transfusions at least weekly now.. Patient will be getting platelet transfusion today. Patient again wants to go the naturopathic way for the next months now that he is feeling a little better and does not want to go to [facility]. Prognosis poor given ongoing blast crisis and seems to be trending toward transfusion dependence. 3. Hypertension, for now, will hold off medications, resume once more stable. 3. Diabetes mellitus, with fair control (HgbA1c 6.7%). Sliding scale insulin and diabetic diet for now. 4. Anxiety disorder, with history of claustrophobia, continue Xanax PRN for anxiety. Prophylaxis: SCDs and anticoagulation contraindicated due to severe thrombocytopenia, Pepcid for GI prophylaxis Disposition: Platelet transfusion today, will narrow down antibiotic regimen if possible per infectious disease. Patient to remain on telemetry for now. Exam/Review of Systems Vital Signs Vitals Vital Signs Date Time Temp Pulse Resp B/P Pulse Ox O2 Delivery O2 Flow Rate FiO2 02/01/17 11:55 97.8 92 18 134/77 97 02/01/17 03:28 2.0 01/31/17 08:15 Nasal Cannula Intake and Output 01/31/17 01/31/17 02/01/17 15:00 23:00 07:00 Intake Total 100 ml 1440 ml 600 ml Balance 100 ml 1440 ml 600 ml Exam Constitutional: alert, oriented, well developed Respiratory: clear to auscultation, normal air movement Cardiovascular: nl pulses, regular rate and rhythm Gastrointestinal: non-tender, soft Musculoskeletal: nl extremities to inspection, other Extremities: normal pulses Results Result Diagram: 02/01/17 0824 02/01/17 0824 Results 24 hrs Laboratory Tests Test 01/31/17 12:25 01/31/17 14:23 01/31/17 17:07 01/31/17 18:16 Bedside Glucose 144 161 148 Vancomycin Level Trough 14.2 Test 01/31/17 20:33 02/01/17 07:41 02/01/17 08:24 Bedside Glucose 109 116 White Blood Count 37.0 H Red Blood Count 3.24 L Hemoglobin 9.4 L Hematocrit 28.4 L Mean Corpuscular Volume 87.7 Mean Corpuscular Hemoglobin 29.0 Mean Corpuscular Hemoglobin Concent 33.1 Red Cell Distribution Width 15.7 H Platelet Count 6 #*L Mean Platelet Volume 9.3 Neutrophils % Lymphocytes % Monocytes % Eosinophils % Basophils % Nucleated Red Blood Cells % 0.0 Neutrophils # Lymphocytes # Monocytes # Eosinophils # Basophils # Nucleated Red Blood Cells # Sodium Level 142 Potassium Level 4.8 Chloride Level 102 Carbon Dioxide Level 29 Anion Gap 16 Blood Urea Nitrogen 22 H Creatinine 1.07 Glucose Level 122 Calcium Level 9.8 Medications Medications Current Medications Ondansetron HCl (Zofran Tab) 4 mg Q6H PRN PO NAUSEA AND/OR VOMITING Last administered on 01/25/17 12:13; Admin Dose 4 MG; Start 01/24/17 at 05:30 Acetaminophen (Tylenol Tab) 650 mg Q6H PRN PO PAIN LEVEL 1-3 OR FEVER Last administered on 01/31/17 09:51; Admin Dose 650 MG; Start 01/24/17 at 05:30 Acetaminophen/ Hydrocodone Bitart ([place] (5/325)) 1 tab Q6H PRN PO PAIN LEVEL 4 -6; Start 01/24/17 at 05:30 Docusate Sodium (Colace) 100 mg Q12H PRN PO CONSTIPATION Last administered on 01/31/17 21:53; Admin Dose 100 MG; Start 01/24/17 at 05:30 Famotidine (Pepcid) 20 mg Q12 PO Last administered on 02/01/17 08:30; Admin Dose 20 MG; Start 01/24/17 at 09:00 Diagnostic Test (Pha) 1 ea 1 ea 02 XX Last administered on 01/31/17 02:33; Admin Dose 1 EA; Start 01/25/17 at 02:00 Sodium Chloride 1,000 ml @ 75 mls/hr [id number] IV Last administered on 02:00; Admin Dose 75 MLS/HR; Start 01/24/17 at 14:30 Acyclovir/Sodium Chloride (Zovirax/NS) 100 ml @ 100 mls/hr Q8 IVPB Last administered on 02/01/17 06:58; Admin Dose 100 MLS/HR; Start 01/24/17 at 14: 30 Miscellaneous Information 1 ea NOTE XX ; Start 01/24/17 at 15:00 Glucose (Glutose) 15 gm Q15M PRN PO DECREASED GLUCOSE; Start 01/24/17 at 15:00 Glucose (Glutose) 22.5 gm Q15M PRN PO DECREASED GLUCOSE; Start 01/24/17 at 15: 00 Dextrose (D50w Syringe) 25 ml Q15M PRN IV DECREASED GLUCOSE; Start 01/24/17 at 15:00 Dextrose (D50w Syringe) 50 ml Q15M PRN IV DECREASED GLUCOSE; Start 01/24/17 at 15:00 Glucagon (Glucagen) 1 mg Q15M PRN IM DECREASED GLUCOSE; Start 01/24/17 at 15: 00 Glucose (Glutose) 15 gm Q15M PRN BUCCAL DECREASED GLUCOSE; Start 01/24/17 at 15:00 Alprazolam (Xanax) 0.25 mg Q8H PRN PO ANXIETY Last administered on 01/28/17 02:28; Admin Dose 0.25 MG; Start 01/24/17 at 16:00 Fluconazole (Diflucan) 100 mg DAILY PO Last administered on 02/01/17 08:30; Admin Dose 100 MG; Start 01/25/17 at 09:00 Simethicone 80 mg 80 mg Q6H PRN PO DISTENSION/GAS/BLOATING; Start 01/26/17 at 12:00 Vancomycin HCl/ Sodium Chloride (Vancocin/NS) 250 ml @ 83.333 mls/ hr Q12H IVPB Last administered on 02/01/17 03:08; Admin Dose 83.333 MLS/HR; Start at 15:30 Nystatin (Nystatin Susp) 5 ml QID PO Last administered on 02/01/17 08:29; Admin Dose 5 ML; Start 01/26/17 at 13:00 Diphenhydramine HCl (Benadryl) 25 mg Q6H PRN IV ALLERGIC REACTION; Start 01/26 at 13:30 Hydrocortisone (Hydrocortisone 1% Cr) 1 applic BID TOP Last administered on 08:31; Admin Dose 1 APPLIC; Start 01/27/17 at 13:00 Insulin Glargine (Lantus) 20 unit DAILY@20 SC Last administered on 01/31/17 20:39; Admin Dose 20 UNIT; Start 01/29/17 at 20:00 Losartan Potassium (Cozaar) 50 mg DAILY PO Last administered on 02/01/17 08: 30; Admin Dose 50 MG; Start 01/30/17 at 13:30 Amlodipine Besylate (Norvasc) 10 mg DAILY PO Last administered on 02/01/17 08 :30; Admin Dose 10 MG; Start 01/31/17 at 09:00 Bacitracin 1 applic 1 applic BID TOP Last administered on 02/01/17 08:29; Admin Dose 1 APPLIC; Start 01/31/17 at 02:24 Levofloxacin/ Dextrose 150 ml @ 100 mls/hr Q24H IVPB ; Start 02/01/17 at 20:00 Meropenem/Sodium Chloride (Merrem 500mg/50 ml(Pmx)) 50 ml @ 100 mls/hr Q8H IVPB Last administered on 02/01/17 05:17; Admin Dose 100 MLS/HR; Start 01/31 at 21:00 SOBIA NUNEZ Feb 01, 2017 12:12
--- NOTE | 2017-02-01 12:34 | CONS ---
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 Patient states he is currently trying a therapy called "Novomine "by [facility] based on the [facility]. Pt states his blast count decreased with this medication but that since this hospital admission his blast count has increased which he attributes to being off this medication. He would like to continue with supportive transfusion in the interim -pt has an appointment with [facility] on 02/02 and states he will reconsider chemotherapy based on that meeting. -if patient decides to pursue chemotherapy during this admission, he can be transferred to a tertiary care center to initiate treatment. -pt currently has 60% blasts circulating in his peripheral blood and is transfusion dependant. Pt understands that his disease is terminal and that his only chance of controlling this disease is with chemotherapy which he is not yet willing to accept. -continue broad spectrum antibiotics and antifungal coverage per ID. Appreciate recommendations - keep platelets > 10 and Hg > 8. need to transfuse 2 units of platelets at this time -continue antibiotics. patient's pneumonia is improving Approximately 40 min were spent at patient's bedside and in coordination of his care Problems: Consultation Date/Type/Reason Admit Date/Time Jan 24, 2017 at 06:40 Initial Consult Date 01/25/17 Type of Consultation: Hematology Reason for Consultation AML Referring Provider: SOBIA NUNEZ 24 HR Interval Summary Free Text/Dictation pt states he is breathing better this morning and feels that his fevers have subsided. He denies any bleeding. Exam/Review of Systems Vital Signs Vitals Vital Signs Date Time Temp Pulse Resp B/P Pulse Ox O2 Delivery O2 Flow Rate FiO2 02/01/17 11:55 97.8 92 18 134/77 97 02/01/17 03:28 2.0 01/31/17 08:15 Nasal Cannula Intake and Output 01/31/17 01/31/17 02/01/17 15:00 23:00 07:00 Intake Total 100 ml 1440 ml 600 ml Balance 100 ml 1440 ml 600 ml Exam Constitutional: alert, frail, oriented, other (diaphoretic) Psych: no complaints Head: normocephalic Eyes: nl conjunctiva ENMT: nl external ears & nose Neck: non-tender, supple Respiratory: diminished breath sounds Cardiovascular: regular rate and rhythm Gastrointestinal: soft Musculoskeletal: nl extremities to inspection Extremities: normal pulses Results Result Diagram: 02/01/17 0824 02/01/17 0824 Results 24 hrs Laboratory Tests Test 01/31/17 14:23 01/31/17 17:07 01/31/17 18:16 01/31/17 20:33 Vancomycin Level Trough 14.2 Bedside Glucose 161 148 109 Test 02/01/17 07:41 02/01/17 08:24 02/01/17 12:05 Bedside Glucose 116 155 White Blood Count 37.0 H Red Blood Count 3.24 L Hemoglobin 9.4 L Hematocrit 28.4 L Mean Corpuscular Volume 87.7 Mean Corpuscular Hemoglobin 29.0 Mean Corpuscular Hemoglobin Concent 33.1 Red Cell Distribution Width 15.7 H Platelet Count 6 #*L Mean Platelet Volume 9.3 Neutrophils % Lymphocytes % Monocytes % Eosinophils % Basophils % Nucleated Red Blood Cells % 0.0 Neutrophils # Lymphocytes # Monocytes # Eosinophils # Basophils # Nucleated Red Blood Cells # Sodium Level 142 Potassium Level 4.8 Chloride Level 102 Carbon Dioxide Level 29 Anion Gap 16 Blood Urea Nitrogen 22 H Creatinine 1.07 Glucose Level 122 Calcium Level 9.8 Medications Medications Current Medications Ondansetron HCl (Zofran Tab) 4 mg Q6H PRN PO NAUSEA AND/OR VOMITING Last administered on 01/25/17 12:13; Admin Dose 4 MG; Start 01/24/17 at 05:30 Acetaminophen (Tylenol Tab) 650 mg Q6H PRN PO PAIN LEVEL 1-3 OR FEVER Last administered on 01/31/17 09:51; Admin Dose 650 MG; Start 01/24/17 at 05:30 Acetaminophen/ Hydrocodone Bitart ([place] (5/325)) 1 tab Q6H PRN PO PAIN LEVEL 4 -6; Start 01/24/17 at 05:30 Docusate Sodium (Colace) 100 mg Q12H PRN PO CONSTIPATION Last administered on 01/31/17 21:53; Admin Dose 100 MG; Start 01/24/17 at 05:30 Famotidine (Pepcid) 20 mg Q12 PO Last administered on 02/01/17 08:30; Admin Dose 20 MG; Start 01/24/17 at 09:00 Diagnostic Test (Pha) 1 ea 1 ea 02 XX Last administered on 01/31/17 02:33; Admin Dose 1 EA; Start 01/25/17 at 02:00 Sodium Chloride 1,000 ml @ 75 mls/hr [id number] IV Last administered on 02:00; Admin Dose 75 MLS/HR; Start 01/24/17 at 14:30 Acyclovir/Sodium Chloride (Zovirax/NS) 100 ml @ 100 mls/hr Q8 IVPB Last administered on 02/01/17 06:58; Admin Dose 100 MLS/HR; Start 01/24/17 at 14: 30 Miscellaneous Information 1 ea NOTE XX ; Start 01/24/17 at 15:00 Glucose (Glutose) 15 gm Q15M PRN PO DECREASED GLUCOSE; Start 01/24/17 at 15:00 Glucose (Glutose) 22.5 gm Q15M PRN PO DECREASED GLUCOSE; Start 01/24/17 at 15: 00 Dextrose (D50w Syringe) 25 ml Q15M PRN IV DECREASED GLUCOSE; Start 01/24/17 at 15:00 Dextrose (D50w Syringe) 50 ml Q15M PRN IV DECREASED GLUCOSE; Start 01/24/17 at 15:00 Glucagon (Glucagen) 1 mg Q15M PRN IM DECREASED GLUCOSE; Start 01/24/17 at 15: 00 Glucose (Glutose) 15 gm Q15M PRN BUCCAL DECREASED GLUCOSE; Start 01/24/17 at 15:00 Alprazolam (Xanax) 0.25 mg Q8H PRN PO ANXIETY Last administered on 01/28/17 02:28; Admin Dose 0.25 MG; Start 01/24/17 at 16:00 Fluconazole (Diflucan) 100 mg DAILY PO Last administered on 02/01/17 08:30; Admin Dose 100 MG; Start 01/25/17 at 09:00 Simethicone (Mylicon) 80 mg Q6H PRN PO DISTENSION/GAS/BLOATING; Start at 12:00 Nystatin (Nystatin Susp) 5 ml QID PO Last administered on 02/01/17 12:13; Admin Dose 5 ML; Start 01/26/17 at 13:00 Diphenhydramine HCl (Benadryl) 25 mg Q6H PRN IV ALLERGIC REACTION; Start 01/26 at 13:30 Hydrocortisone (Hydrocortisone 1% Cr) 1 applic BID TOP Last administered on 08:31; Admin Dose 1 APPLIC; Start 01/27/17 at 13:00 Insulin Glargine (Lantus) 20 unit DAILY@20 SC Last administered on 01/31/17 20:39; Admin Dose 20 UNIT; Start 01/29/17 at 20:00 Losartan Potassium (Cozaar) 50 mg DAILY PO Last administered on 02/01/17 08: 30; Admin Dose 50 MG; Start 01/30/17 at 13:30 Amlodipine Besylate (Norvasc) 10 mg DAILY PO Last administered on 02/01/17 08 :30; Admin Dose 10 MG; Start 01/31/17 at 09:00 Bacitracin 1 applic 1 applic BID TOP Last administered on 02/01/17 08:29; Admin Dose 1 APPLIC; Start 01/31/17 at 02:24 Levofloxacin/ Dextrose 150 ml @ 100 mls/hr Q24H IVPB ; Start 02/01/17 at 20:00 Meropenem/Sodium Chloride 50 ml @ 100 mls/hr Q8H IVPB Last administered on 12:13; Admin Dose 100 MLS/HR; Start 01/31/17 at 21:00 Vancomycin HCl (Vancocin) 250 ml @ 125 mls/hr Q12H IVPB ; Start 02/01/17 at 15 :30 CALEB CERON M.D. Feb 01, 2017 12:34
--- NOTE | 2017-02-01 15:41 | CONS ---
Date/Time of Note Date/Time of Note DATE: 02/01/17 TIME: 15:39 Assessment/Plan Assessment/Plan Chief Complaint/Hosp Course No acute changes overnight, patient is alert, feels better, looks comfortable on RA, no fevers, no n/v/d Microbiology: Blood culture and urine culture remain negative Antimicrobials: Vancomycin, Levaquin, Merrem, acyclovir, fluconazole Physical examination: This is a well-nourished well-developed elderly [place] man who is alert in no distress. Head atraumatic normocephalic sclerae nonicteric vehicle mucosa dry patient has severe halitosis and oral thrush on his tongue. Neck is supple chest rise symmetrical breath sounds diminished bases. Heart: S1-S2, tachycardic, regular. Abdomen soft, bowel tones present. Extremities without cyanosis edema Assessment: 1. S/p sepsis 2. Multifocal pneumonia with superimposed vascular congestion 3. AML 4. Diabetes 5. Hypertension Plan: Doing better, continue abx, anticipate dc on PO Levaquin and Doxycycline to complete 2 weeks, oncology recommendations noted DW pt/staff Problems: Consultation Date/Type/Reason Admit Date/Time Jan 24, 2017 at 06:40 Initial Consult Date 01/25/17 Type of Consultation: ID Referring Provider: SOBIA NUNEZ Exam/Review of Systems Vital Signs Vitals Vital Signs Date Time Temp Pulse Resp B/P Pulse Ox O2 Delivery O2 Flow Rate FiO2 02/01/17 12:00 92 02/01/17 11:55 97.8 18 134/77 97 02/01/17 03:28 2.0 01/31/17 08:15 Nasal Cannula Intake and Output 01/31/17 01/31/17 02/01/17 15:00 23:00 07:00 Intake Total 100 ml 1440 ml 600 ml Balance 100 ml 1440 ml 600 ml Results Result Diagram: 02/01/17 0824 02/01/17 0824 Results 24 hrs Laboratory Tests Test 01/31/17 17:07 01/31/17 18:16 01/31/17 20:33 02/01/17 07:41 Bedside Glucose 161 148 109 116 Test 02/01/17 08:24 02/01/17 12:05 White Blood Count 37.0 H Red Blood Count 3.24 L Hemoglobin 9.4 L Hematocrit 28.4 L Mean Corpuscular Volume 87.7 Mean Corpuscular Hemoglobin 29.0 Mean Corpuscular Hemoglobin Concent 33.1 Red Cell Distribution Width 15.7 H Platelet Count 6 #*L Mean Platelet Volume 9.3 Neutrophils % Lymphocytes % Monocytes % Eosinophils % Basophils % Nucleated Red Blood Cells % 0.0 Neutrophils # Lymphocytes # Monocytes # Eosinophils # Basophils # Nucleated Red Blood Cells # Sodium Level 142 Potassium Level 4.8 Chloride Level 102 Carbon Dioxide Level 29 Anion Gap 16 Blood Urea Nitrogen 22 H Creatinine 1.07 Glucose Level 122 Calcium Level 9.8 Bedside Glucose 155 Medications Medications Current Medications Ondansetron HCl (Zofran Tab) 4 mg Q6H PRN PO NAUSEA AND/OR VOMITING Last administered on 01/25/17 12:13; Admin Dose 4 MG; Start 01/24/17 at 05:30 Acetaminophen (Tylenol Tab) 650 mg Q6H PRN PO PAIN LEVEL 1-3 OR FEVER Last administered on 01/31/17 09:51; Admin Dose 650 MG; Start 01/24/17 at 05:30 Acetaminophen/ Hydrocodone Bitart ([place] (5/325)) 1 tab Q6H PRN PO PAIN LEVEL 4 -6; Start 01/24/17 at 05:30 Docusate Sodium (Colace) 100 mg Q12H PRN PO CONSTIPATION Last administered on 01/31/17 21:53; Admin Dose 100 MG; Start 01/24/17 at 05:30 Famotidine (Pepcid) 20 mg Q12 PO Last administered on 02/01/17 08:30; Admin Dose 20 MG; Start 01/24/17 at 09:00 Diagnostic Test (Pha) 1 ea 1 ea 02 XX Last administered on 01/31/17 02:33; Admin Dose 1 EA; Start 01/25/17 at 02:00 Sodium Chloride 1,000 ml @ 75 mls/hr [id number] IV Last administered on 02:00; Admin Dose 75 MLS/HR; Start 01/24/17 at 14:30 Acyclovir/Sodium Chloride (Zovirax/NS) 100 ml @ 100 mls/hr Q8 IVPB Last administered on 02/01/17 13:13; Admin Dose 100 MLS/HR; Start 01/24/17 at 14: 30 Miscellaneous Information 1 ea NOTE XX ; Start 01/24/17 at 15:00 Glucose (Glutose) 15 gm Q15M PRN PO DECREASED GLUCOSE; Start 01/24/17 at 15:00 Glucose (Glutose) 22.5 gm Q15M PRN PO DECREASED GLUCOSE; Start 01/24/17 at 15: 00 Dextrose (D50w Syringe) 25 ml Q15M PRN IV DECREASED GLUCOSE; Start 01/24/17 at 15:00 Dextrose (D50w Syringe) 50 ml Q15M PRN IV DECREASED GLUCOSE; Start 01/24/17 at 15:00 Glucagon (Glucagen) 1 mg Q15M PRN IM DECREASED GLUCOSE; Start 01/24/17 at 15: 00 Glucose (Glutose) 15 gm Q15M PRN BUCCAL DECREASED GLUCOSE; Start 01/24/17 at 15:00 Alprazolam (Xanax) 0.25 mg Q8H PRN PO ANXIETY Last administered on 01/28/17 02:28; Admin Dose 0.25 MG; Start 01/24/17 at 16:00 Fluconazole (Diflucan) 100 mg DAILY PO Last administered on 02/01/17 08:30; Admin Dose 100 MG; Start 01/25/17 at 09:00 Simethicone (Mylicon) 80 mg Q6H PRN PO DISTENSION/GAS/BLOATING; Start at 12:00 Nystatin (Nystatin Susp) 5 ml QID PO Last administered on 02/01/17 12:13; Admin Dose 5 ML; Start 01/26/17 at 13:00 Diphenhydramine HCl (Benadryl) 25 mg Q6H PRN IV ALLERGIC REACTION; Start 01/26 at 13:30 Hydrocortisone (Hydrocortisone 1% Cr) 1 applic BID TOP Last administered on 08:31; Admin Dose 1 APPLIC; Start 01/27/17 at 13:00 Insulin Glargine (Lantus) 20 unit DAILY@20 SC Last administered on 01/31/17 20:39; Admin Dose 20 UNIT; Start 01/29/17 at 20:00 Losartan Potassium (Cozaar) 50 mg DAILY PO Last administered on 02/01/17 08: 30; Admin Dose 50 MG; Start 01/30/17 at 13:30 Amlodipine Besylate (Norvasc) 10 mg DAILY PO Last administered on 02/01/17 08 :30; Admin Dose 10 MG; Start 01/31/17 at 09:00 Bacitracin 1 applic 1 applic BID TOP Last administered on 02/01/17 08:29; Admin Dose 1 APPLIC; Start 01/31/17 at 02:24 Levofloxacin/ Dextrose 150 ml @ 100 mls/hr Q24H IVPB ; Start 02/01/17 at 20:00 Meropenem/Sodium Chloride 50 ml @ 100 mls/hr Q8H IVPB Last administered on 12:13; Admin Dose 100 MLS/HR; Start 01/31/17 at 21:00 Vancomycin HCl (Vancocin) 250 ml @ 125 mls/hr Q12H IVPB ; Start 02/01/17 at 15 :30 EDWARD KINGSLEY NP Feb 01, 2017 15:41
[2017-02-01] MEDS: VANCOMYCIN 1 GM in NS 250 ML IVPB SCH (16:04)
[2017-02-01] MEDS ORDERED: ACETAMINOPHEN 325 MG TAB PO SCH (17:52)
[2017-02-01] MEDS ORDERED: METHYLPREDNISOLONE 40 MG INJ IV SCH (18:01)
[2017-02-01] MEDS ORDERED: LEVOFLOXACIN 750MG/D5W (PMX) 150 ML IVPB SCH (20:00)
[2017-02-01] MEDS: INSULIN GLARGINE [LANtus] 3 ML PEN SC SCH (20:54)
[2017-02-01] MEDS: DOCUSATE SODIUM 100 MG CAP PO PRN (20:56)
[2017-02-02] VITALS (7 sets, daily range): BP systolic 122–137; BP diastolic 69–79; PULSE 72–89; RESP 18–20
[2017-02-02] MEDS: ACCU-CHEK XX SCH (02:00)
[2017-02-02] MEDS: VANCOMYCIN 1 GM in NS 250 ML IVPB SCH (03:13)
[2017-02-02] MEDS: SOD CHLORIDE 0.9% 1,000 ML IV SCH (05:03)
[2017-02-02] MEDS: MEROPENEM 500MG/50 ML (PMX) 50 ML IVPB SCH (05:03)
[2017-02-02] MEDS: ACYCLOVIR 500 MG in SOD CHLORIDE 0.9% 100 ML IVPB SCH (06:00)
[2017-02-02] MEDS: INSULIN ASPART [NOVOLOG] 3 ML PEN SC SCH ×4 (07:55→11:50)
[2017-02-02] MEDS: NYSTATIN SUSP 5 ML CUP PO SCH ×2 (08:32→13:00)
[2017-02-02] MEDS: LOSARTAN 50 MG TAB PO SCH (08:33)
[2017-02-02] MEDS: FLUCONAZOLE 100 MG TAB PO SCH (08:33)
[2017-02-02] MEDS: BACITRACIN 0.9 GM OINT TOP SCH (08:33)
[2017-02-02] MEDS: AMLODIPINE 10 MG TAB PO SCH (08:33)
[2017-02-02] MEDS: FAMOTIDINE 20 MG TAB PO SCH (08:33)
[2017-02-02] MEDS: HYDROCORTISONE 1% 28 GM CR TOP SCH (08:34)
--- NOTE | 2017-02-02 09:08 | CONS ---
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 Patient states he is currently trying a therapy called "Novomine "by [employer], [place] based on the formerly [facility]. Pt states his blast count decreased with this medication but that since this hospital admission his blast count has increased which he attributes to being off this medication. He would like to continue with supportive transfusion in the interim -pt has an appointment with [facility] on 02/02 and states he will reconsider chemotherapy based on that meeting. -if patient decides to pursue chemotherapy during this admission, he can be transferred to a tertiary care center to initiate treatment. -pt currently has 60% blasts circulating in his peripheral blood and is transfusion dependant. Pt understands that his disease is terminal and that his only chance of controlling this disease is with chemotherapy which he is not yet willing to accept. -continue broad spectrum antibiotics and antifungal coverage per ID. Appreciate recommendations - keep platelets > 10 and Hg > pt is s/p transfusion yesterday. will follow up CBC today -continue antibiotics. patient's pneumonia is improving Approximately 40 min were spent at patient's bedside and in coordination of his care Problems: Consultation Date/Type/Reason Admit Date/Time Jan 24, 2017 at 06:40 Initial Consult Date 01/25/17 Type of Consultation: Hematology Reason for Consultation AML Referring Provider: SOBIA NUNEZ 24 HR Interval Summary Free Text/Dictation pt states he continues to feel better Exam/Review of Systems Vital Signs Vitals Vital Signs Date Time Temp Pulse Resp B/P Pulse Ox O2 Delivery O2 Flow Rate FiO2 02/02/17 08:33 89 02/02/17 07:52 97.9 18 137/79 95 02/02/17 06:32 2.0 01/31/17 08:15 Nasal Cannula Intake and Output 02/01/17 02/01/17 02/02/17 14:59 22:59 06:59 Intake Total 150 ml 2223 ml 1125 ml Output Total 200 ml Balance 150 ml 2023 ml 1125 ml Exam Constitutional: alert, frail, oriented Psych: anxiety, no complaints Head: normocephalic Eyes: nl conjunctiva ENMT: nl external ears & nose Neck: non-tender, supple Respiratory: crackles/rales Cardiovascular: regular rate and rhythm Gastrointestinal: soft Musculoskeletal: nl extremities to inspection, nl gait and stance Extremities: normal pulses Neurological: SYSTEM AUDITOR II-XII intact Results Result Diagram: 02/01/17 0824 02/01/17 0824 Results 24 hrs Laboratory Tests Test 02/01/17 12:05 02/01/17 17:24 02/01/17 20:45 02/02/17 05:59 Bedside Glucose 155 148 163 Lab Scanned Report BLOOD TRANSFUSION Test 02/02/17 07:56 Bedside Glucose 109 Medications Medications Current Medications Ondansetron HCl (Zofran Tab) 4 mg Q6H PRN PO NAUSEA AND/OR VOMITING Last administered on 01/25/17 12:13; Admin Dose 4 MG; Start 01/24/17 at 05:30 Acetaminophen (Tylenol Tab) 650 mg Q6H PRN PO PAIN LEVEL 1-3 OR FEVER Last administered on 01/31/17 09:51; Admin Dose 650 MG; Start 01/24/17 at 05:30 Acetaminophen/ Hydrocodone Bitart ([place] (5/325)) 1 tab Q6H PRN PO PAIN LEVEL 4 -6; Start 01/24/17 at 05:30 Docusate Sodium (Colace) 100 mg Q12H PRN PO CONSTIPATION Last administered on 02/01/17 20:56; Admin Dose 100 MG; Start 01/24/17 at 05:30 Famotidine (Pepcid) 20 mg Q12 PO Last administered on 02/02/17 08:33; Admin Dose 20 MG; Start 01/24/17 at 09:00 Diagnostic Test (Pha) 1 ea 1 ea 02 XX Last administered on 01/31/17 02:33; Admin Dose 1 EA; Start 01/25/17 at 02:00 Sodium Chloride 1,000 ml @ 75 mls/hr [id number] IV Last administered on 05:03; Admin Dose 75 MLS/HR; Start 01/24/17 at 14:30 Acyclovir/Sodium Chloride (Zovirax/NS) 100 ml @ 100 mls/hr Q8 IVPB Last administered on 02/02/17 06:00; Admin Dose 100 MLS/HR; Start 01/24/17 at 14: 30 Miscellaneous Information 1 ea NOTE XX ; Start 01/24/17 at 15:00 Glucose (Glutose) 15 gm Q15M PRN PO DECREASED GLUCOSE; Start 01/24/17 at 15:00 Glucose (Glutose) 22.5 gm Q15M PRN PO DECREASED GLUCOSE; Start 01/24/17 at 15: 00 Dextrose (D50w Syringe) 25 ml Q15M PRN IV DECREASED GLUCOSE; Start 01/24/17 at 15:00 Dextrose (D50w Syringe) 50 ml Q15M PRN IV DECREASED GLUCOSE; Start 01/24/17 at 15:00 Glucagon (Glucagen) 1 mg Q15M PRN IM DECREASED GLUCOSE; Start 01/24/17 at 15: 00 Glucose (Glutose) 15 gm Q15M PRN BUCCAL DECREASED GLUCOSE; Start 01/24/17 at 15:00 Alprazolam (Xanax) 0.25 mg Q8H PRN PO ANXIETY Last administered on 01/28/17 02:28; Admin Dose 0.25 MG; Start 01/24/17 at 16:00 Fluconazole (Diflucan) 100 mg DAILY PO Last administered on 02/02/17 08:33; Admin Dose 100 MG; Start 01/25/17 at 09:00 Simethicone (Mylicon) 80 mg Q6H PRN PO DISTENSION/GAS/BLOATING; Start at 12:00 Nystatin (Nystatin Susp) 5 ml QID PO Last administered on 02/02/17 08:32; Admin Dose 5 ML; Start 01/26/17 at 13:00 Diphenhydramine HCl (Benadryl) 25 mg Q6H PRN IV ALLERGIC REACTION; Start 01/26 at 13:30 Hydrocortisone (Hydrocortisone 1% Cr) 1 applic BID TOP Last administered on 08:34; Admin Dose 1 APPLIC; Start 01/27/17 at 13:00 Insulin Glargine (Lantus) 20 unit DAILY@20 SC Last administered on 02/01/17 20:54; Admin Dose 20 UNIT; Start 01/29/17 at 20:00 Losartan Potassium (Cozaar) 50 mg DAILY PO Last administered on 02/02/17 08: 33; Admin Dose 50 MG; Start 01/30/17 at 13:30 Amlodipine Besylate (Norvasc) 10 mg DAILY PO Last administered on 02/02/17 08 :33; Admin Dose 10 MG; Start 01/31/17 at 09:00 Bacitracin 1 applic 1 applic BID TOP Last administered on 02/02/17 08:33; Admin Dose 1 APPLIC; Start 01/31/17 at 02:24 Levofloxacin/ Dextrose 150 ml @ 100 mls/hr Q24H IVPB Last administered on 20:46; Admin Dose 100 MLS/HR; Start 02/01/17 at 20:00 Meropenem/Sodium Chloride 50 ml @ 100 mls/hr Q8H IVPB Last administered on 05:03; Admin Dose 100 MLS/HR; Start 01/31/17 at 21:00 Vancomycin HCl (Vancocin) 250 ml @ 125 mls/hr Q12H IVPB Last administered on 02/02/17 03:13; Admin Dose 125 MLS/HR; Start 02/01/17 at 15:30 CALEB CERON M.D. Feb 02, 2017 09:08
[2017-02-02 11:07] LABS: ABNORMAL IP MESSAGE 1; HEMATOCRIT 24.9 % (42.0-52.0); HEMOGLOBIN 8.4 g/dl (14.0-18.0); MEAN CORPUSCULAR HEMOGLOBIN 29.5 pg (29.0-33.0); MEAN CORPUSCULAR HGB CONC 33.7 g/dl (32.0-37.0); MEAN CORPUSCULAR VOLUME 87.4 fl (82.0-101.0); MEAN PLATELET VOLUME 9.5 fl (7.4-10.4); POSITIVE DIFF @See below; RED BLOOD COUNT 2.85 10^6/ul (4.70-6.10); RED CELL DISTRIBUTION WIDTH 15.2 % (11.5-14.5); WHITE BLOOD COUNT 28.3 10^3/ul (4.8-10.8)
[2017-02-02 11:26] LABS: PLATELET COUNT 28 10^3/UL (140-415)
[2017-02-02 11:27] LABS: ALBUMIN 3.7 g/dl (3.3-4.9); ALBUMIN/GLOBULIN RATIO 1.05; CALCIUM 9.5 mg/dl (8.4-10.2); CREATININE 1.16 mg/dl (0.61-1.24); POTASSIUM 3.5 mmol/L (3.5-5.1); TOTAL PROTEIN 7.2 g/dl (6.1-8.1)
--- NOTE | 2017-02-02 11:32 | PN ---
Date/Time of Note Date/Time of Note DATE: 02/02/17 TIME: 11:20 Assessment/Plan VTE Prophylaxis VTE Prophylaxis Intervention: contraindicated VTE Contraindication Reason: thrombocytopenia Lines/Catheters IV [facility] Urinary Cath still in place: No Assessment/Plan Assessment/Plan 66-year-old male with : 1. Severe pneumonia, insetting of functional neutropenia as the patient is in blast crisis essentially currently and severely immunocompromised. Afebrile for the past 4 days, on room air at least for the past 2 days. Vision feels much better. Will discuss with infectious disease which antibiotics to keep for discharge planning in the next 24-48 hours hopefully. Appreciate recommendations from infectious disease, will plan on discharge home on Levaquin and doxycycline 5 more days. And also to go home on prophylactic doses of acyclovir 400 mg p.o. twice daily and Diflucan 100 mg p.o. daily while still more or less with functional neutropenia. D/C meropenem, vancomycin for now. 2. Acute myelogenous leukemia, recurrence of the disease currently with significant leukocytosis and in blast crisis with some bone marrow suppression in terms of chronic anemia requiring blood transfusions and severe thrombocytopenia also requiring blood transfusions at least weekly now.. Patient again wants to go the naturopathic way for the next months now that he is feeling a little better. Prognosis poor given ongoing blast crisis and seems to be trending toward transfusion dependence. Patient discharging home with home health to be arranged, he needs to have blood draws biweekly and likely to have transfusions arrange through Dr. Herrera. Patient will go to [facility] for evaluation from what he is saying. 3. Hypertension, for now, will hold off medications, resume once more stable. 3. Diabetes mellitus, with fair control (HgbA1c 6.7%). Sliding scale insulin and diabetic diet for now. 4. Anxiety disorder, with history of claustrophobia, continue Xanax PRN for anxiety. Prophylaxis: SCDs and anticoagulation contraindicated due to severe thrombocytopenia, Pepcid for GI prophylaxis Disposition: Discharge home with home health Subjective 24 Hr Interval Summary Free Text/Dictation Patient feels well this morning, repeat CBC this morning showing a WBC count of 27, hemoglobin 8.4 and platelets up to 28. Patient is status post 2 units of platelet transfusion overnight. Discussed with infectious disease and hematology, patient will be discharged home today on 5 more days of antibiotic for pneumonia and also on prophylactic doses of acyclovir and Diflucan to take at home. Exam/Review of Systems Vital Signs Vitals Vital Signs Date Time Temp Pulse Resp B/P Pulse Ox O2 Delivery O2 Flow Rate FiO2 02/02/17 08:33 89 02/02/17 07:52 97.9 18 137/79 95 02/02/17 06:32 2.0 01/31/17 08:15 Nasal Cannula Intake and Output 02/01/17 02/01/17 02/02/17 14:59 22:59 06:59 Intake Total 150 ml 2223 ml 1125 ml Output Total 200 ml Balance 150 ml 2023 ml 1125 ml Exam Constitutional: alert, oriented, well developed Respiratory: clear to auscultation, normal air movement Cardiovascular: nl pulses, regular rate and rhythm Gastrointestinal: non-tender, soft Musculoskeletal: nl extremities to inspection Extremities: normal pulses, other (No edema, clubbing or cyanosis) Neurological: TOW MATE II-XII intact, nl mental status, nl speech, nl strength Results Result Diagram: 02/01/1782302/01/1724 Results 24 hrs Laboratory Tests Test 02/01/17 12:05 02/01/17 17:24 02/01/17 20:45 02/02/17 05:59 Bedside Glucose 155 148 163 Lab Scanned Report BLOOD TRANSFUSION Test 02/02/17 07:56 02/02/17 10:43 Bedside Glucose 109 White Blood Count Pending Red Blood Count Pending Hemoglobin Pending Hematocrit Pending Mean Corpuscular Volume Pending Mean Corpuscular Hemoglobin Pending Mean Corpuscular Hemoglobin Concent Pending Red Cell Distribution Width Pending Platelet Count Pending Mean Platelet Volume Pending Medications Medications Current Medications Ondansetron HCl (Zofran Tab) 4 mg Q6H PRN PO NAUSEA AND/OR VOMITING Last administered on 01/25/17 12:13; Admin Dose 4 MG; Start 01/24/17 at 05:30 Acetaminophen (Tylenol Tab) 650 mg Q6H PRN PO PAIN LEVEL 1-3 OR FEVER Last administered on 01/31/17 09:51; Admin Dose 650 MG; Start 01/24/17 at 05:30 Acetaminophen/ Hydrocodone Bitart ([place] (5/325)) 1 tab Q6H PRN PO PAIN LEVEL 4 -6; Start 01/24/17 at 05:30 Docusate Sodium (Colace) 100 mg Q12H PRN PO CONSTIPATION Last administered on 02/01/17 20:56; Admin Dose 100 MG; Start 01/24/17 at 05:30 Famotidine (Pepcid) 20 mg Q12 PO Last administered on 02/02/17 08:33; Admin Dose 20 MG; Start 01/24/17 at 09:00 Diagnostic Test (Pha) 1 ea 1 ea 02 XX Last administered on 01/31/17 02:33; Admin Dose 1 EA; Start 01/25/17 at 02:00 Sodium Chloride 1,000 ml @ 75 mls/hr [id number] IV Last administered on 05:03; Admin Dose 75 MLS/HR; Start 01/24/17 at 14:30 Acyclovir/Sodium Chloride (Zovirax/NS) 100 ml @ 100 mls/hr Q8 IVPB Last administered on 02/02/17 06:00; Admin Dose 100 MLS/HR; Start 01/24/17 at 14: 30 Miscellaneous Information 1 ea NOTE XX ; Start 01/24/17 at 15:00 Glucose (Glutose) 15 gm Q15M PRN PO DECREASED GLUCOSE; Start 01/24/17 at 15:00 Glucose (Glutose) 22.5 gm Q15M PRN PO DECREASED GLUCOSE; Start 01/24/17 at 15: 00 Dextrose (D50w Syringe) 25 ml Q15M PRN IV DECREASED GLUCOSE; Start 01/24/17 at 15:00 Dextrose (D50w Syringe) 50 ml Q15M PRN IV DECREASED GLUCOSE; Start 01/24/17 at 15:00 Glucagon (Glucagen) 1 mg Q15M PRN IM DECREASED GLUCOSE; Start 01/24/17 at 15: 00 Glucose (Glutose) 15 gm Q15M PRN BUCCAL DECREASED GLUCOSE; Start 01/24/17 at 15:00 Alprazolam (Xanax) 0.25 mg Q8H PRN PO ANXIETY Last administered on 01/28/17 02:28; Admin Dose 0.25 MG; Start 01/24/17 at 16:00 Fluconazole (Diflucan) 100 mg DAILY PO Last administered on 02/02/17 08:33; Admin Dose 100 MG; Start 01/25/17 at 09:00 Simethicone (Mylicon) 80 mg Q6H PRN PO DISTENSION/GAS/BLOATING; Start at 12:00 Nystatin (Nystatin Susp) 5 ml QID PO Last administered on 02/02/17 08:32; Admin Dose 5 ML; Start 01/26/17 at 13:00 Diphenhydramine HCl (Benadryl) 25 mg Q6H PRN IV ALLERGIC REACTION; Start 01/26 at 13:30 Hydrocortisone (Hydrocortisone 1% Cr) 1 applic BID TOP Last administered on 08:34; Admin Dose 1 APPLIC; Start 01/27/17 at 13:00 Insulin Glargine (Lantus) 20 unit DAILY@20 SC Last administered on 02/01/17 20:54; Admin Dose 20 UNIT; Start 01/29/17 at 20:00 Losartan Potassium (Cozaar) 50 mg DAILY PO Last administered on 02/02/17 08: 33; Admin Dose 50 MG; Start 01/30/17 at 13:30 Amlodipine Besylate (Norvasc) 10 mg DAILY PO Last administered on 02/02/17 08 :33; Admin Dose 10 MG; Start 01/31/17 at 09:00 Bacitracin 1 applic 1 applic BID TOP Last administered on 02/02/17 08:33; Admin Dose 1 APPLIC; Start 01/31/17 at 02:24 Levofloxacin/ Dextrose 150 ml @ 100 mls/hr Q24H IVPB Last administered on 20:46; Admin Dose 100 MLS/HR; Start 02/01/17 at 20:00 Meropenem/Sodium Chloride 50 ml @ 100 mls/hr Q8H IVPB Last administered on 05:03; Admin Dose 100 MLS/HR; Start 01/31/17 at 21:00 Vancomycin HCl (Vancocin) 250 ml @ 125 mls/hr Q12H IVPB Last administered on 02/02/17 03:13; Admin Dose 125 MLS/HR; Start 02/01/17 at 15:30 SOBIA NUNEZ Feb 02, 2017 11:32
--- NOTE | 2017-02-02 11:52 | PDOCDIS ---
Discharge Instructions CONDITION Patient Condition: Stable HOME CARE INSTRUCTIONS: Special Diet: Carb controlled ACTIVITY: Activity Restrictions: Slowly Increase Activity FOLLOW UP/APPOINTMENTS Follow-up Plan Follow-up with primary care physician within 1 week Follow-up with Dr. Herrera, hematology as scheduled, patient also getting labs drawn biweekly by [facility] with results to be sent to Dr. Herrera for outpatient blood product transfusion scheduling [facility] for blood draw as ordered and scheduled per SOBIA Riley Feb 02, 2017 11:52
[2017-02-02] MEDS ORDERED: DOXY100T2 PO (11:55)
[2017-02-02] MEDS ORDERED: LEVO750T25 PO (11:55)
[2017-02-02] MEDS ORDERED: ACYC400T2 PO (11:55)
[2017-02-02] MEDS ORDERED: FLUC100T PO (11:55)
[2017-02-02 14:10] LABS: ANISOCYTOSIS 1+ (0-0); MICROCYTOSIS 1+ (0-0); MONOCYTES % (M) 3 % (0-11); PLATELET ESTIMATE SIG DECREASED; REACTIVE LYMPHOCYTES% (M) 39 % (0-0)
--- NOTE | 2017-02-02 14:35 | CONS ---
Date/Time of Note Date/Time of Note DATE: 02/02/17 TIME: 14:34 Assessment/Plan Assessment/Plan Chief Complaint/Hosp Course No acute changes overnight, patient is alert, feels good, no fevers, no SOB Microbiology: Blood culture and urine culture remain negative Antimicrobials: Levaquin acyclovir, fluconazole Physical examination: This is a well-nourished well-developed elderly [place] man who is alert in no distress. Head atraumatic normocephalic sclerae nonicteric vehicle mucosa dry patient has severe halitosis and oral thrush on his tongue. Neck is supple chest rise symmetrical breath sounds diminished bases. Heart: S1-S2, tachycardic, regular. Abdomen soft, bowel tones present. Extremities without cyanosis edema Assessment: 1. S/p sepsis 2. Multifocal pneumonia with superimposed vascular congestion 3. AML 4. Diabetes 5. Hypertension Plan: Continues to improve, ok dc on PO Levaquin and Doxycycline to complete 2 weeks, f/u with oncology and PMD DW pt/staff Problems: Consultation Date/Type/Reason Admit Date/Time Jan 24, 2017 at 06:40 Initial Consult Date 01/25/17 Type of Consultation: id Referring Provider: SOBIA NUNEZ Exam/Review of Systems Vital Signs Vitals Vital Signs Date Time Temp Pulse Resp B/P Pulse Ox O2 Delivery O2 Flow Rate FiO2 02/02/17 13:59 2.0 02/02/17 12:18 84 02/02/17 11:43 97.7 18 122/76 95 01/31/17 08:15 Nasal Cannula Intake and Output 02/01/17 02/01/17 02/02/17 15:00 23:00 07:00 Intake Total 150 ml 2273 ml 1075 ml Output Total 200 ml Balance 150 ml 2073 ml 1075 ml Results Result Diagram: 02/02/17 1043 02/02/17 1043 Results 24 hrs Laboratory Tests Test 02/01/17 17:24 02/01/17 20:45 02/02/17 05:59 02/02/17 07:56 Bedside Glucose 148 163 109 Lab Scanned Report BLOOD TRANSFUSION Test 02/02/17 10:43 02/02/17 11:36 White Blood Count 28.3 #H Red Blood Count 2.85 L Hemoglobin 8.4 L Hematocrit 24.9 L Mean Corpuscular Volume 87.4 Mean Corpuscular Hemoglobin 29.5 Mean Corpuscular Hemoglobin Concent 33.7 Red Cell Distribution Width 15.2 H Platelet Count 28 #*L Mean Platelet Volume 9.5 Neutrophils % Segmented Neutrophils % (Manual) 1 L Lymphocytes % Lymphocytes % (Manual) 13 L Reactive Lymphocytes % (Manual) 39 H Monocytes % Monocytes % (Manual) 3 Eosinophils % Basophils % Blast Cells % (Manual) 44.0 H Nucleated Red Blood Cells % 0.0 Neutrophils # Absolute Lymphocytes (Manual) 3.6 H Lymphocytes # Reactive Lymphocytes # 11.0 H Monocytes # Absolute Monocytes (Manual) 0.8 Eosinophils # Basophils # Nucleated Red Blood Cells # Platelet Estimate SIG DECREASED Anisocytosis 1+ Microcytosis 1+ Sodium Level 140 Potassium Level 3.5 Chloride Level 101 Carbon Dioxide Level 28 Anion Gap 15 Blood Urea Nitrogen 26 H Creatinine 1.16 Glucose Level 138 Calcium Level 9.5 Total Bilirubin 1.0 Direct Bilirubin 0.00 Indirect Bilirubin 1.0 Aspartate Amino Transf (AST/SGOT) 18 Alanine Aminotransferase (ALT/SGPT) 44 Alkaline Phosphatase 74 Total Protein 7.2 Albumin 3.7 Globulin 3.50 H Albumin/Globulin Ratio 1.05 Bedside Glucose 136 EDWARD KINGSLEY NP Feb 02, 2017 14:35
[2017-02-02] MEDS ORDERED: DOXYCYCLINE 100 MG TAB PO SCH (21:00)
[2017-02-02] MEDS ORDERED: ACYCLOVIR 400 MG TAB PO SCH (21:00)
[2017-02-02] MEDS ORDERED: LACTOBACILLUS RHAMNOSUS CAP PO SCH (21:00)
--- NOTE | 2017-02-03 14:56 | DS ---
Date/Time of Note Date/Time of Note DATE: 02/03/17 TIME: 14:51 Discharge Summary Admission/Discharge Info Admit Date/Time Jan 24, 2017 at 06:40 Discharge Date/Time Feb 02, 2017 at 13:30 Discharge Diagnosis 1. Severe pneumonia 2. Neutropenic fevers 3. 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 Acute on chronic severe anemia 5. Severe thrombocytopenia. 6. Hypertension. 7. Diabetes mellitus. 8. Anxiety disorder. Patient Condition: Stable Consults Hematology, Dr. Herrera Infectious disease, Dr. Yoo Procedures None except for multiple blood transfusions Hx of Present Illness Chief complaint: Fevers History of presenting illness: This is a 66-year-old male with known recurrence of his AML, so far has been resistant to getting chemotherapy and pursuing naturopathic course of treatment, unfortunately has been declining with the increased need for transfusion of both packed red blood cells and platelets, ongoing blast crisis with now up to 72% blasts with a total white count of 31, 000, he progressed to complete neutropenia, he was admitted approximately 5 days ago for blood product transfusion, discharged in stable condition at that time and was being urged to please follow-up with [facility] and his enamel applier regarding chemotherapy, he has been resistant so far but we presented at [facility] with fevers last night. He is been febrile for the past 3 days according to the , he has been also having chills, he seems to be describing some epigastric discomfort but keep downplaying it to anxiety. He denies chest pain, nausea, vomiting, hematuria or hematochezia. He denies lower abdominal pain, denies headache. She does have decreased appetite. In the emergency department he was found to have a total white count close to 31, 000 with 72% blast, he is noted to be neutropenic, his chest x-ray reportedly showed left basilar airspace disease, pneumonia versus atelectasis. Given the neutropenic fever he was started on broad-spectrum antibiotics for presumed pneumonia, cefepime and vancomycin. Patient also has a herpetic lesion that popped up on the corner of his right upper lip, therefore I did add acyclovir. He was severely thrombocytopenic on presentation with platelets of 6, he did receive 1 unit of platelet transfusion. Repeat labs this morning showing significant anemia with a hemoglobin of 6.8 and platelets up to 16. For better workup I am sending the patient for CAT scan of the chest, abdomen and pelvis. Hematology has been consulted. Hospital Course Patient was admitted with episodes of fevers, he has AML and is in acute blast crisis, WBCs elevated however he has no neutrophils on admission therefore he was neutropenic. He was considered neutropenic fever, he was placed on neutropenic precaution, he was started on multiple broad-spectrum antimicrobial including antiviral and antifungal. All cultures remain negative, CAT scan of the chest did show bilateral pneumonia. He finally defervesced after a few days , respiratory status started improving, he did receive 1 dose of steroids and nebulizer treatments along with broad-spectrum antibiotics. Once he defervesced he started feeling better. Respiratory status stabilized his back on room air at the time of discharge. I have talked to him multiple times along with the hematology regarding chemotherapy to address his AML, however the patient is still reluctant and wants to pursue naturopathic treatment. At the time of discharge he has significant leukocytosis WBC is at 27 with a significant blast percentage. He has been discharged on doxycycline and Levaquin for 5 more days to complete his treatment for pneumonia (total of 14 days) and he is also discharged on prophylactic antifungal, Diflucan, and prophylactic antiviral, acyclovir. He is to follow-up with his enamel applier as likely he will need weekly blood transfusion, he has required multiple blood transfusion during this admission, of packed red blood cell and platelets. He seems to have become transfusion dependent over the past few weeks even prior to admission. He also voiced that he will consider follow-up with [facility] depending how he responds to the naturopathic treatment/pathway he has chosen. Home Meds Active Scripts Fluconazole* (Diflucan*) 100 Mg Tablet, 100 MG PO DAILY for 30 Days, TAB Prov:SOBIA NUNEZ 02/02/17 Doxycycline* (Vibramycin*) 100 Mg Tab, 100 MG PO BID for 5 Days, TAB Prov:SOBIA NUNEZ 02/02/17 Acyclovir* (Acyclovir*) 400 Mg Tablet, 400 MG PO BID for 30 Days, TAB Prophylaxis dose Prov:SOBIA NUNEZ 02/02/17 Levofloxacin* (Levaquin*) 750 Mg Tablet, 750 MG PO DAILY for 5 Days, TAB Prov:SOBIA NUNEZ 02/02/17 Reported Medications Losartan Potassium* (Losartan Potassium*) 50 Mg Tablet, 50 MG PO BID Y for NEEDED, TAB 12/31/16 Glimepiride* (Glimepiride*) 1 Mg Tablet, 1 MG PO BID Y for ELEVATED GLUCOSE, TAB NEEDED 11/15/16 Amlodipine Besylate* (Norvasc*) 5 Mg Tablet, 5 MG PO BID, TAB NEEDED 11/15/16 Follow-up Plan Follow-up with primary care physician within 1 week Follow-up with Dr. Herrera, hematology as scheduled, patient also getting labs drawn biweekly by [facility] with results to be sent to Dr. Herrera for outpatient blood product transfusion scheduling [facility] for blood draw as ordered and scheduled per Dr. Herrera Primary Care Provider Jere Villa MD Time spent on discharge: > 30 minutes Pending Labs Laboratory Tests Test 02/03/17 11:03 Lab Scanned Report BLOOD [id number] SOBIA NUNEZ Feb 03, 2017 14:56
== END 2017-02-02 13:30 | disposition home health service (06) | DRG 834 ==
LOC: E/R 16:53 → MS2 01-24 06:40 → E/R 01-24 10:01 → TEL 01-25 17:40
PROVIDERS: ADMIT Internal Medicine; ATTEND Internal Medicine
PROC: 30233R1 Transfusion of Nonautologous Platelets into Peripheral Vein, Percutaneous Approach (ICD-10-PCS; 2017-01-24)
PROC: 30233N1 Transfusion of Nonautologous Red Blood Cells into Peripheral Vein, Percutaneous Approach (ICD-10-PCS; principal; 2017-01-25)
DX: C92.02 Acute myeloblastic leukemia, in relapse (principal); A41.9 Sepsis, unspecified organism; R65.20 Severe sepsis without septic shock; J18.9 Pneumonia, unspecified organism; D70.9 Neutropenia, unspecified; D69.6 Thrombocytopenia, unspecified; B37.0 Candidal stomatitis; R17 Unspecified jaundice; R50.81 Fever presenting with conditions classified elsewhere; R09.02 Hypoxemia; E11.9 Type 2 diabetes mellitus without complications; I10 Essential (primary) hypertension; F41.9 Anxiety disorder, unspecified; Z92.21 Personal history of antineoplastic chemotherapy; Z91.19 Patient's noncompliance with other medical treatment and regimen
CPT/HCPCS: 36415; 36430; 71010; 71250; 74176; 80048; 80053; 80202; 81001; 81003; 82962; 83605; 83735; 84100; 84484; 85025; 85049; 85362; 85378; 85384; 85610; 85670; 85730; 86360; 86644; 86850; 86900; 86901; 86920; 86945; 87040; 87086; 87400; 93005; 96361; 96365; 96366; 96368; 96375; J1940; J0133; J0692; J1200; J1815; J1956; J2185; J2920; J3370; J7030; J7040; J7050; P9011; P9016; P9035

== ENCOUNTER 2017-02-20 17:07 | Inpatient (IN) | payer OTHER ==
[~2017-02-20] VITALS: Ht 167.6 cm; Wt 83.4 kg
[2017-02-20] MEDS: ATORVASTATIN 40 MG TAB PO SCH (04:00)
[2017-02-20] MEDS ORDERED: ACETAMINOPHEN 325 MG TAB PO ONE (18:00)
[2017-02-20] MEDS ORDERED: SOD CHLORIDE 0.9% 2,540 ML IV ONE (18:00)
--- NOTE | 2017-02-20 18:11 | RADRPT ---
PROCEDURE: XR Chest. CLINICAL INDICATION: Cough. Possible sepsis. TECHNIQUE: Single frontal view of the chest was obtained COMPARISON: Chest radiograph dated December 17, 2015. FINDINGS: The heart is normal in size. There is mild bibasilar subsegmental atelectasis. No focal consolidations, pleural effusions, or pne umothorax is seen. Degenerative changes of the spine are present. IMPRESSION: 1. Mild bibasilar subsegmental atelectasis 2. No focal consolidations. RPTAT:AAJJ Physician Catrachita Date Time Electronically viewed and signed by Physician Catrachita on 02/20/2017 18:11 QL/
[2017-02-20 18:35] LABS: ABNORMAL IP MESSAGE 1; HEMATOCRIT 20.2 % (42.0-52.0); MEAN CORPUSCULAR HEMOGLOBIN 29.2 pg (29.0-33.0); MEAN CORPUSCULAR HGB CONC 33.7 g/dl (32.0-37.0); MEAN CORPUSCULAR VOLUME 86.7 fl (82.0-101.0); MEAN PLATELET VOLUME 11.9 fl (7.4-10.4); POSITIVE DIFF @See below; RED BLOOD COUNT 2.33 10^6/ul (4.70-6.10); RED CELL DISTRIBUTION WIDTH 14.3 % (11.5-14.5)
[2017-02-20 18:43] LABS: HEMOGLOBIN 6.8 g/dl (14.0-18.0); PLATELET COUNT 4 10^3/UL (140-415)
[2017-02-20 18:53] LABS: INR 1.11; PROTIME 14.5 Sec (11.9-14.9); PT RATIO 1.1
[2017-02-20 18:54] LABS: ALBUMIN 3.9 g/dl (3.3-4.9); ALBUMIN/GLOBULIN RATIO 1.25; BILIRUBIN,INDIRECT 0.4 mg/dl (0-1.1); BILIRUBIN,TOTAL 0.4 mg/dl (0.2-1.3); CALCIUM 8.9 mg/dl (8.4-10.2); CREATININE 1.1 mg/dl (0.61-1.24); POTASSIUM 3.8 mmol/L (3.5-5.1)
[2017-02-20] MEDS ORDERED: MEROPENEM 500MG/50 ML (PMX) 50 ML IVPB STA (18:58)
[2017-02-20] MEDS ORDERED: VANCOMYCIN 1 GM (PMX) 250 ML IVPB SCH (19:00)
[2017-02-20 19:17] LABS: TROPONIN-I 1.68 ng/ml (0.00-0.12)
[2017-02-20] MEDS ORDERED: ASPIRIN 81 MG TAB PO ONE (19:30)
[2017-02-20] MEDS ORDERED: OSELTAMIVIR 75 MG CAP PO ONE (19:30)
[2017-02-20 19:33] LABS: ANISOCYTOSIS 2+ (0-0); MICROCYTOSIS 2+ (0-0); MONOCYTES % (M) 14 % (0-11); PLATELET ESTIMATE SIG DECREASED; REACTIVE LYMPHOCYTES% (M) 1 % (0-0)
[2017-02-20] MEDS ORDERED: ACYCLOVIR 500 MG in DEXTROSE 5% 100 ML IVPB ONE (20:00)
[2017-02-20] MEDS ORDERED: FLUCONAZOLE 200 MG/NS (PMX) 100 ML IVPB ONE (20:00)
--- NOTE | 2017-02-20 20:33 | ERD ---
ER Documentation Chief Complaint Chief Complaint fever this morning has leukemia HPI The patient is a 66-year-old male, presenting to the ER because of fever that began this morning, nonproductive cough for more than a month. He was hospitalized recently 2 weeks ago for pneumonia, discharged with acyclovir and Diflucan, Doxycycline. He denies chill, neck pain, chest pain, abdominal pain, vomiting, dysuria, diarrhea, constipation. He does not smoke nor drink. The had history of AML treated with chemotherapy dysuria, however it recurred in October 2016. He declined chemotherapy Medical history: AML, diabetes mellitus, hypertension, dyslipidemia, thrombocytopenia, anxiety Surgical history: Anal abscess ROS All systems reviewed and are negative except as per history of present illness. Medications Home Meds Reported Medications Losartan Potassium* (Losartan Potassium*) 50 Mg Tablet, 50 MG PO BID Y for NEEDED, TAB 12/31/16 Glimepiride* (Glimepiride*) 1 Mg Tablet, 1 MG PO BID Y for ELEVATED GLUCOSE, TAB NEEDED 11/15/16 Amlodipine Besylate* (Norvasc*) 5 Mg Tablet, 5 MG PO BID, TAB NEEDED 11/15/16 Discontinued Scripts Fluconazole* (Diflucan*) 100 Mg Tablet, 100 MG PO DAILY for 30 Days, TAB Prov:SOBIA NUNEZ 02/02/17 Doxycycline* (Vibramycin*) 100 Mg Tab, 100 MG PO BID for 5 Days, TAB Prov:SOBIA NUNEZ 02/02/17 Acyclovir* (Acyclovir*) 400 Mg Tablet, 400 MG PO BID for 30 Days, TAB Prophylaxis dose Prov:SOBIA NUNEZ 02/02/17 Levofloxacin* (Levaquin*) 750 Mg Tablet, 750 MG PO DAILY for 5 Days, TAB Prov:SOBIA NUNEZ 02/02/17 Allergies Allergies: Coded Allergies: No Known Allergy (Unverified , 02/20/17) PMhx/Soc History of Surgery: Yes (TONSILLECTOMY,Anal abscess removed) Anesthesia Reaction: No Hx Neurological Disorder: No Hx Respiratory Disorders: Yes (PNEUMONIA) Hx Cardiac Disorders: Yes (HTN) Hx Psychiatric Problems: No Hx Miscellaneous Medical Probl: Yes (Leukemia) Hx Alcohol Use: No Hx Substance Use: No Hx Tobacco Use: No Smoking Status: Never smoker Physical Exam Vitals Vital Signs Date Time Temp Pulse Resp B/P Pulse Ox O2 Delivery O2 Flow Rate FiO2 02/20/17 18:46 103.9 120 20 102/56 98 Room Air 02/20/17 17:54 Nasal Cannula 2 02/20/17 17:15 103.9 139 20 114/65 98 Physical Exam Const: No acute distress. Anxious Head: Atraumatic. Eyes: Normal Conjunctiva. ENT: Normal External Ears, Nose and Mouth. Neck: Full range of motion. No meningismus. Resp: Clear to auscultation bilaterally. Cardio: Regular rate and rhythm. Abd: Soft, non distended, normal bowel sounds, non tender. Skin: No petechiae or rashes. Back: No midline or flank tenderness. Ext: No cyanosis, or edema. Neur: Awake and alert. No focal deficit Psych: Normal Mood and Affect. Result Diagram: 02/20/17175702/20/171757 Results 24 hrs Laboratory Tests Test 02/20/17 17:58 White Blood Count 20.010^3/ul Red Blood Count 2.3310^6/ul Hemoglobin 6.8g/dl Hematocrit 20.2% Mean Corpuscular Volume 86.7fl Mean Corpuscular Hemoglobin 29.2pg Mean Corpuscular Hemoglobin Concent 33.7g/dl Red Cell Distribution Width 14.3% Platelet Count 410^3/UL Mean Platelet Volume 11.9fl Neutrophils % % Segmented Neutrophils % (Manual) 21% Band Neutrophils % (Manual) 6% Lymphocytes % % Lymphocytes % (Manual) 16% Reactive Lymphocytes % (Manual) 1% Monocytes % % Monocytes % (Manual) 14% Eosinophils % % Basophils % % Blast Cells % (Manual) 42.0% Nucleated Red Blood Cells % 0.0/100WBC Neutrophils # 10^3/ul Neutrophils # (Manual) 4.410^3/ul Band Neutrophils # 1.210^3/ul Absolute Lymphocytes (Manual) 3.210^3/ul Lymphocytes # 10^3/ul Reactive Lymphocytes # 0.210^3/ul Monocytes # 10^3/ul Absolute Monocytes (Manual) 2.810^3/ul Eosinophils # 10^3/ul Basophils # 10^3/ul Nucleated Red Blood Cells # 10^3/ul Platelet Estimate SIG DECREASED Anisocytosis 2+ Microcytosis 2+ Prothrombin Time 14.5Sec Prothrombin Time Ratio 1.1 INR International Normalized Ratio 1.11 Activated Partial Thromboplast Time 30.0Sec Sodium Level 134mmol/L Potassium Level 3.8mmol/L Chloride Level 99mmol/L Carbon Dioxide Level 19mmol/L Anion Gap 20 Blood Urea Nitrogen 19mg/dl Creatinine 1.10mg/dl Glucose Level 178mg/dl Lactic Acid Level 4.4mmol/L Calcium Level 8.9mg/dl Total Bilirubin 0.4mg/dl Direct Bilirubin 0.00mg/dl Indirect Bilirubin 0.4mg/dl Aspartate Amino Transf (AST/SGOT) 21IU/L Alanine Aminotransferase (ALT/SGPT) 34IU/L Alkaline Phosphatase 67IU/L Troponin I 1.680ng/ml Total Protein 7.0g/dl Albumin 3.9g/dl Globulin 3.10g/dl Albumin/Globulin Ratio 1.25 Current Medications Medications (Trade) Dose Ordered Sig/Zack Route PRN Reason Start Time Stop Time Status Last Admin Dose Admin Sodium Chloride (NS) 2,540 ml @ 2,540 mls/hr BOLUS X1 ONCE IV 02/20/17 18:00 02/20/17 18:59 DC 02/20/17 18:03 Acetaminophen 650 mg 650 mg ONCE ONCE PO 02/20/17 18:00 02/20/17 18:01 DC 02/20/17 18:03 Vancomycin HCl 250 ml @ 125 mls/hr ONCE IVPB 02/20/17 19:00 02/20/17 20:59 02/20/17 19:27 Meropenem/Sodium Chloride (Merrem 500mg/50 ml(Pmx)) 50 ml @ 100 mls/hr ONCE STAT IVPB 02/20/17 18:58 02/20/17 19:27 DC Oseltamivir Phosphate (Tamiflu) 75 mg ONCE ONCE PO 02/20/17 19:30 02/20/17 19:31 DC 02/20/17 19:27 Aspirin 162 mg 162 mg ONCE ONCE PO 02/20/17 19:30 02/20/17 19:31 DC Acyclovir 500 mg/ Dextrose 100 ml @ 100 mls/hr ONCE ONCE IVPB 02/20/17 20:00 02/20/17 20:59 Fluconazole (Diflucan 200 Mg/ NS (Pmx)) 100 ml @ 100 mls/hr ONCE ONCE IVPB 02/20/17 20:00 02/20/17 20:59 Ibuprofen (Motrin) 600 mg ONCE ONCE PO 02/20/17 21:00 02/20/17 21:01 UNV Procedures/MDM UA pending [place] [id number] Radiology Main Line: [phone] DIAGNOSTIC IMAGING REPORT Patient: GLO SHAW : 1950 Age: 66 Sex: M MR #: [id number] DOS: 02/20/17 1728 Ordering MD: FARRUKH PORRAS MD Location: E/R Room/Bed: PROCEDURE: XR Chest. CLINICAL INDICATION: Cough. Possible sepsis. TECHNIQUE: Single frontal view of the chest was obtained COMPARISON: Chest radiograph dated December 17, 2015. FINDINGS: The heart is normal in size. There is mild bibasilar subsegmental atelectasis. No focal consolidations, pleural effusions, or pneumothorax is seen. Degenerative changes of the spine are present. IMPRESSION: 1. Mild bibasilar subsegmental atelectasis 2. No focal consolidations. RPTAT:AAJJ Physician Catrachita Date Time Electronically viewed and signed by Michael Shay Physician on 02/20/2017 18:11 QL/ CC: FARRUKH PORRAS MD EKG: at 18:34 hr Read by emergency physician Rate/Rhythm: Sinus tach 121 beats/min QRS, ST, T-waves: No ST elevation, inf T inversion Impression: Abnormal EKG EKG: at 19:21 hr Read by emergency physician Rate/Rhythm: Sinus tach 121 beats/min QRS, ST, T-waves: No ST elevation, inf T inversion Impression: Abnormal EKG MEDICAL MAKING DECISION: The patient is a 66-year-old male, presenting with acute AML crisis, acute septic shock, neutropenic fever, non-STEMI, thrombocytopenia, severe anemia. He was treated with normosaline 30 mL/kg IV,, insulin IV, meropenem IV acute severe sepsis, Acyclovir IV and Diflucan IV empirically per oncologist recommendation, Tamiflu empirically, 2 unit of packed red blood cell for acute severe anemia most likely due to AML, ASA 162 mg p.o. for probable non-STEMI, Tylenol and Motrin for fever The differential diagnoses considered include but are not limited to acute coronary syndrome, acute myocardial infarction, pericarditis, pulmonary embolism , aortic dissection, pneumonia, pleural effusion, pneumothorax, GERD, chest wall pain, UTI. Admit MDM: Patient's infectious symptoms have not stabilized and the patient is at risk of rapid decompensation. The patient will be admitted for careful hydration, antibiotic therapy, and infectious source control. Severe Sepsis criteria: Infectious source: unknown End organ damage indicated by: Lactate > 2.0 mmol/L Sepsis Management: Time of recognition of severe sepsis/septic shock:7 pm Within 3 hours of recognition: Blood cultures x 2 before broad-spectrum antibiotics: Yes 30 ml/kg NS bolus completed Initial lactate 4.4 Repeat lactate pending Septic Shock Assessment: Any lactic acid > 4.0 y Persistent hypotension (SBP < 90 or 40 mmHg drop, MAP < 65) despite 30 mL/kg IV fluid bolusno Volume Re-assessment for Septic Shock (post 30 ml/kg bolus): Temp103, BP102/56, HR120, RR20, Pox98 % ra Heart regular tachy Lungs no crackles Skin Warm & dry Cap Refill less than 2 seconds Peripheral pulses radially present Persistent Hypotension Treatment: Comfort care []No Central line []No, Vasopressor started []No I considered further perfusion assessment with CVP measurement, SCVO2, bedside ultrasound volume assessment, passive leg raise, trial of further fluid bolus. And proceeded with []IVF Critical Care: Critical care time 35 minutes excluding billable procedures Emergent fluid management while maintaining close respiratory support. Provision of immediate and broad-spectrum antibiotic therapy. Simultaneous assessment for possible sources in order to direct targeted therapy. Consideration for invasive and chemical support to prevent cardiopulmonary collapse. Consultation: I discussed the patient with his oncologist Dr. Herrera, who was made aware of the lab, the treatment, the patient condition and accepted the consult at 7:35 pm Departure Diagnosis: Primary Impression: AML (acute myeloblastic leukemia) Additional Impressions: Septic shock Neutropenic fever NSTEMI (non-ST elevated myocardial infarction) Anemia Thrombocytopenia Condition: Critical Comments I discussed the findings with the patient. I discussed the patient with his physician Dr. Jarvis at 8 pm who was made aware of the lab, the treatment, the patient condition. The patient is admitted to ICU Disclaimer: Inadvertent spelling and grammatical errors are likely due to EHR/ dictation software use and do not reflect on the overall quality of patient care. Also, please note that the electronic time recorded on this note does not necessarily reflect the actual time of the patient encounter. FARRUKH PORRAS MD Feb 20, 2017 20:27
[2017-02-20] MEDS ORDERED: SOD CHLORIDE 0.9% 1,000 ML IV ONE ×2 (21:00→23:27)
[2017-02-20] MEDS ORDERED: IBUPROFEN 600 MG TAB PO ONE (21:00)
[2017-02-20] MEDS ORDERED: SOD CHLORIDE 0.9% 250 ML IV* ONE (23:27)
[2017-02-20] MEDS ORDERED: FLUCONAZOLE 400 MG/NS (PMX) 200 ML IVPB ONE (23:30)
[2017-02-20] MEDS ORDERED: ACETAMINOPHEN 650 MG SUPP PR PRN (23:30)
[2017-02-20] MEDS ORDERED: SUCCINYLCHOLINE CHLORIDE 100 MG/5 ML SYG IV STA (23:30)
[2017-02-20] MEDS ORDERED: NORepinephrine 8MG/250 ML (PMX 250 ML IV SCH (23:30)
[2017-02-20] MEDS ORDERED: ONDANSETRON 4 MG TAB PO PRN (23:30)
[2017-02-20] MEDS ORDERED: VANCOMYCIN IV PER PHARMACY XX SCH (23:30)
[2017-02-20] MEDS ORDERED: ALBUTEROL/IPRATROPIUM (NEB) 3 ML AMP NEB PRN (23:30)
[2017-02-20] MEDS ORDERED: PROPOFOL 100 ML IV STA (23:30)
[2017-02-20] MEDS ORDERED: ETOMIDATE 20 MG INJ IV STA (23:30)
[2017-02-20] MEDS ORDERED: NORepinephrine 8MG/250 ML (PMX 250 ML ONE (23:52)
--- NOTE | 2017-02-20 23:59 | QN ---
Documentation Comment H&P dict a/p 1. sepsis: unclear source, plan broad spectrum abx wth vaco, meropenem, flucon adn acyclovir (b) ivf and levophed (c) source of infection is unclear, check abdo us and ct with epigastric pain 2. pulm: plan intubation for resp support 3. cards: elevated trop of unclear significane, trend values check echo (b) No ASA secondary to thrombocytopenia and high bleeding risk 4. AML, recurrent and untreated JEET DILLON MD Feb 20, 2017 23:59
[2017-02-21] VITALS (64 sets, daily range): BP systolic 77–143; BP diastolic 56–93; PULSE 83–100; RESP 11–32; TEMP 98.5; Ht 167.6 cm; Wt 83.4 kg
[2017-02-21] MEDS ORDERED: METHYLPREDNISOLONE 125 MG INJ ONE (01:17)
--- NOTE | 2017-02-21 01:24 | RADRPT ---
PROCEDURE: US Abdomen CLINICAL INDICATION: Pain. TECHNIQUE: Multiple real-time longitudinal and transverse images were acquired of the patient's ab domen and retroperitoneum utilizing a curved array transducer. COMPARISON: CT would 01/24/2017. FINDINGS: The liver is enlarged measuring 22 cm in length.. The gallbladder is distended. There are no galls tones. No gallbladder wall is thickened at 3.65 mm. There is small amount of pericholecystic fluid. The common bile duct is dilated measuring 8.67 mm. The visualized portions of the pancreas are unrem arkable with obscuration of the tail of the pancreas. The spleen is enlarged measuring 18 point a i s meters length.. No free fluid is identified. The right kidney measures 11.7 cm in length. The left kidney measures 10.9 cm in length. Inferior multiple bilateral renal cyst, largest measuring 1.4 cm diameter in the right kidney 2 cm in left ki dney. There is a 4.4 mm nonobstructing calculus in the midpole of the left kidney. The aorta and IVC are unremarkable. IMPRESSION: Distended gallbladder with gallbladder wall thickening and pericholecystic fluid consistent with cho lecystitis. No gallstones are present within the gallbladder. However, the common bile duct is dilat ed consistent with a distal obstruction. Hepatosplenomegaly. RPTAT: HMVK .Jayden Serrano MD, MD Date Time Electronically viewed and signed by .Jayden Serrano MD, MD on 02/21/2017 01:24 .K/
[2017-02-21] MEDS ORDERED: METHYLPREDNISOLONE 125 MG INJ IV ONE (01:30)
[2017-02-21] MEDS ORDERED: IOHEXOL 300MG/ML 150 ML BTL ONE ×2 (01:32→16:55)
[2017-02-21] MEDS ORDERED: SOD CHLORIDE 0.9% 100 ML ONE ×2 (01:32→16:55)
[2017-02-21] MEDS ORDERED: ACCU-CHEK XX SCH (02:00)
[2017-02-21 02:28] LABS: AMYLASE 39 U/L (11-123)
[2017-02-21] MEDS ORDERED: DEXTROSE 50% 50 ML SYRINGE IV PRN ×2 (03:00)
[2017-02-21] MEDS ORDERED: GLUCAGON 1 MG INJ IM PRN (03:00)
[2017-02-21] MEDS ORDERED: GLUCOSE GEL 15 GRAM TUBE PO PRN ×2 (03:00)
[2017-02-21] MEDS ORDERED: GLUCOSE GEL 15 GRAM TUBE BUCCAL PRN (03:00)
--- NOTE | 2017-02-21 03:59 | HP ---
DATE OF ADMISSION: 02/21/2017 CHIEF COMPLAINT: Fever. HISTORY OF PRESENTING ILLNESS: The patient presents to the emergency room at [facility] a 1-day history of a fever. This is associated with some epigastric abdominal pain. The patient denies any runny nose, sore throat, coughing, pain on urination, diarrhea, nausea, or vomiting. The patient has a known history of acute myelogenous leukemia. He was treated and had recurrence of disease. He was recommended for repeat chemotherapy; however, the patient refused to do so on at [facility] his last hospitalization in January 2017. He has been taking an undisclosed medication and maza s been using naturopathic means, and he feels that this has been controlling his disease up until is point. PAST MEDICAL HISTORY: Significant for AML, hypertension, diabetes. MEDICATIONS IN OUTPATIENT: Include 1. Norvasc 5 mg twice a day. 2. Cozaar 50 mg twice a day. 3. Glimepiride 1 mg twice a day. ALLERGIES: NO KNOWN DRUG ALLERGIES. SOCIAL HISTORY: The patient lives at home in [place] with his . He is independent of a ctivities of daily living. Denies tobacco, alcohol, or illicit drug use. FAMILY HISTORY: Noncontributory. REVIEW OF SYSTEMS: Five systems were reviewed and found not to be revealing. PHYSICAL EXAMINATION VITAL SIGNS: Blood pressure at this time is 74/40, pulse rate 110, respirations 22, temperature is 99.2. It should be noted that at the time of arrival, the patient's temperature was 103.9. GENERAL: A pleasant man in no acute distress. Somewhat somnolent, though was able to conduct the i nterview. HEAD, EARS, EYES, NOSE, AND THROAT: Normocephalic, atraumatic, without evident scleral icterus or p erioral cyanosis. Mucous membranes are dry. There are obvious petechiae on the hard palate. NECK: Soft and supple, without masses. No evidence of jugular venous distention or carotid bruits. CHEST: Clear to auscultation and percussion bilaterally. HEART: Of regular rate and rhythm. S1 and S2. No added sounds. ABDOMEN: Soft. Somewhat tender in the epigastric region. No palpable hepatosplenomegaly. EXTREMITIES: Without clubbing, cyanosis, or edema. SKIN: Without rashes. NEUROLOGICAL: Grossly intact. LABORATORY STUDIES: Reveal a hemoglobin of 6.8 grams/dL, a white count of 20,000, platelets of 4000 . On the differential, the patient has 6%, band neutrophils and 42% blast cells. INR is 1.1. Sodi um is 134, potassium 3.8, chloride 99, bicarbonate 19, BUN 19, creatinine 1.1, glucose is 178. Live r function tests are unremarkable. Troponin is 1.68. Lactic acid is 4.4 and repeats at 2.8. DIAGNOSTIC STUDIES: Chest x-ray shows no acute cardiopulmonary disease. ASSESSMENT AND PLAN 1. Sepsis, unclear source. Begin broad-spectrum antibiotics. Case had been discussed with Dr. Ya Herrera by the ER physician. In addition to vancomycin and meropenem, the patient is recommended to receive fluconazole and acyclovir. These have been started. 2. Aggressive IV fluids. Give Levophed to support blood pressure. 3. Obtain a CT scan of abdomen and pelvis with contrast, as well as abdominal ultrasound, in attemp t to determine the source. 4. Pulmonary: In light of the patient's sepsis and poor overall appearance and extremely poor prog nosis, we will plan to provide ventilator support. 5. Cardiac: The patient with elevated troponin of unclear clinical significance. He is not a cand idate to receive aspirin because of his thrombocytopenia. We will, however, began Lipitor for him. No blood pressure medicines in light of his hypotension. 6. Diabetes. 7. Prophylaxis with sequential compression devices (SCDs). 8. Prognosis has been discussed with the son and the , and the extreme concern that I have rega rding the patient's potential demise in hospital has been shared with them. I will also, at their r equest, discuss this with another family member, who is a physician. Dictated By: JEET DILLON MD RER/NTS Conf#: [id number] DID#: [id number] CC: JEET DILLON MD;*EndCC*
[2017-02-21] MEDS: ALBUTEROL/IPRATROPIUM (NEB) 3 ML AMP NEB SCH ×3 (04:00→09:59)
[2017-02-21] MEDS: IPRATROPIUM (NEB) 0.5 MG/2.5 ML AMP NEB SCH ×2 (04:00→09:55)
[2017-02-21] MEDS: SOD CHLORIDE 0.9% 1,000 ML IV SCH ×4 (04:36→21:37)
[2017-02-21] MEDS: ACYCLOVIR 500 MG in DEXTROSE 5% 100 ML IVPB SCH ×4 (05:00→21:36)
[2017-02-21] MEDS: VANCOMYCIN 1 GM in NS 250 ML IVPB SCH ×2 (05:58→18:17)
[2017-02-21] MEDS: PANTOPRAZOLE (EC) 40 MG TAB PO SCH (06:00)
[2017-02-21] MEDS: MEROPENEM 1 GM/50ML(PMX) 50 ML IVPB SCH ×3 (06:57→21:36)
[2017-02-21 07:02] LABS: ABNORMAL IP MESSAGE 1; HEMATOCRIT 23.8 % (42.0-52.0); HEMOGLOBIN 8.2 g/dl (14.0-18.0); MEAN CORPUSCULAR HEMOGLOBIN 29.2 pg (29.0-33.0); MEAN CORPUSCULAR HGB CONC 34.5 g/dl (32.0-37.0); MEAN CORPUSCULAR VOLUME 84.7 fl (82.0-101.0); MEAN PLATELET VOLUME 10.8 fl (7.4-10.4); PLATELET COUNT 35 10^3/UL (140-415); POSITIVE DIFF @See below; RED BLOOD COUNT 2.81 10^6/ul (4.70-6.10); RED CELL DISTRIBUTION WIDTH 14.6 % (11.5-14.5); WHITE BLOOD COUNT 48.1 10^3/ul (4.8-10.8)
[2017-02-21] MEDS ORDERED: INSULIN ASPART [NOVOLOG] 3 ML PEN SC SCH (07:35)
[2017-02-21 07:44] LABS: ADD UMIC YES; UR ASCORBIC ACID NEGATIVE (NEGATIVE); UR BACTERIA FEW /HPF (NONE SEEN); UR BILIRUBIN (Dip) NEGATIVE (NEGATIVE); UR BLOOD (Dip) 3+ mg/dL (NEGATIVE); UR CLARITY SLIGHTLY CLOUDY (CLEAR); UR COLOR YELLOW (YELLOW); UR GLUCOSE (Dip) NEGATIVE (NEGATIVE); UR KETONES (Dip) TRACE mg/dL (NEGATIVE); UR LEUKOCYTE ESTERASE (Dip) NEGATIVE Leu/ul (NEGATIVE); UR NITRITE (Dip) NEGATIVE (NEGATIVE); UR RBC 19 /HPF (0-5); UR SPECIFIC GRAVITY (Dip) 1.006 (1.003-1.030); UR TOTAL PROTEIN (Dip) NEGATIVE (NEGATIVE); UR UROBILINOGEN (Dip) NEGATIVE (NEGATIVE)
[2017-02-21 07:56] LABS: ANISOCYTOSIS 1+ (0-0); METAMYELOCYTES %M 6 % (0-0); MICROCYTOSIS 1+ (0-0); MONOCYTES % (M) 4 % (0-11); MYELOCYTES % (M) 2 % (0-0); PLATELET ESTIMATE DECREASED; POLYCHROMASIA 1+ (0-0); PROMYELOCYTES #M 1.4 10^3/ul (0-0); PROMYELOCYTES % (M) 3 % (0-0)
[2017-02-21 08:03] LABS: CALCIUM 7.6 mg/dl (8.4-10.2); CREATININE 1.18 mg/dl (0.61-1.24); MAGNESIUM 1.4 mg/dl (1.7-2.5); PHOSPHORUS 4.5 mg/dl (2.5-4.9); POTASSIUM 5.3 mmol/L (3.5-5.1)
[2017-02-21] MEDS: ATORVASTATIN 40 MG TAB PO SCH (09:53)
[2017-02-21] MEDS ORDERED: LIDOCAINE 1% (MPF) 5 ML VIAL SC ONE (10:00)
[2017-02-21] MEDS ORDERED: FLUCONAZOLE 100 MG/NS (PMX) 50 ML IVPB SCH (10:30)
[2017-02-21] MEDS ORDERED: IPRATROPIUM (NEB) 0.5 MG/2.5 ML AMP NEB PRN (10:30)
--- NOTE | 2017-02-21 11:17 | PN ---
Date/Time of Note Date/Time of Note DATE: 02/21/17 TIME: 10:25 Assessment/Plan VTE Prophylaxis VTE Prophylaxis Intervention: contraindicated VTE Contraindication Reason: thrombocytopenia (severe ) Lines/Catheters IV Catheter Type (from [facility]): Peripheral IV Urinary Cath still in place: Yes Reason Cath still needed: other (indicate) (septic shock ) Assessment/Plan Assessment/Plan 66-year-old male with : 1. 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 Abdominal ultrasound showing acute cholecystitis, chest x- ray fairly clear, CAT scan abdomen and pelvis pending. Agree with broad coverage including antifungal and antiviral, infectious disease consult pending. Appreciate recommendations from hematology, patient has been transfused overnight. He also received a dose of steroids. He is currently on Levophed for blood pressure control along with IV fluids. Lactic acid level is trending down, will recheck. General surgery consult, discussed case with Dr. Schneider, recommending a cholecystostomy tube placement, discussed with Dr. Ramirez, will need anesthesia present, platelets up to 50. Also infectious disease consulted, gram-negative rods on blood cultures. 2. NSTEMI, so far troponin as high as 7.8. Repeat troponin and continue to trend, patient did get an aspirin in the emergency department however he does have severe thrombocytopenia. 2D echocardiogram pending, cardiology consult pending with Dr Paiz. Will discuss treatment with cardiology, patient currently in septic shock with significant bone marrow disease. Likely to be candidate of medical management only. 3. Acute myelogenous leukemia, recurrence of the disease for the past few month with significant leukocytosis and in blast crisis with some bone marrow suppression in terms of chronic anemia requiring blood transfusions and severe thrombocytopenia also requiring blood transfusions at least weekly now. Patient has been on naturopathic management of his AML. Prognosis poor given ongoing blast crisis and seems to be trending toward transfusion dependence. Dr. Herrera following 4. Hypertension, for now septic shock requiring Levophed. 5. Diabetes mellitus, (HgbA1c 6.7% on previous admissions), elevated blood sugars currently, patient did receive a dose of Solu-Medrol in the ER last night. Continue sliding scale insulin and diabetic diet for now. 4. Anxiety disorder, with history of claustrophobia, continue Xanax PRN for anxiety. Prophylaxis: SCDs and anticoagulation contraindicated due to severe thrombocytopenia, Pepcid for GI prophylaxis. Disposition: Continue current broad-spectrum antibiotics, medical management for NSTEMI and Cardiology consult, general surgery consult with Dr. Schneider even findings of acute cholecystitis on ultrasound abdomen, scan abdomen pelvis pending, also contacted interventional radiology for cholecystostomy tube placement. Subjective 24 Hr Interval Summary Free Text/Dictation Patient awake, alert, feels better still remained in septic shock, on low-dose Levophed. Also on broad-spectrum antibiotics. No chest pain reported, he still having some upper abdominal pain. Ultrasound of the abdomen showing signs of acute cholecystitis, CAT scan abdomen and pelvis pending. General surgery will be consulted. Also patient found to have elevated troponin up to 7.8 this morning, cardiology consult has been placed. Exam/Review of Systems Vital Signs Vitals Vital Signs Date Time Temp Pulse Resp B/P Pulse Ox O2 Delivery O2 Flow Rate FiO2 02/21/17 08:45 88 23 130/91 100 02/21/17 08:00 97.7 Room Air 02/21/17 00:41 2.0 Intake and Output 02/20/17 02/20/17 02/21/17 15:00 23:00 07:00 Intake Total 1865 ml Output Total 900 ml Balance 965 ml Exam Constitutional: alert, frail, oriented, other (Lethargic) Psych: no complaints Head: normocephalic Respiratory: clear to auscultation, normal air movement Cardiovascular: nl pulses, regular rate and rhythm Gastrointestinal: soft, tender (upper abdomen area.) Musculoskeletal: nl extremities to inspection Extremities: normal pulses, other (No edema, clubbing or cyanosis) Neurological: TALENT DEVELOPMENT SPECIALIST II-XII intact, lethargic, nl mental status, nl speech Results Result Diagram: 02/21/17 0628 02/21/17 0628 Results 24 hrs Laboratory Tests Test 02/20/17 17:58 02/20/17 20:47 02/20/17 22:53 02/20/17 22:55 White Blood Count 20.0 #H Red Blood Count 2.33 L Hemoglobin 6.8 *L Hematocrit 20.2 L Mean Corpuscular Volume 86.7 Mean Corpuscular Hemoglobin 29.2 Mean Corpuscular Hemoglobin Concent 33.7 Red Cell Distribution Width 14.3 Platelet Count 4 #*L Mean Platelet Volume 11.9 #H Neutrophils % Segmented Neutrophils % (Manual) 21 L Band Neutrophils % (Manual) 6 H Lymphocytes % Lymphocytes % (Manual) 16 Reactive Lymphocytes % (Manual) 1 H Monocytes % Monocytes % (Manual) 14 H Eosinophils % Basophils % Blast Cells % (Manual) 42.0 H Nucleated Red Blood Cells % 0.0 Neutrophils # Neutrophils # (Manual) 4.4 Band Neutrophils # 1.2 H Absolute Lymphocytes (Manual) 3.2 H Lymphocytes # Reactive Lymphocytes # 0.2 H Monocytes # Absolute Monocytes (Manual) 2.8 H Eosinophils # Basophils # Nucleated Red Blood Cells # Platelet Estimate SIG DECREASED Anisocytosis 2+ Microcytosis 2+ Prothrombin Time 14.5 Prothrombin Time Ratio 1.1 INR International Normalized Ratio 1.11 Activated Partial Thromboplast Time 30.0 Sodium Level 134 L Potassium Level 3.8 Chloride Level 99 Carbon Dioxide Level 19 L Anion Gap 20 H Blood Urea Nitrogen 19 Creatinine 1.10 Glucose Level 178 Lactic Acid Level 4.4 *H 2.8 *H 6.4 *H Calcium Level 8.9 Total Bilirubin 0.4 Direct Bilirubin 0.00 Indirect Bilirubin 0.4 Aspartate Amino Transf (AST/SGOT) 21 Alanine Aminotransferase (ALT/SGPT) 34 Alkaline Phosphatase 67 Troponin I 1.680 *H 7.890 *H Total Protein 7.0 Albumin 3.9 Globulin 3.10 Albumin/Globulin Ratio 1.25 Amylase Level 39 Lipase 30 Test 02/21/17 06:28 White Blood Count 48.1 #H Red Blood Count 2.81 #L Hemoglobin 8.2 #L Hematocrit 23.8 L Mean Corpuscular Volume 84.7 Mean Corpuscular Hemoglobin 29.2 Mean Corpuscular Hemoglobin Concent 34.5 Red Cell Distribution Width 14.6 H Platelet Count 35 #L Mean Platelet Volume 10.8 H Neutrophils % Segmented Neutrophils % (Manual) 17 L Band Neutrophils % (Manual) 17 H Lymphocytes % Lymphocytes % (Manual) 8 L Monocytes % Monocytes % (Manual) 4 Eosinophils % Basophils % Metamyelocytes % (manual) 6 H Myelocytes % (Manual) 2 H Promyelocytes % (Manual) 3 H Blast Cells % (Manual) 43.0 H Nucleated Red Blood Cells % 0.0 Neutrophils # Neutrophils # (Manual) 12.1 H Band Neutrophils # 8.1 H Absolute Lymphocytes (Manual) 3.8 H Lymphocytes # Monocytes # Absolute Monocytes (Manual) 1.9 H Eosinophils # Basophils # Metamyelocytes # 2.8 H Myelocytes # 0.9 H Promyelocytes # 1.4 H Nucleated Red Blood Cells # Platelet Estimate DECREASED Polychromasia 1+ Anisocytosis 1+ Microcytosis 1+ Sodium Level 138 Potassium Level 5.3 H Chloride Level 108 Carbon Dioxide Level 15 L Anion Gap 20 H Blood Urea Nitrogen 22 H Creatinine 1.18 Glucose Level 286 #H Lactic Acid Level 3.6 *H Calcium Level 7.6 L Phosphorus Level 4.5 Magnesium Level 1.4 L Imaging Free Text/Dictation PROCEDURE: XR Chest. CLINICAL INDICATION: Cough. Possible sepsis. TECHNIQUE: Single frontal view of the chest was obtained COMPARISON: Chest radiograph dated December 17, 2015. FINDINGS: The heart is normal in size. There is mild bibasilar subsegmental atelectasis. No focal consolidations, pleural effusions, or pneumothorax is seen. Degenerative changes of the spine are present. IMPRESSION: 1. Mild bibasilar subsegmental atelectasis 2. No focal consolidations. RPTAT:AAJJ Physician [place] Date Time Electronically viewed and signed by Michael Shay Physician on 02/20/2017 18:11 QL/ PROCEDURE: US Abdomen CLINICAL INDICATION: Pain. TECHNIQUE: Multiple real-time longitudinal and transverse images were acquired of the patient's abdomen and retroperitoneum utilizing a curved array transducer. COMPARISON: CT would 01/24/2017. FINDINGS: The liver is enlarged measuring 22 cm in length.. The gallbladder is distended. There are no gallstones. No gallbladder wall is thickened at 3.65 mm. There is small amount of pericholecystic fluid. The common bile duct is dilated measuring 8.67 mm. The visualized portions of the pancreas are unremarkable with obscuration of the tail of the pancreas. The spleen is enlarged measuring 18 point a is meters length.. No free fluid is identified. The right kidney measures 11.7 cm in length. The left kidney measures 10.9 cm in length. Inferior multiple bilateral renal cyst, largest measuring 1.4 cm diameter in the right kidney 2 cm in left kidney. There is a 4.4 mm nonobstructing calculus in the midpole of the left kidney. The aorta and IVC are unremarkable. IMPRESSION: Distended gallbladder with gallbladder wall thickening and pericholecystic fluid consistent with cholecystitis. No gallstones are present within the gallbladder. However, the common bile duct is dilated consistent with a distal obstruction. Hepatosplenomegaly. RPTAT: HMVK .Jayden Serrano MD, MD Date Time Electronically viewed and signed by .Jayden Serrano MD, MD on 02/21/2017 01:24 CAT scan abdomen and pelvis pending Medications Medications Current Medications Sodium Chloride (NS) 1,000 ml @ 125 mls/hr Q8H IV Last administered on 04:36; Admin Dose 125 MLS/HR; Start 02/20/17 at 23:27 Ondansetron HCl (Zofran Tab) 4 mg Q6H PRN PO NAUSEA AND/OR VOMITING; Start at 23:30 Acetaminophen (Tylenol Supp) 650 mg Q4H PRN [place] PAIN LEVEL 1-3 OR FEVER; Start 02/20/17 at 23:30 Hydromorphone HCl (Dilaudid) 0.5 mg Q4H PRN IV PAIN LEVEL 7-10; Start at 23:30 Pantoprazole 40 mg 40 mg DAILY@06 PO ; Start 02/21/17 at 06:00 Meropenem/Sodium Chloride 50 ml @ 100 mls/hr Q8 IVPB Last administered on 06:57; Admin Dose 100 MLS/HR; Start 02/21/17 at 05:00 Acyclovir/Dextrose (Zovirax/D5W) 100 ml @ 100 mls/hr Q8 IVPB Last administered on 02/21/17 05:00; Admin Dose 100 MLS/HR; Start 02/21/17 at 05: 00 Atorvastatin Calcium (Lipitor) 40 mg DAILY PO Last administered on 02/21/17 09:53; Admin Dose 40 MG; Start 02/20/17 at 23:30 Miscellaneous Information 1 ea NOTE XX ; Start 02/21/17 at 03:00 Glucose (Glutose) 15 gm Q15M PRN PO DECREASED GLUCOSE; Start 02/21/17 at 03:00 Glucose (Glutose) 22.5 gm Q15M PRN PO DECREASED GLUCOSE; Start 02/21/17 at 03: 00 Dextrose (D50w Syringe) 25 ml Q15M PRN IV DECREASED GLUCOSE; Start 02/21/17 at 03:00 Dextrose (D50w Syringe) 50 ml Q15M PRN IV DECREASED GLUCOSE; Start 02/21/17 at 03:00 Glucagon (Glucagen) 1 mg Q15M PRN IM DECREASED GLUCOSE; Start 02/21/17 at 03: 00 Glucose 15 gm 15 gm Q15M PRN BUCCAL DECREASED GLUCOSE; Start 02/21/17 at 03:00 Norepinephrine 16 mg/Dextrose 500 ml @ 1.87 mls/hr TITRATE IV Last administered on 02/21/17 06:56; Admin Dose 24.37 MLS/HR; Start 02/21/17 at 05 :00 Vancomycin HCl (Vancocin) 250 ml @ 125 mls/hr Q12H IVPB Last administered on 02/21/17 05:58; Admin Dose 125 MLS/HR; Start 02/21/17 at 06:00 Insulin Aspart NOVOLOG *MILD* ALGORI... Q6 SC ; Start 02/21/17 at 12:00 Fluconazole/ Sodium Chloride (Diflucan 100 Mg/ NS (Pmx)) 50 ml @ 50 mls/hr Q24H IVPB ; Start 02/21/17 at 10:30 SOBIA NUNEZ Feb 21, 2017 10:42
[2017-02-21] MEDS ORDERED: MAGNESIUM SULFATE 2 GM/50 ML 50 ML IVPB ONE (11:30)
[2017-02-21] MEDS ORDERED: SOD CHLORIDE 0.9% 250 ML IV* ONE (11:41)
[2017-02-21 12:03] LABS: CALCIUM 8.2 mg/dl (8.4-10.2); CREATININE 1.1 mg/dl (0.61-1.24); POTASSIUM 4.3 mmol/L (3.5-5.1)
[2017-02-21 12:06] LABS: CK-MB 20.8 ng/ml (0.0-2.4); TROPONIN-I 3.77 ng/ml (0.00-0.12)
[2017-02-21] MEDS: FLUCONAZOLE 100 MG/NS (PMX) 50 ML IVPB SCH (12:27)
[2017-02-21] MEDS: INSULIN ASPART [NOVOLOG] 3 ML PEN SC SCH ×3 (12:32→23:45)
--- NOTE | 2017-02-21 13:19 | CONS ---
DATE OF ADMISSION: 02/21/2017 DATE OF CONSULTATION: 02/21/2017 TYPE OF CONSULTATION: Infectious Disease. REASON FOR CONSULTATION: Antibiotic management. HISTORY OF PRESENT ILLNESS: The patient is a 66-year-old male who presents with fever and is being seen for antibiotic management. His past problems include: 1. AML. 2. Hypertension. 3. Diabetes. The patient has a history of AML. He has been treated and had recurrence of disease. He was recomm ended for repeat chemotherapy, but refused to do so on his last hospitalization. The patient now pr esents with possibility of sepsis. His white count is 20,000, hemoglobin 6.8, platelet count 4000. He has 6% bands, 42% blast cells. BUN and creatinine 19/1.1. PAST MEDICAL HISTORY: Operations as outlined. FAMILY HISTORY: Noncontributory. SOCIAL HISTORY: Does not smoke, drink or abuse drugs. ALLERGIES: NONE TO PENICILLIN, SULFA OR FOODS. MEDICATIONS: Per chart. REVIEW OF SYSTEMS: As per HPI. PHYSICAL EXAMINATION: GENERAL: The patient has a blood pressure of 74/40, pulse of 110, respirations 22, temperature of 1 03.9 previously. SKIN: Without generalized rash. HEENT: Within normal limits. NECK: Supple. LYMPH NODES: None palpable. CHEST: Decreased breath sounds at the bases. HEART: Without murmur or gallop. ABDOMEN: Soft, nontender, without organosplenomegaly or masses. EXTREMITIES: Without cyanosis, clubbing, or edema. RECTAL AND GENITAL: Deferred. NEUROLOGIC: No focal neurological abnormality. Chest x-ray shows no acute cardiopulmonary disease. IMPRESSION AND PLAN: The patient has sepsis, unclear etiology. The patient was started on vancomyc in and meropenem, also received fluconazole and acyclovir, and will be seen by Dr. Rianna Herrera. We will maintain his blood pressure with Levophed. Will await the culture reports. I will dictate my findings to Dr. Wheeler. Of note is the fact that the patient has gram-negative rods on blood culture. Dr. Schneider has recomm ended a cholecystostomy tube placement as part of his sepsis workup. His abdominal ultrasound showe d acute cholecystitis. Chest x-ray clear. CAT scan and abdominal and pelvic exams are pending. Ag ain, continue current therapy. I will be happy to follow in his care. Dictated By: JENAE KENT MD, JD/DE Conf#: [id number] [facility]#: [id number] CC: JEET DILLON MD;*[facility]*
--- NOTE | 2017-02-21 14:47 | RADRPT ---
PROCEDURE: XR Chest. CLINICAL INDICATION: PICC placement. TECHNIQUE: Single frontal view of the chest was obtained. COMPARISON: 02/20/2017. FINDINGS: There is a left PICC with tip at the cavoatrial junction. The cardiomediastinal silhouette is normal in size. There is mild bibasilar atelectasis. No pleural effusion is seen. No definite pneumothorax. No acute osseous abnormality. IMPRESSION: 1. Left PICC with tip at the cavoatrial junction. 2. No radiographic evidence of an acute cardiopulmonary process. RPTAT: AAEE Samir Fleming Physician Date Time Electronically viewed and signed by Samir Fleming Physician on 02/21/2017 14:47 PH/
--- NOTE | 2017-02-21 15:09 | CONS ---
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 Patient states he is currently trying a therapy called "Novomine "by [employer], a [employer] based on the formerly [facility]. Pt states his blast count decreased with this medication but that since this hospital admission his blast count has increased which he attributes to being off this medication. He would like to continue with supportive transfusion in the interim -At this time given pt is in a critical state in the ICU we cannot start chemotherapy at this time -continue pressor support with broad spectrum antibiotics -pt has an appointment with [facility] and states he will reconsider chemotherapy based on that meeting. -if patient decides to pursue chemotherapy during this admission, and is more stable, he can be transferred to a tertiary care center to initiate treatment. -pt currently has 60% blasts circulating in his peripheral blood and is transfusion dependant. Pt understands that his disease is terminal and that his only chance of controlling this disease is with chemotherapy which he is not yet willing to accept. -continue broad spectrum antibiotics and antifungal coverage per ID. Appreciate recommendations - keep platelets > 10 and Hg > pt is s/p transfusion yesterday. Problems: Consultation Date/Type/Reason Admit Date/Time Feb 21, 2017 at 00:08 Date of Consultation: Feb 21, 2017 Type of Consultation: hematology Reason for Consultation AML Referring Provider: SOBIA NUNEZ of Present Illness The patient is a 66-year-old gentleman who has known AML and thrombocytopenia. His last chemotherapy was in December 2015, when he underwent induction chemotherapy followed by 1 cycle of consolidation chemotherapy.However since then he has refused any further treatment. In September of this year patient was noted to become more pancytopenic. He was subsequently diagnosed with relapsed disease when he was found with blasts circulating in his peripheral blood. He has since refused any further chemotherapy and is currently undergoing alternative therapies with a doctor as an out patient who does not believe in chemotherapy. He has been receiving out patient blood transfusions almost every week. Pt now presents to ER with fevers and was found with pneumonia and sepsis. He was febrile to 102. He was also anemic with a Hg 6.8 and platelet count of 4. He is currently in the ICU on pressor support. He has received 3 unit PRBCs adn 2 units of platelets. He is mentating well Past Medical History diabetes Past Surgical History Past Surgical Hx: no surgical history Family History Significant Family History: no pertinent family hx Social History Smoking Status: Former smoker Exam/Review of Systems Vital Signs Vitals Vital Signs Date Time Temp Pulse Resp B/P Pulse Ox O2 Delivery O2 Flow Rate FiO2 02/21/17 14:45 92 21 100/73 99 02/21/17 14:00 Room Air 02/21/17 12:00 98.1 02/21/17 00:41 2.0 Intake and Output 02/20/17 02/20/17 02/21/17 15:00 23:00 07:00 Intake Total 1865 ml Output Total 900 ml Balance 965 ml Exam Constitutional: alert, frail, oriented Psych: anxiety, depression Head: normocephalic Eyes: nl conjunctiva ENMT: nl external ears & nose Neck: supple Respiratory: clear to auscultation Cardiovascular: regular rate and rhythm Gastrointestinal: soft Musculoskeletal: nl extremities to inspection Neurological: LUNG GUN OPERATOR II-XII intact Results Result Diagram: 02/21/17 0628 02/21/17 1104 Results 24 hrs Laboratory Tests Test 02/20/17 17:58 02/20/17 20:47 02/20/17 22:53 02/20/17 22:55 White Blood Count 20.0 #H Red Blood Count 2.33 L Hemoglobin 6.8 *L Hematocrit 20.2 L Mean Corpuscular Volume 86.7 Mean Corpuscular Hemoglobin 29.2 Mean Corpuscular Hemoglobin Concent 33.7 Red Cell Distribution Width 14.3 Platelet Count 4 #*L Mean Platelet Volume 11.9 #H Neutrophils % Segmented Neutrophils % (Manual) 21 L Band Neutrophils % (Manual) 6 H Lymphocytes % Lymphocytes % (Manual) 16 Reactive Lymphocytes % (Manual) 1 H Monocytes % Monocytes % (Manual) 14 H Eosinophils % Basophils % Blast Cells % (Manual) 42.0 H Nucleated Red Blood Cells % 0.0 Neutrophils # Neutrophils # (Manual) 4.4 Band Neutrophils # 1.2 H Absolute Lymphocytes (Manual) 3.2 H Lymphocytes # Reactive Lymphocytes # 0.2 H Monocytes # Absolute Monocytes (Manual) 2.8 H Eosinophils # Basophils # Nucleated Red Blood Cells # Platelet Estimate SIG DECREASED Anisocytosis 2+ Microcytosis 2+ Prothrombin Time 14.5 Prothrombin Time Ratio 1.1 INR International Normalized Ratio 1.11 Activated Partial Thromboplast Time 30.0 Sodium Level 134 L Potassium Level 3.8 Chloride Level 99 Carbon Dioxide Level 19 L Anion Gap 20 H Blood Urea Nitrogen 19 Creatinine 1.10 Glucose Level 178 Lactic Acid Level 4.4 *H 2.8 *H 6.4 *H Calcium Level 8.9 Total Bilirubin 0.4 Direct Bilirubin 0.00 Indirect Bilirubin 0.4 Aspartate Amino Transf (AST/SGOT) 21 Alanine Aminotransferase (ALT/SGPT) 34 Alkaline Phosphatase 67 Troponin I 1.680 *H 7.890 *H Total Protein 7.0 Albumin 3.9 Globulin 3.10 Albumin/Globulin Ratio 1.25 Amylase Level 39 Lipase 30 Test 02/21/17 06:28 02/21/17 11:04 02/21/17 12:23 White Blood Count 48.1 #H Red Blood Count 2.81 #L Hemoglobin 8.2 #L Hematocrit 23.8 L Mean Corpuscular Volume 84.7 Mean Corpuscular Hemoglobin 29.2 Mean Corpuscular Hemoglobin Concent 34.5 Red Cell Distribution Width 14.6 H Platelet Count 35 #L Mean Platelet Volume 10.8 H Neutrophils % Segmented Neutrophils % (Manual) 17 L Band Neutrophils % (Manual) 17 H Lymphocytes % Lymphocytes % (Manual) 8 L Monocytes % Monocytes % (Manual) 4 Eosinophils % Basophils % Metamyelocytes % (manual) 6 H Myelocytes % (Manual) 2 H Promyelocytes % (Manual) 3 H Blast Cells % (Manual) 43.0 H Nucleated Red Blood Cells % 0.0 Neutrophils # Neutrophils # (Manual) 12.1 H Band Neutrophils # 8.1 H Absolute Lymphocytes (Manual) 3.8 H Lymphocytes # Monocytes # Absolute Monocytes (Manual) 1.9 H Eosinophils # Basophils # Metamyelocytes # 2.8 H Myelocytes # 0.9 H Promyelocytes # 1.4 H Nucleated Red Blood Cells # Platelet Estimate DECREASED Polychromasia 1+ Anisocytosis 1+ Microcytosis 1+ Sodium Level 138 142 Potassium Level 5.3 H 4.3 Chloride Level 108 110 Carbon Dioxide Level 15 L 19 L Anion Gap 20 H 17 H Blood Urea Nitrogen 22 H 21 H Creatinine 1.18 1.10 Glucose Level 286 #H 319 H Lactic Acid Level 3.6 *H 4.4 *H Calcium Level 7.6 L 8.2 L Phosphorus Level 4.5 Magnesium Level 1.4 L Creatine Kinase 651 H Creatine Kinase Index 3.2 Creatinine Kinase MB (Mass) 20.80 H Troponin I 3.770 *H Bedside Glucose 290 H Medications Medications Current Medications Sodium Chloride (NS) 1,000 ml @ 125 mls/hr Q8H IV Last administered on 14:19; Admin Dose 125 MLS/HR; Start 02/20/17 at 23:27 Ondansetron HCl (Zofran Tab) 4 mg Q6H PRN PO NAUSEA AND/OR VOMITING; Start at 23:30 Acetaminophen (Tylenol Supp) 650 mg Q4H PRN [place] PAIN LEVEL 1-3 OR FEVER; Start 02/20/17 at 23:30 Hydromorphone HCl (Dilaudid) 0.5 mg Q4H PRN IV PAIN LEVEL 7-10; Start at 23:30 Pantoprazole 40 mg 40 mg DAILY@06 PO ; Start 02/21/17 at 06:00 Meropenem/Sodium Chloride 50 ml @ 100 mls/hr Q8 IVPB Last administered on 14:37; Admin Dose 100 MLS/HR; Start 02/21/17 at 05:00 Acyclovir/Dextrose (Zovirax/D5W) 100 ml @ 100 mls/hr Q8 IVPB Last administered on 02/21/17 09:53; Admin Dose 100 MLS/HR; Start 02/21/17 at 05: 00 Atorvastatin Calcium (Lipitor) 40 mg DAILY PO Last administered on 02/21/17 09:53; Admin Dose 40 MG; Start 02/20/17 at 23:30 Miscellaneous Information 1 ea NOTE XX ; Start 02/21/17 at 03:00 Glucose (Glutose) 15 gm Q15M PRN PO DECREASED GLUCOSE; Start 02/21/17 at 03:00 Glucose (Glutose) 22.5 gm Q15M PRN PO DECREASED GLUCOSE; Start 02/21/17 at 03: 00 Dextrose (D50w Syringe) 25 ml Q15M PRN IV DECREASED GLUCOSE; Start 02/21/17 at 03:00 Dextrose (D50w Syringe) 50 ml Q15M PRN IV DECREASED GLUCOSE; Start 02/21/17 at 03:00 Glucagon (Glucagen) 1 mg Q15M PRN IM DECREASED GLUCOSE; Start 02/21/17 at 03: 00 Glucose 15 gm 15 gm Q15M PRN BUCCAL DECREASED GLUCOSE; Start 02/21/17 at 03:00 Norepinephrine 16 mg/Dextrose 500 ml @ 1.87 mls/hr TITRATE IV Last administered on 02/21/17 06:56; Admin Dose 24.37 MLS/HR; Start 02/21/17 at 05 :00 Vancomycin HCl (Vancocin) 250 ml @ 125 mls/hr Q12H IVPB Last administered on 02/21/17 05:58; Admin Dose 125 MLS/HR; Start 02/21/17 at 06:00 Insulin Aspart NOVOLOG *MILD* ALGORI... Q6 SC Last administered on 02/21/17 12:32; Admin Dose 4 UNIT; Start 02/21/17 at 12:00 Fluconazole/ Sodium Chloride (Diflucan 100 Mg/ NS (Pmx)) 50 ml @ 50 mls/hr Q24H IVPB Last administered on 02/21/17 12:27; Admin Dose 50 MLS/HR; Start at 10:48 IV Flush (NS 10 ml) 10 ml PRN PRN IV IV PROTOCOL; Start 02/21/17 at 13:00 CALEB CERON M.D. Feb 21, 2017 15:08
[2017-02-21 16:53] LABS: CK-MB 13.8 ng/ml (0.0-2.4); TROPONIN-I 3.14 ng/ml (0.00-0.12)
[2017-02-21] MEDS ORDERED: IODIXANOL LOCM 100 ML BTL ONE (16:58)
--- NOTE | 2017-02-21 17:18 | RADRPT ---
Echocardiogram Report Patient Name: GLO SHAW Gender: Male Date: 1950 Study Date: 21-Feb-2017 Medical Office Worker: Abida Pabon ERIKA Location: 112 Ref. Physician: JEET DILLON Quality: Adequate Procedures: Transthoracic echocardiogram with complete 2D, M-Mode, and doppler examination. Indications: elevated trop. 2D/M Mode Doppler Measurement Value Normal Ranges Measurement Value Normal Ranges LVIDd 2D 4.9 3.5 - 5.6 cm AV Peak [place] 1.2 m/sec LVIDs 2D 3.1 2.1 - 4.1 cm AV Peak PG 6.2 mmHg LVPWd 2D 1.1 0.6 - 1.1 cm LVOT Peak [place] 1.1 m/sec IVSd 2D 1.1 0.6 - 1.1 cm LVOT Peak PG 4.5 mmHg AoR Diam 2D 3.4 2.0 - 3.7 cm MV E Peak [place] 1.0 m/sec EDV 2D 112.9 cm3 MV A Peak [place] 1.1 m/sec ESV 2D 28.6 cm3 MV E/A 0.9 LA Dimen 2D 3.5 2.3 - 4.0 cm MV Decel Time 112 msec MV Decel [place] 9 MV E/A 0.9 TR Peak Wil[place] 2.4 m/sec TR Peak PG 23.6 mmHg RVSP 39.0 mmHg Findings Left Ventricle: Lower limits of normal systolic function. Normal left ventricular cavity size. Mild concentric left ventricular hypertrophy. Ejection fraction is visually estimated at 5055 %. Tissue Doppler/Mitral Doppler indices are consistent with impaired relaxation (Stage I diastolic dysfunction). Right Ventricle: Normal right ventricular size. Normal right ventricular systolic function. Left Atrium: The left atrium is normal in size. Right Atrium: The right atrium is normal in size. Mitral Valve: Mitral valve leaflets appear mildly thickened. Moderate mitral annular calcification. There is trace to mild mitral valve regurgitation. Aortic Valve: No significant aortic stenosis or insufficiency. Aortic cusps appear mildly calcified. Tricuspid Valve: Normal appearance of the tricuspid valve. Estimated peak PA systolic pressure 39 mmHg. There is mild tricuspid regurgitation. Pulmonic Valve: Normal pulmonic valve appearance. Pericardium: Normal pericardium with no significant pericardial effusion. Aorta: Normal aortic root. IVC: Dilated IVC without respiratory collapse consistent with elevated right atrial pressure. Conclusions 1.Lower limits of normal systolic function. Normal left ventricular cavity size. Mild concentric left ventricular hypertrophy. Ejection fraction is visually estimated at 50-55 %. Tissue Doppler/Mitral Doppler indices are consistent with impaired relaxation (Stage I diastolic dysfunction). 2.Mitral valve leaflets appear mildly thickened. Moderate mitral annular calcification. There is trace to mild mitral valve regurgitation. 3.No significant aortic stenosis or insufficiency. Aortic cusps appear mildly calcified. 4.Normal appearance of the tricuspid valve. Estimated peak PA systolic pressure 39 mmHg. There is mild tricuspid regurgitation. 5.Dilated IVC without respiratory collapse consistent with elevated right atrial pressure. Electronically Signed By: Jesus Paiz 21-Feb-2017 17:17:33 -0800 Patient Name: GLO SHAW Study Date: 21-Feb-[id number]
--- NOTE | 2017-02-21 17:39 | RADRPT ---
PROCEDURE: CT SCAN OF THE ABDOMEN AND PELVIS with IV CONTRAST CLINICAL INDICATION: Abdominal pain, bloated feeling TECHNIQUE: Utilizing the multi-slice spiral CT scanner, Transaxial images were obtained through the abdomen and pelvis with IV contrast. Additional sagittal, coronal, MPR images were also obtained. DICOM images are available Radiation Dose: CTDI vol 13.57 mGy, DLP 936.92 mGy-cm. One of more of the following dose reduction techniques were utilized: -automatic exposure control -adjustment of the mA and/or kV according to patient size -Use of iterative reconstruction technique Contrast used: 90 cc Omnipaque-300 COMPARISON: 01/24/2017 FINDINGS: Limited slices through the lung bases demonstrates bibasilar infiltrates, worse in the left lung wit h adjacent pleural thickening. Left lower lobe infiltrate is persistent. Cardiomegaly is seen withou t significant pericardial effusion. Small retrocardiac hernia noted. Distal descending aorta 3.1 cm. Moderate degenerative changes in the lower dorsal spine noted. CT Abdomen Fatty liver, nondistended stomach, normal spleen, adrenals, patent portal veins, normal pancreas, ad renals are seen. Gallbladder demonstrates numerous stones with pericholecystic fluid. This is a new finding. Patent portal vein, normal opacification of the celiac, SMA, bilateral renal artery origins are noted. Low density lesion left renal parenchyma suggestive of cyst. Calcification in the left r enal parenchyma suggestive of nonobstructive stone. No retroperitoneal adenopathy noted. Bowel gas p attern appears nonspecific with no free air or ascites noted. Mild pneumatosis of the cecum is seen. Appendix is visualized. No periappendiceal fluid collection noted. CT pelvis: Moderate stool noted in the rectosigmoid colon. Garay catheter seen in the bladder. Pros don appears unremarkable. No pelvic ascites noted. Bilateral inguinal hernia contains fat. Degenera tive changes noted in the lumbosacral spine. IMPRESSION: Bibasilar infiltrates, worse in the left lung base without improvement. Fatty liver Gallbladder with pericholecystic fluid, new finding. RPTAT: AAOO Physician Thierry Date Time Electronically viewed and signed by Physician Thierry on 02/21/2017 17:39 KATERINE/
--- NOTE | 2017-02-21 18:29 | CONS ---
DATE OF ADMISSION: 02/21/2017 DATE OF CONSULTATION: 02/21/2017 CARDIOLOGY CONSULTATION REFERRING PHYSICIAN: Dr. Nunez REASON FOR CONSULTATION: Abnormal troponin. CHIEF COMPLAINT: Fever, shortness of breath, weakness, hypotension. HISTORY OF PRESENT ILLNESS: Thank you for this referral. History obtained from the patient, milan perdue with his , discussion with Dr. Nunez, discussion with the staff and physicians, review of [facility] chart. This is an unfortunate 66-year-old gentleman with history of AML and severe thrombocytopen ia who presented to the emergency room with complaint of fever. The patient apparently started havi ng fever last night and was hypotensive and weak and he was in shock. He was brought into the emerg ency room and admitted to intensive care unit and placed on Levophed, given multiple antibiotic. Tx s troponin has been elevated. His initial troponin was 1.6 but it has risen to 7.89, for which I wa s kindly asked to evaluate and treat. The patient denies any chest pain or pressure to me. He was also noted to be severely thrombocytopenic with platelets of 4 and hemoglobin of 6.8. His blood cul tures so far are growing gram-negative rods. He denies any chest pain or pressure or palpitation. He denies any history of cardiac disorder to me. He does have underlying diabetes apparently and dy slipidemia, for which he does not take any cholesterol medication. PAST MEDICAL HISTORY: History of AML and severe thrombocytopenia. Per review of the chart, his las t chemotherapy apparently was in 12/2015, after which he has refused any further treatment. In September of this year, he was also noted to be apparently more pancytopenic, diagnosed with relapse disease. He was found to have blasts circulating in his peripheral block. He has refused any chemotherapy at that time, per Dr. Herrera's notes, his oncologist. He has been getting apparently blood transfusi ons almost every week. History of diabetes, dyslipidemia. FAMILY HISTORY: No reported early coronary artery disease, although his mom in her 80s had stents p laced. SOCIAL HISTORY: The patient has quit smoking. MEDICATIONS: As per medication reconciliation, personally reviewed. ALLERGIES: No reported allergies. REVIEW OF SYSTEMS: As above mentioned. He was very lethargic this morning, apparently has improved significantly. PHYSICAL EXAMINATION: VITAL SIGNS: Temperature 98.1, T-max of 103.9, heart rate currently is 98, blood pressure most rece ntly 100/73, has been as low as 80s, respiratory rate of 21, saturating 99%. HEENT: Normocephalic, atraumatic. Appears in no acute distress. In general, appears to be a thin gentleman, in no acute distress. EYES: Pupils are equal. CARDIOVASCULAR: Regular rate and rhythm. Grade I systolic murmur. PULMONARY: Anteriorly with no wheezes. GASTROINTESTINAL: Soft, nontender. EXTREMITIES: With no significant lower extremity edema. NEUROLOGIC: Awake, alert, oriented x3. PSYCHIATRIC: Calm, pleasant. LABORATORY: Shows WBC of 48.1, hemoglobin of 8.2. Initial hemoglobin was 6.8. Platelets after tra nsfusion ae 35, initially was 4. Sodium 142, potassium 4.3, BUN of 21, creatinine of 1.1, glucose o f 319. Lactic acid is 4.4. Troponin initially was 1.6. Peak troponin is 7.8. Most recent troponi n 3.14. CK was 651 and 584, MB fraction of 20 and 13.8. EKG shows normal sinus rhythm. ST-T abnor mality suggestive of inferior lateral ischemia. Echocardiogram was personally reviewed, which showe d ejection fraction about 50% to 55% on my personal review. Dilated IVC. Chest x-ray shows mild bi basilar subsegmental atelectasis. Abdominal and pelvic CT shows bibasilar infiltrates, worse in the left lung base. ASSESSMENT AND PLAN: 1. Non-ST elevation emotion myocardial infarction, most likely secondary to demand ischemia due to severe sepsis, shock, severe anemia. 2. Septic shock. 3. Gram-negative bakari bacteremia, source to be determined. 4. Severe thrombocytopenia. 5. Acute myelocytic ascitic leukemia. 6. Leukocytosis. 7. Severe anemia. 8. History of diabetes. 9. History of dyslipidemia. RECOMMENDATIONS: Patient has been able to be weaned off of pressors for now. We will continue to c losely monitor him in the intensive care unit. No aspirin or Plavix to be given at this point, give n his severe thrombocytopenia and anemia. Transfusion as needed. Supportive care will be continued for now. I do not recommend any intervention at this point, given his severe thrombocytopenia. Hi s ejection fraction also appeared to be preserved as well, and he is angina free at this point. We will check the lipid panel tomorrow, and if indicated, statins will be initiated. Follow up with He m/Onc recommendations. Continue with the ICU care. More than 40 minutes of critical care time was spent in management and treating this patient excludi ng any procedures. Dictated By: PAIGE DECKER MD AV/NTS Conf#: [id number] DID#: [id number] CC: SOBIA NUNEZ MD; JEET DILLON MD;*EndCC*
[2017-02-22] VITALS (26 sets, daily range): BP systolic 94–152; BP diastolic 59–93; PULSE 84–111; RESP 20–36
[2017-02-22] MEDS: HYDROmorphONE 0.5 MG/0.5 ML SYG IV PRN ×2 (00:22→04:34)
[2017-02-22] MEDS: MEROPENEM 1 GM/50ML(PMX) 50 ML IVPB SCH ×3 (05:51→22:41)
[2017-02-22] MEDS: VANCOMYCIN 1 GM in NS 250 ML IVPB SCH ×2 (05:51→18:00)
[2017-02-22] MEDS: PANTOPRAZOLE (EC) 40 MG TAB PO SCH (05:52)
[2017-02-22] MEDS: ACYCLOVIR 500 MG in DEXTROSE 5% 100 ML IVPB SCH ×3 (05:52→23:15)
[2017-02-22] MEDS: INSULIN ASPART [NOVOLOG] 3 ML PEN SC SCH (05:59)
--- NOTE | 2017-02-22 06:03 | CONS ---
DATE OF ADMISSION: 02/21/2017 DATE OF CONSULTATION: 02/21/2017 [facility] INITIAL INPATIENT CONSULTATION NOTE PLACE OF SERVICE: [facility] intensive care unit REFERRING PHYSICIAN: Dr. Nunez Dear Dr. Nunez: Thank you very much for allowing me to participate in the care of this very pleasant gentleman and I am certain his wonderful family. REASON FOR CONSULTATION: Possible cholecystitis. HISTORY OF PRESENT ILLNESS: The patient is a very pleasant but unfortunate 66- year-old gentleman with a few comorbidities including BMI of 29.7, and a history of AML, who presented 02/21/2017, through the emergency department at [facility] with 1-day history of fevers. There was mention of epigastric abdominal pain, but when I discussed that with him he was leaning more towards discomfort and mainly in the left upper quadrant as opposed to other places in his abdomen. There were no reported issues with coughing, diarrhea or constipation, blood in the stool or urine, no nausea or vomiting, or other major symptoms. He has above-mentioned known comorbidity of acute myelogenous leukemia and he is being followed by Dr. Rianna Herrera, but has not had any chemotherapy for this problem as best as I can tell. He also has diabetes and hypertension. His workup on his admission included laboratory values that showed a white blood cell count of 20. Note that patient's white blood cell count is generally elevated in that range. He also had a troponin of 1.68 and a lactic acid of 4.4. A chest x-ray was done that showed mild bibasilar subsegmental atelectasis and no focal consolidations, which was significantly different than the images that he had in January when he presented with pneumonia. A right upper quadrant ultrasound was then performed , which demonstrated distended gallbladder with gallbladder wall thickening and pericholecystic fluid consistent with cholecystitis. No gallstones were present within the gallbladder. The common bile duct was felt to be dilated consistent with a distal obstruction and there was hepatosplenomegaly noted as well. I was kindly asked to consult for these reasons. During my visit, the patient was getting a PICC line placed and appeared to be comfortable and did not have any other major complaints. Specifically, he reported to me that he did not have sharp stabbing pains in the right upper quadrant. His abdomen was fairly without any pain, otherwise. COMORBIDITIES: 1. BMI 29.7. 2. 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 Note that the patient was felt to have recurring disease 09/2016 where, at that time, he did not allow any more chemotherapy. He had reported trying a medication called "Novomine" by "[employer]", a [employer] based on the [facility]. The patient reported himself that his blast count decreased with this medication, but it has since increased while he has been off of the medications. He has an appointment at [facility], at which point he will reconsider getting chemotherapy again. 3. Diabetes. 4. Hypertension. 5. History of pneumonia 01/2017, at [facility]. 6. Hepatosplenomegaly. 7. Coronary arterial atherosclerosis. 8. Aortic atherosclerosis. ALLERGIES: NO KNOWN DRUG ALLERGIES. MEDICATIONS: Home medications and inhouse medications carefully recorded and reviewed in the electronic health record system. SOCIAL HISTORY: The patient lives with his family, in [place] (with his ). He does not report any current tobacco, alcohol or intravenous drug use. FAMILY HISTORY: No mention of major medical, surgical or oncologic problems in the family. REVIEW OF SYSTEMS: Other than the above-mentioned, there are no other pertinent positives or pertinent negatives in a complete 14-point review of systems. PHYSICAL EXAMINATION: GENERAL: The patient appears to be a very pleasant gentleman of [place] descent, appearing stated age, lying in bed comfortably and in no acute distress. His BMI is 29.7. VITAL SIGNS: At the time of my visit around 12:15 p.m. were normal with exception of blood pressure 117/85. Note that he had as high temperature of 103.9 on admission, but that this had decreased to normal fairly soon after admission. HEENT: Head is normocephalic and atraumatic. His extraocular muscles and hearing are grossly intact bilaterally and symmetrically. His sclerae are nonicteric. His oral cavity is clear, and his oral mucosa appear to be pink and moist. He has fair to poor dentition. NECK: Supple. There is no lymphadenopathy or JVD. There is no submental, submandibular or supraclavicular lymphadenopathy. CHEST: Rises symmetrically with each breath, and he is breathing comfortably. There are no audible wheezes, rales or rhonchi on the gross exam. His carotid pulses are palpable bilaterally and symmetrically in his neck. HEART: Radial pulse is palpable on his right wrist. Lower extremities contain no pitting edema around the ankles bilaterally and symmetrically. ABDOMEN: Soft, nontender and nondistended. I specifically focused on the right upper quadrant and I could not elicit any significant tenderness with deep palpation. The abdomen does not show any evidence of organomegaly, caput medusae, engorged subcutaneous veins, or ascites. There is no evidence of peritoneal signs or guarding. SKIN: Appears to be pink and feels warm to touch. NEUROLOGIC: He is awake, alert, and follows commands appropriately. LABORATORY VALUES: White blood cell count 48.1, up from 20 on admission, hemoglobin 8.2 after transfusion, platelet count 35 and up from 4 from time of admission. His electrolytes are fairly normal, but his CO2 is 19, creatinine 1.10. Lactic acid was 4.4 on admission and then 2.8, then 6.4, then 3.6, and then 4.4. His troponin on admission was 1.7, and it went up to 7.9, and then back down earlier this morning to 3.8. His total bilirubin was 0.4 on admission. AST 21, ALT 34, alkaline phosphatase 67. Amylase and lipase were both normal. INR was 1.1. His urinalysis showed no leukocyte esterase or nitrite and there were few bacteria in the specimen. Microbiology showed gram-negative rods on the blood cultures that were drawn at 6:00 p.m. on 02/20/2017. Further speciation and sensitivities are still pending. He did receive 3 units of packed red blood cells and 2 units of platelets. IMAGING: Images were reviewed above. Note that I personally reviewed all the available images and I agree in general with the reported findings. In addition , I also see some evidence for prominence in the vasculature near the spleen, but no obvious evidence of sinistral portal hypertension. The spleen, appears to be somewhat enlarged. These are based on his 01/24/2017, CT scan. The ultrasound that was done on 02/21/2017, does show some distention of the gallbladder and some pericholecystic fluid and I agree that there are no obvious gallstones seen within the images. IMPRESSION AND PLAN: A very pleasant 66-year-old gentleman with a few comorbidities including fairly severe AML, which has needed therapy and currently seems to have gotten worse, presenting with a picture consistent with septic shock with gram-negative rods, bacteremia, and ultrasound findings are concerning for perhaps acalculous cholecystitis, but no obvious other clinical evidence of acute cholecystitis. Typically, with a picture of sepsis that is from gallbladder disease, we see more pronounced findings on the images, but more importantly, the clinical examination is typically that of significant sharp pains and tenderness on exam of the right upper quadrant. In this situation, the patient appears to be almost completely asymptomatic from an abdominal standpoint, and therefore does not quite fit the picture of acute cholecystitis. Certainly, his AML and his therapies and unforeseen effects could potentially mask acalculous cholecystitis, and, if the workup that we have planned for him does not show any other evidence of source of bacteremia, then my recommendation would be to have the patient undergo a percutaneous transhepatic cholecystostomy tube placement. Note that given the patient's elevated troponins, which could potentially be from primary cardiac disease and his AML status and overall clinical picture, I recommend that the patient not undergo general anesthesia for possible laparoscopic or open cholecystectomy, and to mitigate the patient's risk by percutaneously draining the gallbladder for now and get him to a better medical condition prior to exposing him to the risk of the operation. Certainly, after the drain placement we would have the option of either removing the drain since the patient does not have any stones within his gallbladder, or performing a cholecystectomy at a time when this can be done in a more elective basis. I tried to explain all this to the patient ( no family present in the room) and answered all the patient's questions to the best of my ability. I also discussed this with the team. The patient appeared to understand and agrees with the plan. With above assessments, I have recommended the followin. CT scan of abdomen and pelvis with contrast. 2. Keep in ICU. 3. Continue broad-spectrum antimicrobial therapy. 4. Aggressive management of his AML (much appreciate Dr. Herrera's excellent care ). 5. Keep n.p.o. for now and if there are no other procedures planned for the patient and if we have a better understanding of the etiology, to consider starting him on a regular diet once other procedures have been ruled out. 6. Labs in a.m. 7. Increase activity. 8. Increase incentive spirometry. Thank you again for allowing us to participate in the care of this very pleasant gentleman and I am certain his wonderful family. If there are any questions, please feel free to contact me at [phone]. NATURE OF PRESENTING PROBLEM: High risk. COMPLEXITY OF DECISION MAKING: High complexity. Dictated By: PASTORA WASHINGTON/DE Conf#: [id number] DID#: [id number] CC: SOBIA NUNEZ MD;*EndCC* MTDD
[2017-02-22 06:58] LABS: CHOL/HDL RATIO 5.4 RATIO
[2017-02-22 07:10] LABS: CK-MB 4.28 ng/ml (0.0-2.4); TROPONIN-I 2.54 ng/ml (0.00-0.12)
[2017-02-22 07:11] LABS: ABNORMAL IP MESSAGE 1; HEMATOCRIT 20.1 % (42.0-52.0); MEAN CORPUSCULAR HEMOGLOBIN 29.5 pg (29.0-33.0); MEAN CORPUSCULAR HGB CONC 34.8 g/dl (32.0-37.0); MEAN CORPUSCULAR VOLUME 84.8 fl (82.0-101.0); MEAN PLATELET VOLUME 11.8 fl (7.4-10.4); POSITIVE DIFF @See below; RED BLOOD COUNT 2.37 10^6/ul (4.70-6.10); RED CELL DISTRIBUTION WIDTH 15.2 % (11.5-14.5); WHITE BLOOD COUNT 12.4 10^3/ul (4.8-10.8)
[2017-02-22 07:15] LABS: ALBUMIN 2.6 g/dl (3.3-4.9); ALBUMIN/GLOBULIN RATIO 0.83; BILIRUBIN,INDIRECT 0.4 mg/dl (0-1.1); BILIRUBIN,TOTAL 0.4 mg/dl (0.2-1.3); CALCIUM 7.5 mg/dl (8.4-10.2); CREATININE 1.06 mg/dl (0.61-1.24); POTASSIUM 3.9 mmol/L (3.5-5.1); TOTAL PROTEIN 5.7 g/dl (6.1-8.1)
[2017-02-22 07:16] LABS: PLATELET COUNT 12 10^3/UL (140-415)
[2017-02-22 07:40] LABS: MAGNESIUM 2.3 mg/dl (1.7-2.5); PHOSPHORUS 2.9 mg/dl (2.5-4.9)
--- NOTE | 2017-02-22 07:54 | CONS ---
Date/Time of Note Date/Time of Note DATE: 02/22/17 TIME: 07:48 Consult Date/Type/Reason Admit Date/Time Feb 21, 2017 at 00:08 Initial Consult Date 02/21/17 Type of Consultation: CARDIOLOGY Ordering Provider: SOBIA NUNEZ Subjective Cardiology follow up/ critical care note: S: Case discussed with the staff member to family. Rhythm strip was reviewed. Patient remains sinus rhythm. No episode of atrial fibrillation so far. Patient denies any chest pain or pressure to me. Denies any shortness of breath to me. He complains of his Ha catheter. He denies any abdominal pain to me now O: General: thin no acute distress HEENT: NC/AT. pupils are equal. round. NECK: NO JVD. no stridor. CV: RRR. systolic murmur; no gallop or rubs. PULM: no wheezing or rhonchi. GI: SOFT, NT, ND, no rebound or guarding Extremity: trace B/L LE edema. no clubbing. neuro: awake and alert, OX3. Psych: calm and pleasant rectal: deferred : s/p ha cathere in place echo personally reviewed: Conclusions 1. Lower limits of normal systolic function. Normal left ventricular cavity size. Mild concentric left ventricular hypertrophy. Ejection fraction is visually estimated at 50-55 %. Tissue Doppler/Mitral Doppler indices are consistent with impaired relaxation (Stage I diastolic dysfunction). 2. Mitral valve leaflets appear mildly thickened. Moderate mitral annular calcification. There is trace to mild mitral valve regurgitation. 3. No significant aortic stenosis or insufficiency. Aortic cusps appear mildly calcified. 4. Normal appearance of the tricuspid valve. Estimated peak PA systolic pressure 39 mmHg. There is mild tricuspid regurgitation. 5. Dilated IVC without respiratory collapse consistent with elevated right atrial pressure. Objective Vital Signs Date Time Temp Pulse Resp B/P Pulse Ox O2 Delivery O2 Flow Rate FiO2 02/22/17 06:00 94 20 100/62 94 02/22/17 05:00 Room Air 02/22/17 04:00 98.6 02/21/17 00:41 2.0 Intake and Output 02/21/17 02/21/17 02/22/17 15:00 23:00 07:00 Intake Total 1392.92 ml 750 ml 1335 ml Output Total 1475 ml 670 ml 445 ml Balance -82.08 ml 80 ml 890 ml Results/Medications Result Diagram: 02/22/17 0643 02/22/17 0530 Results 24 hrs Laboratory Tests Test 02/21/17 11:04 02/21/17 12:23 02/21/17 16:12 02/21/17 18:16 Sodium Level 142 Potassium Level 4.3 Chloride Level 110 Carbon Dioxide Level 19 L Anion Gap 17 H Blood Urea Nitrogen 21 H Creatinine 1.10 Glucose Level 319 H Lactic Acid Level 4.4 *H Calcium Level 8.2 L Creatine Kinase 651 H 584 H Creatine Kinase Index 3.2 2.4 Creatinine Kinase MB (Mass) 20.80 H 13.80 H Troponin I 3.770 *H 3.140 *H Bedside Glucose 290 H 173 Test 02/21/17 23:37 02/22/17 04:40 02/22/17 05:30 02/22/17 05:51 Bedside Glucose 159 148 Lab Scanned Report BLOOD TRANSFUSION White Blood Count Pending Red Blood Count Pending Hemoglobin Pending Hematocrit Pending Mean Corpuscular Volume Pending Mean Corpuscular Hemoglobin Pending Mean Corpuscular Hemoglobin Concent Pending Red Cell Distribution Width Pending Platelet Count Pending Mean Platelet Volume Pending Sodium Level 141 Potassium Level 3.9 Chloride Level 112 H Carbon Dioxide Level 22 Anion Gap 11 Blood Urea Nitrogen 22 H Creatinine 1.06 Glucose Level 135 # Calcium Level 7.5 L Phosphorus Level 2.9 Magnesium Level 2.3 Total Bilirubin 0.4 Direct Bilirubin 0.00 Indirect Bilirubin 0.4 Aspartate Amino Transf (AST/SGOT) 35 # Alanine Aminotransferase (ALT/SGPT) 43 Alkaline Phosphatase 49 Creatine Kinase 418 #H Creatine Kinase Index 1.0 Creatinine Kinase MB (Mass) 4.28 H Troponin I 2.540 *H Total Protein 5.7 #L Albumin 2.6 #L Globulin 3.10 Albumin/Globulin Ratio 0.83 Triglycerides Level 277 H Cholesterol Level 126 LDL Cholesterol, Calculated 48 HDL Cholesterol 23 L Cholesterol/HDL Ratio 5.4 Test 02/22/17 06:43 White Blood Count 12.4 #H Red Blood Count 2.37 L Hemoglobin 7.0 L Hematocrit 20.1 L Mean Corpuscular Volume 84.8 Mean Corpuscular Hemoglobin 29.5 Mean Corpuscular Hemoglobin Concent 34.8 Red Cell Distribution Width 15.2 H Platelet Count 12 #*L Mean Platelet Volume 11.8 H Neutrophils % Lymphocytes % Monocytes % Eosinophils % Basophils % Nucleated Red Blood Cells % 0.0 Neutrophils # Lymphocytes # Monocytes # Eosinophils # Basophils # Nucleated Red Blood Cells # Medications Current Medications Sodium Chloride (NS) 1,000 ml @ 125 mls/hr Q8H IV Last administered on 21:37; Admin Dose 125 MLS/HR; Start 02/20/17 at 23:27 Ondansetron HCl (Zofran Tab) 4 mg Q6H PRN PO NAUSEA AND/OR VOMITING; Start at 23:30 Acetaminophen (Tylenol Supp) 650 mg Q4H PRN OR PAIN LEVEL 1-3 OR FEVER; Start 02/20/17 at 23:30 Hydromorphone HCl (Dilaudid) 0.5 mg Q4H PRN IV PAIN LEVEL 7-10 Last administered on 02/22/17 04:34; Admin Dose 0.5 MG; Start 02/20/17 at 23:30 Pantoprazole 40 mg 40 mg DAILY@06 PO Last administered on 02/22/17 05:52; Admin Dose 40 MG; Start 02/21/17 at 06:00 Meropenem/Sodium Chloride 50 ml @ 100 mls/hr Q8 IVPB Last administered on 05:51; Admin Dose 100 MLS/HR; Start 02/21/17 at 05:00 Acyclovir/Dextrose (Zovirax/D5W) 100 ml @ 100 mls/hr Q8 IVPB Last administered on 02/22/17 05:52; Admin Dose 100 MLS/HR; Start 02/21/17 at 05: 00 Atorvastatin Calcium (Lipitor) 40 mg DAILY PO Last administered on 02/21/17 09:53; Admin Dose 40 MG; Start 02/20/17 at 23:30 Miscellaneous Information 1 ea NOTE XX ; Start 02/21/17 at 03:00 Glucose (Glutose) 15 gm Q15M PRN PO DECREASED GLUCOSE; Start 02/21/17 at 03:00 Glucose (Glutose) 22.5 gm Q15M PRN PO DECREASED GLUCOSE; Start 02/21/17 at 03: 00 Dextrose (D50w Syringe) 25 ml Q15M PRN IV DECREASED GLUCOSE; Start 02/21/17 at 03:00 Dextrose (D50w Syringe) 50 ml Q15M PRN IV DECREASED GLUCOSE; Start 02/21/17 at 03:00 Glucagon (Glucagen) 1 mg Q15M PRN IM DECREASED GLUCOSE; Start 02/21/17 at 03: 00 Glucose 15 gm 15 gm Q15M PRN BUCCAL DECREASED GLUCOSE; Start 02/21/17 at 03:00 Norepinephrine 16 mg/Dextrose 500 ml @ 1.87 mls/hr TITRATE IV Last administered on 02/21/17 06:56; Admin Dose 24.37 MLS/HR; Start 02/21/17 at 05 :00 Vancomycin HCl 250 ml @ 125 mls/hr Q12H IVPB Last administered on 02/22/17 05:51; Admin Dose 125 MLS/HR; Start 02/21/17 at 06:00 Fluconazole/ Sodium Chloride (Diflucan 100 Mg/ NS (Pmx)) 50 ml @ 50 mls/hr Q24H IVPB Last administered on 02/21/17 12:27; Admin Dose 50 MLS/HR; Start at 10:48 IV Flush (NS 10 ml) 10 ml PRN PRN IV IV PROTOCOL; Start 02/21/17 at 13:00 Assessment/Plan Chief Complaint/Hosp Course 1. Non-ST elevation emotion myocardial infarction, most likely secondary to demand ischemia due to severe sepsis, shock, severe anemia. 2. Septic shock: Blood pressure has improved on off of pressors 3. Gram-negative bakari bacteremia, source to be determined.: Urine culture is not available yet. 4. Severe thrombocytopenia: Follow up with heme/onc 5. Acute myelocytic ascitic leukemia.: Follow with oncology recommendations 6. Leukocytosis. 7. Severe anemia. 8. History of diabetes. 9. History of dyslipidemia: Blood with LDL less than 70 currently. RECOMMENDATIONS: Patient has been able to be weaned off of pressors for now. I will start the patient on very low-dose of beta-brielle and try to titrate up as tolerated We will continue to closely monitor him in the intensive care unit. No aspirin or Plavix or any antiplatelet to be given at this point, given his severe thrombocytopenia and anemia. Transfusion as needed. Will defer to heme oncology team. Supportive care will be continued for now. I do not recommend any intervention at this point, given his severe thrombocytopenia. His ejection fraction also appeared to be preserved as well, and he is angina free at this point. Continue with the ICU care. More than 37 minutes of critical care time was spent in management and treating this patient excluding any procedures. PAIGE DECKER MD [facility] Problems: PAIGE DECKER MD Feb 22, 2017 07:54
[2017-02-22] MEDS ORDERED: ONDANSETRON 4 MG INJ ONE (08:04)
[2017-02-22 08:15] LABS: ANISOCYTOSIS 1+ (0-0); BLAST% (M) 27.1 % (0-0); METAMYELOCYTES %M 2 % (0-0); MICROCYTOSIS 1+ (0-0); MONOCYTES % (M) 6 % (0-11); PLATELET ESTIMATE SIG DECREASED; POLYCHROMASIA 2+ (0-0); REACTIVE LYMPHOCYTES% (M) 8 % (0-0)
[2017-02-22] MEDS ORDERED: ONDANSETRON 4 MG INJ IV PRN (08:30)
[2017-02-22] MEDS: ATORVASTATIN 40 MG TAB PO SCH (08:32)
[2017-02-22] MEDS: METOPROLOL 25 MG TAB PO SCH ×4 (08:32→20:35)
[2017-02-22] MEDS ORDERED: ACETAMINOPHEN 325 MG TAB ONE (09:08)
[2017-02-22] MEDS: ACETAMINOPHEN 325 MG TAB PO PRN ×3 (09:13→17:58)
[2017-02-22] MEDS: SOD CHLORIDE 0.9% 1,000 ML IV SCH ×2 (09:18→15:27)
--- NOTE | 2017-02-22 09:51 | PN ---
Date/Time of Note Date/Time of Note DATE: 02/22/17 TIME: 09:30 Assessment/Plan VTE Prophylaxis VTE Prophylaxis Intervention: contraindicated VTE Contraindication Reason: thrombocytopenia Lines/Catheters IV Catheter Type (from Nrs): PICC Line Central line still needed: Yes (IV access) Urinary Cath still in place: No Assessment/Plan Assessment/Plan 66-year-old male with : 1. Sepsis and s/p septic shock in setting of functional neutropenia as the patient is still with untreated AML and in blast crisis essentially severely immunocompromised. Blood cultures positive for gram-negative rods CAT scan of abdomen and pelvis done yesterday, still reporting gallstone disease in the gallbladder and pericholecystic fluid. Patient with no abdominal pain today. Will follow up further recommendations from Dr Schneider Continue current antibiotic coverage, repeat blood cultures patient with fever this morning temperature up to 102.7. Check lactic acid. Follow-up further infectious disease recommendations. Follow-up urine culture. 2. NSTEMI, appreciate recommendations from cardiology, likely secondary to demand ischemia and severe anemia in the setting of septic shock. Patient will be medically treated, he has been started on beta-blockers. Cardiac enzymes have trended down. Appreciate recommendations from Dr Paiz. 3. Acute myelogenous leukemia, recurrence of the disease for the past few month with significant leukocytosis and in blast crisis with some bone marrow suppression in terms of chronic anemia requiring blood transfusions and severe thrombocytopenia also requiring blood transfusions at least weekly now. Patient has been on naturopathic management of his AML. Prognosis poor given ongoing blast crisis and seems to be trending toward transfusion dependence. Platelet transfusion today Dr. Herrera following 4. Hypertension, patient out of shock state, off pressors, started on beta- blockers in setting of acute MS. 5. Diabetes mellitus, (HgbA1c 6.7% on previous admission), blood sugars better controlled. Continue sliding scale insulin and diabetic diet for now. 4. Anxiety disorder, with history of claustrophobia, continue Xanax PRN for anxiety. Prophylaxis: SCDs and anticoagulation contraindicated due to severe thrombocytopenia, Pepcid for GI prophylaxis. Disposition: Continue current broad-spectrum antibiotics, medical management for NSTEMI and follow-up recommendations from Dr. Schneider based on CAT scan abdomen and pelvis done last night. Subjective 24 Hr Interval Summary Free Text/Dictation Patient febrile, blood cultures back with gram-negative rods, will repeat blood cultures today since patient febrile. Repeat CAT scan done overnight, will follow up with general surgery recommendations today. Patient denies abdominal pain. He does feel lethargic and weak especially in setting of fevers. Off pressors since yesterday evening Exam/Review of Systems Vital Signs Vitals Vital Signs Date Time Temp Pulse Resp B/P Pulse Ox O2 Delivery O2 Flow Rate FiO2 02/22/17 09:00 102.7 110 152/92 96 Room Air 02/22/17 08:00 23 02/21/17 00:41 2.0 Intake and Output 02/21/17 02/21/17 02/22/17 15:00 23:00 07:00 Intake Total 1392.92 ml 750 ml 1335 ml Output Total 1475 ml 670 ml 445 ml Balance -82.08 ml 80 ml 890 ml Exam Constitutional: alert, oriented, other (Lethargic), well developed Respiratory: clear to auscultation, normal air movement Cardiovascular: nl pulses, regular rate and rhythm Gastrointestinal: non-tender, soft Musculoskeletal: nl extremities to inspection, nl gait and stance Extremities: normal pulses, other (No edema, clubbing or cyanosis) Neurological: STEAM TABLE ASSOCIATE II-XII intact, lethargic, nl mental status, nl speech Results Result Diagram: 02/22/17 0643 02/22/17 0530 Results 24 hrs Laboratory Tests Test 02/21/17 11:04 02/21/17 12:23 02/21/17 16:12 02/21/17 18:16 Sodium Level 142 Potassium Level 4.3 Chloride Level 110 Carbon Dioxide Level 19 L Anion Gap 17 H Blood Urea Nitrogen 21 H Creatinine 1.10 Glucose Level 319 H Lactic Acid Level 4.4 *H Calcium Level 8.2 L Creatine Kinase 651 H 584 H Creatine Kinase Index 3.2 2.4 Creatinine Kinase MB (Mass) 20.80 H 13.80 H Troponin I 3.770 *H 3.140 *H Bedside Glucose 290 H 173 Test 02/21/17 23:37 02/22/17 04:40 02/22/17 05:30 02/22/17 05:51 Bedside Glucose 159 148 Lab Scanned Report BLOOD TRANSFUSION Sodium Level 141 Potassium Level 3.9 Chloride Level 112 H Carbon Dioxide Level 22 Anion Gap 11 Blood Urea Nitrogen 22 H Creatinine 1.06 Glucose Level 135 # Calcium Level 7.5 L Phosphorus Level 2.9 Magnesium Level 2.3 Total Bilirubin 0.4 Direct Bilirubin 0.00 Indirect Bilirubin 0.4 Aspartate Amino Transf (AST/SGOT) 35 # Alanine Aminotransferase (ALT/SGPT) 43 Alkaline Phosphatase 49 Creatine Kinase 418 #H Creatine Kinase Index 1.0 Creatinine Kinase MB (Mass) 4.28 H Troponin I 2.540 *H Total Protein 5.7 #L Albumin 2.6 #L Globulin 3.10 Albumin/Globulin Ratio 0.83 Triglycerides Level 277 H Cholesterol Level 126 LDL Cholesterol, Calculated 48 HDL Cholesterol 23 L Cholesterol/HDL Ratio 5.4 Test 02/22/17 06:43 White Blood Count 12.4 #H Red Blood Count 2.37 L Hemoglobin 7.0 L Hematocrit 20.1 L Mean Corpuscular Volume 84.8 Mean Corpuscular Hemoglobin 29.5 Mean Corpuscular Hemoglobin Concent 34.8 Red Cell Distribution Width 15.2 H Platelet Count 12 #*L Mean Platelet Volume 11.8 H Neutrophils % Segmented Neutrophils % (Manual) 30 L Band Neutrophils % (Manual) 12 H Lymphocytes % Lymphocytes % (Manual) 16 Reactive Lymphocytes % (Manual) 8 H Monocytes % Monocytes % (Manual) 6 Eosinophils % Basophils % Metamyelocytes % (manual) 2 H Blast Cells % (Manual) 27.1 H Nucleated Red Blood Cells % 0.0 Neutrophils # Neutrophils # (Manual) 3.9 Band Neutrophils # 1.4 H Absolute Lymphocytes (Manual) 1.9 Lymphocytes # Reactive Lymphocytes # 0.9 H Monocytes # Absolute Monocytes (Manual) 0.7 Eosinophils # Basophils # Metamyelocytes # 0.2 H Nucleated Red Blood Cells # Platelet Estimate SIG DECREASED Polychromasia 2+ Anisocytosis 1+ Microcytosis 1+ Imaging Free Text/Dictation PROCEDURE: CT SCAN OF THE ABDOMEN AND PELVIS with IV CONTRAST CLINICAL INDICATION: Abdominal pain, bloated feeling TECHNIQUE: Utilizing the multi-slice spiral CT scanner, Transaxial images were obtained through the abdomen and pelvis with IV contrast. Additional sagittal, coronal, MPR images were also obtained. DICOM images are available Radiation Dose: CTDI vol 13.57 mGy, DLP 936.92 mGy-cm. One of more of the following dose reduction techniques were utilized: -automatic exposure control -adjustment of the mA and/or kV according to patient size -Use of iterative reconstruction technique Contrast used: 90 cc Omnipaque-300 COMPARISON: 01/24/2017 FINDINGS: Limited slices through the lung bases demonstrates bibasilar infiltrates, worse in the left lung with adjacent pleural thickening. Left lower lobe infiltrate is persistent. Cardiomegaly is seen without significant pericardial effusion. Small retrocardiac hernia noted. Distal descending aorta 3.1 cm. Moderate degenerative changes in the lower dorsal spine noted. CT Abdomen Fatty liver, nondistended stomach, normal spleen, adrenals, patent portal veins , normal pancreas, adrenals are seen. Gallbladder demonstrates numerous stones with pericholecystic fluid. This is a new finding. Patent portal vein, normal opacification of the celiac, SMA, bilateral renal artery origins are noted. Low density lesion left renal parenchyma suggestive of cyst. Calcification in the left renal parenchyma suggestive of nonobstructive stone. No retroperitoneal adenopathy noted. Bowel gas pattern appears nonspecific with no free air or ascites noted. Mild pneumatosis of the cecum is seen. Appendix is visualized. No periappendiceal fluid collection noted. CT pelvis: Moderate stool noted in the rectosigmoid colon. Garay catheter seen in the bladder. Prostate appears unremarkable. No pelvic ascites noted. Bilateral inguinal hernia contains fat. Degenerative changes noted in the lumbosacral spine. IMPRESSION: Bibasilar infiltrates, worse in the left lung base without improvement. Fatty liver Gallbladder with pericholecystic fluid, new finding. Medications Medications Current Medications Sodium Chloride (NS) 1,000 ml @ 125 mls/hr Q8H IV Last administered on 09:18; Admin Dose 125 MLS/HR; Start 02/20/17 at 23:27 Ondansetron HCl (Zofran Tab) 4 mg Q6H PRN PO NAUSEA AND/OR VOMITING; Start at 23:30 Acetaminophen (Tylenol Supp) 650 mg Q4H PRN MT PAIN LEVEL 1-3 OR FEVER; Start 02/20/17 at 23:30 Hydromorphone HCl (Dilaudid) 0.5 mg Q4H PRN IV PAIN LEVEL 7-10 Last administered on 02/22/17 04:34; Admin Dose 0.5 MG; Start 02/20/17 at 23:30 Pantoprazole 40 mg 40 mg DAILY@06 PO Last administered on 02/22/17 05:52; Admin Dose 40 MG; Start 02/21/17 at 06:00 Meropenem/Sodium Chloride 50 ml @ 100 mls/hr Q8 IVPB Last administered on 05:51; Admin Dose 100 MLS/HR; Start 02/21/17 at 05:00 Acyclovir/Dextrose (Zovirax/D5W) 100 ml @ 100 mls/hr Q8 IVPB Last administered on 02/22/17 05:52; Admin Dose 100 MLS/HR; Start 02/21/17 at 05: 00 Atorvastatin Calcium (Lipitor) 40 mg DAILY PO Last administered on 02/22/17 08:32; Admin Dose 40 MG; Start 02/20/17 at 23:30 Miscellaneous Information 1 ea NOTE XX ; Start 02/21/17 at 03:00 Glucose (Glutose) 15 gm Q15M PRN PO DECREASED GLUCOSE; Start 02/21/17 at 03:00 Glucose (Glutose) 22.5 gm Q15M PRN PO DECREASED GLUCOSE; Start 02/21/17 at 03: 00 Dextrose (D50w Syringe) 25 ml Q15M PRN IV DECREASED GLUCOSE; Start 02/21/17 at 03:00 Dextrose (D50w Syringe) 50 ml Q15M PRN IV DECREASED GLUCOSE; Start 02/21/17 at 03:00 Glucagon (Glucagen) 1 mg Q15M PRN IM DECREASED GLUCOSE; Start 02/21/17 at 03: 00 Glucose 15 gm 15 gm Q15M PRN BUCCAL DECREASED GLUCOSE; Start 02/21/17 at 03:00 Norepinephrine 16 mg/Dextrose 500 ml @ 1.87 mls/hr TITRATE IV Last administered on 02/21/17 06:56; Admin Dose 24.37 MLS/HR; Start 02/21/17 at 05 :00 Vancomycin HCl 250 ml @ 125 mls/hr Q12H IVPB Last administered on 02/22/17 05:51; Admin Dose 125 MLS/HR; Start 02/21/17 at 06:00 Fluconazole/ Sodium Chloride (Diflucan 100 Mg/ NS (Pmx)) 50 ml @ 50 mls/hr Q24H IVPB Last administered on 02/21/17 12:27; Admin Dose 50 MLS/HR; Start at 10:48 IV Flush (NS 10 ml) 10 ml PRN PRN IV IV PROTOCOL; Start 02/21/17 at 13:00 Metoprolol Tartrate (Lopressor) 12.5 mg QID PO Last administered on 02/22/17 08:32; Admin Dose 12.5 MG; Start 02/22/17 at 09:00 Ondansetron HCl (Zofran Inj) 4 mg Q4H PRN IV NAUSEA AND/OR VOMITING; Start at 08:30 Acetaminophen (Tylenol Tab) 650 mg Q4H PRN PO PAIN AND OR ELEVATED TEMP Last administered on 02/22/17 09:13; Admin Dose 650 MG; Start 02/22/17 at 09:30 SOBIA NUNEZ Feb 22, 2017 09:41
[2017-02-22] MEDS: FLUCONAZOLE 100 MG/NS (PMX) 50 ML IVPB SCH (10:03)
--- NOTE | 2017-02-22 10:08 | CONS ---
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 Patient states he is currently trying a therapy called "Novomine "by [employer] [employer] [facility] Pt states his blast count decreased with this medication but that since this hospital admission his blast count has increased which he attributes to being off this medication. He would like to continue with supportive transfusion in the interim -At this time given pt is in a critical state in the ICU we cannot start chemotherapy at this time -continue broad spectrum antibiotics to cover the GNR's in blood -pt has an appointment with [facility] [place] and states he will reconsider chemotherapy based on that meeting. -if patient decides to pursue chemotherapy during this admission, and is more stable, he can be transferred to a tertiary care center to initiate treatment. -pt currently has 40% blasts circulating in his peripheral blood and is transfusion dependant. Pt understands that his disease is terminal and that his only chance of controlling this disease is with chemotherapy which he is not yet willing to accept. -continue broad spectrum antibiotics and antifungal coverage per ID. Appreciate recommendations - keep platelets > 20 and Hg > 10 pt is s/p transfusion yesterday. will given 1 unit of platelet transfusion today Problems: Consultation Date/Type/Reason Admit Date/Time Feb 21, 2017 at 00:08 Initial Consult Date 02/21/17 Type of Consultation: oncology Reason for Consultation AML Referring Provider: SOBIA NUNEZ 24 HR Interval Summary Free Text/Dictation pt now off pressors. feels short of breath. c/o gas pain. blood cultures are growin GNR Exam/Review of Systems Vital Signs Vitals Vital Signs Date Time Temp Pulse Resp B/P Pulse Ox O2 Delivery O2 Flow Rate FiO2 02/22/17 09:00 102.7 110 152/92 96 Room Air 02/22/17 08:00 23 02/21/17 00:41 2.0 Intake and Output 02/21/17 02/21/17 02/22/17 15:00 23:00 07:00 Intake Total 1392.92 ml 750 ml 1460 ml Output Total 1475 ml 670 ml 545 ml Balance -82.08 ml 80 ml 915 ml Results Result Diagram: 02/22/17 0643 02/22/17 0530 Results 24 hrs Laboratory Tests Test 02/21/17 11:04 02/21/17 12:23 02/21/17 16:12 02/21/17 18:16 Sodium Level 142 Potassium Level 4.3 Chloride Level 110 Carbon Dioxide Level 19 L Anion Gap 17 H Blood Urea Nitrogen 21 H Creatinine 1.10 Glucose Level 319 H Lactic Acid Level 4.4 *H Calcium Level 8.2 L Creatine Kinase 651 H 584 H Creatine Kinase Index 3.2 2.4 Creatinine Kinase MB (Mass) 20.80 H 13.80 H Troponin I 3.770 *H 3.140 *H Bedside Glucose 290 H 173 Test 02/21/17 23:37 02/22/17 04:40 02/22/17 05:30 02/22/17 05:51 Bedside Glucose 159 148 Lab Scanned Report BLOOD TRANSFUSION Sodium Level 141 Potassium Level 3.9 Chloride Level 112 H Carbon Dioxide Level 22 Anion Gap 11 Blood Urea Nitrogen 22 H Creatinine 1.06 Glucose Level 135 # Calcium Level 7.5 L Phosphorus Level 2.9 Magnesium Level 2.3 Total Bilirubin 0.4 Direct Bilirubin 0.00 Indirect Bilirubin 0.4 Aspartate Amino Transf (AST/SGOT) 35 # Alanine Aminotransferase (ALT/SGPT) 43 Alkaline Phosphatase 49 Creatine Kinase 418 #H Creatine Kinase Index 1.0 Creatinine Kinase MB (Mass) 4.28 H Troponin I 2.540 *H Total Protein 5.7 #L Albumin 2.6 #L Globulin 3.10 Albumin/Globulin Ratio 0.83 Triglycerides Level 277 H Cholesterol Level 126 LDL Cholesterol, Calculated 48 HDL Cholesterol 23 L Cholesterol/HDL Ratio 5.4 Test 02/22/17 06:43 02/22/17 10:01 White Blood Count 12.4 #H Red Blood Count 2.37 L Hemoglobin 7.0 L Hematocrit 20.1 L Mean Corpuscular Volume 84.8 Mean Corpuscular Hemoglobin 29.5 Mean Corpuscular Hemoglobin Concent 34.8 Red Cell Distribution Width 15.2 H Platelet Count 12 #*L Mean Platelet Volume 11.8 H Neutrophils % Segmented Neutrophils % (Manual) 30 L Band Neutrophils % (Manual) 12 H Lymphocytes % Lymphocytes % (Manual) 16 Reactive Lymphocytes % (Manual) 8 H Monocytes % Monocytes % (Manual) 6 Eosinophils % Basophils % Metamyelocytes % (manual) 2 H Blast Cells % (Manual) 27.1 H Nucleated Red Blood Cells % 0.0 Neutrophils # Neutrophils # (Manual) 3.9 Band Neutrophils # 1.4 H Absolute Lymphocytes (Manual) 1.9 Lymphocytes # Reactive Lymphocytes # 0.9 H Monocytes # Absolute Monocytes (Manual) 0.7 Eosinophils # Basophils # Metamyelocytes # 0.2 H Nucleated Red Blood Cells # Platelet Estimate SIG DECREASED Polychromasia 2+ Anisocytosis 1+ Microcytosis 1+ Bedside Glucose 183 Medications Medications Current Medications Sodium Chloride (NS) 1,000 ml @ 125 mls/hr Q8H IV Last administered on 09:18; Admin Dose 125 MLS/HR; Start 02/20/17 at 23:27 Ondansetron HCl (Zofran Tab) 4 mg Q6H PRN PO NAUSEA AND/OR VOMITING; Start at 23:30 Acetaminophen (Tylenol Supp) 650 mg Q4H PRN [place] PAIN LEVEL 1-3 OR FEVER; Start 02/20/17 at 23:30 Hydromorphone HCl (Dilaudid) 0.5 mg Q4H PRN IV PAIN LEVEL 7-10 Last administered on 02/22/17 04:34; Admin Dose 0.5 MG; Start 02/20/17 at 23:30 Pantoprazole 40 mg 40 mg DAILY@06 PO Last administered on 02/22/17 05:52; Admin Dose 40 MG; Start 02/21/17 at 06:00 Meropenem/Sodium Chloride 50 ml @ 100 mls/hr Q8 IVPB Last administered on 05:51; Admin Dose 100 MLS/HR; Start 02/21/17 at 05:00 Acyclovir/Dextrose (Zovirax/D5W) 100 ml @ 100 mls/hr Q8 IVPB Last administered on 02/22/17 05:52; Admin Dose 100 MLS/HR; Start 02/21/17 at 05: 00 Atorvastatin Calcium (Lipitor) 40 mg DAILY PO Last administered on 02/22/17 08:32; Admin Dose 40 MG; Start 02/20/17 at 23:30 Miscellaneous Information 1 ea NOTE XX ; Start 02/21/17 at 03:00 Glucose (Glutose) 15 gm Q15M PRN PO DECREASED GLUCOSE; Start 02/21/17 at 03:00 Glucose (Glutose) 22.5 gm Q15M PRN PO DECREASED GLUCOSE; Start 02/21/17 at 03: 00 Dextrose (D50w Syringe) 25 ml Q15M PRN IV DECREASED GLUCOSE; Start 02/21/17 at 03:00 Dextrose (D50w Syringe) 50 ml Q15M PRN IV DECREASED GLUCOSE; Start 02/21/17 at 03:00 Glucagon (Glucagen) 1 mg Q15M PRN IM DECREASED GLUCOSE; Start 02/21/17 at 03: 00 Glucose 15 gm 15 gm Q15M PRN BUCCAL DECREASED GLUCOSE; Start 02/21/17 at 03:00 Norepinephrine 16 mg/Dextrose 500 ml @ 1.87 mls/hr TITRATE IV Last administered on 02/21/17 06:56; Admin Dose 24.37 MLS/HR; Start 02/21/17 at 05 :00 Vancomycin HCl 250 ml @ 125 mls/hr Q12H IVPB Last administered on 02/22/17 05:51; Admin Dose 125 MLS/HR; Start 02/21/17 at 06:00 Fluconazole/ Sodium Chloride (Diflucan 100 Mg/ NS (Pmx)) 50 ml @ 50 mls/hr Q24H IVPB Last administered on 02/22/17 10:03; Admin Dose 50 MLS/HR; Start at 10:48 IV Flush (NS 10 ml) 10 ml PRN PRN IV IV PROTOCOL; Start 02/21/17 at 13:00 Metoprolol Tartrate (Lopressor) 12.5 mg QID PO Last administered on 02/22/17 08:32; Admin Dose 12.5 MG; Start 02/22/17 at 09:00 Ondansetron HCl (Zofran Inj) 4 mg Q4H PRN IV NAUSEA AND/OR VOMITING; Start at 08:30 Acetaminophen (Tylenol Tab) 650 mg Q4H PRN PO PAIN AND OR ELEVATED TEMP Last administered on 02/22/17 09:13; Admin Dose 650 MG; Start 02/22/17 at 09:30 CALEB CERON M.D. Feb 22, 2017 10:08
[2017-02-22] MEDS ORDERED: INSULIN ASPART [NOVOLOG] 3 ML PEN SC SCH (11:00)
[2017-02-22] MEDS: Insulin NOVOLOG SS MILD Algorithm (SS with meals and bedtime) SC SCH ×3 (12:06→20:40)
--- NOTE | 2017-02-22 14:38 | PN ---
DATE: 02/22/2017 SUBJECTIVE: No acute events overnight. The patient is awake, weak, tachycardic, looks comfortable. VITAL SIGNS: Spiking fevers with a T-max today 102.7. T-current 101.2, pulse 102, respirations 33, blood pressure 130/74, saturation 92 on room air. LABORATORY DATA: WBC 12.4, H and H 7 and 20.1, platelets 12, BUN 22, creatinine 1.06. MICROBIOLOGY: Blood culture growing gram-negative rods. Urine culture negative. INDWELLINGS: Patient has PICC line placed yesterday. ANTIMICROBIALS: He is on 1. Fluconazole. 2. Vancomycin. 3. Meropenem. 4. Acyclovir. DIAGNOSTICS: Chest x-ray on admission revealed mild bibasilar subsegmental atelectasis. PHYSICAL EXAMINATION: GENERAL: A well developed, wasted, elderly Romansh man who is alert, in no distress. HEENT: Head atraumatic, normocephalic. Sclerae anicteric. Buccal mucosa dry. NECK: Supple. CHEST: Rise symmetrical. Breath sounds diminished to bases. HEART: S1, S2, tachycardic, regular. ABDOMEN: Soft. Bowel tones hypoactive. EXTREMITIES: The patient has some pain with palpation. ASSESSMENT: 1. Severe sepsis status post shock. 2. Acute cholecystitis, acalculous possible choledocholithiasis. 3. Healthcare-associated pneumonia. 4. Acute myelogenous leukemia. 5. Anemia and thrombocytopenia. 6. Blast crisis. 7. Non-ST elevation myocardial infarction, cardiology on case. PLAN: The patient remains hemodynamically stable. He is being seen by multiple consultants. Accor ding to surgical notes, he may require cholecystostomy drain, await for final cultures. Dictated By: [employer] for JENAE KASPER/DE Conf#: [id number] DID#: [id number]
[2017-02-22] MEDS ORDERED: METHYLPREDNISOLONE 125 MG INJ IV ONE (15:00)
[2017-02-22] MEDS ORDERED: SOD CHLORIDE 0.9% 250 ML IV* ONE ×2 (15:25→18:53)
--- NOTE | 2017-02-22 18:22 | PN ---
Date/Time of Note Date/Time of Note DATE: 02/22/17 TIME: 18:22 Assessment/Plan Lines/Catheters IV Catheter Type (from [facility]): PICC Line Garay in Place (from [facility]): No Assessment/Plan Assessment/Plan [facility] Progress Note Date of Service: 02/22/2017 Location of Service: ICU Today's Assessment & Plan: Overall seems to be deteriorated. CT scan clearly indicates gallbladder being the source of his current active arrhythmia and sepsis. I had a very long discussion with the patient and with his both in the room and then separately with his outside of his room trying to explain to them the gravity of his situation and the strong indication for him to undergo percutaneous drainage of his gallbladder since he is not a candidate for safe surgical intervention at this time. Patient was very adamant that he only wanted nonprocedural treatment such as antimicrobial therapies. I again pressed them on the issue and try to understand why he is making what I believe to be an irrational decision but the patient was still firm in his decision regarding not wanting any procedures. His explained to me that he has extreme panic and anxiety about any interventions (reportedly passed out prior to having an MRI done). Patient also has other history with other physicians in the team of noncompliance and insistence on following his own decisions based on his own understanding of medical therapy. I do believe that the patient has enough information to make good decisions but I also believe that the patient is irrational in his thought and perhaps misguided by the level of his anxiety regarding physicians, healthcare and procedures. It is clear to me that the patient is competent in making decisions for himself and for this reason, I do not believe that we have the ability to perform what I believe to be lifesaving procedure at this time. I answered all the patient's and his 's questions to the best of my ability and I believe that they understand the situation and they also understand my strong recommendations and at this time would like not to proceed with percutaneous drainage of his gallbladder. I have communicated this with the nursing staff and also with the physicians and the team. With above assessment, I've recommended the following for today: 1. Continue current management 2. Please continue to speak with the patient and to reiterate the importance of following medical advice and to allow us to do what is needed to get him better 3. Labs in a.m. 4. Broad-spectrum antimicrobials Thank you again for your great care of this very pleasant patient and wonderful family. If there are any questions, please feel free to call me at [phone]. Nature of presenting problem: High severity Complexity of decision making: High complexity Disclaimers: 1. Inadvertent spelling and grammatical errors are likely due to electronic health record (EHR)/dictation software used and do not reflect on the quality of delivered patient care. 2. The electronic timestamp recorded on this note does not necessarily reflect the actual date and time of the visit or the service. 3. Portions of this note may have been created through electronic templates and computer algorithms that might bring in information either from the system or from other physicians and providers. Please note that such information may or may not contain errors, the occurrence of which are outside of my control. In general (but not always) this happens either in the beginning or at the end of the note. The portion of the note that I have created are generally done in 1 continuous block of text, flanked at the beginning and at the end by " ", and entered into one field in the EHR. 4. There may be other unanticipated errors in the note that are outside of my control. I can only attest to the portions of the note that I have created. Updated Clinical Summary: A very pleasant 66-year-old gentleman with a few comorbidities including fairly severe AML, which has needed therapy and currently seems to have gotten worse, presenting with a picture consistent with septic shock with gram-negative rods, bacteremia, and ultrasound findings are concerning for perhaps acalculous cholecystitis, but no obvious other clinical evidence of acute cholecystitis. CT scan of abdomen and pelvis 02/21/2017 showed pericholecystic fluid which was new compared to before. Comorbidities: 1. BMI 29.7. 2. 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 Note that the patient was felt to have recurring disease 09/2016 where, at that time, he did not allow any more chemotherapy. He had reported trying a medication called "Novomine" by "[employer] a [employer] based on the formerly [facility]. The patient reported himself that his blast count decreased with this medication, but it has since increased while he has been off of the medications. He has an appointment at [facility], at which point he will reconsider getting chemotherapy again. 3. Diabetes. 4. Hypertension. 5. History of pneumonia 01/2017, at [facility]. 6. Hepatosplenomegaly. 7. Coronary arterial atherosclerosis. 8. Aortic atherosclerosis. Subjective: Reports feeling worse than yesterday; no significant abd pain reported and under control with medications; no n/v/d; no sob or cp; bowel activity; activity ; cannot explain exactly why he is not feeling well but appears anxious and reports "there is something wrong" Objective: Vitals: See below Exam: GENERAL: On exam, the patient was laying in bed and appeared to be semi- uncomfortable and agitated. ABDOMEN: Soft, nontender and nondistended. There are no peritoneal signs or guarding. SKIN: Skin appears to be pink and feels warm to touch. NEUROLOGIC: Patient is awake, alert, and follows commands appropriately. Appears agitated and anxious. Exam/Review of Systems Vital Signs Vitals Vital Signs Date Time Temp Pulse Resp B/P Pulse Ox O2 Delivery O2 Flow Rate FiO2 02/22/17 16:00 98.4 102 36 133/81 93 Room Air 02/21/17 00:41 2.0 Intake and Output 02/21/17 02/21/17 02/22/17 15:00 23:00 07:00 Intake Total 1392.92 ml 750 ml 1460 ml Output Total 1475 ml 670 ml 545 ml Balance -82.08 ml 80 ml 915 ml Results Result Diagram: 02/22/17 0643 02/22/17 0530 PASTORA SPEARS M.D. Feb 22, 2017 18:22
[2017-02-22] MEDS: VANCOMYCIN 1.25 GM in DEXTROSE 5% 250 ML IVPB SCH (19:41)
[2017-02-23] VITALS (51 sets, daily range): BP systolic 95–126; BP diastolic 57–87; PULSE 71–100; RESP 9–34
[2017-02-23] MEDS: SOD CHLORIDE 0.9% 1,000 ML IV SCH ×3 (00:37→16:56)
[2017-02-23] MEDS: LACTASE PO SCH ×3 (00:37→21:00)
[2017-02-23] MEDS ORDERED: INSULIN ASPART [NOVOLOG] 3 ML PEN SC ONE (03:30)
[2017-02-23] MEDS ORDERED: SOD CHLORIDE 0.9% 250 ML IV* ONE (03:30)
[2017-02-23] MEDS ORDERED: FUROSEMIDE 40 MG INJ IV SCH (03:30)
[2017-02-23 05:27] LABS: ABNORMAL IP MESSAGE 1; HEMATOCRIT 18.2 % (42.0-52.0); MEAN CORPUSCULAR HEMOGLOBIN 29.8 pg (29.0-33.0); MEAN CORPUSCULAR HGB CONC 35.7 g/dl (32.0-37.0); MEAN CORPUSCULAR VOLUME 83.5 fl (82.0-101.0); MEAN PLATELET VOLUME 11.1 fl (7.4-10.4); PLATELET COUNT 51 10^3/UL (140-415); POSITIVE DIFF @See below; RED BLOOD COUNT 2.18 10^6/ul (4.70-6.10); RED CELL DISTRIBUTION WIDTH 15.1 % (11.5-14.5)
[2017-02-23] MEDS: MEROPENEM 1 GM/50ML(PMX) 50 ML IVPB SCH ×3 (05:31→21:15)
[2017-02-23 05:46] LABS: MAGNESIUM 2.3 mg/dl (1.7-2.5); PHOSPHORUS 2.5 mg/dl (2.5-4.9)
[2017-02-23 05:55] LABS: ALBUMIN 2.9 g/dl (3.3-4.9); ALBUMIN/GLOBULIN RATIO 0.87; BILIRUBIN,INDIRECT 0.9 mg/dl (0-1.1); BILIRUBIN,TOTAL 0.9 mg/dl (0.2-1.3); CALCIUM 7.7 mg/dl (8.4-10.2); CREATININE 0.97 mg/dl (0.61-1.24); POTASSIUM 3.9 mmol/L (3.5-5.1); TOTAL PROTEIN 6.2 g/dl (6.1-8.1)
[2017-02-23] MEDS: PANTOPRAZOLE (EC) 40 MG TAB PO SCH (06:02)
[2017-02-23] MEDS: ACYCLOVIR 500 MG in DEXTROSE 5% 100 ML IVPB SCH ×3 (06:03→22:33)
[2017-02-23 06:22] LABS: HEMOGLOBIN 6.5 g/dl (14.0-18.0)
--- NOTE | 2017-02-23 08:14 | CONS ---
Date/Time of Note Date/Time of Note DATE: 02/23/17 TIME: 08:08 Consult Date/Type/Reason Admit Date/Time Feb 21, 2017 at 00:08 Initial Consult Date 02/21/17 Type of Consultation: card Ordering Provider: SOBIA NUNEZ Subjective Cardiology follow up/ critical care note: S: Case discussed with the staff and family at bedside. Rhythm strip was reviewed. Patient remains sinus rhythm. No episode of atrial fibrillation so far. Patient denies any chest pain or pressure to me. Patient complains of severe fatigue and dyspnea on exertion with limited activity including been going to the bathroom. He denies any active bleeding to be no dysuria or hematuria. O: General: thin no acute distress HEENT: NC/AT. pupils are equal. round. NECK: NO JVD. no stridor. CV: RRR. systolic murmur; no gallop or rubs. PULM: no wheezing or rhonchi. GI: SOFT, NT, ND, no rebound or guarding Extremity: trace B/L LE edema. no clubbing. neuro: awake and alert, OX3. Psych: calm and pleasant rectal: deferred : s/p ha cathere in place echo personally reviewed: Conclusions 1. Lower limits of normal systolic function. Normal left ventricular cavity size. Mild concentric left ventricular hypertrophy. Ejection fraction is visually estimated at 50-55 %. Tissue Doppler/Mitral Doppler indices are consistent with impaired relaxation (Stage I diastolic dysfunction). 2. Mitral valve leaflets appear mildly thickened. Moderate mitral annular calcification. There is trace to mild mitral valve regurgitation. 3. No significant aortic stenosis or insufficiency. Aortic cusps appear mildly calcified. 4. Normal appearance of the tricuspid valve. Estimated peak PA systolic pressure 39 mmHg. There is mild tricuspid regurgitation. 5. Dilated IVC without respiratory collapse consistent with elevated right atrial pressure. Objective Vital Signs Date Time Temp Pulse Resp B/P Pulse Ox O2 Delivery O2 Flow Rate FiO2 02/23/17 07:00 87 25 111/72 92 Room Air 02/23/17 04:00 98.5 02/21/17 00:41 2.0 Intake and Output 02/22/17 02/22/17 02/23/17 15:00 23:00 07:00 Intake Total 2320 ml 1785.000 ml 1200 ml Output Total 400 ml 600 ml Balance 1920 ml 1185.000 ml 1200 ml Results/Medications Result Diagram: 02/23/17 0430 02/23/17 0430 Results 24 hrs Laboratory Tests Test 02/22/17 10:01 02/22/17 12:00 02/22/17 12:01 02/22/17 17:07 Bedside Glucose 183 170 Lactic Acid Level 2.0 Vancomycin Level Trough 8.5 L Test 02/22/17 17:51 02/22/17 20:37 02/23/17 02:51 02/23/17 04:12 Bedside Glucose 219 236 H 266 H 235 H Test 02/23/17 04:30 02/23/17 04:53 White Blood Count 14.0 H Red Blood Count 2.18 L Hemoglobin 6.5 *L Hematocrit 18.2 L Mean Corpuscular Volume 83.5 Mean Corpuscular Hemoglobin 29.8 Mean Corpuscular Hemoglobin Concent 35.7 Red Cell Distribution Width 15.1 H Platelet Count 51 #L Mean Platelet Volume 11.1 H Neutrophils % Lymphocytes % Monocytes % Eosinophils % Basophils % Nucleated Red Blood Cells % 0.0 Neutrophils # Lymphocytes # Monocytes # Eosinophils # Basophils # Nucleated Red Blood Cells # Sodium Level 139 Potassium Level 3.9 Chloride Level 109 Carbon Dioxide Level 21 Anion Gap 13 Blood Urea Nitrogen 20 Creatinine 0.97 Glucose Level 215 Calcium Level 7.7 L Phosphorus Level 2.5 Magnesium Level 2.3 Total Bilirubin 0.9 Direct Bilirubin 0.00 Indirect Bilirubin 0.9 Aspartate Amino Transf (AST/SGOT) 34 Alanine Aminotransferase (ALT/SGPT) 50 Alkaline Phosphatase 57 Total Protein 6.2 Albumin 2.9 L Globulin 3.30 H Albumin/Globulin Ratio 0.87 Lab Scanned Report BLOOD TRANSFUSION Medications Current Medications Sodium Chloride (NS) 1,000 ml @ 125 mls/hr Q8H IV Last administered on t 00:37; Admin Dose 125 MLS/HR; Start 02/20/17 at 23:27 Ondansetron HCl (Zofran Tab) 4 mg Q6H PRN PO NAUSEA AND/OR VOMITING; Start at 23:30 Acetaminophen (Tylenol Supp) 650 mg Q4H PRN [place] PAIN LEVEL 1-3 OR FEVER; Start 02/20/17 at 23:30 Hydromorphone HCl (Dilaudid) 0.5 mg Q4H PRN IV PAIN LEVEL 7-10 Last administered on 02/22/17 04:34; Admin Dose 0.5 MG; Start 02/20/17 at 23:30 Pantoprazole 40 mg 40 mg DAILY@06 PO Last administered on 02/23/17 06:02; Admin Dose 40 MG; Start 02/21/17 at 06:00 Meropenem/Sodium Chloride 50 ml @ 100 mls/hr Q8 IVPB Last administered on 05:31; Admin Dose 100 MLS/HR; Start 02/21/17 at 05:00 Acyclovir/Dextrose (Zovirax/D5W) 100 ml @ 100 mls/hr Q8 IVPB Last administered on 02/23/17 06:03; Admin Dose 100 MLS/HR; Start 02/21/17 at 05: 00 Atorvastatin Calcium (Lipitor) 40 mg DAILY PO Last administered on 02/22/17 08:32; Admin Dose 40 MG; Start 02/20/17 at 23:30 Miscellaneous Information 1 ea NOTE XX ; Start 02/21/17 at 03:00 Glucose (Glutose) 15 gm Q15M PRN PO DECREASED GLUCOSE; Start 02/21/17 at 03:00 Glucose (Glutose) 22.5 gm Q15M PRN PO DECREASED GLUCOSE; Start 02/21/17 at 03: 00 Dextrose (D50w Syringe) 25 ml Q15M PRN IV DECREASED GLUCOSE; Start 02/21/17 at 03:00 Dextrose (D50w Syringe) 50 ml Q15M PRN IV DECREASED GLUCOSE; Start 02/21/17 at 03:00 Glucagon (Glucagen) 1 mg Q15M PRN IM DECREASED GLUCOSE; Start 02/21/17 at 03: 00 Glucose 15 gm 15 gm Q15M PRN BUCCAL DECREASED GLUCOSE; Start 02/21/17 at 03:00 Fluconazole/ Sodium Chloride (Diflucan 100 Mg/ NS (Pmx)) 50 ml @ 50 mls/hr Q24H IVPB Last administered on 02/22/17 10:03; Admin Dose 50 MLS/HR; Start at 10:48 IV Flush (NS 10 ml) 10 ml PRN PRN IV IV PROTOCOL; Start 02/21/17 at 13:00 Metoprolol Tartrate (Lopressor) 12.5 mg QID PO Last administered on 02/22/17 20:35; Admin Dose 12.5 MG; Start 02/22/17 at 09:00 Ondansetron HCl (Zofran Inj) 4 mg Q4H PRN IV NAUSEA AND/OR VOMITING Last administered on 02/22/17 12:33; Admin Dose 4 MG; Start 02/22/17 at 08:30 Acetaminophen 650 mg 650 mg Q4H PRN PO PAIN AND OR ELEVATED TEMP Last administered on 02/22/17 17:58; Admin Dose 650 MG; Start 02/22/17 at 09:30 Vancomycin HCl/ Dextrose (Vancocin/D5W) 250 ml @ 83.333 mls/ hr Q12H IVPB Last administered on 02/22/17 19:41; Admin Dose 83.333 MLS/HR; Start at 20:00 Lactase (Lactaid) 2 tab BID PO Last administered on 02/23/17 00:37; Admin Dose 2 TAB; Start 02/22/17 at 21:00 Simethicone (Mylicon) 80 mg TID PRN PO DISTENSION/GAS/BLOATING Last administered on 02/22/17 20:41; Admin Dose 80 MG; Start 02/22/17 at 20:30 Diagnostic Test (Pha) (Accu-Chek) 1 ea 02 XX ; Start 02/24/17 at 02:00 Assessment/Plan Chief Complaint/Hosp Course 1. Non-ST elevation emotion myocardial infarction, most likely secondary to demand ischemia due to severe sepsis, shock, severe anemia. 2. Septic shock: Blood pressure has improved on off of pressors 3. Gram-negative bakari bacteremia, probably cholecystitis.: Urine culture is negative 4. Severe thrombocytopenia: Follow up with heme/onc 5. Acute myelocytic ascitic leukemia.: Follow with oncology recommendations 6. Leukocytosis. 7. Severe anemia. 8. History of diabetes. 9. History of dyslipidemia: Blood with LDL less than 70 currently. RECOMMENDATIONS: Patient has been able to be weaned off of pressors for now. I will cont the patient on very low-dose of beta-brielle and try to titrate up as tolerated We will continue to closely monitor him in the intensive care unit. No aspirin or Plavix or any antiplatelet to be given at this point, given his severe thrombocytopenia and anemia. Transfusion as needed. Will defer to heme oncology team. Supportive care will be continued for now. I do not recommend any cardiac intervention at this point, given his severe thrombocytopenia. His ejection fraction also appeared to be preserved as well, and he is angina free at this point. Continue with the ICU care. f/u with surgery rec: consider percutaneous transhepatic cholecystostomy tube placement if pt agrees to it. More than 38 minutes of critical care time was spent in management and treating this patient excluding any procedures. PAIGE DECKER MD [facility] Problems: PAIGE DECKER MD Feb 23, 2017 08:14
[2017-02-23] MEDS: VANCOMYCIN 1.25 GM in DEXTROSE 5% 250 ML IVPB SCH (08:58)
[2017-02-23] MEDS: ATORVASTATIN 40 MG TAB PO SCH (08:59)
[2017-02-23] MEDS: METOPROLOL 25 MG TAB PO SCH ×4 (09:00→21:17)
[2017-02-23] MEDS ORDERED: FUROSEMIDE 20 MG INJ IV ONE (09:00)
[2017-02-23] MEDS: INSULIN ASPART [NOVOLOG] 3 ML PEN SC SCH ×4 (09:02→21:00)
[2017-02-23 09:27] LABS: ANISOCYTOSIS 1+ (0-0); BLAST% (M) 33.4 % (0-0); EOSINOPHILS % (M) 2 % (0-7); ERYTHROBLAST% (NRBC) (M) 1 % (0-0); METAMYELOCYTES %M 3 % (0-0); MICROCYTOSIS 1+ (0-0); MONOCYTES % (M) 1 % (0-11); MYELOCYTES % (M) 2 % (0-0); OVALOCYTES 1+ (0-0); PLATELET ESTIMATE DECREASED; POLYCHROMASIA 3+ (0-0); PROMYELOCYTES #M 0.4 10^3/ul (0-0); PROMYELOCYTES % (M) 3 % (0-0)
--- NOTE | 2017-02-23 09:49 | PN ---
Date/Time of Note Date/Time of Note DATE: 02/23/17 TIME: 09:25 Assessment/Plan VTE Prophylaxis VTE Prophylaxis Intervention: contraindicated VTE Contraindication Reason: thrombocytopenia Lines/Catheters IV Catheter Type (from Nrsg): PICC Line Central line still needed: Yes (for IV access ) Urinary Cath still in place: No Assessment/Plan Assessment/Plan 66-year-old male with : 1. Gram Negative bakari sepsis and s/p septic shock in setting of functional neutropenia as the patient is still with untreated AML and in blast crisis essentially severely immunocompromised. Blood cultures positive for gram- negative rods CAT scan of abdomen and pelvis and GB US with findings of gallstone disease in the gallbladder and pericholecystic fluid. Patient with no abdominal pain today and is now agreeable to have IR placement of cholecystostomy tube. Continue current antibiotic coverage, repeat blood cultures NGTD so far. Follow-up further infectious disease recommendations. 2. NSTEMI, appreciate recommendations from cardiology, likely secondary to demand ischemia and severe anemia in the setting of septic shock. Patient will be medically treated, he has been started on beta-blockers. Cardiac enzymes have trended down. pRBC transfusion. Appreciate recommendations from Dr Paiz. 3. 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 Patient has been on naturopathic management of his AML. Prognosis poor given ongoing blast crisis and seems to be trending toward transfusion dependence. Platelet transfusion today Dr. Herrera following 4. Hypertension, patient out of shock state, off pressors, started on beta- blockers in setting of acute [place]. 5. Diabetes mellitus, (HgbA1c 6.7% on previous admission), blood sugars better controlled. Continue sliding scale insulin and diabetic diet for now. 4. Anxiety disorder, with history of claustrophobia, continue Xanax PRN for anxiety. Prophylaxis: SCDs and anticoagulation contraindicated due to severe thrombocytopenia, Pepcid for GI prophylaxis. Disposition: Continue current broad-spectrum antibiotics, medical management for NSTEMI and IR placement of cholecystostomy tube today Appreciate recommendations from Dr. Schneider and Dr Paiz. Subjective 24 Hr Interval Summary Free Text/Dictation Patient remains hemodynamically stable and afebrile overnight. S/p Tylenol and Solu-Medrol prior to blood products transfusion Getting blood product transfusions, s/p 3 units platelets and plats up to 51 Getting additional 2 units of pRBC for Hb 6.2 Exam/Review of Systems Vital Signs Vitals Vital Signs Date Time Temp Pulse Resp B/P Pulse Ox O2 Delivery O2 Flow Rate FiO2 02/23/17 07:00 87 25 111/72 92 Room Air 02/23/17 04:00 98.5 02/21/17 00:41 2.0 Intake and Output 02/22/17 02/22/17 02/23/17 15:00 23:00 07:00 Intake Total 2320 ml 1785.000 ml 1200 ml Output Total 400 ml 600 ml Balance 1920 ml 1185.000 ml 1200 ml Exam Constitutional: alert, frail, oriented, other (pale ) Respiratory: clear to auscultation, normal air movement Cardiovascular: nl pulses, regular rate and rhythm Gastrointestinal: non-tender, soft Musculoskeletal: nl extremities to inspection, nl gait and stance Extremities: normal pulses, other (no edema, clubbing or cyanosis ) Neurological: LOG RIDER II-XII intact, lethargic, nl mental status, nl speech, other (improving strength ) Results Result Diagram: 02/23/17 0430 02/23/17 0430 Results 24 hrs Laboratory Tests Test 02/22/17 10:01 02/22/17 12:00 02/22/17 12:01 02/22/17 17:07 Bedside Glucose 183 170 Lactic Acid Level 2.0 Vancomycin Level Trough 8.5 L Test 02/22/17 17:51 02/22/17 20:37 02/23/17 02:51 02/23/17 04:12 Bedside Glucose 219 236 H 266 H 235 H Test 02/23/17 04:30 02/23/17 04:53 02/23/17 08:55 White Blood Count 14.0 H Red Blood Count 2.18 L Hemoglobin 6.5 *L Hematocrit 18.2 L Mean Corpuscular Volume 83.5 Mean Corpuscular Hemoglobin 29.8 Mean Corpuscular Hemoglobin Concent 35.7 Red Cell Distribution Width 15.1 H Platelet Count 51 #L Mean Platelet Volume 11.1 H Neutrophils % Lymphocytes % Monocytes % Eosinophils % Basophils % Nucleated Red Blood Cells % 0.0 Neutrophils # Lymphocytes # Monocytes # Eosinophils # Basophils # Nucleated Red Blood Cells # Sodium Level 139 Potassium Level 3.9 Chloride Level 109 Carbon Dioxide Level 21 Anion Gap 13 Blood Urea Nitrogen 20 Creatinine 0.97 Glucose Level 215 Calcium Level 7.7 L Phosphorus Level 2.5 Magnesium Level 2.3 Total Bilirubin 0.9 Direct Bilirubin 0.00 Indirect Bilirubin 0.9 Aspartate Amino Transf (AST/SGOT) 34 Alanine Aminotransferase (ALT/SGPT) 50 Alkaline Phosphatase 57 Total Protein 6.2 Albumin 2.9 L Globulin 3.30 H Albumin/Globulin Ratio 0.87 Lab Scanned Report BLOOD TRANSFUSION Bedside Glucose 204 Medications Medications Current Medications Sodium Chloride (NS) 1,000 ml @ 125 mls/hr Q8H IV Last administered on 00:37; Admin Dose 125 MLS/HR; Start 02/20/17 at 23:27 Ondansetron HCl (Zofran Tab) 4 mg Q6H PRN PO NAUSEA AND/OR VOMITING; Start at 23:30 Acetaminophen (Tylenol Supp) 650 mg Q4H PRN DC PAIN LEVEL 1-3 OR FEVER; Start 02/20/17 at 23:30 Hydromorphone HCl (Dilaudid) 0.5 mg Q4H PRN IV PAIN LEVEL 7-10 Last administered on 02/22/17 04:34; Admin Dose 0.5 MG; Start 02/20/17 at 23:30 Pantoprazole 40 mg 40 mg DAILY@06 PO Last administered on 02/23/17 06:02; Admin Dose 40 MG; Start 02/21/17 at 06:00 Meropenem/Sodium Chloride 50 ml @ 100 mls/hr Q8 IVPB Last administered on 05:31; Admin Dose 100 MLS/HR; Start 02/21/17 at 05:00 Acyclovir/Dextrose (Zovirax/D5W) 100 ml @ 100 mls/hr Q8 IVPB Last administered on 02/23/17 06:03; Admin Dose 100 MLS/HR; Start 02/21/17 at 05: 00 Atorvastatin Calcium (Lipitor) 40 mg DAILY PO Last administered on 02/23/17 08:59; Admin Dose 40 MG; Start 02/20/17 at 23:30 Miscellaneous Information 1 ea NOTE XX ; Start 02/21/17 at 03:00 Glucose (Glutose) 15 gm Q15M PRN PO DECREASED GLUCOSE; Start 02/21/17 at 03:00 Glucose (Glutose) 22.5 gm Q15M PRN PO DECREASED GLUCOSE; Start 02/21/17 at 03: 00 Dextrose (D50w Syringe) 25 ml Q15M PRN IV DECREASED GLUCOSE; Start 02/21/17 at 03:00 Dextrose (D50w Syringe) 50 ml Q15M PRN IV DECREASED GLUCOSE; Start 02/21/17 at 03:00 Glucagon (Glucagen) 1 mg Q15M PRN IM DECREASED GLUCOSE; Start 02/21/17 at 03: 00 Glucose 15 gm 15 gm Q15M PRN BUCCAL DECREASED GLUCOSE; Start 02/21/17 at 03:00 Fluconazole/ Sodium Chloride (Diflucan 100 Mg/ NS (Pmx)) 50 ml @ 50 mls/hr Q24H IVPB Last administered on 02/22/17 10:03; Admin Dose 50 MLS/HR; Start at 10:48 IV Flush (NS 10 ml) 10 ml PRN PRN IV IV PROTOCOL; Start 02/21/17 at 13:00 Metoprolol Tartrate (Lopressor) 12.5 mg QID PO Last administered on 02/23/17 09:00; Admin Dose 12.5 MG; Start 02/22/17 at 09:00 Ondansetron HCl (Zofran Inj) 4 mg Q4H PRN IV NAUSEA AND/OR VOMITING Last administered on 02/22/17 12:33; Admin Dose 4 MG; Start 02/22/17 at 08:30 Acetaminophen 650 mg 650 mg Q4H PRN PO PAIN AND OR ELEVATED TEMP Last administered on 02/22/17 17:58; Admin Dose 650 MG; Start 02/22/17 at 09:30 Vancomycin HCl/ Dextrose (Vancocin/D5W) 250 ml @ 83.333 mls/ hr Q12H IVPB Last administered on 02/23/17 08:58; Admin Dose 83.333 MLS/HR; Start at 20:00 Lactase (Lactaid) 2 tab BID PO Last administered on 02/23/17 09:00; Admin Dose 2 TAB; Start 02/22/17 at 21:00 Simethicone (Mylicon) 80 mg TID PRN PO DISTENSION/GAS/BLOATING Last administered on 02/22/17t 20:41; Admin Dose 80 MG; Start 02/22/17 at 20:30 Diagnostic Test (Pha) (Accu-Chek) 1 XX ; Start 02/24/17 at 02:00 SOBIA NUNEZ Feb 23, 2017 09:35
[2017-02-23] MEDS: ACETAMINOPHEN 325 MG TAB PO PRN (10:22)
[2017-02-23] MEDS: FLUCONAZOLE 100 MG/NS (PMX) 50 ML IVPB SCH (12:42)
--- NOTE | 2017-02-23 13:31 | CONS ---
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 Patient is currently trying a therapy called "Novomine"by [employer] based on the [facility]. Pt states his blast count decreased with this medication and that he would like to continue with supportive transfusion in the interim -At this time given pt is in a critical state and is actively infected we would not be able to start chemotherapy at this time regardless -continue broad spectrum antibiotics to cover the GNR's in blood -agree with percutaneous drainage of gall bladder. appreciate hepatobiliary surgery recs -pt has an appointment with [facility] and states he will reconsider chemotherapy based on that meeting. -if patient decides to pursue chemotherapy during this admission, and is more stable, he can be transferred to a tertiary care center to initiate treatment. -pt currently has 20-30% blasts circulating in his peripheral blood and is transfusion dependant. Pt understands that his disease is terminal and that his only chance of controlling this disease is with chemotherapy which he is not yet willing to accept. -continue broad spectrum antibiotics and antifungal coverage per ID. Appreciate recommendations - keep platelets > 20 and Hg > 10 pt is s/p transfusion yesterday. will given 1 unit of platelet transfusion today Problems: Consultation Date/Type/Reason Admit Date/Time Feb 21, 2017 at 00:08 Initial Consult Date 02/21/17 Type of Consultation: oncology Reason for Consultation AML Referring Provider: SOBIA NUNEZ 24 HR Interval Summary Free Text/Dictation pt agreed to have cholecystostomy drain placed. still spiking fevers Exam/Review of Systems Vital Signs Vitals Vital Signs Date Time Temp Pulse Resp B/P Pulse Ox O2 Delivery O2 Flow Rate FiO2 02/23/17 12:45 82 21 106/73 92 Room Air 02/23/17 12:00 97.9 02/21/17 00:41 2.0 Intake and Output 02/22/17 02/22/17 02/23/17 15:00 23:00 07:00 Intake Total 2320 ml 1785.000 ml 1200 ml Output Total 400 ml 600 ml Balance 1920 ml 1185.000 ml 1200 ml Exam Constitutional: alert, distress, frail Psych: anxiety, depression Head: normocephalic Eyes: nl conjunctiva ENMT: nl external ears & nose Neck: non-tender, supple Respiratory: clear to auscultation, diminished breath sounds Cardiovascular: other (tachycardic) Gastrointestinal: soft Musculoskeletal: nl extremities to inspection Results Result Diagram: 02/23/17 0430 02/23/17 0430 Results 24 hrs Laboratory Tests Test 02/22/17 17:07 02/22/17 17:51 02/22/17 20:37 02/23/17 02:51 Vancomycin Level Trough 8.5 L Bedside Glucose 219 236 H 266 H Test 02/23/17 04:12 02/23/17 04:30 02/23/17 04:53 02/23/17 08:55 Bedside Glucose 235 H 204 White Blood Count 14.0 H Red Blood Count 2.18 L Hemoglobin 6.5 *L Hematocrit 18.2 L Mean Corpuscular Volume 83.5 Mean Corpuscular Hemoglobin 29.8 Mean Corpuscular Hemoglobin Concent 35.7 Red Cell Distribution Width 15.1 H Platelet Count 51 #L Mean Platelet Volume 11.1 H Neutrophils % Segmented Neutrophils % (Manual) 29 L Band Neutrophils % (Manual) 14 H Lymphocytes % Lymphocytes % (Manual) 12 L Monocytes % Monocytes % (Manual) 1 Eosinophils % Eosinophils % (Manual) 2 Basophils % Metamyelocytes % (manual) 3 H Myelocytes % (Manual) 2 H Promyelocytes % (Manual) 3 H Blast Cells % (Manual) 33.4 H Nucleated Red Blood Cells % 1 H Neutrophils # Neutrophils # (Manual) 4.3 Band Neutrophils # 1.9 H Absolute Lymphocytes (Manual) 1.6 Lymphocytes # Monocytes # Absolute Monocytes (Manual) 0.1 L Eosinophils # Basophils # Metamyelocytes # 0.4 H Myelocytes # 0.2 H Promyelocytes # 0.4 H Nucleated Red Blood Cells # Platelet Estimate DECREASED Polychromasia 3+ Anisocytosis 1+ Microcytosis 1+ Ovalocytes 1+ Sodium Level 139 Potassium Level 3.9 Chloride Level 109 Carbon Dioxide Level 21 Anion Gap 13 Blood Urea Nitrogen 20 Creatinine 0.97 Glucose Level 215 Calcium Level 7.7 L Phosphorus Level 2.5 Magnesium Level 2.3 Total Bilirubin 0.9 Direct Bilirubin 0.00 Indirect Bilirubin 0.9 Aspartate Amino Transf (AST/SGOT) 34 Alanine Aminotransferase (ALT/SGPT) 50 Alkaline Phosphatase 57 Total Protein 6.2 Albumin 2.9 L Globulin 3.30 H Albumin/Globulin Ratio 0.87 Lab Scanned Report BLOOD TRANSFUSION Test 02/23/17 11:49 Bedside Glucose 179 Medications Medications Current Medications Sodium Chloride (NS) 1,000 ml @ 125 mls/hr Q8H IV Last administered on 00:37; Admin Dose 125 MLS/HR; Start 02/20/17 at 23:27 Ondansetron HCl (Zofran Tab) 4 mg Q6H PRN PO NAUSEA AND/OR VOMITING; Start at 23:30 Acetaminophen (Tylenol Supp) 650 mg Q4H PRN GA PAIN LEVEL 1-3 OR FEVER; Start 02/20/17 at 23:30 Hydromorphone HCl (Dilaudid) 0.5 mg Q4H PRN IV PAIN LEVEL 7-10 Last administered on 02/22/17 04:34; Admin Dose 0.5 MG; Start 02/20/17 at 23:30 Pantoprazole 40 mg 40 mg DAILY@06 PO Last administered on 02/23/17 06:02; Admin Dose 40 MG; Start 02/21/17 at 06:00 Meropenem/Sodium Chloride 50 ml @ 100 mls/hr Q8 IVPB Last administered on 05:31; Admin Dose 100 MLS/HR; Start 02/21/17 at 05:00 Acyclovir/Dextrose (Zovirax/D5W) 100 ml @ 100 mls/hr Q8 IVPB Last administered on 02/23/17 06:03; Admin Dose 100 MLS/HR; Start 02/21/17 at 05: 00 Atorvastatin Calcium (Lipitor) 40 mg DAILY PO Last administered on 02/23/17 08:59; Admin Dose 40 MG; Start 02/20/17 at 23:30 Miscellaneous Information 1 ea NOTE XX ; Start 02/21/17 at 03:00 Glucose (Glutose) 15 gm Q15M PRN PO DECREASED GLUCOSE; Start 02/21/17 at 03:00 Glucose (Glutose) 22.5 gm Q15M PRN PO DECREASED GLUCOSE; Start 02/21/17 at 03: 00 Dextrose (D50w Syringe) 25 ml Q15M PRN IV DECREASED GLUCOSE; Start 02/21/17 at 03:00 Dextrose (D50w Syringe) 50 ml Q15M PRN IV DECREASED GLUCOSE; Start 02/21/17 at 03:00 Glucagon (Glucagen) 1 mg Q15M PRN IM DECREASED GLUCOSE; Start 02/21/17 at 03: 00 Glucose 15 gm 15 gm Q15M PRN BUCCAL DECREASED GLUCOSE; Start 02/21/17 at 03:00 Fluconazole/ Sodium Chloride (Diflucan 100 Mg/ NS (Pmx)) 50 ml @ 50 mls/hr Q24H IVPB Last administered on 02/23/17 12:42; Admin Dose 50 MLS/HR; Start at 10:48 IV Flush (NS 10 ml) 10 ml PRN PRN IV IV PROTOCOL; Start 02/21/17 at 13:00 Metoprolol Tartrate (Lopressor) 12.5 mg QID PO Last administered on 02/23/17 13:05; Admin Dose 12.5 MG; Start 02/22/17 at 09:00 Ondansetron HCl (Zofran Inj) 4 mg Q4H PRN IV NAUSEA AND/OR VOMITING Last administered on 02/22/17 12:33; Admin Dose 4 MG; Start 02/22/17 at 08:30 Acetaminophen (Tylenol Tab) 650 mg Q4H PRN PO PAIN AND OR ELEVATED TEMP Last administered on 02/23/17 10:22; Admin Dose 650 MG; Start 02/22/17 at 09:30 Lactase (Lactaid) 2 tab BID PO Last administered on 02/23/17 09:00; Admin Dose 2 TAB; Start 02/22/17 at 21:00 Simethicone (Mylicon) 80 mg TID PRN PO DISTENSION/GAS/BLOATING Last administered on 02/23/17 11:01; Admin Dose 80 MG; Start 02/22/17 at 20:30 Diagnostic Test (Pha) 1 ea 1 ea 02 XX ; Start 02/24/17 at 02:00 Vancomycin HCl/ Dextrose (Vancocin/D5W) 500 ml @ 166.667 mls/hr Q12H IVPB ; Start 02/23/17 at 20:00 CALEB CERON M.D. Feb 23, 2017 13:31
--- NOTE | 2017-02-23 15:07 | PN ---
DATE: 02/23/2017 SUBJECTIVE: No acute changes. The patient is alert, feels better, looks comfortable. He is afebri le. OBJECTIVE: VITAL SIGNS: T-max 102.5 to current 98.5, pulse 87, respirations 20, blood pressure 111 /72, saturation 92 on room air. LABORATORY DATA: WBC 14, H and H 6.5 and 18.2, platelets 51. BUN 20, creatinine 0.97. MICROBIOLOGY: Blood culture growing gram-negative rods. Repeat blood cultures preliminary negative . INDWELLINGS: The patient has PICC line. ANTIMICROBIALS: 1. She is on IV vancomycin 2. Meropenem. 3. Fluconazole. 4. Acyclovir. PHYSICAL EXAMINATION: GENERAL: This is a well-nourished, well-developed, elderly [place] man who is alert, in no distres s. HEENT: Head atraumatic, normocephalic. Sclerae anicteric. Buccal mucosa pink. NECK: Supple. CHEST: Rise symmetrical. Breath sounds clear. HEART: S1, S2. ABDOMEN: Soft. Bowel tones present. EXTREMITIES: Without cyanosis. ASSESSMENT: 1. Resolving sepsis status post shock. 2. Gram-negative rods bacteremia, likely secondary to #3. 3. Acute cholecystitis. 4. Non-ST elevation myocardial infarction. 5. Acute myelogenous leukemia with a blast crisis. 6. Diabetes. 7. Anemia. PLAN: The patient remains stable. Continue present care, antibiotics pending, cholecystostomy tube placement. Dictated By: EDWARD KINGSLEY [employer] OPERATOR HELPER for JENAE KASPER/DE Conf#: [id number] DID#: [id number]
[2017-02-23 15:48] LABS: ABNORMAL IP MESSAGE 1; HEMATOCRIT 22.5 % (42.0-52.0); MEAN CORPUSCULAR HEMOGLOBIN 29.7 pg (29.0-33.0); MEAN CORPUSCULAR HGB CONC 35.6 g/dl (32.0-37.0); MEAN CORPUSCULAR VOLUME 83.6 fl (82.0-101.0); MEAN PLATELET VOLUME 11.1 fl (7.4-10.4); PLATELET COUNT 36 10^3/UL (140-415); POSITIVE DIFF @See below; RED BLOOD COUNT 2.69 10^6/ul (4.70-6.10); RED CELL DISTRIBUTION WIDTH 14.5 % (11.5-14.5); WHITE BLOOD COUNT 10.9 10^3/ul (4.8-10.8)
--- NOTE | 2017-02-23 16:31 | PN ---
Date/Time of Note Date/Time of Note DATE: 02/23/17 TIME: 07:52 Assessment/Plan Lines/Catheters IV Catheter Type (from [facility]): PICC Line Garay in Place (from [facility]): No Assessment/Plan Assessment/Plan [facility] Progress Note Date of Service: 02/23/2017 Location of Service: ICU Today's Assessment & Plan: Overall seems quasi stable. Awaiting image-guided perc drain of gallbladder. Explained to patient and his and answered all their questions to the best of my ability. They appeared to understand and agreed with the plans. I have communicated this with the nursing staff and also with the physicians and the team. With above assessment, I've recommended the following for today: 1. Continue current management 2. Image-guided GB drainage 3. Labs in a.m. 4. Broad-spectrum antimicrobials Thank you again for your great care of this very pleasant patient and wonderful family. If there are any questions, please feel free to call me at [phone]. Nature of presenting problem: High severity Complexity of decision making: High complexity Disclaimers: 1. Inadvertent spelling and grammatical errors are likely due to electronic health record (EHR)/dictation software used and do not reflect on the quality of delivered patient care. 2. The electronic timestamp recorded on this note does not necessarily reflect the actual date and time of the visit or the service. 3. Portions of this note may have been created through electronic templates and computer algorithms that might bring in information either from the system or from other physicians and providers. Please note that such information may or may not contain errors, the occurrence of which are outside of my control. In general (but not always) this happens either in the beginning or at the end of the note. The portion of the note that I have created are generally done in 1 continuous block of text, flanked at the beginning and at the end by " ", and entered into one field in the EHR. 4. There may be other unanticipated errors in the note that are outside of my control. I can only attest to the portions of the note that I have created. Updated Clinical Summary: A very pleasant 66-year-old gentleman with a few comorbidities including fairly severe AML, which has needed therapy and currently seems to have gotten worse, presenting with a picture consistent with septic shock with gram-negative rods, bacteremia, and ultrasound findings are concerning for perhaps acalculous cholecystitis, but no obvious other clinical evidence of acute cholecystitis. CT scan of abdomen and pelvis 02/21/2017 showed pericholecystic fluid which was new compared to before. After a period of patient not agreeing to medical recommendations, he agreed to undergo percutaneous drainage of his gallbladder. Comorbidities: 1. BMI 29.7. 2. 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 Note that the patient was felt to have recurring disease 09/2016 where, at that time, he did not allow any more chemotherapy. He had reported trying a medication called "Novomine" by "[employer] a [employer] based on the [facility]. The patient reported himself that his blast count decreased with this medication, but it has since increased while he has been off of the medications. He has an appointment at [facility], at which point he will reconsider getting chemotherapy again. 3. Diabetes. 4. Hypertension. 5. History of pneumonia 01/2017, at [facility]. 6. Hepatosplenomegaly. 7. Coronary arterial atherosclerosis. 8. Aortic atherosclerosis. Subjective: Reports feeling the same as yesterday; no significant abd pain reported and under control with medications; no n/v/d; no sob or cp; bowel activity; activity ; less anxious than yesterday Objective: Vitals: See below Exam: GENERAL: On exam, the patient was sitting in a chair and appeared to be comfortable and less agitated compared to yesterday. ABDOMEN: Soft, nontender and nondistended. There are no peritoneal signs or guarding. SKIN: Skin appears to be pink and feels warm to touch. NEUROLOGIC: Patient is awake, alert, and follows commands appropriately. Appears less agitated and anxious than yesterday. Exam/Review of Systems Vital Signs Vitals Vital Signs Date Time Temp Pulse Resp B/P Pulse Ox O2 Delivery O2 Flow Rate FiO2 02/23/17 14:15 86 23 124/81 98 Room Air 02/23/17 12:00 97.9 02/21/17 00:41 2.0 Intake and Output 02/22/17 02/22/17 02/23/17 15:00 23:00 07:00 Intake Total 2320 ml 1785.000 ml 1200 ml Output Total 400 ml 600 ml Balance 1920 ml 1185.000 ml 1200 ml Results Result Diagram: 02/23/17 1533 02/23/17 0430 PASTORA SPEARS M.D. Feb 23, 2017 16:31
[2017-02-23 18:33] LABS: ANISOCYTOSIS 1+ (0-0); BLAST% (M) 31.8 % (0-0); HYPOCHROMASIA 1+ (0-0); METAMYELOCYTES %M 3 % (0-0); MICROCYTOSIS 1+ (0-0); MONOCYTES % (M) 1 % (0-11); MYELOCYTES % (M) 5 % (0-0); PLATELET ESTIMATE DECREASED; PROMYELOCYTES #M 0.3 10^3/ul (0-0); PROMYELOCYTES % (M) 3 % (0-0)
--- NOTE | 2017-02-23 19:56 | RADRPT ---
PROCEDURE: HIDA scan CLINICAL INDICATION: 66 -year-old patient with abdominal pain. TECHNIQUE: Following the intravenous injection of 8.8 mCi of Tc-99m Mebrofenin, multiple anterior dynamic images of the abdomen along with numerous planar spot images of the abdomen were obtained up to 70 minutes post injection. COMPARISON: No prior HIDA scans. FINDINGS: The liver is promptly visualized, demonstrates homogeneous distribution of radionuclide. There is a visualization of the common bile duct, gallbladder and gastrointestinal activity within n ormal time. IMPRESSION: No evidence to suggest the presence of common bile or cystic ducts obstruction. RPTAT: QQ .Karolyn Griffin MD, MD Date Time Electronically viewed and signed by .Karolyn Griffin MD, on 02/23/2017 19:56 .L/
[2017-02-23] MEDS: VANCOMYCIN 1.5 GM in DEXTROSE 5% 500 ML IVPB SCH (21:15)
[2017-02-24] VITALS (18 sets, daily range): BP systolic 112–139; BP diastolic 60–88; PULSE 77–95; RESP 18–42
[2017-02-24] MEDS: ACCU-CHEK XX SCH (02:00)
[2017-02-24 06:04] LABS: ABNORMAL IP MESSAGE 1; HEMOGLOBIN 8.6 g/dl (14.0-18.0); MEAN CORPUSCULAR HEMOGLOBIN 29.7 pg (29.0-33.0); MEAN CORPUSCULAR HGB CONC 35.8 g/dl (32.0-37.0); MEAN CORPUSCULAR VOLUME 82.8 fl (82.0-101.0); MEAN PLATELET VOLUME 10.9 fl (7.4-10.4); POSITIVE DIFF @See below; RED CELL DISTRIBUTION WIDTH 14.4 % (11.5-14.5); WHITE BLOOD COUNT 13.2 10^3/ul (4.8-10.8)
[2017-02-24] MEDS: PANTOPRAZOLE (EC) 40 MG TAB PO SCH (06:28)
[2017-02-24] MEDS: SOD CHLORIDE 0.9% 1,000 ML IV SCH ×3 (06:28→19:14)
[2017-02-24] MEDS: MEROPENEM 1 GM/50ML(PMX) 50 ML IVPB SCH ×3 (06:30→22:21)
[2017-02-24 06:42] LABS: ALBUMIN 2.5 g/dl (3.3-4.9); ALBUMIN/GLOBULIN RATIO 0.78; BILIRUBIN,INDIRECT 1.1 mg/dl (0-1.1); BILIRUBIN,TOTAL 1.1 mg/dl (0.2-1.3); CALCIUM 7.5 mg/dl (8.4-10.2); CREATININE 0.94 mg/dl (0.61-1.24); POTASSIUM 3.5 mmol/L (3.5-5.1); TOTAL PROTEIN 5.7 g/dl (6.1-8.1)
[2017-02-24 06:47] LABS: PLATELET COUNT 28 10^3/UL (140-415)
[2017-02-24] MEDS: ACYCLOVIR 500 MG in DEXTROSE 5% 100 ML IVPB SCH (07:02)
[2017-02-24 07:03] LABS: MAGNESIUM 2.2 mg/dl (1.7-2.5); PHOSPHORUS 1.8 mg/dl (2.5-4.9)
[2017-02-24] MEDS: INSULIN ASPART [NOVOLOG] 3 ML PEN SC SCH ×4 (07:48→21:00)
[2017-02-24] MEDS: VANCOMYCIN 1.5 GM in DEXTROSE 5% 500 ML IVPB SCH (07:49)
--- NOTE | 2017-02-24 07:49 | CONS ---
Date/Time of Note Date/Time of Note DATE: 02/24/17 TIME: 07:47 Consult Date/Type/Reason Admit Date/Time Feb 21, 2017 at 00:08 Initial Consult Date 02/21/17 Type of Consultation: card Ordering Provider: SOBIA NUNEZ Subjective Cardiology follow up/ critical care note: S: Case discussed with the staff and family at bedside. Rhythm strip was reviewed. Patient remains sinus rhythm. No episode of atrial fibrillation so far. Patient denies any chest pain or pressure to me. Patient complains of severe fatigue and dyspnea on exertion with limited activity including even going to the bathroom. He denies any active bleeding to be no dysuria or hematuria. pt c/o diarrhea today O: General: thin no acute distress HEENT: NC/AT. pupils are equal. round. NECK: NO JVD. no stridor. CV: RRR. systolic murmur; no gallop or rubs. PULM: no wheezing or rhonchi. GI: SOFT, NT, ND, no rebound or guarding Extremity: trace B/L LE edema. no clubbing. neuro: awake and alert, OX3. Psych: calm and pleasant rectal: deferred : s/p ha cathere in place echo personally reviewed: Conclusions 1. Lower limits of normal systolic function. Normal left ventricular cavity size. Mild concentric left ventricular hypertrophy. Ejection fraction is visually estimated at 50-55 %. Tissue Doppler/Mitral Doppler indices are consistent with impaired relaxation (Stage I diastolic dysfunction). 2. Mitral valve leaflets appear mildly thickened. Moderate mitral annular calcification. There is trace to mild mitral valve regurgitation. 3. No significant aortic stenosis or insufficiency. Aortic cusps appear mildly calcified. 4. Normal appearance of the tricuspid valve. Estimated peak PA systolic pressure 39 mmHg. There is mild tricuspid regurgitation. 5. Dilated IVC without respiratory collapse consistent with elevated right atrial pressure. Objective Vital Signs Date Time Temp Pulse Resp B/P Pulse Ox O2 Delivery O2 Flow Rate FiO2 02/24/17 06:00 99.0 83 28 125/80 90 Room Air 02/24/17 01:21 21 02/21/17 00:41 2.0 Intake and Output 02/23/17 02/23/17 02/24/17 15:00 23:00 07:00 Intake Total 927.5 ml 1575.0 ml 1250 ml Output Total 300 ml 600 ml Balance 627.5 ml 1575.0 ml 650 ml Results/Medications Result Diagram: 02/24/17 0435 02/24/17 0435 Results 24 hrs Laboratory Tests Test 02/23/17 08:55 02/23/17 11:49 02/23/17 15:33 02/23/17 17:00 Bedside Glucose 204 179 160 White Blood Count 10.9 #H Red Blood Count 2.69 #L Hemoglobin 8.0 #L Hematocrit 22.5 #L Mean Corpuscular Volume 83.6 Mean Corpuscular Hemoglobin 29.7 Mean Corpuscular Hemoglobin Concent 35.6 Red Cell Distribution Width 14.5 Platelet Count 36 #L Mean Platelet Volume 11.1 H Neutrophils % Segmented Neutrophils % (Manual) 31 L Band Neutrophils % (Manual) 4 Lymphocytes % Lymphocytes % (Manual) 22 Monocytes % Monocytes % (Manual) 1 Eosinophils % Metamyelocytes % (manual) 3 H Myelocytes % (Manual) 5 H Promyelocytes % (Manual) 3 H Blast Cells % (Manual) 31.8 H Nucleated Red Blood Cells % 0.0 Neutrophils # Neutrophils # (Manual) 3.4 Band Neutrophils # 0.4 Absolute Lymphocytes (Manual) 2.3 Lymphocytes # Monocytes # Absolute Monocytes (Manual) 0.1 L Eosinophils # Metamyelocytes # 0.3 H Myelocytes # 0.5 H Promyelocytes # 0.3 H Platelet Estimate DECREASED Hypochromasia 1+ Anisocytosis 1+ Microcytosis 1+ Test 02/23/17 21:17 02/24/17 04:35 02/24/17 05:12 Bedside Glucose 154 White Blood Count 13.2 #H Red Blood Count 2.90 L Hemoglobin 8.6 L Hematocrit 24.0 L Mean Corpuscular Volume 82.8 Mean Corpuscular Hemoglobin 29.7 Mean Corpuscular Hemoglobin Concent 35.8 Red Cell Distribution Width 14.4 Platelet Count 28 #*L Mean Platelet Volume 10.9 H Neutrophils % Lymphocytes % Monocytes % Eosinophils % Basophils % Nucleated Red Blood Cells % 0.0 Neutrophils # Lymphocytes # Monocytes # Eosinophils # Basophils # Nucleated Red Blood Cells # Sodium Level 136 Potassium Level 3.5 Chloride Level 107 Carbon Dioxide Level 22 Anion Gap 11 Blood Urea Nitrogen 18 Creatinine 0.94 Glucose Level 140 # Calcium Level 7.5 L Phosphorus Level 1.8 L Magnesium Level 2.2 Total Bilirubin 1.1 Direct Bilirubin 0.00 Indirect Bilirubin 1.1 Aspartate Amino Transf (AST/SGOT) 22 Alanine Aminotransferase (ALT/SGPT) 45 Alkaline Phosphatase 49 Total Protein 5.7 L Albumin 2.5 L Globulin 3.20 Albumin/Globulin Ratio 0.78 Lab Scanned Report BLOOD TRANSFUSION Medications Current Medications Sodium Chloride (NS) 1,000 ml @ 125 mls/hr Q8H IV Last administered on 06:28; Admin Dose 125 MLS/HR; Start 02/20/17 at 23:27 Ondansetron HCl (Zofran Tab) 4 mg Q6H PRN PO NAUSEA AND/OR VOMITING; Start at 23:30 Acetaminophen (Tylenol Supp) 650 mg Q4H PRN [place] PAIN LEVEL 1-3 OR FEVER; Start 02/20/17 at 23:30 Hydromorphone HCl (Dilaudid) 0.5 mg Q4H PRN IV PAIN LEVEL 7-10 Last administered on 02/22/17 04:34; Admin Dose 0.5 MG; Start 02/20/17 at 23:30 Pantoprazole 40 mg 40 mg DAILY@06 PO Last administered on 02/24/17 06:28; Admin Dose 40 MG; Start 02/21/17 at 06:00 Meropenem/Sodium Chloride 50 ml @ 100 mls/hr Q8 IVPB Last administered on 06:30; Admin Dose 100 MLS/HR; Start 02/21/17 at 05:00 Acyclovir/Dextrose (Zovirax/D5W) 100 ml @ 100 mls/hr Q8 IVPB Last administered on 02/24/17 07:02; Admin Dose 100 MLS/HR; Start 02/21/17 at 05: 00 Atorvastatin Calcium (Lipitor) 40 mg DAILY PO Last administered on 02/23/17 08:59; Admin Dose 40 MG; Start 02/20/17 at 23:30 Miscellaneous Information 1 ea NOTE XX ; Start 02/21/17 at 03:00 Glucose (Glutose) 15 gm Q15M PRN PO DECREASED GLUCOSE; Start 02/21/17 at 03:00 Glucose (Glutose) 22.5 gm Q15M PRN PO DECREASED GLUCOSE; Start 02/21/17 at 03: 00 Dextrose (D50w Syringe) 25 ml Q15M PRN IV DECREASED GLUCOSE; Start 02/21/17 at 03:00 Dextrose (D50w Syringe) 50 ml Q15M PRN IV DECREASED GLUCOSE; Start 02/21/17 at 03:00 Glucagon (Glucagen) 1 mg Q15M PRN IM DECREASED GLUCOSE; Start 02/21/17 at 03: 00 Glucose 15 gm 15 gm Q15M PRN BUCCAL DECREASED GLUCOSE; Start 02/21/17 at 03:00 Fluconazole/ Sodium Chloride (Diflucan 100 Mg/ NS (Pmx)) 50 ml @ 50 mls/hr Q24H IVPB Last administered on 02/23/17 12:42; Admin Dose 50 MLS/HR; Start at 10:48 IV Flush (NS 10 ml) 10 ml PRN PRN IV IV PROTOCOL; Start 02/21/17 at 13:00 Metoprolol Tartrate (Lopressor) 12.5 mg QID PO Last administered on 02/23/17 21:17; Admin Dose 12.5 MG; Start 02/22/17 at 09:00 Ondansetron HCl (Zofran Inj) 4 mg Q4H PRN IV NAUSEA AND/OR VOMITING Last administered on 02/22/17 12:33; Admin Dose 4 MG; Start 02/22/17 at 08:30 Acetaminophen (Tylenol Tab) 650 mg Q4H PRN PO PAIN AND OR ELEVATED TEMP Last administered on 02/23/17 10:22; Admin Dose 650 MG; Start 02/22/17 at 09:30 Lactase (Lactaid) 2 tab BID PO Last administered on 02/23/17 09:00; Admin Dose 2 TAB; Start 02/22/17 at 21:00 Simethicone (Mylicon) 80 mg TID PRN PO DISTENSION/GAS/BLOATING Last administered on 02/23/17 11:01; Admin Dose 80 MG; Start 02/22/17 at 20:30 Diagnostic Test (Pha) 1 ea 1 ea 02 XX ; Start 02/24/17 at 02:00 Vancomycin HCl/ Dextrose (Vancocin/D5W) 500 ml @ 166.667 mls/hr Q12H IVPB Last administered on 02/23/17 21:15; Admin Dose 166.667 MLS/HR; Start at 20:00 Assessment/Plan Chief Complaint/Hosp Course 1. Non-ST elevation emotion myocardial infarction, most likely secondary to demand ischemia due to severe sepsis, shock, severe anemia. 2. Septic shock: Blood pressure has improved on off of pressors 3. Gram-negative bakari bacteremia, probably cholecystitis.: Urine culture is negative 4. Severe thrombocytopenia: Follow up with heme/onc 5. Acute myelocytic ascitic leukemia.: Follow with oncology recommendations 6. Leukocytosis. 7. Severe anemia. 8. History of diabetes. 9. History of dyslipidemia: Blood with LDL less than 70 currently. 10. diarrhea RECOMMENDATIONS: I will cont the patient on very low-dose of beta-brielle and try to titrate up as tolerated We will continue to closely monitor him in the intensive care unit. No aspirin or Plavix or any antiplatelet to be given at this point, given his severe thrombocytopenia and anemia. Transfusion as needed. Will defer to heme oncology team. Supportive care will be continued for now. I do not recommend any cardiac intervention at this point, given his severe thrombocytopenia. His ejection fraction also appeared to be preserved as well, and he is angina free at this point. Continue with the ICU care. f/u with surgery rec: consider percutaneous transhepatic cholecystostomy tube placement if pt agrees to it. r/o C dif. More than 36 minutes of critical care time was spent in management and treating this patient excluding any procedures. PAIGE DECKER MD [facility] Problems: PAIGE DECKER MD Feb 24, 2017 07:49
[2017-02-24] MEDS: ATORVASTATIN 40 MG TAB PO SCH (08:55)
[2017-02-24] MEDS: LACTASE PO SCH (08:55)
[2017-02-24] MEDS: METOPROLOL 25 MG TAB PO SCH ×3 (08:55→20:39)
--- NOTE | 2017-02-24 09:26 | RADRPT ---
PROCEDURE: XR Chest. CLINICAL INDICATION: Shortness of breath. TECHNIQUE: Single frontal view. COMPARISON: 02/21/2017. FINDINGS: The left arm PICC line tip is in the upper superior vena cava. There is mild atelectasis at the lung bases, unchanged. There is new bilateral diffuse interstitial disease consistent with pulmonary ara ma. The heart size is normal. There is no pleural effusion. There is no pneumothorax. IMPRESSION: 1. Arm PICC line tip in the upper superior vena cava. 2. New pulmonary edema. 3. No other change from the 02/21/2017 chest radiograph. RPTAT: QQ .Hemal Ramirez MD, MD Date Time Electronically viewed and signed by .Hemal Ramirez MD, MD on 02/24/2017 09:25 .R/
[2017-02-24] MEDS: LACTOBACILLUS RHAMNOSUS CAP PO SCH ×2 (09:39→21:00)
--- NOTE | 2017-02-24 09:44 | PN ---
Date/Time of Note Date/Time of Note DATE: 02/24/17 TIME: 09:22 Assessment/Plan VTE Prophylaxis VTE Prophylaxis Intervention: contraindicated VTE Contraindication Reason: thrombocytopenia Lines/Catheters IV Catheter Type (from Nrs): PICC Line Central line still needed: Yes (For IV access) Urinary Cath still in place: No Assessment/Plan Assessment/Plan 66-year-old male with : 1. Gram Negative bakari sepsis and s/p septic shock in setting of functional neutropenia as the patient is still with untreated AML and in blast crisis essentially severely immunocompromised. Admission Blood cultures positive for gram-negative rods x2, per micro seems to be anaerobic species CAT scan of abdomen and pelvis and GB US with findings of gallstone disease in the gallbladder and pericholecystic fluid but HIDA scan done overnight while awaiting cholecystostomy tube placement came back actually negative and patient still with no specific abdominal symptoms consistent with acute cholecystitis. Therefore per Dr. Schneider , no need to place cholecystostomy tube today, procedure has been canceled. Also discussed with infectious disease, based on the current cultures, will discontinue vancomycin and acyclovir. Continue Diflucan and meropenem for now. Start probiotics Repeat blood cultures 02/22 are NGTD. Follow-up further infectious disease recommendations. 2. NSTEMI, appreciate recommendations from cardiology, likely secondary to demand ischemia and severe anemia in the setting of septic shock. Patient will be medically treated, he has been started on beta-blockers. Cardiac enzymes have trended down. pRBC transfusion. Appreciate recommendations from Dr Paiz. Chest x-ray with signs of volume overload, patient complaining of also some congestion. Lasix 20 mg IV 1 today and decrease IV fluids. 3. 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 Patient has been on naturopathic management of his AML. Prognosis poor given ongoing blast crisis and seems to be trending toward transfusion dependence. Platelet transfusion today Dr. Herrera following 4. Hypertension, patient out of shock state, off pressors, started on beta- blockers in setting of acute DE. 5. Diabetes mellitus, (HgbA1c 6.7% on previous admission), blood sugars better controlled. Continue sliding scale insulin and diabetic diet for now. 4. Anxiety disorder, with history of claustrophobia, continue Xanax PRN for anxiety. 6. Diarrhea: Multiple bowel movements overnight, C. difficile negative, start probiotics. Monitor volume status. Given chest x-ray findings were decreasing IV fluids and giving 1 dose of diuretics. Once tolerating p.o. we will discontinue IV fluids. Prophylaxis: SCDs and anticoagulation contraindicated due to severe thrombocytopenia, Pepcid for GI prophylaxis. Disposition: Continue antibiotics, medical management for NSTEMI and blood product transfusions as needed for supportive care. Transfer to telemetry. Appreciate recommendations from, ID, Dr. Schneider and Dr Paiz. Subjective 24 Hr Interval Summary Free Text/Dictation Patient doing better, he is hungry. Appreciate recommendations from Dr. Schneider , HIDA scan overnight was negative, therefore cholecystostomy tube placement will be discontinued. Also discussed with infectious disease yesterday, will discontinue vancomycin and acyclovir today. Will resume patient's diet, transfer to telemetry. Ongoing diarrhea. C. difficile negative. Start probiotic Exam/Review of Systems Vital Signs Vitals Vital Signs Date Time Temp Pulse Resp B/P Pulse Ox O2 Delivery O2 Flow Rate FiO2 02/24/17 08:00 88 29 124/81 90 Room Air 02/24/17 07:00 99.3 02/24/17 01:21 21 02/21/17 00:41 2.0 Intake and Output 02/23/17 02/23/17 02/24/17 15:00 23:00 07:00 Intake Total 927.5 ml 1575.0 ml 1250 ml Output Total 300 ml 850 ml Balance 627.5 ml 1575.0 ml 400 ml Exam Constitutional: alert, oriented, well developed Respiratory: clear to auscultation, normal air movement Cardiovascular: nl pulses, regular rate and rhythm Gastrointestinal: non-tender, soft Musculoskeletal: nl extremities to inspection Extremities: normal pulses Neurological: MAPPING ENGINEER II-XII intact, lethargic, nl mental status, nl speech Results Result Diagram: 02/24/1743402/24/17434 Results 24 hrs Laboratory Tests Test 02/23/17 11:49 02/23/17 15:33 02/23/17 17:00 02/23/17 21:17 Bedside Glucose 179 160 154 White Blood Count 10.9 #H Red Blood Count 2.69 #L Hemoglobin 8.0 #L Hematocrit 22.5 #L Mean Corpuscular Volume 83.6 Mean Corpuscular Hemoglobin 29.7 Mean Corpuscular Hemoglobin Concent 35.6 Red Cell Distribution Width 14.5 Platelet Count 36 #L Mean Platelet Volume 11.1 H Neutrophils % Segmented Neutrophils % (Manual) 31 L Band Neutrophils % (Manual) 4 Lymphocytes % Lymphocytes % (Manual) 22 Monocytes % Monocytes % (Manual) 1 Eosinophils % Metamyelocytes % (manual) 3 H Myelocytes % (Manual) 5 H Promyelocytes % (Manual) 3 H Blast Cells % (Manual) 31.8 H Nucleated Red Blood Cells % 0.0 Neutrophils # Neutrophils # (Manual) 3.4 Band Neutrophils # 0.4 Absolute Lymphocytes (Manual) 2.3 Lymphocytes # Monocytes # Absolute Monocytes (Manual) 0.1 L Eosinophils # Metamyelocytes # 0.3 H Myelocytes # 0.5 H Promyelocytes # 0.3 H Platelet Estimate DECREASED Hypochromasia 1+ Anisocytosis 1+ Microcytosis 1+ Test 02/24/17 04:35 02/24/17 05:12 02/24/17 07:46 White Blood Count 13.2 #H Red Blood Count 2.90 L Hemoglobin 8.6 L Hematocrit 24.0 L Mean Corpuscular Volume 82.8 Mean Corpuscular Hemoglobin 29.7 Mean Corpuscular Hemoglobin Concent 35.8 Red Cell Distribution Width 14.4 Platelet Count 28 #*L Mean Platelet Volume 10.9 H Neutrophils % Lymphocytes % Monocytes % Eosinophils % Basophils % Nucleated Red Blood Cells % 0.0 Neutrophils # Lymphocytes # Monocytes # Eosinophils # Basophils # Nucleated Red Blood Cells # Sodium Level 136 Potassium Level 3.5 Chloride Level 107 Carbon Dioxide Level 22 Anion Gap 11 Blood Urea Nitrogen 18 Creatinine 0.94 Glucose Level 140 # Calcium Level 7.5 L Phosphorus Level 1.8 L Magnesium Level 2.2 Total Bilirubin 1.1 Direct Bilirubin 0.00 Indirect Bilirubin 1.1 Aspartate Amino Transf (AST/SGOT) 22 Alanine Aminotransferase (ALT/SGPT) 45 Alkaline Phosphatase 49 Total Protein 5.7 L Albumin 2.5 L Globulin 3.20 Albumin/Globulin Ratio 0.78 Lab Scanned Report BLOOD TRANSFUSION Bedside Glucose 152 Imaging Free Text/Dictation PROCEDURE: XR Chest. CLINICAL INDICATION: Shortness of breath. TECHNIQUE: Single frontal view. COMPARISON: 02/21/2017. FINDINGS: The left arm PICC line tip is in the upper superior vena cava. There is mild atelectasis at the lung bases, unchanged. There is new bilateral diffuse interstitial disease consistent with pulmonary edema. The heart size is normal. There is no pleural effusion. There is no pneumothorax. IMPRESSION: 1. Arm PICC line tip in the upper superior vena cava. 2. New pulmonary edema. 3. No other change from the 02/21/2017 chest radiograph. RPTAT: QQ .Hemal Ramirez MD, Date Time Electronically viewed and signed by .Hemal Ramirez MD, MD on 02/24/2017 09:25 PROCEDURE: HIDA scan CLINICAL INDICATION: 66 -year-old patient with abdominal pain. TECHNIQUE: Following the intravenous injection of 8.8 mCi of Tc-99m Mebrofenin , multiple anterior dynamic images of the abdomen along with numerous planar spot images of the abdomen were obtained up to 70 minutes post injection. COMPARISON: No prior HIDA scans. FINDINGS: The liver is promptly visualized, demonstrates homogeneous distribution of radionuclide. There is a visualization of the common bile duct, gallbladder and gastrointestinal activity within normal time. IMPRESSION: No evidence to suggest the presence of common bile or cystic ducts obstruction. RPTAT: QQ .Karolyn Griffin MD, Date Time Electronically viewed and signed by .Karolyn Griffin MD, MD on 02/23/2017 19:56 Medications Medications Current Medications Sodium Chloride (NS) 1,000 ml @ 125 mls/hr Q8H IV Last administered on t 07:50; Admin Dose 125 MLS/HR; Start 02/20/17 at 23:27 Ondansetron HCl (Zofran Tab) 4 mg Q6H PRN PO NAUSEA AND/OR VOMITING; Start at 23:30 Acetaminophen (Tylenol Supp) 650 mg Q4H PRN [place] PAIN LEVEL 1-3 OR FEVER; Start 02/20/17 at 23:30 Hydromorphone HCl (Dilaudid) 0.5 mg Q4H PRN IV PAIN LEVEL 7-10 Last administered on 02/22/17 04:34; Admin Dose 0.5 MG; Start 02/20/17 at 23:30 Pantoprazole 40 mg 40 mg DAILY@06 PO Last administered on 02/24/17 06:28; Admin Dose 40 MG; Start 02/21/17 at 06:00 Meropenem/Sodium Chloride (Merrem 1 Gm/50 ml (Pmx)) 50 ml @ 100 mls/hr Q8 IVPB Last administered on 02/24/17 06:30; Admin Dose 100 MLS/HR; Start 02/21/17 at 05:00 Atorvastatin Calcium (Lipitor) 40 mg DAILY PO Last administered on 02/24/17 08:55; Admin Dose 40 MG; Start 02/20/17 at 23:30 Miscellaneous Information 1 ea NOTE XX ; Start 02/21/17 at 03:00 Glucose (Glutose) 15 gm Q15M PRN PO DECREASED GLUCOSE; Start 02/21/17 at 03:00 Glucose (Glutose) 22.5 gm Q15M PRN PO DECREASED GLUCOSE; Start 02/21/17 at 03: 00 Dextrose (D50w Syringe) 25 ml Q15M PRN IV DECREASED GLUCOSE; Start 02/21/17 at 03:00 Dextrose (D50w Syringe) 50 ml Q15M PRN IV DECREASED GLUCOSE; Start 02/21/17 at 03:00 Glucagon (Glucagen) 1 mg Q15M PRN IM DECREASED GLUCOSE; Start 02/21/17 at 03: 00 Glucose 15 gm 15 gm Q15M PRN BUCCAL DECREASED GLUCOSE; Start 02/21/17 at 03:00 Fluconazole/ Sodium Chloride (Diflucan 100 Mg/ NS (Pmx)) 50 ml @ 50 mls/hr Q24H IVPB Last administered on 02/23/17 12:42; Admin Dose 50 MLS/HR; Start at 10:48 IV Flush (NS 10 ml) 10 ml PRN PRN IV IV PROTOCOL; Start 02/21/17 at 13:00 Ondansetron HCl (Zofran Inj) 4 mg Q4H PRN IV NAUSEA AND/OR VOMITING Last administered on 02/22/17 12:33; Admin Dose 4 MG; Start 02/22/17 at 08:30 Acetaminophen (Tylenol Tab) 650 mg Q4H PRN PO PAIN AND OR ELEVATED TEMP Last administered on 02/23/17 10:22; Admin Dose 650 MG; Start 02/22/17 at 09:30 Lactase (Lactaid) 2 tab BID PO Last administered on 02/24/17 08:55; Admin Dose 2 TAB; Start 02/22/17 at 21:00 Simethicone (Mylicon) 80 mg TID PRN PO DISTENSION/GAS/BLOATING Last administered on 02/23/17 11:01; Admin Dose 80 MG; Start 02/22/17 at 20:30 Diagnostic Test (Pha) 1 ea 1 ea 02 XX ; Start 02/24/17 at 02:00 Vancomycin HCl/ Dextrose (Vancocin/D5W) 500 ml @ 166.667 mls/hr Q12H IVPB Last administered on 02/24/17 07:49; Admin Dose 166.667 MLS/HR; Start at 20:00 Metoprolol Tartrate 25 mg 25 mg TID PO Last administered on 02/24/17 08:55; Admin Dose 25 MG; Start 02/24/17 at 09:00 Potassium Phosphate/Sodium Chloride (K Phos (Mm)/NS) 260 ml @ 65 mls/hr ONCE ONCE IVPB ; Start 02/24/17 at 09:30; Stop 02/24/17 at 13:29; Status SOBIA ABURTO Feb 24, 2017 09:32
[2017-02-24 09:50] LABS: ANISOCYTOSIS 1+ (0-0); BLAST% (M) 29.5 % (0-0); MICROCYTOSIS 1+ (0-0); MONOCYTES % (M) 3 % (0-11); PLATELET ESTIMATE SIG DECREASED; POLYCHROMASIA 3+ (0-0); PROMYELOCYTES #M 0.1 10^3/ul (0-0); PROMYELOCYTES % (M) 1 % (0-0)
[2017-02-24] MEDS ORDERED: FUROSEMIDE 20 MG INJ IV ONE (10:00)
[2017-02-24] MEDS ORDERED: POTASSIUM PHOSPHATE 30 MM in SOD CHLORIDE 0.9% 250 ML IVPB ONE (11:00)
[2017-02-24] MEDS: FLUCONAZOLE 100 MG/NS (PMX) 50 ML IVPB SCH (11:02)
--- NOTE | 2017-02-24 11:33 | PN ---
Date/Time of Note Date/Time of Note DATE: 02/24/17 TIME: 11:28 Assessment/Plan Lines/Catheters IV Catheter Type (from [facility]): PICC Line Garay in Place (from [facility]): No Assessment/Plan Assessment/Plan [facility] Progress Note Date of Service: 02/24/2017 Location of Service: ICU Today's Assessment & Plan: Overall seems stable and improved since admission. HIDA yesterday was normal. I therefore communicated with Dr. Wheeler and we decided to cancel the drain placement. There is more chance currently that the patient will improve from a gallbladder standpoint without a tube at this time. Per report, initial blood cultures are growing anaerobic G- rods, which is a bit unusual to be from gallbladder (more commonly a colon source), but possible. Subsequent blood cultures on the are negative, and that is encouraging. Explained to patient and his and answered all their questions to the best of my ability. They appeared to understand and agreed with the plans. With above assessment, I've recommended the following for today: 1. Continue current management 2. Hold off on image-guided GB drainage 3. Labs in a.m. 4. Broad-spectrum antimicrobials Thank you again for your great care of this very pleasant patient and wonderful family. If there are any questions, please feel free to call me at [phone]. Nature of presenting problem: High severity Complexity of decision making: High complexity Disclaimers: 1. Inadvertent spelling and grammatical errors are likely due to electronic health record (EHR)/dictation software used and do not reflect on the quality of delivered patient care. 2. The electronic timestamp recorded on this note does not necessarily reflect the actual date and time of the visit or the service. 3. Portions of this note may have been created through electronic templates and computer algorithms that might bring in information either from the system or from other physicians and providers. Please note that such information may or may not contain errors, the occurrence of which are outside of my control. In general (but not always) this happens either in the beginning or at the end of the note. The portion of the note that I have created are generally done in 1 continuous block of text, flanked at the beginning and at the end by " ", and entered into one field in the EHR. 4. There may be other unanticipated errors in the note that are outside of my control. I can only attest to the portions of the note that I have created. Updated Clinical Summary: A very pleasant 66-year-old gentleman with a few comorbidities including fairly severe AML, which has needed therapy and currently seems to have gotten worse, presenting with a picture consistent with septic shock with gram-negative rods, bacteremia, and ultrasound findings are concerning for perhaps acalculous cholecystitis, but no obvious other clinical evidence of acute cholecystitis. CT scan of abdomen and pelvis 02/21/2017 showed pericholecystic fluid which was new compared to before. After a period of patient not agreeing to medical recommendations, he agreed to undergo percutaneous drainage of his gallbladder. Per report, initial blood cultures grew anaerobic G- rods, which was a bit unusual to be from gallbladder (more commonly a colon source), but possible. Subsequent blood cultures on the were negative as of 02/24/17. Comorbidities: 1. BMI 29.7. 2. 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 Note that the patient was felt to have recurring disease 09/2016 where, at that time, he did not allow any more chemotherapy. He had reported trying a medication called "Novomine" by "[employer]", a [employer] based on the [facility]. The patient reported himself that his blast count decreased with this medication, but it has since increased while he has been off of the medications. He has an appointment at [facility], at which point he will reconsider getting chemotherapy again. 3. Diabetes. 4. Hypertension. 5. History of pneumonia 01/2017, at [facility]. 6. Hepatosplenomegaly. 7. Coronary arterial atherosclerosis. 8. Aortic atherosclerosis. Subjective: Reports feeling improved. No significant abd pain reported and under control with medications; no n/v/d; no sob or cp; ++ bowel activity; - activity; less anxious than yesterday Objective: Vitals: See below Exam: GENERAL: On exam, the patient was sitting in his bed and appeared to be comfortable and less agitated compared to yesterday. ABDOMEN: Soft, nontender and nondistended. There are no peritoneal signs or guarding. SKIN: Skin appears to be pink and feels warm to touch. NEUROLOGIC: Patient is awake, alert, and follows commands appropriately. Appears less agitated and anxious than yesterday. Exam/Review of Systems Vital Signs Vitals Vital Signs Date Time Temp Pulse Resp B/P Pulse Ox O2 Delivery O2 Flow Rate FiO2 02/24/17 09:00 85 31 124/83 93 Room Air 02/24/17 07:00 99.3 02/24/17 01:21 21 02/21/17 00:41 2.0 Intake and Output 02/23/17 02/23/17 02/24/17 15:00 23:00 07:00 Intake Total 927.5 ml 1575.0 ml 1375 ml Output Total 300 ml 850 ml Balance 627.5 ml 1575.0 ml 525 ml Results Result Diagram: 02/24/17 0435 02/24/17 0435 PASTORA SPEARS M.D. Feb 24, 2017 11:33
[2017-02-24] MEDS ORDERED: HYDROmorphONE 2 MG TAB PO PRN (11:50)
--- NOTE | 2017-02-24 13:06 | PN ---
DATE: 02/24/2017 SUBJECTIVE: No events overnight. The patient is sleeping. Had been having diarrhea all night. He is in no distress, at bedside. He is afebrile. VITAL SIGNS: Temperature 99.3, pulse 88, respirations 29, blood pressure 124/81, saturation 93 on r oom air. LABORATORY DATA: WBC 13.2, H and H 8.6 and 24, platelets 28, BUN 18, creatinine 0.94. MICROBIOLOGY: Blood culture on 02/20/2017 grew gram-negative rods. Repeat blood cultures negative. Final cultures still pending. INDWELLINGS: The patient has PICC line. ANTIMICROBIALS: He is on: 1. Meropenem. 2. Fluconazole. PHYSICAL EXAMINATION: GENERAL: This is well-developed, well-nourished elderly Korean man who is in no distress. HEENT: Head atraumatic, normocephalic. Sclerae anicteric. Buccal mucosa dry. NECK: Supple. CHEST: Rise symmetrical. Breath sounds diminished to bases. HEART: S1, S2. ABDOMEN: Soft, bowel tones present. EXTREMITIES: Without cyanosis. ASSESSMENT: 1. Severe sepsis status post shock, markedly improved. 2. Gram-negative bakari bacteremia with repeat blood cultures negative. 3. Acute cholecystitis with HIDA scan yesterday was normal, cholecystostomy drain placement was can celled. 4. Acute myelogenous leukemia, patient refusing chemotherapy and getting treatment per naturopathic physician that he sees outpatient. 5. Acute anemia, patient is getting blood transfusions on this admission. 6. Non-ST elevation myocardial infarction. 7. Diabetes. PLAN: The patient is hemodynamically stable. We will await for final cultures. Continue him on cu rrent antimicrobials. Follow recommendations of specialists. Dictated By: [facility] ADMINISTRATOR for JENAE KASPER/DE Conf#: [id number] DID#: [id number]
--- NOTE | 2017-02-24 13:29 | CONS ---
Date/Time of Note Date/Time of Note DATE: 02/24/17 TIME: 13:27 Assessment/Plan Assessment/Plan Chief Complaint/Hosp Course .#AML with (8;21) translocation - s/p 7+3 induction chemotherapy + 1 dose of High Dose Arac completed 12/2015 #Neutropenic sepsis - Gram negative Rods in blood #cholecystitis #Anemia #Thrombocytopenia #Blast Crisis Discussion -Despite his disease recurring in September 2016, pt has refused any more chemotherapy. Patient is currently trying a therapy called "Novomine"by [employer] based on the [facility]. Pt states his blast count decreased with this medication and that he would like to continue with supportive transfusion in the interim -Continue antibiotics. repeat blood cultures are now negative - percutaneous drainage of gall bladder is not needed at this time -pt has an appointment with [facility] and states he will reconsider chemotherapy based on that meeting. -pt currently has 20-30% blasts circulating in his peripheral blood and is transfusion dependant. Pt understands that his disease is terminal and that his only chance of controlling this disease is with chemotherapy which he is not yet willing to accept. -continue broad spectrum antibiotics and antifungal coverage per ID. Appreciate recommendations - keep platelets > 20 and Hg > 10 Problems: Consultation Date/Type/Reason Admit Date/Time Feb 21, 2017 at 00:08 Initial Consult Date 02/21/17 Type of Consultation: oncology Reason for Consultation AML Referring Provider: SOBIA NUNEZ 24 HR Interval Summary Free Text/Dictation fevers have defervesced. pt breathing better. pt did not need cholecystostomy drain Exam/Review of Systems Vital Signs Vitals Vital Signs Date Time Temp Pulse Resp B/P Pulse Ox O2 Delivery O2 Flow Rate FiO2 02/24/17 13:24 98.2 83 20 125/78 96 02/24/17 09:00 Room Air 02/24/17 01:21 21 02/21/17 00:41 2.0 Intake and Output 02/23/17 02/23/17 02/24/17 15:00 23:00 07:00 Intake Total 927.5 ml 1575.0 ml 1375 ml Output Total 300 ml 850 ml Balance 627.5 ml 1575.0 ml 525 ml Exam Constitutional: alert, frail, oriented Psych: anxiety, depression Head: normocephalic Eyes: nl conjunctiva ENMT: nl external ears & nose Neck: non-tender, supple Respiratory: diminished breath sounds Cardiovascular: regular rate and rhythm Gastrointestinal: soft Musculoskeletal: nl extremities to inspection Results Result Diagram: 02/24/17 0435 02/24/17 0435 Results 24 hrs Laboratory Tests Test 02/23/17 15:33 02/23/17 17:00 02/23/17 21:17 02/24/17 04:35 White Blood Count 10.9 #H 13.2 #H Red Blood Count 2.69 #L 2.90 L Hemoglobin 8.0 #L 8.6 L Hematocrit 22.5 #L 24.0 L Mean Corpuscular Volume 83.6 82.8 Mean Corpuscular Hemoglobin 29.7 29.7 Mean Corpuscular Hemoglobin Concent 35.6 35.8 Red Cell Distribution Width 14.5 14.4 Platelet Count 36 #L 28 #*L Mean Platelet Volume 11.1 H 10.9 H Neutrophils % Segmented Neutrophils % (Manual) 31 L 33 L Band Neutrophils % (Manual) 4 8 H Lymphocytes % Lymphocytes % (Manual) 22 26 Monocytes % Monocytes % (Manual) 1 3 Eosinophils % Metamyelocytes % (manual) 3 H Myelocytes % (Manual) 5 H Promyelocytes % (Manual) 3 H 1 H Blast Cells % (Manual) 31.8 H 29.5 H Nucleated Red Blood Cells % 0.0 0.0 Neutrophils # Neutrophils # (Manual) 3.4 4.5 Band Neutrophils # 0.4 1.0 H Absolute Lymphocytes (Manual) 2.3 3.4 H Lymphocytes # Monocytes # Absolute Monocytes (Manual) 0.1 L 0.3 Eosinophils # Metamyelocytes # 0.3 H Myelocytes # 0.5 H Promyelocytes # 0.3 H 0.1 H Platelet Estimate DECREASED SIG DECREASED Hypochromasia 1+ Anisocytosis 1+ 1+ Microcytosis 1+ 1+ Bedside Glucose 160 154 Basophils % Basophils # Nucleated Red Blood Cells # Polychromasia 3+ Sodium Level 136 Potassium Level 3.5 Chloride Level 107 Carbon Dioxide Level 22 Anion Gap 11 Blood Urea Nitrogen 18 Creatinine 0.94 Glucose Level 140 # Calcium Level 7.5 L Phosphorus Level 1.8 L Magnesium Level 2.2 Total Bilirubin 1.1 Direct Bilirubin 0.00 Indirect Bilirubin 1.1 Aspartate Amino Transf (AST/SGOT) 22 Alanine Aminotransferase (ALT/SGPT) 45 Alkaline Phosphatase 49 Total Protein 5.7 L Albumin 2.5 L Globulin 3.20 Albumin/Globulin Ratio 0.78 Test 02/24/17 05:12 02/24/17 07:46 02/24/17 11:09 Lab Scanned Report BLOOD TRANSFUSION Bedside Glucose 152 251 H Medications Medications Current Medications Sodium Chloride (NS) 1,000 ml @ 75 mls/hr [id number] IV Last administered on 07:50; Admin Dose 125 MLS/HR; Start 02/20/17 at 23:27 Ondansetron HCl (Zofran Tab) 4 mg Q6H PRN PO NAUSEA AND/OR VOMITING; Start at 23:30 Acetaminophen (Tylenol Supp) 650 mg Q4H PRN ND PAIN LEVEL 1-3 OR FEVER; Start 02/20/17 at 23:30 Pantoprazole 40 mg 40 mg DAILY@06 PO Last administered on 02/24/17 06:28; Admin Dose 40 MG; Start 02/21/17 at 06:00 Meropenem/Sodium Chloride (Merrem 1 Gm/50 ml (Pmx)) 50 ml @ 100 mls/hr Q8 IVPB Last administered on 02/24/17 06:30; Admin Dose 100 MLS/HR; Start 02/21/17 at 05:00 Atorvastatin Calcium (Lipitor) 40 mg DAILY PO Last administered on 02/24/17 08:55; Admin Dose 40 MG; Start 02/20/17 at 23:30 Miscellaneous Information 1 ea NOTE XX ; Start 02/21/17 at 03:00 Glucose (Glutose) 15 gm Q15M PRN PO DECREASED GLUCOSE; Start 02/21/17 at 03:00 Glucose (Glutose) 22.5 gm Q15M PRN PO DECREASED GLUCOSE; Start 02/21/17 at 03: 00 Dextrose (D50w Syringe) 25 ml Q15M PRN IV DECREASED GLUCOSE; Start 02/21/17 at 03:00 Dextrose (D50w Syringe) 50 ml Q15M PRN IV DECREASED GLUCOSE; Start 02/21/17 at 03:00 Glucagon (Glucagen) 1 mg Q15M PRN IM DECREASED GLUCOSE; Start 02/21/17 at 03: 00 Glucose 15 gm 15 gm Q15M PRN BUCCAL DECREASED GLUCOSE; Start 02/21/17 at 03:00 Fluconazole/ Sodium Chloride (Diflucan 100 Mg/ NS (Pmx)) 50 ml @ 50 mls/hr Q24H IVPB Last administered on 02/24/17 11:02; Admin Dose 50 MLS/HR; Start at 10:48 IV Flush (NS 10 ml) 10 ml PRN PRN IV IV PROTOCOL; Start 02/21/17 at 13:00 Ondansetron HCl (Zofran Inj) 4 mg Q4H PRN IV NAUSEA AND/OR VOMITING Last administered on 02/22/17 12:33; Admin Dose 4 MG; Start 02/22/17 at 08:30 Acetaminophen (Tylenol Tab) 650 mg Q4H PRN PO PAIN AND OR ELEVATED TEMP Last administered on 02/23/17 10:22; Admin Dose 650 MG; Start 02/22/17 at 09:30 Simethicone (Mylicon) 80 mg TID PRN PO DISTENSION/GAS/BLOATING Last administered on 02/23/17 11:01; Admin Dose 80 MG; Start 02/22/17 at 20:30 Diagnostic Test (Pha) (Accu-Chek) 1 ea 02 XX ; Start 02/24/17 at 02:00 Metoprolol Tartrate 25 mg 25 mg TID PO Last administered on 02/24/17 08:55; Admin Dose 25 MG; Start 02/24/17 at 09:00 Potassium Phosphate/Sodium Chloride (K Phos (Mm)/NS) 260 ml @ 65 mls/hr ONCE ONCE IVPB Last administered on 02/24/17 12:12; Admin Dose 65 MLS/HR; Start 02/24/17 at 11:00; Stop 02/24/17 at 14:59 Lactobacillus Acidophilus/ Rhamnosus (Culturelle) 1 cap BID PO Last administered on 02/24/17 09:39; Admin Dose 1 CAP; Start 02/24/17 at 09:30 Hydromorphone HCl (Dilaudid) 2 mg Q4H PRN PO PAIN LEVEL 7-10; Start 02/24/17 at 11:50 CALEB CERON M.D. Feb 24, 2017 13:29
[2017-02-24] MEDS: ACETAMINOPHEN 325 MG TAB PO PRN (20:40)
[2017-02-25] VITALS (11 sets, daily range): BP systolic 123–153; BP diastolic 74–86; PULSE 58–81; RESP 17–20
[2017-02-25] MEDS: ACCU-CHEK XX SCH (02:00)
[2017-02-25] MEDS: MEROPENEM 1 GM/50ML(PMX) 50 ML IVPB SCH ×3 (06:00→21:12)
[2017-02-25] MEDS: PANTOPRAZOLE (EC) 40 MG TAB PO SCH (06:00)
[2017-02-25 07:55] LABS: ABNORMAL IP MESSAGE 1; HEMATOCRIT 24.8 % (42.0-52.0); HEMOGLOBIN 8.7 g/dl (14.0-18.0); MEAN CORPUSCULAR HEMOGLOBIN 29.4 pg (29.0-33.0); MEAN CORPUSCULAR HGB CONC 35.1 g/dl (32.0-37.0); MEAN CORPUSCULAR VOLUME 83.8 fl (82.0-101.0); MEAN PLATELET VOLUME 11.6 fl (7.4-10.4); POSITIVE DIFF @See below; RED BLOOD COUNT 2.96 10^6/ul (4.70-6.10); RED CELL DISTRIBUTION WIDTH 14.5 % (11.5-14.5)
[2017-02-25 08:09] LABS: PLATELET COUNT 24 10^3/UL (140-415)
[2017-02-25] MEDS: INSULIN ASPART [NOVOLOG] 3 ML PEN SC SCH ×4 (08:15→20:20)
[2017-02-25 08:16] LABS: PHOSPHORUS 3.3 mg/dl (2.5-4.9)
[2017-02-25 08:18] LABS: ALBUMIN 2.6 g/dl (3.3-4.9); ALBUMIN/GLOBULIN RATIO 0.83; BILIRUBIN,INDIRECT 1.5 mg/dl (0-1.1); BILIRUBIN,TOTAL 1.5 mg/dl (0.2-1.3); CALCIUM 7.4 mg/dl (8.4-10.2); CREATININE 0.82 mg/dl (0.61-1.24); POTASSIUM 3.6 mmol/L (3.5-5.1); TOTAL PROTEIN 5.7 g/dl (6.1-8.1)
[2017-02-25] MEDS: SOD CHLORIDE 0.9% 1,000 ML IV SCH (08:18)
[2017-02-25] MEDS ORDERED: METHYLPREDNISOLONE 125 MG INJ IV ONE (09:00)
[2017-02-25] MEDS ORDERED: ACETAMINOPHEN 325 MG TAB PO ONE (09:00)
[2017-02-25] MEDS: LACTOBACILLUS RHAMNOSUS CAP PO SCH ×2 (09:18→20:17)
[2017-02-25] MEDS: ATORVASTATIN 40 MG TAB PO SCH (09:19)
[2017-02-25] MEDS: METOPROLOL 25 MG TAB PO SCH ×3 (09:19→20:17)
[2017-02-25] MEDS ORDERED: ACETAMINOPHEN 325 MG TAB PO PRN (10:00)
[2017-02-25] MEDS ORDERED: METHYLPREDNISOLONE 125 MG INJ IV PRN (10:00)
[2017-02-25 10:32] LABS: ANISOCYTOSIS 1+ (0-0); MONOCYTES % (M) 8 % (0-11); MYELOCYTES % (M) 2 % (0-0); PLATELET ESTIMATE SIG DECREASED; POIKILOCYTOSIS 1+ (0-0); PROMYELOCYTES #M 0.8 10^3/ul (0-0); PROMYELOCYTES % (M) 6 % (0-0)
[2017-02-25] MEDS: FLUCONAZOLE 100 MG/NS (PMX) 50 ML IVPB SCH (10:44)
[2017-02-25] MEDS ORDERED: POTASSIUM CHLORIDE (SR) 10 MEQ TAB PO ONE (11:00)
[2017-02-25] MEDS ORDERED: FUROSEMIDE 40 MG INJ IV ONE (11:00)
--- NOTE | 2017-02-25 11:02 | CONS ---
Date/Time of Note Date/Time of Note DATE: 02/25/17 TIME: 11:00 Consult Date/Type/Reason Admit Date/Time Feb 21, 2017 at 00:08 Initial Consult Date 02/21/17 Type of Consultation: cv Ordering Provider: SOBIA NUNEZ Subjective Cardiology follow up/ critical care note: S: Case discussed with the staff and family at bedside. Discussed with Rhythm strip was reviewed. Patient remains sinus rhythm. No episode of atrial fibrillation so far. Patient denies any chest pain or pressure to me. Patient complains of severe fatigue and dyspnea on exertion with limited activity He denies any active bleeding to be no dysuria or hematuria. O: General: thin no acute distress HEENT: NC/AT. pupils are equal. round. NECK: NO JVD. no stridor. CV: RRR. systolic murmur; no gallop or rubs. PULM: no wheezing or rhonchi. GI: SOFT, NT, ND, no rebound or guarding Extremity: trace B/L LE edema. no clubbing. neuro: awake and alert, OX3. Psych: calm and pleasant rectal: deferred : s/p ha cathere in place echo personally reviewed: Conclusions 1. Lower limits of normal systolic function. Normal left ventricular cavity size. Mild concentric left ventricular hypertrophy. Ejection fraction is visually estimated at 50-55 %. Tissue Doppler/Mitral Doppler indices are consistent with impaired relaxation (Stage I diastolic dysfunction). 2. Mitral valve leaflets appear mildly thickened. Moderate mitral annular calcification. There is trace to mild mitral valve regurgitation. 3. No significant aortic stenosis or insufficiency. Aortic cusps appear mildly calcified. 4. Normal appearance of the tricuspid valve. Estimated peak PA systolic pressure 39 mmHg. There is mild tricuspid regurgitation. 5. Dilated IVC without respiratory collapse consistent with elevated right atrial pressure. Objective Vital Signs Date Time Temp Pulse Resp B/P Pulse Ox O2 Delivery O2 Flow Rate FiO2 02/25/17 08:07 81 02/25/17 07:56 99.2 20 140/83 95 02/24/17 09:00 Room Air 02/24/17 01:21 21 Intake and Output 02/24/17 02/24/17 02/25/17 15:00 23:00 07:00 Intake Total 1025.001 ml 1270 ml 700 ml Output Total 510 ml 500 ml Balance 515.001 ml 770 ml 700 ml Results/Medications Result Diagram: 02/25/17 0706 02/25/17 0706 Results 24 hrs Laboratory Tests Test 02/24/17 11:09 02/24/17 15:09 02/24/17 17:07 02/24/17 20:37 Bedside Glucose 251 H 118 159 164 Test 02/25/17 07:06 02/25/17 08:11 White Blood Count 14.0 H Red Blood Count 2.96 L Hemoglobin 8.7 L Hematocrit 24.8 L Mean Corpuscular Volume 83.8 Mean Corpuscular Hemoglobin 29.4 Mean Corpuscular Hemoglobin Concent 35.1 Red Cell Distribution Width 14.5 Platelet Count 24 *L Mean Platelet Volume 11.6 H Neutrophils % Segmented Neutrophils % (Manual) 18 L Lymphocytes % Lymphocytes % (Manual) 16 Monocytes % Monocytes % (Manual) 8 Eosinophils % Basophils % Myelocytes % (Manual) 2 H Promyelocytes % (Manual) 6 H Blast Cells % (Manual) 50.0 H Nucleated Red Blood Cells % 0.0 Neutrophils # Absolute Lymphocytes (Manual) 2.2 Lymphocytes # Monocytes # Absolute Monocytes (Manual) 1.1 H Eosinophils # Basophils # Myelocytes # 0.2 H Promyelocytes # 0.8 H Nucleated Red Blood Cells # Platelet Estimate SIG DECREASED Poikilocytosis 1+ Anisocytosis 1+ Sodium Level 139 Potassium Level 3.6 Chloride Level 106 Carbon Dioxide Level 25 Anion Gap 12 Blood Urea Nitrogen 16 Creatinine 0.82 Glucose Level 142 Calcium Level 7.4 L Phosphorus Level 3.3 Magnesium Level 2.0 Total Bilirubin 1.5 H Direct Bilirubin 0.00 Indirect Bilirubin 1.5 H Aspartate Amino Transf (AST/SGOT) 21 Alanine Aminotransferase (ALT/SGPT) 47 Alkaline Phosphatase 47 Total Protein 5.7 L Albumin 2.6 L Globulin 3.10 Albumin/Globulin Ratio 0.83 Bedside Glucose 174 Medications Current Medications Sodium Chloride (NS) 1,000 ml @ 75 mls/hr [id number] IV Last administered on t 19:14; Admin Dose 75 MLS/HR; Start 02/20/17 at 23:27 Ondansetron HCl (Zofran Tab) 4 mg Q6H PRN PO NAUSEA AND/OR VOMITING; Start at 23:30 Acetaminophen (Tylenol Supp) 650 mg Q4H PRN HI PAIN LEVEL 1-3 OR FEVER; Start 02/20/17 at 23:30 Pantoprazole 40 mg 40 mg DAILY@06 PO Last administered on 02/25/17 06:00; Admin Dose 40 MG; Start 02/21/17 at 06:00 Meropenem/Sodium Chloride (Merrem 1 Gm/50 ml (Pmx)) 50 ml @ 100 mls/hr Q8 IVPB Last administered on 02/25/17 06:00; Admin Dose 100 MLS/HR; Start 02/21/17 at 05:00 Atorvastatin Calcium (Lipitor) 40 mg DAILY PO Last administered on 02/25/17 09:19; Admin Dose 40 MG; Start 02/20/17 at 23:30 Miscellaneous Information 1 ea NOTE XX ; Start 02/21/17 at 03:00 Glucose (Glutose) 15 gm Q15M PRN PO DECREASED GLUCOSE; Start 02/21/17 at 03:00 Glucose (Glutose) 22.5 gm Q15M PRN PO DECREASED GLUCOSE; Start 02/21/17 at 03: 00 Dextrose (D50w Syringe) 25 ml Q15M PRN IV DECREASED GLUCOSE; Start 02/21/17 at 03:00 Dextrose (D50w Syringe) 50 ml Q15M PRN IV DECREASED GLUCOSE; Start 02/21/17 at 03:00 Glucagon (Glucagen) 1 mg Q15M PRN IM DECREASED GLUCOSE; Start 02/21/17 at 03: 00 Glucose 15 gm 15 gm Q15M PRN BUCCAL DECREASED GLUCOSE; Start 02/21/17 at 03:00 Fluconazole/ Sodium Chloride (Diflucan 100 Mg/ NS (Pmx)) 50 ml @ 50 mls/hr Q24H IVPB Last administered on 02/25/17 10:44; Admin Dose 50 MLS/HR; Start at 10:48 IV Flush (NS 10 ml) 10 ml PRN PRN IV IV PROTOCOL; Start 02/21/17 at 13:00 Ondansetron HCl (Zofran Inj) 4 mg Q4H PRN IV NAUSEA AND/OR VOMITING Last administered on 02/22/17 12:33; Admin Dose 4 MG; Start 02/22/17 at 08:30 Acetaminophen (Tylenol Tab) 650 mg Q4H PRN PO PAIN AND OR ELEVATED TEMP Last administered on 02/24/17 20:40; Admin Dose 650 MG; Start 02/22/17 at 09:30 Simethicone (Mylicon) 80 mg TID PRN PO DISTENSION/GAS/BLOATING Last administered on 02/23/17 11:01; Admin Dose 80 MG; Start 02/22/17 at 20:30 Diagnostic Test (Pha) (Accu-Chek) 1 ea 02 XX ; Start 02/24/17 at 02:00 Metoprolol Tartrate (Lopressor) 25 mg TID PO Last administered on 02/25/17 09 :19; Admin Dose 25 MG; Start 02/24/17 at 09:00 Lactobacillus Acidophilus/ Rhamnosus (Culturelle) 1 cap BID PO Last administered on 02/25/17 09:18; Admin Dose 1 CAP; Start 02/24/17 at 09:30 Hydromorphone HCl (Dilaudid) 2 mg Q4H PRN PO PAIN LEVEL 7-10; Start 02/24/17 at 11:50 Acetaminophen (Tylenol Tab) 325 mg PRN PRN PO BEFORE BLOOD TRANSFUSION; Start 02/25/17 at 10:00 Methylprednisolone Sodium Succinate (Solu-Medrol) 60 mg PRN PRN IV for blood transfusion.; Start 02/25/17 at 10:00 Assessment/Plan Chief Complaint/Hosp Course 1. Non-ST elevation emotion myocardial infarction, most likely secondary to demand ischemia due to severe sepsis, shock, severe anemia. 2. Septic shock: Blood pressure has improved on off of pressors 3. Gram-negative bakari bacteremia, probably cholecystitis.: Urine culture is negative 4. Severe thrombocytopenia: Follow up with heme/onc 5. Acute myelocytic ascitic leukemia.: Follow with oncology recommendations 6. Leukocytosis. 7. Severe anemia. 8. History of diabetes. 9. History of dyslipidemia: Blood with LDL less than 70 currently. 10. diarrhea 11. Fluid overload RECOMMENDATIONS: I will cont the patient on very low-dose of beta-brielle and try to titrate up as tolerated We will continue to closely monitor him in the intensive care unit. No aspirin or Plavix or any antiplatelet to be given at this point, given his severe thrombocytopenia and anemia. Transfusion as needed. Will defer to heme oncology team. Supportive care will be continued for now. I do not recommend any cardiac intervention at this point, given his severe thrombocytopenia. His ejection fraction also appeared to be preserved as well, and he is angina free at this point. I will give a dose of Lasix IV and reevaluate again tomorrow. f/u with surgery rec PAIGE DECKER MD [facility] Problems: PAIGE DECKER MD Feb 25, 2017 11:02
[2017-02-25] MEDS: SPIRONOLACTONE 25 MG TAB PO SCH (12:49)
--- NOTE | 2017-02-25 13:21 | PN ---
Date/Time of Note Date/Time of Note DATE: 02/25/17 TIME: 13:01 Assessment/Plan VTE Prophylaxis VTE Prophylaxis Intervention: SCD's Lines/Catheters IV C[facility]ter Type (from [facility]): PICC Line Central line still needed: Yes (IV access) Urinary Cath still in place: No Assessment/Plan Assessment/Plan 66-year-old male with : 1. 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 CAT scan of abdomen and pelvis and GB US with findings of gallstone disease in the gallbladder and pericholecystic fluid but HIDA scan done overnight while awaiting cholecystostomy tube placement came back actually negative and patient still with no specific abdominal symptoms consistent with acute cholecystitis. Therefore per Dr. Schneider , no need to place cholecystostomy tube today, procedure has been canceled. Per infectious disease, patient to remain on Diflucan and acyclovir prophylactic doses, they will adjust his antibiotic treatment for the findings of Clostridium Septicum bacteremia. Follow-up further infectious disease recommendations today Repeat blood cultures 02/22 are NGTD. 2. NSTEMI, appreciate recommendations from cardiology, likely secondary to demand ischemia and severe anemia in the setting of septic shock. Patient medically treated, continue beta-blockers, diuretics added temporarily as chest x-ray showing signs of volume overload and patient has been getting lots of blood products. Appreciate recommendations from Dr Paiz. Repeat chest x-ray in a.m. 3. 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 Patient has been on naturopathic management of his AML. Prognosis poor given ongoing blast crisis and seems to be trending toward transfusion dependence. Platelet transfusion today Dr. Herrera following 4. Hypertension: Currently tolerating beta blockers well. 5. Diabetes mellitus, (HgbA1c 6.7% on previous admission), blood sugars better controlled. Continue sliding scale insulin and diabetic diet for now. 4. Anxiety disorder, with history of claustrophobia, continue Xanax PRN for anxiety. 6. Diarrhea: Multiple bowel movements overnight, C. difficile negative, fecal leukocyte negative, stool culture and only showing coliforms, stool ova and parasite negative On probiotics. Diarrhea resolved so far. Prophylaxis: SCDs for DVT prophylaxis, Pepcid for GI prophylaxis. Disposition: Continue antibiotics to be further adjusted with infectious disease recommendations. Medical management for NSTEMI and blood product transfusions as needed for supportive care. Discharge planning in the next 48 hours hopefully. Appreciate recommendations from, ID, Dr. Schneider and Dr Paiz. Subjective 24 Hr Interval Summary Free Text/Dictation Patient doing well today, he remains afebrile, hemoglobin remains stable, platelets are trending down but still within acceptable range of 24. Blood cultures growing Clostridium species, discussed with infectious disease. Status post NSTEMI, appreciate recommendations from cardiology. Exam/Review of Systems Vital Signs Vitals Vital Signs Date Time Temp Pulse Resp B/P Pulse Ox O2 Delivery O2 Flow Rate FiO2 02/25/17 12: 98.4 71 20 123/74 96 02/24/17 09:00 Room Air 02/24/17 01:21 21 Intake and Output 02/24/17 02/24/17 02/25/17 15:00 23:00 07:00 Intake Total 1025.001 ml 1270 ml 700 ml Output Total 510 ml 500 ml Balance 515.001 ml 770 ml 700 ml Exam Constitutional: alert, oriented, well developed Respiratory: clear to auscultation, normal air movement Cardiovascular: nl pulses, regular rate and rhythm Gastrointestinal: non-tender, soft Musculoskeletal: nl extremities to inspection Extremities: normal pulses, other (No edema, clubbing or cyanosis) Neurological: C[employer]NAGER II-XII intact, nl mental status, nl speech, nl strength Results Result Diagram: 02/25/17 0706 02/25/17 0706 Results 24 hrs Laboratory Tests Test 02/24/17 15:09 02/24/17 17:07 02/24/17 20:37 02/25/17 07:06 Bedside Glucose 118 159 164 White Blood Count 14.0 H Red Blood Count 2.96 L Hemoglobin 8.7 L Hematocrit 24.8 L Mean Corpuscular Volume 83.8 Mean Corpuscular Hemoglobin 29.4 Mean Corpuscular Hemoglobin Concent 35.1 Red Cell Distribution Width 14.5 Platelet Count 24 *L Mean Platelet Volume 11.6 H Neutrophils % Segmented Neutrophils % (Manual) 18 L Lymphocytes % Lymphocytes % (Manual) 16 Monocytes % Monocytes % (Manual) 8 Eosinophils % Basophils % Myelocytes % (Manual) 2 H Promyelocytes % (Manual) 6 H Blast Cells % (Manual) 50.0 H Nucleated Red Blood Cells % 0.0 Neutrophils # Absolute Lymphocytes (Manual) 2.2 Lymphocytes # Monocytes # Absolute Monocytes (Manual) 1.1 H Eosinophils # Basophils # Myelocytes # 0.2 H Promyelocytes # 0.8 H Nucleated Red Blood Cells # Platelet Estimate SIG DECREASED Poikilocytosis 1+ Anisocytosis 1+ Sodium Level 139 Potassium Level 3.6 Chloride Level 106 Carbon Dioxide Level 25 Anion Gap 12 Blood Urea Nitrogen 16 Creatinine 0.82 Glucose Level 142 Calcium Level 7.4 L Phosphorus Level 3.3 Magnesium Level 2.0 Total Bilirubin 1.5 H Direct Bilirubin 0.00 Indirect Bilirubin 1.5 H Aspartate Amino Transf (AST/SGOT) 21 Alanine Aminotransferase (ALT/SGPT) 47 Alkaline Phosphatase 47 Total Protein 5.7 L Albumin 2.6 L Globulin 3.10 Albumin/Globulin Ratio 0.83 Test 02/25/17 08:11 02/25/17 11:55 Bedside Glucose 174 222 H Medications Medications Current Medications Sodium Chloride (NS) 1,000 ml @ 75 mls/hr [id number] IV Last administered on 19:14; Admin Dose 75 MLS/HR; Start 02/20/17 at 23:27 Ondansetron HCl (Zofran Tab) 4 mg Q6H PRN PO NAUSEA AND/OR VOMITING; Start at 23:30 Acetaminophen (Tylenol Supp) 650 mg Q4H PRN [place] PAIN LEVEL 1-3 OR FEVER; Start 02/20/17 at 23:30 Pantoprazole 40 mg 40 mg DAILY@06 PO Last administered on 02/25/17 06:00; Admin Dose 40 MG; Start 02/21/17 at 06:00 Meropenem/Sodium Chloride (Merrem 1 Gm/50 ml (Pmx)) 50 ml @ 100 mls/hr Q8 IVPB Last administered on 02/25/17 06:00; Admin Dose 100 MLS/HR; Start 02/21/17 at 05:00 Atorvastatin Calcium (Lipitor) 40 mg DAILY PO Last administered on 02/25/17 09:19; Admin Dose 40 MG; Start 02/20/17 at 23:30 Miscellaneous Information 1 ea NOTE XX ; Start 02/21/17 at 03:00 Glucose (Glutose) 15 gm Q15M PRN PO DECREASED GLUCOSE; Start 02/21/17 at 03:00 Glucose (Glutose) 22.5 gm Q15M PRN PO DECREASED GLUCOSE; Start 02/21/17 at 03: 00 Dextrose (D50w Syringe) 25 ml Q15M PRN IV DECREASED GLUCOSE; Start 02/21/17 at 03:00 Dextrose (D50w Syringe) 50 ml Q15M PRN IV DECREASED GLUCOSE; Start 02/21/17 at 03:00 Glucagon (Glucagen) 1 mg Q15M PRN IM DECREASED GLUCOSE; Start 02/21/17 at 03: 00 Glucose 15 gm 15 gm Q15M PRN BUCCAL DECREASED GLUCOSE; Start 02/21/17 at 03:00 Fluconazole/ Sodium Chloride (Diflucan 100 Mg/ NS (Pmx)) 50 ml @ 50 mls/hr Q24H IVPB Last administered on 02/25/17 10:44; Admin Dose 50 MLS/HR; Start at 10:48 IV Flush (NS 10 ml) 10 ml PRN PRN IV IV PROTOCOL; Start 02/21/17 at 13:00 Ondansetron HCl (Zofran Inj) 4 mg Q4H PRN IV NAUSEA AND/OR VOMITING Last administered on 02/22/17 12:33; Admin Dose 4 MG; Start 02/22/17 at 08:30 Acetaminophen (Tylenol Tab) 650 mg Q4H PRN PO PAIN AND OR ELEVATED TEMP Last administered on 02/24/17 20:40; Admin Dose 650 MG; Start 02/22/17 at 09:30 Simethicone (Mylicon) 80 mg TID PRN PO DISTENSION/GAS/BLOATING Last administered on 02/23/17 11:01; Admin Dose 80 MG; Start 02/22/17 at 20:30 Diagnostic Test (Pha) (Accu-Chek) 1 ea 02 XX ; Start 02/24/17 at 02:00 Metoprolol Tartrate (Lopressor) 25 mg TID PO Last administered on 02/25/17 09 :19; Admin Dose 25 MG; Start 02/24/17 at 09:00 Lactobacillus Acidophilus/ Rhamnosus (Culturelle) 1 cap BID PO Last administered on 02/25/17 09:18; Admin Dose 1 CAP; Start 02/24/17 at 09:30 Hydromorphone HCl (Dilaudid) 2 mg Q4H PRN PO PAIN LEVEL 7-10; Start 02/24/17 at 11:50 Acetaminophen (Tylenol Tab) 325 mg PRN PRN PO BEFORE BLOOD TRANSFUSION; Start 02/25/17 at 10:00 Methylprednisolone Sodium Succinate (Solu-Medrol) 60 mg PRN PRN IV for blood transfusion.; Start 02/25/17 at 10:00 Spironolactone (Aldactone) 25 mg DAILY PO Last administered on 02/25/17t 12:49 ; Admin Dose 25 MG; Start 02/25/17 at 11:00 SOBIA NUNEZ Feb 25, 2017 13:14
[2017-02-25] MEDS: ACYCLOVIR 400 MG TAB PO SCH ×2 (14:03→23:01)
--- NOTE | 2017-02-25 15:12 | CONS ---
Date/Time of Note Date/Time of Note DATE: 02/25/17 TIME: 15:02 Assessment/Plan Assessment/Plan Chief Complaint/Hosp Course SUBJECTIVE: Transferred out of ICU. Awake feels good, looks comfortable no fevers MICROBIOLOGY: Blood culture on 02/20/2017 grew Clostridium septicum. Repeat blood cultures negative. INDWELLINGS: The patient has PICC line. ANTIMICROBIALS: 1. Meropenem. 2. Fluconazole. PHYSICAL EXAMINATION: GENERAL: This is well-developed, well-nourished elderly [place] man who is in no distress. HEENT: Head atraumatic, normocephalic. Sclerae anicteric. Buccal mucosa dry. NECK: Supple. CHEST: Rise symmetrical. Breath sounds diminished to bases. HEART: S1, S2. ABDOMEN: Soft, bowel tones present. EXTREMITIES: Without cyanosis. ASSESSMENT: 1. Severe sepsis status post shock, markedly improved. 2. Bacteremia with repeat blood cultures negative. 3. Acute cholecystitis with HIDA scan yesterday was normal, cholecystostomy drain placement was cancelled. 4. Acute myelogenous leukemia, patient refusing chemotherapy and getting treatment per naturopathic physician that he sees outpatient. 5. Acute anemia, patient is getting blood transfusions on this admission. 6. Non-ST elevation myocardial infarction. 7. Diabetes. PLAN: Remains stable, repeat cultures negative. Continue antibiotics, supportive care, anticipate dc on PO Flagyl to complete treatment for bacteremia. Follow recommendations of specialists. DW staff KESHA Yoo Problems: Consultation Date/Type/Reason Admit Date/Time Feb 21, 2017 at 00:08 Initial Consult Date 02/21/17 Type of Consultation: ID Referring Provider: SOBIA NUNEZ Exam/Review of Systems Vital Signs Vitals Vital Signs Date Time Temp Pulse Resp B/P Pulse Ox O2 Delivery O2 Flow Rate FiO2 02/25/17 12:17 98.4 71 20 123/74 96 02/24/17 09:00 Room Air 02/24/17 01:21 21 Intake and Output 02/24/17 02/24/17 02/25/17 14:59 22:59 06:59 Intake Total 1150.001 ml 1270 ml 700 ml Output Total 760 ml 500 ml Balance 390.001 ml 770 ml 700 ml Results Result Diagram: 02/25/17 0706 02/25/17 0706 Results 24 hrs Laboratory Tests Test 02/24/17 15:09 02/24/17 17:07 02/24/17 20:37 02/25/17 07:06 Bedside Glucose 118 159 164 White Blood Count 14.0 H Red Blood Count 2.96 L Hemoglobin 8.7 L Hematocrit 24.8 L Mean Corpuscular Volume 83.8 Mean Corpuscular Hemoglobin 29.4 Mean Corpuscular Hemoglobin Concent 35.1 Red Cell Distribution Width 14.5 Platelet Count 24 *L Mean Platelet Volume 11.6 H Neutrophils % Segmented Neutrophils % (Manual) 18 L Lymphocytes % Lymphocytes % (Manual) 16 Monocytes % Monocytes % (Manual) 8 Eosinophils % Basophils % Myelocytes % (Manual) 2 H Promyelocytes % (Manual) 6 H Blast Cells % (Manual) 50.0 H Nucleated Red Blood Cells % 0.0 Neutrophils # Absolute Lymphocytes (Manual) 2.2 Lymphocytes # Monocytes # Absolute Monocytes (Manual) 1.1 H Eosinophils # Basophils # Myelocytes # 0.2 H Promyelocytes # 0.8 H Nucleated Red Blood Cells # Platelet Estimate SIG DECREASED Poikilocytosis 1+ Anisocytosis 1+ Sodium Level 139 Potassium Level 3.6 Chloride Level 106 Carbon Dioxide Level 25 Anion Gap 12 Blood Urea Nitrogen 16 Creatinine 0.82 Glucose Level 142 Calcium Level 7.4 L Phosphorus Level 3.3 Magnesium Level 2.0 Total Bilirubin 1.5 H Direct Bilirubin 0.00 Indirect Bilirubin 1.5 H Aspartate Amino Transf (AST/SGOT) 21 Alanine Aminotransferase (ALT/SGPT) 47 Alkaline Phosphatase 47 Total Protein 5.7 L Albumin 2.6 L Globulin 3.10 Albumin/Globulin Ratio 0.83 Test 02/25/17 08:11 02/25/17 11:55 Bedside Glucose 174 222 H Medications Medications Current Medications Ondansetron HCl (Zofran Tab) 4 mg Q6H PRN PO NAUSEA AND/OR VOMITING; Start at 23:30 Acetaminophen (Tylenol Supp) 650 mg Q4H PRN [place] PAIN LEVEL 1-3 OR FEVER; Start 02/20/17 at 23:30 Pantoprazole 40 mg 40 mg DAILY@06 PO Last administered on 02/25/17t 06:00; Admin Dose 40 MG; Start 02/21/17 at 06:00 Meropenem/Sodium Chloride (Merrem 1 Gm/50 ml (Pmx)) 50 ml @ 100 mls/hr Q8 IVPB Last administered on 02/25/17 13:59; Admin Dose 100 MLS/HR; Start 02/21/17 at 05:00 Atorvastatin Calcium (Lipitor) 40 mg DAILY PO Last administered on 02/25/17 09:19; Admin Dose 40 MG; Start 02/20/17 at 23:30 Miscellaneous Information 1 ea NOTE XX ; Start 02/21/17 at 03:00 Glucose (Glutose) 15 gm Q15M PRN PO DECREASED GLUCOSE; Start 02/21/17 at 03:00 Glucose (Glutose) 22.5 gm Q15M PRN PO DECREASED GLUCOSE; Start 02/21/17 at 03: 00 Dextrose (D50w Syringe) 25 ml Q15M PRN IV DECREASED GLUCOSE; Start 02/21/17 at 03:00 Dextrose (D50w Syringe) 50 ml Q15M PRN IV DECREASED GLUCOSE; Start 02/21/17 at 03:00 Glucagon (Glucagen) 1 mg Q15M PRN IM DECREASED GLUCOSE; Start 02/21/17 at 03: 00 Glucose (Glutose) 15 gm Q15M PRN BUCCAL DECREASED GLUCOSE; Start 02/21/17 at 03:00 IV Flush (NS 10 ml) 10 ml PRN PRN IV IV PROTOCOL; Start 02/21/17 at 13:00 Ondansetron HCl (Zofran Inj) 4 mg Q4H PRN IV NAUSEA AND/OR VOMITING Last administered on 02/22/17 12:33; Admin Dose 4 MG; Start 02/22/17 at 08:30 Acetaminophen (Tylenol Tab) 650 mg Q4H PRN PO PAIN AND OR ELEVATED TEMP Last administered on 02/24/17 20:40; Admin Dose 650 MG; Start 02/22/17 at 09:30 Simethicone (Mylicon) 80 mg TID PRN PO DISTENSION/GAS/BLOATING Last administered on 02/23/17 11:01; Admin Dose 80 MG; Start 02/22/17 at 20:30 Diagnostic Test (Pha) (Accu-Chek) 1 ea 02 XX ; Start 02/24/17 at 02:00 Metoprolol Tartrate (Lopressor) 25 mg TID PO Last administered on 02/25/17 14 :00; Admin Dose 25 MG; Start 02/24/17 at 09:00 Lactobacillus Acidophilus/ Rhamnosus (Culturelle) 1 cap BID PO Last administered on 02/25/17 09:18; Admin Dose 1 CAP; Start 02/24/17 at 09:30 Hydromorphone HCl (Dilaudid) 2 mg Q4H PRN PO PAIN LEVEL 7-10; Start 02/24/17 at 11:50 Acetaminophen (Tylenol Tab) 325 mg PRN PRN PO BEFORE BLOOD TRANSFUSION; Start 02/25/17 at 10:00 Methylprednisolone Sodium Succinate (Solu-Medrol) 60 mg PRN PRN IV for blood transfusion.; Start 02/25/17 at 10:00 Spironolactone (Aldactone) 25 mg DAILY PO Last administered on 02/25/17 12:49 ; Admin Dose 25 MG; Start 02/25/17 at 11:00 Acyclovir (Zovirax) 400 mg BID PO Last administered on 02/25/17 14:03; Admin Dose 400 MG; Start 02/25/17 at 14:30 Fluconazole (Diflucan) 100 mg DAILY PO ; Start 02/26/17 at 09:00 EDWARD KINGSLEY NP Feb 25, 2017 15:12
[2017-02-25] MEDS: ACETAMINOPHEN 325 MG TAB PO PRN (21:12)
--- NOTE | 2017-02-25 22:22 | CONS ---
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 Patient is currently trying a therapy called "Novomine"by [employer], [place] based on the [facility]. Pt states his blast count decreased with this medication and that he would like to continue with supportive transfusion in the interim -Continue antibiotics. repeat blood cultures are now negative - percutaneous drainage of gall bladder is not needed at this time -pt has an appointment with [facility] and states he will reconsider chemotherapy based on that meeting. -pt currently has 20-30% blasts circulating in his peripheral blood and is transfusion dependant. Pt understands that his disease is terminal and that his only chance of controlling this disease is with chemotherapy which he is not yet willing to accept. -continue broad spectrum antibiotics and antifungal coverage per ID. Appreciate recommendations - keep platelets > 10 and Hg > 8. standing orders written Problems: Consultation Date/Type/Reason Admit Date/Time Feb 21, 2017 at 00:08 Initial Consult Date 02/21/17 Type of Consultation: Hematology Reason for Consultation AML Referring Provider: SOBIA NUNEZ 24 HR Interval Summary Free Text/Dictation pt feels better. currently afebrile. Exam/Review of Systems Vital Signs Vitals Vital Signs Date Time Temp Pulse Resp B/P Pulse Ox O2 Delivery O2 Flow Rate FiO2 02/25/17 20:15 72 02/25/17 20:03 98.1 18 153/86 100 02/24/17 09:00 Room Air 02/24/17 01:21 21 Intake and Output 02/24/17 02/24/17 02/25/17 15:00 23:00 07:00 Intake Total 1025.001 ml 1270 ml 700 ml Output Total 510 ml 500 ml Balance 515.001 ml 770 ml 700 ml Exam Constitutional: alert, frail, oriented Psych: anxiety, depression Head: normocephalic Eyes: nl conjunctiva ENMT: nl external ears & nose Neck: non-tender, supple Respiratory: clear to auscultation Cardiovascular: regular rate and rhythm Gastrointestinal: soft Musculoskeletal: nl extremities to inspection Results Result Diagram: 02/25/17 0706 02/25/17 0706 Results 24 hrs Laboratory Tests Test 02/25/17 07:06 02/25/17 08:11 02/25/17 11:55 02/25/17 17:41 White Blood Count 14.0 H Red Blood Count 2.96 L Hemoglobin 8.7 L Hematocrit 24.8 L Mean Corpuscular Volume 83.8 Mean Corpuscular Hemoglobin 29.4 Mean Corpuscular Hemoglobin Concent 35.1 Red Cell Distribution Width 14.5 Platelet Count 24 *L Mean Platelet Volume 11.6 H Neutrophils % Segmented Neutrophils % (Manual) 18 L Lymphocytes % Lymphocytes % (Manual) 16 Monocytes % Monocytes % (Manual) 8 Eosinophils % Basophils % Myelocytes % (Manual) 2 H Promyelocytes % (Manual) 6 H Blast Cells % (Manual) 50.0 H Nucleated Red Blood Cells % 0.0 Neutrophils # Absolute Lymphocytes (Manual) 2.2 Lymphocytes # Monocytes # Absolute Monocytes (Manual) 1.1 H Eosinophils # Basophils # Myelocytes # 0.2 H Promyelocytes # 0.8 H Nucleated Red Blood Cells # Platelet Estimate SIG DECREASED Poikilocytosis 1+ Anisocytosis 1+ Sodium Level 139 Potassium Level 3.6 Chloride Level 106 Carbon Dioxide Level 25 Anion Gap 12 Blood Urea Nitrogen 16 Creatinine 0.82 Glucose Level 142 Calcium Level 7.4 L Phosphorus Level 3.3 Magnesium Level 2.0 Total Bilirubin 1.5 H Direct Bilirubin 0.00 Indirect Bilirubin 1.5 H Aspartate Amino Transf (AST/SGOT) 21 Alanine Aminotransferase (ALT/SGPT) 47 Alkaline Phosphatase 47 Total Protein 5.7 L Albumin 2.6 L Globulin 3.10 Albumin/Globulin Ratio 0.83 Bedside Glucose 174 222 H 139 Test 02/25/17 20:04 Bedside Glucose 227 H Medications Medications Current Medications Ondansetron HCl (Zofran Tab) 4 mg Q6H PRN PO NAUSEA AND/OR VOMITING; Start at 23:30 Acetaminophen (Tylenol Supp) 650 mg Q4H PRN [place] PAIN LEVEL 1-3 OR FEVER; Start 02/20/17 at 23:30 Pantoprazole 40 mg 40 mg DAILY@06 PO Last administered on 02/25/17t 06:00; Admin Dose 40 MG; Start 02/21/17 at 06:00 Meropenem/Sodium Chloride (Merrem 1 Gm/50 ml (Pmx)) 50 ml @ 100 mls/hr Q8 IVPB Last administered on 02/25/17 21:12; Admin Dose 100 MLS/HR; Start 02/21/17 at 05:00 Atorvastatin Calcium (Lipitor) 40 mg DAILY PO Last administered on 02/25/17 09:19; Admin Dose 40 MG; Start 02/20/17 at 23:30 Miscellaneous Information 1 ea NOTE XX ; Start 02/21/17 at 03:00 Glucose (Glutose) 15 gm Q15M PRN PO DECREASED GLUCOSE; Start 02/21/17 at 03:00 Glucose (Glutose) 22.5 gm Q15M PRN PO DECREASED GLUCOSE; Start 02/21/17 at 03: 00 Dextrose (D50w Syringe) 25 ml Q15M PRN IV DECREASED GLUCOSE; Start 02/21/17 at 03:00 Dextrose (D50w Syringe) 50 ml Q15M PRN IV DECREASED GLUCOSE; Start 02/21/17 at 03:00 Glucagon (Glucagen) 1 mg Q15M PRN IM DECREASED GLUCOSE; Start 02/21/17 at 03: 00 Glucose (Glutose) 15 gm Q15M PRN BUCCAL DECREASED GLUCOSE; Start 02/21/17 at 03:00 IV Flush (NS 10 ml) 10 ml PRN PRN IV IV PROTOCOL; Start 02/21/17 at 13:00 Ondansetron HCl (Zofran Inj) 4 mg Q4H PRN IV NAUSEA AND/OR VOMITING Last administered on 02/22/17 12:33; Admin Dose 4 MG; Start 02/22/17 at 08:30 Acetaminophen (Tylenol Tab) 650 mg Q4H PRN PO PAIN AND OR ELEVATED TEMP Last administered on 02/25/17 21:12; Admin Dose 650 MG; Start 02/22/17 at 09:30 Simethicone (Mylicon) 80 mg TID PRN PO DISTENSION/GAS/BLOATING Last administered on 02/25/17 17:46; Admin Dose 80 MG; Start 02/22/17 at 20:30 Diagnostic Test (Pha) (Accu-Chek) 1 ea 02 XX ; Start 02/24/17 at 02:00 Metoprolol Tartrate (Lopressor) 25 mg TID PO Last administered on 02/25/17 20 :17; Admin Dose 25 MG; Start 02/24/17 at 09:00 Lactobacillus Acidophilus/ Rhamnosus (Culturelle) 1 cap BID PO Last administered on 02/25/17 20:17; Admin Dose 1 CAP; Start 02/24/17 at 09:30 Hydromorphone HCl (Dilaudid) 2 mg Q4H PRN PO PAIN LEVEL 7-10; Start 02/24/17 at 11:50 Acetaminophen (Tylenol Tab) 325 mg PRN PRN PO BEFORE BLOOD TRANSFUSION; Start 02/25/17 at 10:00 Methylprednisolone Sodium Succinate (Solu-Medrol) 60 mg PRN PRN IV for blood transfusion.; Start 02/25/17 at 10:00 Spironolactone (Aldactone) 25 mg DAILY PO Last administered on 02/25/17 12:49 ; Admin Dose 25 MG; Start 02/25/17 at 11:00 Acyclovir (Zovirax) 400 mg BID PO Last administered on 02/25/17 14:03; Admin Dose 400 MG; Start 02/25/17 at 14:30 Fluconazole (Diflucan) 100 mg DAILY PO ; Start 02/26/17 at 09:00 CALEB CERON M.D. Feb 25, 2017 22:22
[2017-02-26] VITALS (10 sets, daily range): BP systolic 109–145; BP diastolic 63–78; PULSE 58–91; RESP 17–19
[2017-02-26] MEDS: ACCU-CHEK XX SCH (02:00)
[2017-02-26] MEDS: MEROPENEM 1 GM/50ML(PMX) 50 ML IVPB SCH (06:02)
[2017-02-26] MEDS: PANTOPRAZOLE (EC) 40 MG TAB PO SCH (06:02)
[2017-02-26] MEDS: INSULIN ASPART [NOVOLOG] 3 ML PEN SC SCH ×3 (07:50→18:05)
[2017-02-26 08:03] LABS: ABNORMAL IP MESSAGE 1; HEMATOCRIT 26.6 % (42.0-52.0); HEMOGLOBIN 9.1 g/dl (14.0-18.0); MEAN CORPUSCULAR HEMOGLOBIN 29.4 pg (29.0-33.0); MEAN CORPUSCULAR HGB CONC 34.2 g/dl (32.0-37.0); MEAN CORPUSCULAR VOLUME 85.8 fl (82.0-101.0); MEAN PLATELET VOLUME 11.4 fl (7.4-10.4); POSITIVE DIFF @See below; RED CELL DISTRIBUTION WIDTH 14.4 % (11.5-14.5); WHITE BLOOD COUNT 14.2 10^3/ul (4.8-10.8)
[2017-02-26 08:20] LABS: PLATELET COUNT 7 10^3/UL (140-415)
[2017-02-26 08:25] LABS: ALBUMIN 2.8 g/dl (3.3-4.9); ALBUMIN/GLOBULIN RATIO 0.8; BILIRUBIN,INDIRECT 1.2 mg/dl (0-1.1); BILIRUBIN,TOTAL 1.2 mg/dl (0.2-1.3); CALCIUM 8.4 mg/dl (8.4-10.2); CREATININE 0.79 mg/dl (0.61-1.24); MAGNESIUM 2.1 mg/dl (1.7-2.5); POTASSIUM 3.8 mmol/L (3.5-5.1); TOTAL PROTEIN 6.3 g/dl (6.1-8.1)
[2017-02-26] MEDS: ATORVASTATIN 40 MG TAB PO SCH (09:00)
[2017-02-26] MEDS ORDERED: FLUCONAZOLE 100 MG TAB PO SCH (09:00)
[2017-02-26] MEDS: LACTOBACILLUS RHAMNOSUS CAP PO SCH (09:14)
[2017-02-26] MEDS: ACYCLOVIR 400 MG TAB PO SCH (09:14)
[2017-02-26] MEDS: METOPROLOL 25 MG TAB PO SCH ×3 (09:15→20:18)
[2017-02-26] MEDS: SPIRONOLACTONE 25 MG TAB PO SCH (09:15)
[2017-02-26 10:23] LABS: ANISOCYTOSIS 1+ (0-0); BLAST% (M) 49.5 % (0-0); METAMYELOCYTES %M 4 % (0-0); MICROCYTOSIS 1+ (0-0); MONOCYTES % (M) 8 % (0-11); MYELOCYTES % (M) 3 % (0-0); PLATELET ESTIMATE SIG DECREASED; POLYCHROMASIA 1+ (0-0); PROMYELOCYTES #M 0.2 10^3/ul (0-0); PROMYELOCYTES % (M) 2 % (0-0); REACTIVE LYMPHOCYTES% (M) 4 % (0-0)
--- NOTE | 2017-02-26 10:31 | RADRPT ---
PROCEDURE: XR Chest. CLINICAL INDICATION: Shortness of breath. TECHNIQUE: Single frontal view. COMPARISON: February 24, 2017. FINDINGS: The left arm PICC line tip is in the upper superior vena cava. There is mild atelectasis at the left lung base. The lungs are otherwise clear. Pulmonary edema is no longer present. The heart size is normal. There is no pleural effusion. There is no pneumothorax. IMPRESSION: 1. Left arm PICC line tip in the upper superior vena cava. 2. Mild left basilar atelectasis. 3. Pulmonary edema no longer present. 4. Otherwise unremarkable chest radiograph. RPTAT: QQ .Hemal Ramirez MD, MD Date Time Electronically viewed and signed by .Hemal Ramirez MD, MD on 02/26/2017 10:30 .R/
--- NOTE | 2017-02-26 14:34 | PN ---
Date/Time of Note Date/Time of Note DATE: 02/26/17 TIME: 14:27 Assessment/Plan VTE Prophylaxis VTE Prophylaxis Intervention: SCD's Lines/Catheters IV [facility]ter Type (from [facility]): PICC Line Central line still needed: Yes (To be removed at discharge today) Urinary Cath still in place: No Assessment/Plan Assessment/Plan 66-year-old male with : 1. 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 CAT scan of abdomen and pelvis and GB US with findings of gallstone disease in the gallbladder and pericholecystic fluid but HIDA scan done overnight while awaiting cholecystostomy tube placement came back actually negative and patient still with no specific abdominal symptoms consistent with acute cholecystitis. Therefore per Dr. Schneider , no need to place cholecystostomy tube today, procedure has been canceled. Per infectious disease, patient can be discharged home on Flagyl 500 mg p.o. every 8 hours for 10 more days to complete 14 days, he is to remain on Diflucan and acyclovir prophylactic doses. Repeat blood cultures 02/22 are NGTD. 2. NSTEMI, appreciate recommendations from cardiology, likely secondary to demand ischemia and severe anemia in the setting of septic shock. Patient medically treated, continue beta-blockers, diuretics added temporarily as chest x-ray showing signs of volume overload and patient has been getting lots of blood products. Repeat chest x-ray this morning with resolved pulmonary edema. Appreciate recommendations from Dr Paiz. 3. 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 Patient has been on naturopathic management of his AML. Prognosis poor given ongoing blast crisis and seems to be trending toward transfusion dependence. 2 unuits Platelet transfusion today prior to discharge home. Follow-up with Dr. Herrera as outpatient. 4. Hypertension: Currently tolerating beta blockers well. 5. Diabetes mellitus, (HgbA1c 6.7% on previous admission), blood sugars better controlled. Continue sliding scale insulin and diabetic diet for now. 6. Anxiety disorder, with history of claustrophobia, continue Xanax PRN for anxiety. Prophylaxis: SCDs for DVT prophylaxis, Pepcid for GI prophylaxis. Disposition: Platelet transfusion today, patient received total of 2 units. Discharge home with home health RN check and oral antibiotics. Follow-up with Dr. Herrera as outpatient. Also outpatient follow-up with cardiology to be arranged. Subjective 24 Hr Interval Summary Free Text/Dictation Patient feels much better, he is tolerating p.o. No abdominal pain. Blood cultures with Clostridium species non-difficile, repeat blood culture negative, discussed with infectious disease, will plan to discharge today on Flagyl for 10 more days after platelet transfusion completed Exam/Review of Systems Vital Signs Vitals Vital Signs Date Time Temp Pulse Resp B/P Pulse Ox O2 Delivery O2 Flow Rate FiO2 02/26/17 12:00 78 02/26/17 11:24 98.6 19 133/70 99 02/24/17 09:00 Room Air 02/24/17 01:21 21 Intake and Output 02/25/17 02/25/17 02/26/17 15:00 23:00 07:00 Intake Total 1120 ml 1200 ml Balance 1120 ml 1200 ml Exam Constitutional: alert, oriented, well developed Respiratory: clear to auscultation, normal air movement Cardiovascular: nl pulses, regular rate and rhythm Gastrointestinal: non-tender, soft Musculoskeletal: nl extremities to inspection Extremities: normal pulses, other (No edema, clubbing or cyanosis) Neurological: FIELD NURSE CASE MANAGER II-XII intact, nl mental status, nl speech, nl strength ( Back to baseline) Results Result Diagram: 02/26/17 0702 02/26/17 0702 Results 24 hrs Laboratory Tests Test 02/25/17 17:41 02/25/17 20:04 02/26/17 07:02 02/26/17 07:45 Bedside Glucose 139 227 H 180 White Blood Count 14.2 H Red Blood Count 3.10 L Hemoglobin 9.1 L Hematocrit 26.6 L Mean Corpuscular Volume 85.8 Mean Corpuscular Hemoglobin 29.4 Mean Corpuscular Hemoglobin Concent 34.2 Red Cell Distribution Width 14.4 Platelet Count 7 #*L Mean Platelet Volume 11.4 H Neutrophils % Segmented Neutrophils % (Manual) 6 L Band Neutrophils % (Manual) 2 Lymphocytes % Lymphocytes % (Manual) 22 Reactive Lymphocytes % (Manual) 4 H Monocytes % Monocytes % (Manual) 8 Eosinophils % Basophils % Metamyelocytes % (manual) 4 H Myelocytes % (Manual) 3 H Promyelocytes % (Manual) 2 H Blast Cells % (Manual) 49.5 H Nucleated Red Blood Cells % 0.0 Neutrophils # Neutrophils # (Manual) 0.9 L Band Neutrophils # 0.2 Absolute Lymphocytes (Manual) 3.1 H Lymphocytes # Reactive Lymphocytes # 0.5 H Monocytes # Absolute Monocytes (Manual) 1.1 H Eosinophils # Basophils # Metamyelocytes # 0.5 H Myelocytes # 0.4 H Promyelocytes # 0.2 H Nucleated Red Blood Cells # Platelet Estimate SIG DECREASED Polychromasia 1+ Anisocytosis 1+ Microcytosis 1+ Sodium Level 139 Potassium Level 3.8 Chloride Level 104 Carbon Dioxide Level 26 Anion Gap 13 Blood Urea Nitrogen 20 Creatinine 0.79 Glucose Level 157 Calcium Level 8.4 Magnesium Level 2.1 Total Bilirubin 1.2 Direct Bilirubin 0.00 Indirect Bilirubin 1.2 H Aspartate Amino Transf (AST/SGOT) 18 Alanine Aminotransferase (ALT/SGPT) 41 Alkaline Phosphatase 55 B-Type Natriuretic Peptide 2200 H Total Protein 6.3 Albumin 2.8 L Globulin 3.50 H Albumin/Globulin Ratio 0.80 Test 02/26/17 11:46 Bedside Glucose 201 Imaging Free Text/Dictation PROCEDURE: XR Chest. CLINICAL INDICATION: Shortness of breath. TECHNIQUE: Single frontal view. COMPARISON: February 24, 2017. FINDINGS: The left arm PICC line tip is in the upper superior vena cava. There is mild atelectasis at the left lung base. The lungs are otherwise clear. Pulmonary edema is no longer present. The heart size is normal. There is no pleural effusion. There is no pneumothorax. IMPRESSION: 1. Left arm PICC line tip in the upper superior vena cava. 2. Mild left basilar atelectasis. 3. Pulmonary edema no longer present. 4. Otherwise unremarkable chest radiograph. RPTAT: QQ .Hemal Ramirez MD, MD Date Time Electronically viewed and signed by .Hemal Ramirez MD, MD on 02/26/2017 10:30 Medications Medications Current Medications Ondansetron HCl (Zofran Tab) 4 mg Q6H PRN PO NAUSEA AND/OR VOMITING; Start at 23:30 Acetaminophen (Tylenol Supp) 650 mg Q4H PRN MA PAIN LEVEL 1-3 OR FEVER; Start 02/20/17 at 23:30 Pantoprazole 40 mg 40 mg DAILY@06 PO Last administered on 02/26/17 06:02; Admin Dose 40 MG; Start 02/21/17 at 06:00 Meropenem/Sodium Chloride (Merrem 1 Gm/50 ml (Pmx)) 50 ml @ 100 mls/hr Q8 IVPB Last administered on 02/26/17 06:02; Admin Dose 100 MLS/HR; Start 02/21/17 at 05:00 Atorvastatin Calcium (Lipitor) 40 mg DAILY PO Last administered on 02/25/17 09:19; Admin Dose 40 MG; Start 02/20/17 at 23:30 Miscellaneous Information 1 ea NOTE XX ; Start 02/21/17 at 03:00 Glucose (Glutose) 15 gm Q15M PRN PO DECREASED GLUCOSE; Start 02/21/17 at 03:00 Glucose (Glutose) 22.5 gm Q15M PRN PO DECREASED GLUCOSE; Start 02/21/17 at 03: 00 Dextrose (D50w Syringe) 25 ml Q15M PRN IV DECREASED GLUCOSE; Start 02/21/17 at 03:00 Dextrose (D50w Syringe) 50 ml Q15M PRN IV DECREASED GLUCOSE; Start 02/21/17 at 03:00 Glucagon (Glucagen) 1 mg Q15M PRN IM DECREASED GLUCOSE; Start 02/21/17 at 03: 00 Glucose (Glutose) 15 gm Q15M PRN BUCCAL DECREASED GLUCOSE; Start 02/21/17 at 03:00 IV Flush (NS 10 ml) 10 ml PRN PRN IV IV PROTOCOL; Start 02/21/17 at 13:00 Ondansetron HCl (Zofran Inj) 4 mg Q4H PRN IV NAUSEA AND/OR VOMITING Last administered on 02/22/17 12:33; Admin Dose 4 MG; Start 02/22/17 at 08:30 Acetaminophen (Tylenol Tab) 650 mg Q4H PRN PO PAIN AND OR ELEVATED TEMP Last administered on 02/25/17 21:12; Admin Dose 650 MG; Start 02/22/17 at 09:30 Simethicone (Mylicon) 80 mg TID PRN PO DISTENSION/GAS/BLOATING Last administered on 02/25/17 17:46; Admin Dose 80 MG; Start 02/22/17 at 20:30 Diagnostic Test (Pha) (Accu-Chek) 1 ea 02 XX ; Start 02/24/17 at 02:00 Metoprolol Tartrate (Lopressor) 25 mg TID PO Last administered on 02/26/17 13 :12; Admin Dose 25 MG; Start 02/24/17 at 09:00 Lactobacillus Acidophilus/ Rhamnosus (Culturelle) 1 cap BID PO Last administered on 02/26/17 09:14; Admin Dose 1 CAP; Start 02/24/17 at 09:30 Hydromorphone HCl (Dilaudid) 2 mg Q4H PRN PO PAIN LEVEL 7-10; Start 02/24/17 at 11:50 Acetaminophen (Tylenol Tab) 325 mg PRN PRN PO BEFORE BLOOD TRANSFUSION Last administered on 02/26/17 13:05; Admin Dose 325 MG; Start 02/25/17 at 10:00 Methylprednisolone Sodium Succinate (Solu-Medrol) 60 mg PRN PRN IV for blood transfusion. Last administered on 02/26/17 13:05; Admin Dose 60 MG; Start at 10:00 Spironolactone (Aldactone) 25 mg DAILY PO Last administered on 02/26/17 09:15 ; Admin Dose 25 MG; Start 02/25/17 at 11:00 Acyclovir (Zovirax) 400 mg BID PO Last administered on 02/26/17 09:14; Admin Dose 400 MG; Start 02/25/17 at 14:30 Fluconazole (Diflucan) 100 mg DAILY PO Last administered on 02/26/17 09:15; Admin Dose 100 MG; Start 02/26/17 at 09:00 SOBIA NUNEZ Feb 26, 2017 14:34
--- NOTE | 2017-02-26 14:37 | PDOCDIS ---
Discharge Instructions CONDITION Patient Condition: Stable HOME CARE INSTRUCTIONS: Special Diet: DIABETIC DIET ACTIVITY: Activity Restrictions: Slowly Increase Activity FOLLOW UP/APPOINTMENTS Follow-up Plan Follow-up with Dr. Paiz or outpatient cardiology within the patient's network within 1-2 weeks, regarding episode of demand ischemia during sepsis. Follow-up with primary care physician within 1-2 weeks Follow-up with hematology, Dr. Herrera as patient likely to continue needing outpatient transfusions of platelets and packed red blood cells SOBIA NUNEZ Feb 26, 2017 14:37
[2017-02-26] MEDS ORDERED: METR500T PO (14:41)
[2017-02-26] MEDS ORDERED: ACYC400T2 PO (14:41)
[2017-02-26] MEDS ORDERED: LACT1CAP28 PO (14:41)
[2017-02-26] MEDS ORDERED: METO-448 PO (14:41)
[2017-02-26] MEDS ORDERED: FLUC100T PO (14:41)
--- NOTE | 2017-02-26 15:18 | CONS ---
Date/Time of Note Date/Time of Note DATE: 02/26/17 TIME: 15:16 Assessment/Plan Assessment/Plan Chief Complaint/Hosp Course SUBJECTIVE: Alert feels good, eating food, family at bedside, no fevers MICROBIOLOGY: Blood culture on 02/20/2017 grew Clostridium septicum. Repeat blood cultures negative. INDWELLINGS: The patient has PICC line. ANTIMICROBIALS: 1. Meropenem. 2. Fluconazole. 3. Acyclovir PHYSICAL EXAMINATION: GENERAL: This is well-developed, well-nourished elderly [place] man who is in no distress. HEENT: Head atraumatic, normocephalic. Sclerae anicteric. Buccal mucosa dry. NECK: Supple. CHEST: Rise symmetrical. Breath sounds diminished to bases. HEART: S1, S2. ABDOMEN: Soft, bowel tones present. EXTREMITIES: Without cyanosis. ASSESSMENT: 1. Severe sepsis status post shock, markedly improved. 2. Bacteremia with repeat blood cultures negative. 3. Acute cholecystitis with HIDA scan yesterday was normal, cholecystostomy drain placement was cancelled. 4. Acute myelogenous leukemia, patient refusing chemotherapy and getting treatment per naturopathic physician that he sees outpatient. 5. Acute anemia, patient is getting blood transfusions on this admission. 6. Non-ST elevation myocardial infarction. 7. Diabetes. PLAN: Remains stable, repeat cultures negative. We will change meropenem to Flagyl and anticipate discharge on Flagyl for 10 more days Discussed with patient Problems: Consultation Date/Type/Reason Admit Date/Time Feb 21, 2017 at 00:08 Initial Consult Date 02/21/17 Type of Consultation: id Referring Provider: SOBIA NUNEZ Exam/Review of Systems Vital Signs Vitals Vital Signs Date Time Temp Pulse Resp B/P Pulse Ox O2 Delivery O2 Flow Rate FiO2 02/26/17 12:00 78 02/26/17 11:24 98.6 19 133/70 99 02/24/17 09:00 Room Air 02/24/17 01:21 21 Intake and Output 02/25/17 02/25/17 02/26/17 15:00 23:00 07:00 Intake Total 1120 ml 1200 ml Balance 1120 ml 1200 ml Results Result Diagram: 02/26/17 0702 02/26/17 0702 Results 24 hrs Laboratory Tests Test 02/25/17 17:41 02/25/17 20:04 02/26/17 07:02 02/26/17 07:45 Bedside Glucose 139 227 H 180 White Blood Count 14.2 H Red Blood Count 3.10 L Hemoglobin 9.1 L Hematocrit 26.6 L Mean Corpuscular Volume 85.8 Mean Corpuscular Hemoglobin 29.4 Mean Corpuscular Hemoglobin Concent 34.2 Red Cell Distribution Width 14.4 Platelet Count 7 #*L Mean Platelet Volume 11.4 H Neutrophils % Segmented Neutrophils % (Manual) 6 L Band Neutrophils % (Manual) 2 Lymphocytes % Lymphocytes % (Manual) 22 Reactive Lymphocytes % (Manual) 4 H Monocytes % Monocytes % (Manual) 8 Eosinophils % Basophils % Metamyelocytes % (manual) 4 H Myelocytes % (Manual) 3 H Promyelocytes % (Manual) 2 H Blast Cells % (Manual) 49.5 H Nucleated Red Blood Cells % 0.0 Neutrophils # Neutrophils # (Manual) 0.9 L Band Neutrophils # 0.2 Absolute Lymphocytes (Manual) 3.1 H Lymphocytes # Reactive Lymphocytes # 0.5 H Monocytes # Absolute Monocytes (Manual) 1.1 H Eosinophils # Basophils # Metamyelocytes # 0.5 H Myelocytes # 0.4 H Promyelocytes # 0.2 H Nucleated Red Blood Cells # Platelet Estimate SIG DECREASED Polychromasia 1+ Anisocytosis 1+ Microcytosis 1+ Sodium Level 139 Potassium Level 3.8 Chloride Level 104 Carbon Dioxide Level 26 Anion Gap 13 Blood Urea Nitrogen 20 Creatinine 0.79 Glucose Level 157 Calcium Level 8.4 Magnesium Level 2.1 Total Bilirubin 1.2 Direct Bilirubin 0.00 Indirect Bilirubin 1.2 H Aspartate Amino Transf (AST/SGOT) 18 Alanine Aminotransferase (ALT/SGPT) 41 Alkaline Phosphatase 55 B-Type Natriuretic Peptide 2200 H Total Protein 6.3 Albumin 2.8 L Globulin 3.50 H Albumin/Globulin Ratio 0.80 Test 02/26/17 11:46 Bedside Glucose 201 Medications Medications Current Medications Ondansetron HCl (Zofran Tab) 4 mg Q6H PRN PO NAUSEA AND/OR VOMITING; Start at 23:30 Acetaminophen (Tylenol Supp) [address] PAIN LEVEL 1-3 OR FEVER; Start 02/20/17 at 23:30 Pantoprazole 40 mg 40 mg DAILY@06 PO Last administered on 02/26/17t 06:02; Admin Dose 40 MG; Start 02/21/17 at 06:00 Meropenem/Sodium Chloride (Merrem 1 Gm/50 ml (Pmx)) 50 ml @ 100 mls/hr Q8 IVPB Last administered on 02/26/17 06:02; Admin Dose 100 MLS/HR; Start 02/21/17 at 05:00 Atorvastatin Calcium (Lipitor) 40 mg DAILY PO Last administered on 02/25/17 09:19; Admin Dose 40 MG; Start 02/20/17 at 23:30 Miscellaneous Information 1 ea NOTE XX ; Start 02/21/17 at 03:00 Glucose (Glutose) 15 gm Q15M PRN PO DECREASED GLUCOSE; Start 02/21/17 at 03:00 Glucose (Glutose) 22.5 gm Q15M PRN PO DECREASED GLUCOSE; Start 02/21/17 at 03: 00 Dextrose (D50w Syringe) 25 ml Q15M PRN IV DECREASED GLUCOSE; Start 02/21/17 at 03:00 Dextrose (D50w Syringe) 50 ml Q15M PRN IV DECREASED GLUCOSE; Start 02/21/17 at 03:00 Glucagon (Glucagen) 1 mg Q15M PRN IM DECREASED GLUCOSE; Start 02/21/17 at 03: 00 Glucose (Glutose) 15 gm Q15M PRN BUCCAL DECREASED GLUCOSE; Start 02/21/17 at 03:00 IV Flush (NS 10 ml) 10 ml PRN PRN IV IV PROTOCOL; Start 02/21/17 at 13:00 Ondansetron HCl (Zofran Inj) 4 mg Q4H PRN IV NAUSEA AND/OR VOMITING Last administered on 02/22/17 12:33; Admin Dose 4 MG; Start 02/22/17 at 08:30 Acetaminophen (Tylenol Tab) 650 mg Q4H PRN PO PAIN AND OR ELEVATED TEMP Last administered on 02/25/17 21:12; Admin Dose 650 MG; Start 02/22/17 at 09:30 Simethicone (Mylicon) 80 mg TID PRN PO DISTENSION/GAS/BLOATING Last administered on 02/25/17 17:46; Admin Dose 80 MG; Start 02/22/17 at 20:30 Diagnostic Test (Pha) (Accu-Chek) 1 ea 02 XX ; Start 02/24/17 at 02:00 Metoprolol Tartrate (Lopressor) 25 mg TID PO Last administered on 02/26/17 13 :12; Admin Dose 25 MG; Start 02/24/17 at 09:00 Lactobacillus Acidophilus/ Rhamnosus (Culturelle) 1 cap BID PO Last administered on 02/26/17 09:14; Admin Dose 1 CAP; Start 02/24/17 at 09:30 Hydromorphone HCl (Dilaudid) 2 mg Q4H PRN PO PAIN LEVEL 7-10; Start 02/24/17 at 11:50 Acetaminophen (Tylenol Tab) 325 mg PRN PRN PO BEFORE BLOOD TRANSFUSION Last administered on 02/26/17 13:05; Admin Dose 325 MG; Start 02/25/17 at 10:00 Methylprednisolone Sodium Succinate (Solu-Medrol) 60 mg PRN PRN IV for blood transfusion. Last administered on 02/26/17 13:05; Admin Dose 60 MG; Start at 10:00 Spironolactone (Aldactone) 25 mg DAILY PO Last administered on 02/26/17 09:15 ; Admin Dose 25 MG; Start 02/25/17 at 11:00 Acyclovir (Zovirax) 400 mg BID PO Last administered on 02/26/17 09:14; Admin Dose 400 MG; Start 02/25/17 at 14:30 Fluconazole (Diflucan) 100 mg DAILY PO Last administered on 02/26/17 09:15; Admin Dose 100 MG; Start 02/26/17 at 09:00 EDWARD KINGSLEY NP Feb 26, 2017 15:18
--- NOTE | 2017-02-26 15:24 | CONS ---
Date/Time of Note Date/Time of Note DATE: 02/26/17 TIME: 15:23 Consult Date/Type/Reason Admit Date/Time Feb 21, 2017 at 00:08 Initial Consult Date 02/21/17 Type of Consultation: cv Ordering Provider: SOBIA WHEELER Subjective Cardiology follow up/ critical care note: S: Case discussed with the staff and Dr Wheeler Rhythm strip was reviewed. Patient remains sinus rhythm. No episode of atrial fibrillation so far. Patient denies any chest pain or pressure to me. Patient denies any shortness of breath to me now and wants to go home He denies any active bleeding to be no dysuria or hematuria. O: General: thin no acute distress HEENT: NC/AT. pupils are equal. round. NECK: NO JVD. no stridor. CV: RRR. systolic murmur; no gallop or rubs. PULM: no wheezing or rhonchi. GI: SOFT, NT, ND, no rebound or guarding Extremity: trace B/L LE edema. no clubbing. neuro: awake and alert, OX3. Psych: calm and pleasant rectal: deferred : s/p ha cathere in place echo personally reviewed: Conclusions 1. Lower limits of normal systolic function. Normal left ventricular cavity size. Mild concentric left ventricular hypertrophy. Ejection fraction is visually estimated at 50-55 %. Tissue Doppler/Mitral Doppler indices are consistent with impaired relaxation (Stage I diastolic dysfunction). 2. Mitral valve leaflets appear mildly thickened. Moderate mitral annular calcification. There is trace to mild mitral valve regurgitation. 3. No significant aortic stenosis or insufficiency. Aortic cusps appear mildly calcified. 4. Normal appearance of the tricuspid valve. Estimated peak PA systolic pressure 39 mmHg. There is mild tricuspid regurgitation. 5. Dilated IVC without respiratory collapse consistent with elevated right atrial pressure. Objective Vital Signs Date Time Temp Pulse Resp B/P Pulse Ox O2 Delivery O2 Flow Rate FiO2 02/26/17 12:00 78 02/26/17 11:24 98.6 19 133/70 99 02/24/17 09:00 Room Air 02/24/17 01:21 21 Intake and Output 02/25/17 02/25/17 02/26/17 14:59 22:59 06:59 Intake Total 1120 ml 1200 ml Balance 1120 ml 1200 ml Results/Medications Result Diagram: 02/26/17 0702 02/26/17 0702 Results 24 hrs Laboratory Tests Test 02/25/17 17:41 02/25/17 20:04 02/26/17 07:02 02/26/17 07:45 Bedside Glucose 139 227 H 180 White Blood Count 14.2 H Red Blood Count 3.10 L Hemoglobin 9.1 L Hematocrit 26.6 L Mean Corpuscular Volume 85.8 Mean Corpuscular Hemoglobin 29.4 Mean Corpuscular Hemoglobin Concent 34.2 Red Cell Distribution Width 14.4 Platelet Count 7 #*L Mean Platelet Volume 11.4 H Neutrophils % Segmented Neutrophils % (Manual) 6 L Band Neutrophils % (Manual) 2 Lymphocytes % Lymphocytes % (Manual) 22 Reactive Lymphocytes % (Manual) 4 H Monocytes % Monocytes % (Manual) 8 Eosinophils % Basophils % Metamyelocytes % (manual) 4 H Myelocytes % (Manual) 3 H Promyelocytes % (Manual) 2 H Blast Cells % (Manual) 49.5 H Nucleated Red Blood Cells % 0.0 Neutrophils # Neutrophils # (Manual) 0.9 L Band Neutrophils # 0.2 Absolute Lymphocytes (Manual) 3.1 H Lymphocytes # Reactive Lymphocytes # 0.5 H Monocytes # Absolute Monocytes (Manual) 1.1 H Eosinophils # Basophils # Metamyelocytes # 0.5 H Myelocytes # 0.4 H Promyelocytes # 0.2 H Nucleated Red Blood Cells # Platelet Estimate SIG DECREASED Polychromasia 1+ Anisocytosis 1+ Microcytosis 1+ Sodium Level 139 Potassium Level 3.8 Chloride Level 104 Carbon Dioxide Level 26 Anion Gap 13 Blood Urea Nitrogen 20 Creatinine 0.79 Glucose Level 157 Calcium Level 8.4 Magnesium Level 2.1 Total Bilirubin 1.2 Direct Bilirubin 0.00 Indirect Bilirubin 1.2 H Aspartate Amino Transf (AST/SGOT) 18 Alanine Aminotransferase (ALT/SGPT) 41 Alkaline Phosphatase 55 B-Type Natriuretic Peptide 2200 H Total Protein 6.3 Albumin 2.8 L Globulin 3.50 H Albumin/Globulin Ratio 0.80 Test 02/26/17 11:46 Bedside Glucose 201 Medications Current Medications Ondansetron HCl (Zofran Tab) 4 mg Q6H PRN PO NAUSEA AND/OR VOMITING; Start at 23:30 Acetaminophen (Tylenol Supp) 650 mg Q4H PRN [place] PAIN LEVEL 1-3 OR FEVER; Start 02/20/17 at 23:30 Pantoprazole (Protonix Tab) 40 mg DAILY@06 PO Last administered on 02/26/17 06:02; Admin Dose 40 MG; Start 02/21/17 at 06:00 Atorvastatin Calcium (Lipitor) 40 mg DAILY PO Last administered on 02/25/17 09:19; Admin Dose 40 MG; Start 02/20/17 at 23:30 Miscellaneous Information 1 ea NOTE XX ; Start 02/21/17 at 03:00 Glucose (Glutose) 15 gm Q15M PRN PO DECREASED GLUCOSE; Start 02/21/17 at 03:00 Glucose (Glutose) 22.5 gm Q15M PRN PO DECREASED GLUCOSE; Start 02/21/17 at 03: 00 Dextrose (D50w Syringe) 25 ml Q15M PRN IV DECREASED GLUCOSE; Start 02/21/17 at 03:00 Dextrose (D50w Syringe) 50 ml Q15M PRN IV DECREASED GLUCOSE; Start 02/21/17 at 03:00 Glucagon (Glucagen) 1 mg Q15M PRN IM DECREASED GLUCOSE; Start 02/21/17 at 03: 00 Glucose (Glutose) 15 gm Q15M PRN BUCCAL DECREASED GLUCOSE; Start 02/21/17 at 03:00 IV Flush (NS 10 ml) 10 ml PRN PRN IV IV PROTOCOL; Start 02/21/17 at 13:00 Ondansetron HCl (Zofran Inj) 4 mg Q4H PRN IV NAUSEA AND/OR VOMITING Last administered on 02/22/17 12:33; Admin Dose 4 MG; Start 02/22/17 at 08:30 Acetaminophen (Tylenol Tab) 650 mg Q4H PRN PO PAIN AND OR ELEVATED TEMP Last administered on 02/25/17 21:12; Admin Dose 650 MG; Start 02/22/17 at 09:30 Simethicone (Mylicon) 80 mg TID PRN PO DISTENSION/GAS/BLOATING Last administered on 02/25/17 17:46; Admin Dose 80 MG; Start 02/22/17 at 20:30 Diagnostic Test (Pha) (Accu-Chek) 1 ea 02 XX ; Start 02/24/17 at 02:00 Metoprolol Tartrate (Lopressor) 25 mg TID PO Last administered on 02/26/17 13 :12; Admin Dose 25 MG; Start 02/24/17 at 09:00 Lactobacillus Acidophilus/ Rhamnosus (Culturelle) 1 cap BID PO Last administered on 02/26/17 09:14; Admin Dose 1 CAP; Start 02/24/17 at 09:30 Hydromorphone HCl (Dilaudid) 2 mg Q4H PRN PO PAIN LEVEL 7-10; Start 02/24/17 at 11:50 Acetaminophen (Tylenol Tab) 325 mg PRN PRN PO BEFORE BLOOD TRANSFUSION Last administered on 02/26/17 13:05; Admin Dose 325 MG; Start 02/25/17 at 10:00 Methylprednisolone Sodium Succinate (Solu-Medrol) 60 mg PRN PRN IV for blood transfusion. Last administered on 02/26/17 13:05; Admin Dose 60 MG; Start at 10:00 Spironolactone (Aldactone) 25 mg DAILY PO Last administered on 02/26/17 09:15 ; Admin Dose 25 MG; Start 02/25/17 at 11:00 Acyclovir (Zovirax) 400 mg BID PO Last administered on 02/26/17 09:14; Admin Dose 400 MG; Start 02/25/17 at 14:30 Fluconazole (Diflucan) 100 mg DAILY PO Last administered on 02/26/17 09:15; Admin Dose 100 MG; Start 02/26/17 at 09:00 Metronidazole (Flagyl) 500 mg Q8 PO ; Start 02/26/17 at 22:00; Status UNV Assessment/Plan Chief Complaint/Hosp Course 1. Non-ST elevation emotion myocardial infarction, most likely secondary to demand ischemia due to severe sepsis, shock, severe anemia. 2. Septic shock: Blood pressure has improved on off of pressors 3. Gram-negative bakari bacteremia, probably cholecystitis.: Urine culture is negative 4. Severe thrombocytopenia: Follow up with heme/onc 5. Acute myelocytic ascitic leukemia.: Follow with oncology recommendations 6. Leukocytosis. 7. Severe anemia. 8. History of diabetes. 9. History of dyslipidemia: Blood with LDL less than 70 currently. 10. diarrhea 11. Fluid overload RECOMMENDATIONS: cont current cardiac care f/u hem/onc rec. pt wants to go home though. f/u with surgery rec PAIGE DECKER MD [facility] Problems: PAIGE DECKER MD Feb 26, 2017 15:24
[2017-02-26] MEDS ORDERED: hydrALAzine 20 MG INJ IV ONE (19:00)
[2017-02-26] MEDS ORDERED: metroNIDAZOLE 500 MG TAB PO SCH (22:00)
== END 2017-02-26 20:45 | disposition home or self-care (01) | DRG 871 ==
LOC: E/R 17:07 → ICU 02-21 00:08 → TEL 02-24 13:05
PROVIDERS: ADMIT Legal Medicine; ATTEND Legal Medicine
PROC: 30243R1 Transfusion of Nonautologous Platelets into Central Vein, Percutaneous Approach (ICD-10-PCS; principal; 2017-02-20)
PROC: 30243N1 Transfusion of Nonautologous Red Blood Cells into Central Vein, Percutaneous Approach (ICD-10-PCS; 2017-02-20)
PROC: 02HV33Z Insertion of Infusion Device into Superior Vena Cava, Percutaneous Approach (ICD-10-PCS; 2017-02-26)
DX: A41.9 Sepsis, unspecified organism (principal); I21.A1 Myocardial infarction type 2; R65.21 Severe sepsis with septic shock; C92.00 Acute myeloblastic leukemia, not having achieved remission; D70.8 Other neutropenia; K80.42 Calculus of bile duct with acute cholecystitis without obstruction; D69.6 Thrombocytopenia, unspecified; K81.9 Cholecystitis, unspecified; E11.9 Type 2 diabetes mellitus without complications; I10 Essential (primary) hypertension; F41.9 Anxiety disorder, unspecified; R16.2 Hepatomegaly with splenomegaly, not elsewhere classified; I70.0 Atherosclerosis of aorta; I25.10 Atherosclerotic heart disease of native coronary artery without angina pectoris; B96.89 Other specified bacterial agents as the cause of diseases classified elsewhere; R19.7 Diarrhea, unspecified; D64.89 Other specified anemias; Z87.01 Personal history of pneumonia (recurrent)
CPT/HCPCS: 36415; 36430; 36569; 71010; 74177; 76700; 76937; 78226; 80048; 80053; 80061; 80202; 81001; 82150; 82550; 82553; 82962; 83605; 83690; 83735; 83880; 84100; 84484; 85025; 85610; 85730; 86644; 86674; 86850; 86900; 86901; 86920; 86945; 87040; 87045; 87075; 87081; 87086; 87177; 87205; 87400; 93005; 93306; 96374; 96375; J1940; A9537; J0133; J0360; J1170; J1450; J1815; J2185; J2405; J2930; J3370; J3475; J7030; J7040; J7050; J7060; J7070; P9016; P9035; Q9967

== ENCOUNTER 2017-03-07 10:04 | Inpatient (IN) | END 2017-03-07 23:33 | disposition hospice, home (50) | DRG 813 ==

== ENCOUNTER → 2017-03-10 | Day surgery (SDC) | END | disposition home or self-care (01) ==

== ENCOUNTER 2017-03-24 11:11 | Emergency (ER) | END 2017-03-25 00:07 | disposition home or self-care (01) ==

== ENCOUNTER 2017-03-27 20:01 | Observation (INO) | END 2017-03-28 10:57 | disposition home or self-care (01) ==

== ENCOUNTER 2017-04-03 13:50 | Inpatient (IN) | END 2017-04-11 17:12 | disposition home health service (06) | DRG 872 ==

== ENCOUNTER 2017-04-17 07:22 | Emergency (ER) | END 2017-04-17 17:08 | disposition home or self-care (01) ==

== ENCOUNTER 2017-04-22 23:36 | Inpatient (IN) | END 2017-04-28 22:15 | disposition home health service (06) | DRG 871 ==

== ENCOUNTER 2017-05-03 03:00 | Inpatient (IN) | END 2017-05-04 11:27 | disposition home health service (06) | DRG 835 ==

== ENCOUNTER 2017-05-18 18:23 | Inpatient (IN) | END 2017-05-25 19:48 | disposition hospice, inpatient (51) | DRG 834 ==